=== PATIENT | female | born 1975 | race Caucasian/White ===

== ENCOUNTER → 2017-07-28 11:17 | Outpatient (CLI) | payer OTHER, SELFPAY ==
[2017-07-28 11:44] LABS: Hematocrit 42.5 % (37-47); Hemoglobin 14.1 g/dl (12.0-15.0); Mean Corp Hgb Conc 33.2 g/gl (32-36); Mean Corpuscular Hgb 29.6 pg (27.0-32.0); Mean Corpuscular Volume 89.3 fL (81-99); Mean Platelet Vol. 9.8 fl (6.2-12.0); Platelet Count 207 K/mm3 (150-450); RBC Distribution Width CV 12.8 % (11.6-14.6); RBC Distribution Width SD 41.9 fl (35.1-43.9); Red Blood Count 4.76 M/mm3 (4.2-5.4); White Blood Count 5.5 K/mm3 (4.4-11.0)
[2017-07-28 11:46] LABS: Scan Indicated on CBC? Y/N NO
[2017-07-28 12:08] LABS: Albumin, Serum 3.8 g/dL (3.2-5.0); BUN 18 mg/dL (7-18); BUN/Creat Ratio 9.1 RATIO (10-20); Chloride 103 mmol/L (98-107); Creatinine, Serum 1.97 mg/dL (0.55-1.02); EST Glomerular Filtration Rate 30 mL/min (>60); Est Glom Filt Rate - Afr Amer 36 mL/min (>60); Ferritin 39 ng/mL (8-252); Glucose 112 mg/dL (74-106); Iron 117 ug/dL (50-170); Iron Binding Capacity,Total 338 ug/dL (250-450); Potassium 4.1 mmol/L (3.5-5.1); Sodium Level 139 mmol/L (136-145); Uric Acid 6.2 mg/dL (2.6-6.0)
[2017-07-28 12:12] LABS: PTHIN 76.4 pg/mL (18.4-80.1)
[2017-07-28 12:41] LABS: Protein:Creat Ratio 207 mg/g CRE (0-200)
== END ==
PROVIDERS: Family Provider Family Medicine; PCP Family Medicine; Visit Provider Internal Medicine Nephrology
DX: I12.9 Hypertensive chronic kidney disease with stage 1 through stage 4 chronic kidney disease, or unspecified chronic kidney disease (principal); N18.3 Chronic kidney disease, stage 3 (moderate)
CPT/HCPCS: 36415; 80069; 82570; 82728; 83540; 83550; 83970; 84156; 84550; 85027

== ENCOUNTER → 2017-09-18 15:49 | Outpatient (CLI) | payer OTHER, SELFPAY ==
[2017-09-18 17:35] LABS: Anion Gap 8 (5-15); BUN 36 mg/dL (7-18); BUN/Creat Ratio 16.4 RATIO (10-20); Calcium,Total 10.1 mg/dL (8.5-10.1); Chloride 108 mmol/L (98-107); EST Glomerular Filtration Rate 26 mL/min (>60); Est Glom Filt Rate - Afr Amer 31 mL/min (>60); Glucose 80 mg/dL (74-106); Potassium 4.5 mmol/L (3.5-5.1); Sodium Level 141 mmol/L (136-145)
== END ==
PROVIDERS: Family Provider Family Medicine; PCP Family Medicine; Visit Provider Internal Medicine Nephrology
DX: N18.4 Chronic kidney disease, stage 4 (severe) (principal)
CPT/HCPCS: 36415; 80048

== ENCOUNTER → 2018-02-02 16:06 | Outpatient (CLI) | payer OTHER, SELFPAY ==
[2018-02-02 17:10] LABS: Hematocrit 39.6 % (37-47); Hemoglobin 12.8 g/dl (12.0-15.0); Mean Corp Hgb Conc 32.3 g/gl (32-36); Mean Corpuscular Volume 89.8 fL (81-99); Mean Platelet Vol. 10.2 fl (6.2-12.0); Platelet Count 206 K/mm3 (150-450); RBC Distribution Width CV 12.9 % (11.6-14.6); RBC Distribution Width SD 42.3 fl (35.1-43.9); Red Blood Count 4.41 M/mm3 (4.2-5.4); White Blood Count 5.6 K/mm3 (4.4-11.0)
[2018-02-02 17:14] LABS: Scan Indicated on CBC? Y/N NO
[2018-02-02 17:21] LABS: Protein, Urine (Random) 16.3 mg/dL (<11.9); Protein:Creat Ratio 155 mg/g CRE (0-200)
[2018-02-02 17:54] LABS: Albumin, Serum 3.7 g/dL (3.2-5.0); BUN 26 mg/dL (7-18); Calcium,Total 9.4 mg/dL (8.5-10.1); Chloride 105 mmol/L (98-107); Creatinine, Serum 2.17 mg/dL (0.55-1.02); EST Glomerular Filtration Rate 26 mL/min (>60); Est Glom Filt Rate - Afr Amer 32 mL/min (>60); Ferritin 36 ng/mL (8-252); Glucose 78 mg/dL (74-106); Iron 75 ug/dL (50-170); Iron Binding Capacity,Total 315 ug/dL (250-450); PERCENT IRON SATURATION 23.8 % (15.0-55.0); Phosphorus 4.6 mg/dL (2.5-4.9); Sodium Level 138 mmol/L (136-145); Uric Acid 5.9 mg/dL (2.6-6.0)
[2018-02-02 18:05] LABS: PTHIN 43.3 pg/mL (18.4-80.1)
== END ==
PROVIDERS: Family Provider Family Medicine; PCP Family Medicine; Referring Provider Internal Medicine Nephrology; Visit Provider Internal Medicine Nephrology
DX: I12.9 Hypertensive chronic kidney disease with stage 1 through stage 4 chronic kidney disease, or unspecified chronic kidney disease (principal); N18.4 Chronic kidney disease, stage 4 (severe)
CPT/HCPCS: 36415; 80069; 82570; 82728; 83540; 83550; 83970; 84156; 84550; 85027

== ENCOUNTER → 2020-05-31 16:59 | Outpatient (CLI) | payer OTHER, SELFPAY ==
--- NOTE | 2020-05-31 17:19 | MRI_ITS ---
HISTORY: pre kidney transplant eval, hx polycystic kidney; prev mra 2014 TECHNIQUE: Routine [place]/brain 3D time of flight MR angiogram protocol was performed without gadolinium. 3D reconstructions were reviewed. COMPARISON: July 11, 2014 FINDINGS: # of images incl. paperwork: 197 Flow is present within bilateral intracranial ICA, DINORAH, MCA, vertebral, superior cerebellars, the basilar artery, and the chucker. The anterior communicating artery is patent. Bilateral posterior communicating arteries are present bilaterally. No aneurysms, stenoses, occlusions, nor dissections. MRI/MRA Head ONLY without Contrast IMPRESSION: Normal. at 0258 Reported and signed by: Andrew Eubanks MD Electronically Signed: Andrew Eubanks MD at 2:57 EST Tel , Service support ,
== END ==
PROVIDERS: PCP Family Medicine
DX: Z01.818 Encounter for other preprocedural examination (principal)
CPT/HCPCS: 70544

== ENCOUNTER → 2020-06-16 07:03 | Outpatient (CLI) | payer OTHER, SELFPAY ==
--- NOTE | 2020-06-16 07:07 | ECHOCS_ITS ---
Reason For Study: Pre Kidney Transplant Eval Procedure This was a 2D Doppler, Color Flow transthoracic echocardiogram. The study was technically difficult. Contrast injection was performed. Exam performed in department. Left Ventricle Normal LV size. The estimated ejection fraction is 55 %. No evidence for diastolic dysfunction. No regional wall motion abnormalities noted. Right Ventricle Normal RV size. Normal systolic function. Atria Normal left atrium. Normal right atrium. No doppler evidence for ASD. Mitral Valve There is no mitral valve stenosis. No mitral valve insufficiency. Tricuspid Valve There is no tricuspid stenosis. Unable to estimate RV systolic pressure due to inadequate jet, pulmonary artery pressure probably normal. Aortic Valve There is no aortic stenosis. No aortic valve insufficiency. Pulmonic Valve There is no pulmonic valvular stenosis. No pulmonic valve insufficiency. Great Vessels Normal aortic root. Pericardium/Pleural No pericardial effusion. Medication 22 gauge I.V. with prn adaptor inserted into right arm. Diluted definity 2ml given slow IV push to enhance endocardial definition. MMode/2D Measurements & Calculations LVIDd: 3.8 cm IVSd: 0.96 cm LA dimension: 3.0 cm LVIDs: 2.2 cm LVPWd: 1.1 cm RVDd: 3.5 cm FS: 40.7 % LAV(MOD-bp): 36.2 ml LA A4 area: 12.9 cm2 RA A4 area: 12.5 cm2 LAV(MOD-bp) Indexed: 27.1 ml/m2 LAV(MOD-sp2): 46.0 ml LAV(MOD-sp4): 28.5 ml Time Measurements MV dec time: 0.27 sec Doppler Measurements & Calculations MV E max mk: 56.3 cm/sec Lat Peak E' Mk: 11.4 cm/sec Med Peak E' Mk: 8.4 cm/sec MV A max mk: 65.6 cm/sec E/E' lat: 4.9 E/E' med: 6.7 MV E/A: 0.86 MV V2 max: 69.0 cm/sec MV P1/2t max mk: 56.5 cm/sec Ao V2 max: 92.9 cm/sec MV max P.9 mmHg MV P1/2t: 73.2 msec Ao max P.4 mmHg MV V2 mean: 38.0 cm/sec MV dec slope: 226.0 cm/sec2 MV mean P.68 mmHg MV V2 VTI: 15.3 cm MVA(P1/2t): 3.0 cm2 LV V1 max: 86.4 cm/sec PA V2 max: 64.5 cm/sec LV V1 max P.0 mmHg Interpretation Summary The estimated ejection fraction is 55 %. No evidence for diastolic dysfunction. Ordering Physician: SARAY EM Referring Physician: SARAY EM Performed By: Baljit Ribeiro RCS
--- NOTE | 2020-06-16 13:41 | STRESSREP ---
Stress Test Report Date: [06/16/2020] Procedure: Exercise tolerance test/imaging study Indications: [Preoperative evaluation] Consent: Per the patient Procedure: The patient exercised on a James protocol for [9 minutes] achieving a peak heart rate of [171] bpm ([97]% predicted maximal heart rate) with a peak blood pressure [160/82] mmHg and a peak MET capacity of [10.1] METs. The baseline ECG demonstrated [Normal sinus rhythm]. The peak exercise ECG demonstrated [About [address] depressions in the inferior and lateral leads]. EKG during recovery revealed [Return of ST segments to baseline] [There were no cardiac dysrhythmias pretest, during exercise, or recovery]. The functional capacity was considered [Excellent for age]. There was [no complaint of chest discomfort during exercise or recovery]. The examination was discontinued secondary to [Achieving target heart rate]. Impression: 1. Technically adequate (percent predicted maximal heart rate greater than 85%) exercise tolerance test 2. Stress test is[positive] for exercise-induced EKG changes of ischemia. This could be a false positive finding. 3. The test test is [negative] for exercise-induced chest pain 4. Functional capacity is[excellent for age] 5. Nuclear images pending Myocardial perfusion imaging study: Technique: The patient was injected with [11.3] mCi of technetium 99m Cardiolite and subsequently rest SPECT Cardiolite nuclear imaging was obtained in the horizontal long, vertical long, and short axis views. The patient exercised on a James protocol. Please see above for details. The patient was injected with [32.8] mCi of technetium 99m Cardiolite and subsequently stress SPECT Cardiolite nuclear imaging was obtained in the horizontal long, vertical long, and short axis views. A gated Cardiolite study at peak stress was obtained. Interpretation: Rest and stress SPECT Cardiolite nuclear imaging status post realignment, normalization, and attenuation correction, demonstrates [normal myocardial radioisotope uptake]. The gated Cardiolite study demonstrates [no significant regional wall motion abnormalities]. The reported LVEF is [74]%. Impression: 1. There is[no evidence of significant ischemia or infarction]. 2. The gated Cardiolite study reports an LVEF of [74]%. This note was generated with [employer] software. It may contain incorrect words, spelling, and punctuation that were not noted in checking the note before signing.
== END ==
PROVIDERS: PCP Family Medicine
DX: Z01.818 Encounter for other preprocedural examination (principal); Q61.3 Polycystic kidney, unspecified
CPT/HCPCS: 78452; 93017; 93306; A9500; Q9957; A4216; C8929; J2785

== ENCOUNTER 2022-12-04 02:29 | Emergency (ER) | payer OTHER, SELFPAY ==
[2022-12-04 02:33] VITALS: BP 129/79; PULSE 66; RESP 16; TEMP 36.7; O2SAT 99; BMI 25.4
[2022-12-04 02:37] VITALS: BP 129/79; PULSE 65; RESP 18; TEMP 36.7; O2SAT 100
--- NOTE | 2022-12-04 02:37 | EX.ED.GENINJ ---
HPI History of Present Illness Chief Complaint: Nausea/Vomiting [facility] Medical History (Updated 12/04/22 @ 04:[address] Manny Weber, DO) End-stage renal disease needing dialysis HTN (hypertension) Peritoneal dialysis catheter in place Home Medications amlodipine 5 mg-benazepril 20 mg capsule 1 cap PO DAILY 12/04/22 [History Last Taken Unknown] calcitriol 0.5 mcg capsule 0.5 mcg PO QHS 12/04/22 [History Last Taken Unknown] diphenhydramine HCl 25 mg capsule (Allergy (diphenhydramine)) 25 mg PO Q4H PRN allergic reaction 12/04/22 [History Last Taken Unknown] ergocalciferol (vitamin D2) 1,250 mcg (50,000 unit) capsule 50,000 unit PO QWEEK 12/04/22 [History Last Taken Unknown] ferrous sulfate 324 mg (65 mg iron) tablet,delayed release 324 mg PO DAILY 12/04/22 [History Last Taken Unknown] hydrocodone-acetaminophen 5-325mg 5mg-325mg 1 tab PO Q6H PRN pain 12/04/22 [History Last Taken Unknown] sodium bicarbonate 650 mg tablet 650 mg PO TID 12/04/22 [History Last Taken Unknown] Allergy/AdvReac Type Severity Reaction Status Date / Time allopurinol AdvReac Nausea Verified 12/04/22 02:33 Social History Smoking Status: Never smoker EXAM Physical Exam Const Vital Signs: 12/04/22 02:33 12/04/22 02:37 Temperature 98.1 F 98.1 F Temperature Source Temporal Oral Pulse Rate 66 65 Respiratory Rate 16 18 Blood Pressure 129/79 H 129/79 H Blood Pressure Mean 95 95 Pulse Ox 99 100 MDM MDM MDM Narrative Medical decision making narrative: HISTORY OF PRESENT ILLNESS: 47-year-old female here with nausea vomiting abdominal pain. She notes pain is located left flank. Pain radiates to the groin. She further states there is nausea and vomiting. No history of kidney stones. No falls or trauma. No urinary complaints. She notes she had peritoneal dialysis catheter placed yesterday at outside hospital. Denies any complaints at the catheter site. No fevers. No vaginal bleeding or discharge. No history of abdominal surgeries. Last bowel movement was yesterday. There is no melena hematochezia REVIEW OF SYSTEMS: Pertinent positives: Flank pain Pertinent negatives: Urinary complaint PHYSICAL EXAM: Nursing triage notes reviewed, Vital signs reviewed Constitutional: please see mdm HENT: MMM Eyes: Pupils equal round and reactive to light, Extraocular muscles intact Neck: No stridor, no JVD, full neck ROM Lungs: Clear to auscultation, No wheezing or rales. No increased work of breathing, no conversational dyspnea, no accessory muscle use, no nasal flaring. No respiratory distress noted Heart: Regular rate and rhythm, No murmurs, No rubs and No gallops, 2+ distal pulses (radial, femoral, posterior tibial) in all extremities Abdomen: Soft, surgical site clean dry intact, peritoneal dialysis catheter clean dry intact no obvious bleeding, no fluctuance or induration. There is no tenderness palpation over peritoneal dialysis site there is no tenderness, rigidity, rebound or guarding, no obvious peritoneal signs, no palpable pulsatile abdominal masses, no auscultated abdominal bruit : No CVAT Extremities: No edema Neuro: No focal neurological deficits, cranial nerves II through XII intact, 5/5 strength in all extremities. Intact sensation to light touch in all extremities, 2+ reflexes bilateral patella tendons. Normal gait. No ataxia. Skin: No rash or lesions noted MEDICAL DECISION MAKING: Chief Complaint: Flank pain External records reviewed: No recent advanced imaging the abdomen or pelvis Factors affecting care: ESRD, hypertension status post peritoneal dialysis ALL IMAGES (IF OBTAINED) HAVE BEEN PERSONALLY REVIEWED AND INTERPRETED BY MYSELF. [facility] Narrative: 47-year-old female here with left flank pain. Notes this occurred acutely tonight. She notes left flank pain rating to the groin. I considered the following differential diagnosis: Nephrolithiasis, pyelonephritis, peritoneal dialysis catheter placement complication I obtained a Noncon CT scan, gave a gentle fluid bolus and Zofran for symptomatic control. I offered narcotic pain medicine but patient stated she just took her home [place]. She then requested a dose of narcotic pain medicine. Obtain a Noncon CT scan rule nephrolithiasis. I will obtain a UA to rule out UTI or pyelonephritis. Low suspicion for AAA given lack of pulsatile abdominal masses, pulse deficits or significant history. CT scan revealed no evidence of nephrolithiasis. Urine without evidence of infection. No clear life-limiting etiology to be ascertained. Suspect the patient's pain is secondary to gas insufflation secondary to recent peritoneal dialysis catheter placement. Instructed follow-up with her front maker lockstitch for dialysis evaluation as well as the surgery placement catheter. She was further instructed to continue pain medicine as prescribed at home. The patient and/or family, caregivers express understanding. The patient and/or family, caregivers agrees with the plan. Shared decision making: I will have a discussion with the patient and or visitors regarding risk/benefits of further testing or admission. They will be made aware of of the risk/benefits inherent in this decision they will be given the opportunity to voice understanding. Total critical care time today provided was at least 0 minutes. This excludes separately billable procedures. Critical care time (if documented) is secondary to the patient having high probability of clinically significant/life threatening deterioration in the patient's condition which required my urgent intervention. Lab Data Attestation: I reviewed the patient's lab results. Lab results narrative: CBC without leukocytosis, severe anemia, no thrombocytopenia. BMP without evidence of significant electrolyte abnormalities, no anion gap, noted ESRD Urine test is negative Labs: Laboratory Results - last 24 hr 12/04/22 02:45 WBC 11.0 RBC 4.09 L Hgb 12.0 Hct 37.9 MCV 92.7 MCH 29.3 MCHC 31.7 L RDW Std Deviation 42.8 RDW Coeff of Larisa 12.7 Plt Count 230 MPV 10.2 Immature Gran % (Auto) 0.400 Neut % (Auto) 93.0 H Lymph % (Auto) 3.2 L [place] % (Auto) 3.3 Eos % (Auto) 0.0 Baso % (Auto) 0.1 Absolute Neuts (auto) 10.3 H Absolute Lymphs (auto) 0.35 L Nucleated RBC % 0 Differential Comment SCANNED Sodium 138 Potassium 4.5 Chloride 109 H Carbon Dioxide 21.0 Anion Gap 8 BUN 55 H Creatinine 4.56 H Estim Creat Clear Calc 16.49 Est GFR (MDRD) Af Amer 13 L Est GFR (MDRD) Non-Af 11 L BUN/Creatinine Ratio 12.1 Glucose 198 H Calcium 9.1 Serum , Qual NEGATIVE Discharge Plan Triage Chief Complaint: Nausea/Vomiting ED Provider: Manny Weber Dx/Rx/DC Orders Clinical Impression: Postoperative pain Instructions: ED Post Op Wound Check, General Prescriptions: No Action hydrocodone-acetaminophen 5-325 mg tablet 1 tab PO Q6H PRN (Reason: pain) amlodipine-benazepril 5-20 mg capsule 1 cap PO DAILY Patient Comments: TAKE 1 CAPSULE BY MOUTH EVERY DAY calcitriol 0.5 mcg capsule 0.5 mcg PO QHS Patient Comments: TAKE 1 CAPSULE BY MOUTH EVERY DAY diphenhydramine HCl [Allergy (diphenhydramine)] 25 mg capsule 25 mg PO Q4H PRN (Reason: allergic reaction) ergocalciferol (vitamin D2) 1,250 mcg (50,000 unit) capsule 50,000 unit PO QWEEK Patient Comments: TAKE ONE CAPSULE BY MOUTH ONCE A WEEK ferrous sulfate 324 mg (65 mg iron) tablet,delayed release (DR/EC) 324 mg PO DAILY Patient Comments: TAKE 1 TABLET BY MOUTH EVERY DAY sodium bicarbonate 650 mg tablet 650 mg PO TID Patient Comments: TAKE 1 TABLET BY MOUTH THREE TIMES A DAY Primary Care Provider: Brenna Aceves Referrals: Brenna Aceves MD [Primary Care Provider] - Activity Restrictions/Additional Instructions: Thank you for trusting us with your care today! Please take Tylenol (2 pills, 650 mg) every 6 hours as needed for pain and fever control. If this does not control your pain please take [place] that has been provided. Please return to the emergency department if your symptoms change or worsen. Please follow with your primary care physician for further outpatient evaluation and management. Disposition Disposition: Home, Self Care
--- NOTE | 2022-12-04 02:48 | CT_ITS ---
EXAM: CT ABDOMEN AND PELVIS WITHOUT INTRAVENOUS CONTRAST CLINICAL INDICATION: Kidney Stone TECHNIQUE: Helically acquired images were obtained of the abdomen and pelvis without intravenous contrast. This CT exam was performed using one or more of the following dose reduction techniques: automated exposure control, adjustment of the mA and/or kV according to patient size, and/or use of iterative reconstruction technique. RADIATION DOSE: CTDIvol = 7.35 mGy, DLP = 422.15 mGy-cm COMPARISON: No relevant prior studies available. FINDINGS: LOWER THORAX: Unremarkable. Lung bases are clear. No cardiomegaly. No significant pericardial effusion. ABDOMEN: LIVER: Innumerable cysts throughout the liver. GALLBLADDER AND BILE DUCTS: Unremarkable. No calcified gallstones. No gallbladder distention or wall edema. No intra- or extrahepatic biliary ductal dilation. PANCREAS: Unremarkable. No focal cystic mass. SPLEEN: Unremarkable. Normal size without focal cystic or solid mass. ADRENALS: Unremarkable. No nodules. KIDNEYS AND URETERS: Innumerable renal cysts bilaterally. Normal renal size and position. No hydronephrosis. STOMACH AND BOWEL: Numerous diverticula without diverticulitis. No stomach or bowel distention. PELVIS: APPENDIX: No evidence of acute appendicitis. BLADDER: Unremarkable. REPRODUCTIVE: Complex cyst measuring 5.5 x 8.8 x 5.2 cm with a peripheral solid nodule that measures 3.2 cm in the left adnexa. Cyst measuring 2.4 cm right ovary. ABDOMEN and PELVIS: INTRAPERITONEAL SPACE: Mild pneumoperitoneum with peritoneal dialysis catheter in place. No ascites or other fluid collection. BONES/JOINTS: Unremarkable. No suspicious lytic or blastic abnormality. SOFT TISSUES: Unremarkable. No discrete abdominal or pelvic wall hernia. VASCULATURE: Unremarkable. Abdominal aorta is non-dilated. LYMPH NODES: Unremarkable. No enlarged lymph nodes. CT/Abdomen/Pelvis without Cont IMPRESSION: 1. Mild pneumoperitoneum with peritoneal dialysis catheter in place. 2. Complex cyst measuring 5.5 x 8.8 x 5.2 cm with a peripheral solid nodule that measures 3.2 cm in the left adnexa. Consider pelvic ultrasound for further evaluation. 3. Adult polycystic kidney and liver disease. 4. Innumerable cysts throughout the liver. 5. Numerous diverticula without diverticulitis. 6. Cyst measuring 2.4 cm right ovary. 7. Innumerable renal cysts bilaterally. Electronically Signed: Beto Doran MD at 4:00 EDT ,
[2022-12-04] MEDS: Ondansetron 4 MG/2 ML Vial IV (03:00)
[2022-12-04] MEDS: Morphine 4 MG/ML Syringe IV (03:07)
[2022-12-04 03:18] LABS: Absolute Lymphocyte Count 0.35 X10^3/uL (0.83-4.51); Absolute Neutrophil Count 10.3 X10^3/uL (2.0-7.7); Basophil# 0.01 X10^3/uL; Basophil% 0.1 % (0-1); Hematocrit 37.9 % (37-47); Lymphocyte # 0.35 X10^3/ul (0.83-4.51); Lymphocyte % 3.2 % (19-41); Mean Corp Hgb Conc 31.7 g/dL (32-36); Mean Corpuscular Hgb 29.3 pg (27.0-32.0); Mean Corpuscular Volume 92.7 fL (81-99); Mean Platelet Vol. 10.2 fl (6.2-12.0); Monocyte# 0.36 X10^3/uL; Monocyte% 3.3 % (0-10); NRBC Flagged by Analyzer 0 % (0-5); Neutrophil # 10.25 X10^3/uL (2.7-7.7); POSITIVE DIFFERENTIAL YES; Platelet Count 230 K/mm3 (150-450); RBC Distribution Width CV 12.7 % (11.6-14.6); RBC Distribution Width SD 42.8 fl (35.1-43.9); Red Blood Count 4.09 M/mm3 (4.2-5.4)
[2022-12-04 03:23] LABS: Differential Indicated SCAN CRITERIA MET
[2022-12-04 03:33] LABS: Internal QC Validated? YES +Cl - CLEAR BKGD; Pregnancy, Serum, hCG Quali. NEGATIVE Negative
[2022-12-04 03:38] LABS: Anion Gap 8 (5-15); BUN 55 mg/dL (7-18); BUN/Creat Ratio 12.1 RATIO (10-20); Calcium,Total 9.1 mg/dL (8.5-10.1); Chloride 109 mmol/L (98-107); Creatinine, Serum 4.56 mg/dL (0.55-1.02); EST Glomerular Filtration Rate 11 mL/min (>60); Est Glom Filt Rate - Afr Amer 13 mL/min (>60); Estimated Creatinine Clearance 16.49 ml/min; Glucose 198 mg/dL (74-106); Potassium 4.5 mmol/L (3.5-5.1); Sodium Level 138 mmol/L (136-145)
[2022-12-04 03:50] LABS: Differential Comment SCANNED
[2022-12-04 04:03] LABS: Mucous, Urine 0 SEEN /hpf (<or=2+); Red Blood Cells-Urine 0 SEEN /hpf (0-5)
[2022-12-04 04:06] LABS: Color, Urine Yellow (Yellow); Glucose, Dipstick 100 mg/dl (Normal); Ketone-Dipstick 5 mg/dl (Negative); Leukocyte Esterase-Dipstick 25 /ul (Negative); Nitrite-Dipstick Negative (Negative); Occult Blood-Urine 10 /ul (Negative); Protein-Dipstick 30 mg/dl (Negative); Urine Bilirubin Dipstick Negative (Negative); Urine Clarity Clear (Clear); Urine Urobilinogen Normal (Normal)
[2022-12-04 04:14] LABS: Bacteria RARE /hpf (None Seen); Renal Epithelial Cells 0-5 SEEN /hpf (0-5); Squamous Epithelial Cells - UA 0-5 SEEN /hpf (5-10); White Blood Cells 0-5 SEEN /hpf (0-5)
[2022-12-04] MEDS: Metoclopramide 10 MG/2 ML Vial 5 MG IV (04:44)
[2022-12-04 04:47] VITALS: BP 123/81; PULSE 64; RESP 18; TEMP 36.2; O2SAT 99
[2022-12-04 04:49] VITALS: BP 123/81; PULSE 64; RESP 16; O2SAT 99
[2022-12-04 06:06] VITALS: BP 113/74; PULSE 84; RESP 16; TEMP 36.2; O2SAT 99
== END 2022-12-04 06:08 | disposition home or self-care (01) ==
PROVIDERS: Emergency Provider Emergency Medicine; PCP Student in an Organized Health Care Education/Training Program; Visit Provider Emergency Medicine
DX: G89.18 Other acute postprocedural pain (principal); Z99.2 Dependence on renal dialysis; I12.0 Hypertensive chronic kidney disease with stage 5 chronic kidney disease or end stage renal disease; N18.6 End stage renal disease; R11.2 Nausea with vomiting, unspecified
CPT/HCPCS: 74176; 80048; 81001; 84703; 85025; 96361; 96374; 96375; 99284; J7040; A4216; J2405

== ENCOUNTER → 2023-04-02 | Outpatient (CLI) | payer OTHER, SELFPAY ==
--- NOTE | 2023-04-02 08:05 | ECHOD_ITS ---
Reason For Study: HYPERTENSION Procedure This was a 2D Doppler, Color Flow transthoracic echocardiogram. Exam performed in department. Left Ventricle Normal LV size. Left ventricular systolic function is normal. The estimated ejection fraction is 60 %. No regional wall motion abnormalities noted. Right Ventricle Normal RV size. Normal systolic function. Atria Normal left atrium. Normal right atrium. Mitral Valve Equivocal mitral valve prolapse. Tricuspid Valve Normal tricuspid valve. Aortic Valve Normal aortic valve. Trisinus/trileaflet aortic valve. Pulmonic Valve Normal pulmonic valve. Great Vessels Normal aortic root. The pulmonary artery is normal size. Normal inferior vena cava. Pericardium/Pleural No pericardial effusion. MMode/2D Measurements & Calculations LVIDd: 3.8 cm IVSd: 0.82 cm Ao root diam: 3.1 cm LVIDs: 2.5 cm LVPWd: 0.84 cm RVDd: 3.9 cm FS: 33.0 % LAV(MOD-bp): 30.2 ml LVAd ap4: 30.9 cm2 SV(MOD-sp4): 47.7 ml LAV(MOD-bp) Indexed: 15.4 ml/m2 LVLd ap4: 9.0 cm LAV(MOD-sp2): 32.8 ml EDV(MOD-sp4): 85.8 ml LAV(MOD-sp4): 26.4 ml EDV(sp4-el): 89.6 ml LVAs ap4: 18.0 cm2 LVLs ap4: 7.8 cm ESV(MOD-sp4): 38.2 ml ESV(sp4-el): 35.5 ml EF(MOD-sp4): 55.5 % EF(sp4-el): 60.4 % SV(sp4-el): 54.1 ml LA A4 area: 12.9 cm2 LA dimension(2D): 2.9 cm RA A4 area: 11.4 cm2 Time Measurements MV dec time: 0.17 sec Doppler Measurements & Calculations MV E max mk: 49.6 cm/sec Lat Peak E' Mk: 11.9 cm/sec Med Peak E' Mk: 10.3 cm/sec MV A max mk: 58.4 cm/sec E/E' lat: 4.2 E/E' med: 4.8 MV E/A: 0.85 Ao V2 max: 103.9 cm/sec LV V1 max: 85.8 cm/sec PA V2 max: 98.4 cm/sec Ao max P.3 mmHg LV V1 max P.9 mmHg ECHO/Echo Complete Interpretation Summary Normal LV size. Left ventricular systolic function is normal. The estimated ejection fraction is 60 %. Equivocal mitral valve prolapse. Multiple liver cysts noted. Ordering Physician: Randall Payne Referring Physician: NASRIN ABERNATHY Performed By: Eliana Bess RDCS
== END | disposition home or self-care (01) ==
LOC: CVS 08:04
PROVIDERS: PCP Student in an Organized Health Care Education/Training Program; Referring Provider Internal Medicine Cardiovascular Disease; Visit Provider Internal Medicine Cardiovascular Disease
DX: I10 Essential (primary) hypertension (principal); I34.1 Nonrheumatic mitral (valve) prolapse; K76.89 Other specified diseases of liver
CPT/HCPCS: 93306

== ENCOUNTER → 2023-05-29 | Outpatient (CLI) | payer OTHER, SELFPAY ==
--- OUTSIDE RECORDS SUMMARY | 2023-05-29 14:56 | XMS RPT_ITS | CCD ---
Author Name Unknown Address [address] [place] [address] Organization [facility] Care Team Providers Care Security Systems Integrator Name Role Phone Freda Vallecillo DO Primary Care Provider FREDA VALLECILLO DO Primary Care Physician [phone] JOSEMANUEL ALEXANDRA MD Primary Care Physician NASRIN ARMSTRONG, JOSEMANUEL Primary Care Unavailable NATASHA FLORES MD Consulting Unavailable CHASITY ARMSTRONG, DR DANIELLE MALDONADO Attending Unav ailleyla LOPEZ DO, NICHELLE Consulting Maite GASPAR MD, DR DANIELLE MALDONADO Attending Unav JOSEMANUEL Kelly MD Primary Care Unavailable CHASITY ARMSTRONG, DR DANIELLE MALDONADO Attending Unav kareem ALEXANDRA MD JOSEMANUEL [facility] Care Unavailable CHASITY ARMSTRONG, DR DANIELLE MALDONADO Attending Unav ailable FREDA VALLECILLO DO Primary Care Unavailmaddy GASPAR MD, DR DANIELLE MALDONADO Attending Unav kareem ALEXANDRA MD JOSEMANUEL Primary Care Unavailable DALOUL, REEM Referring Unavailable DALOUL, REEM Attending Unavailable FREDA VALLECILLO Primary Care Unavailable DALOUL, REEM Referring Unavailable DALOUL, REEM Attending Unavailable FREDA VALLECILLO Primary Care Unavailable DALOUL, REEM Referring Unavailable SARAHKOFREDA GRIMM Primary Care Unavailable FREDA VALLECILLO Primary Care Unavailable DALOUL, REEM Referring Unavailable DALOUL, REEM Referring Unavailable SARAHKOFREDA GRIMM Primary Care Unavailable DALOUL, REEM Referring Unavailable FREDA VALLECILLO Primary Care Unavailable DALOUL, REEM Referring Unavailable FREDA VALLECILLO Primary Care Unavailable DEVON FREDA Primary Care Unavailable DALOUL, REEM Referring Unavailable DALOUL, REEM Referring Unavailable DEVON, FREDA Primary Care Unavailable FRAKOWSKI, FREDA Primary Care Unavailable DALOUL, REEM Referring Unavailable DALOUL, REEM Attending Unavailable FREDA VALLECILLO Primary Care Unavailable DALOUL, REEM Referring Unavailable DALOUL, REEM Attending Unavailable PAO BREWSTER Referring Unavailable MAGDA MCDANIEL Attending Unavailable FREDA VALLECILLO Primary Care Unavailable SAUL, JOE ANIMAL SHELTER WORKER Admitting Unavailable SAUL, JOE ANIMAL SHELTER WORKER Primary Care Unavailable SAUL, JOE ANIMAL SHELTER WORKER Attending Unavailable FREDA VALLECILLO DO Consulting Unavailable PROVIDER, UNKNOWN Consulting Unavailable PROVIDER, UNKNOWN Consulting Unavailable SAUL, JOE ANIMAL SHELTER WORKER Admitting Unavailable SAUL, JOE ANIMAL SHELTER WORKER Primary Care Unavailable SAUL, JOE ANIMAL SHELTER WORKER Attending Unavailable LILLIAN PEREZ MD Referring Unava ilable FREDA VALLECILLO DO Consulting Unavailable PROVIDER, UNKNOWN Consulting Unavailable PROVIDER, UNKNOWN Consulting Unavailable SAUL, JOE ANIMAL SHELTER WORKER Primary Care Unavailable SAUL, JOE ANIMAL SHELTER WORKER Attending Unavailable SAUL, JOE ANIMAL SHELTER WORKER Admitting Unavailable FREDA VALLECILLO DO Consulting Unavailable PROVIDER, UNKNOWN Consulting Unavailable PROVIDER, UNKNOWN Consulting Unavailable LILLIAN PEREZ MD Primary Care Unava ilable LILLIAN PEREZ MD Attending Unava ilable LILLIAN PEREZ MD Admitting Unava ilable FREDA VALLECILLO DO Consulting Unavailable PROVIDER, UNKNOWN Consulting Unavailable PROVIDER, UNKNOWN Consulting Unavailable JOSEMANUEL ALEXANDRA MD Primary Care Unavailable JOSEMANUEL ALEXANDRA MD Attending Unavailable FREDA VALLECILLO DO Consulting Unavailable JOSEMANUEL ALEXANDRA MD Admitting Unavailable PROVIDER, UNKNOWN Consulting Unavailable PROVIDER, UNKNOWN Consulting Unavailable ANA BHFANNIENISH Primary Care Unavaila ble BUCKTOWARSINLILLIAN Devine Attending Unavaila ble LILLIAN PEREZ Admitting Unavaila ble FREDA VALLECILLO DO Consulting Unavailable PROVIDER, UNKNOWN Consulting Unavailable PROVIDER, UNKNOWN Consulting Unavailable SAUL, JOE ANIMAL SHELTER WORKER Admitting Unavailable SAUL, JOE ANIMAL SHELTER WORKER Primary Care Unavailable SAUL, JOE ANIMAL SHELTER WORKER Attending Unavailable FREDA VALLECILLO DO Consulting Unavailable PROVIDER, UNKNOWN Consulting Unavailable PROVIDER, UNKNOWN Consulting Unavailable Allergies Allergy Classification Reported Allergen(s) Allergy Type Date of Onset Reaction(s) Facility (7 sources) Allopurinol; Translations: [allopurinol] Drug Allergy 08-22-2021 Abdominal Discomfort, Cramping sensation quality (qualifier value) [facility] Work Phone: (2 sources) Lisinopril Drug Allergy 05-16-2020 [facility] (2 sources) Losartan Drug Allergy 05-16-2020 [facility] Medications Current Medications Medication Drug Class(es) Dates Sig (Normalized) Sig (Original) acetaminophen 325 mg / HYDROcodone bitartrate 5 mg oral tablet (1 source) Opioid Agonist Start: 12-03-2022 End: 12-08-2022 take 1 tablet by mouth every six hours as needed for pain Douglas 325- 5 mg oral tablet Dose = 1 tab(s), Oral, q6h, PRN for pain, X 5 day(s), # 20 tab(s), 0 Refill(s), Pharmacy: [facility], Acute post-operative pain, 177.8, cm, 12/03/22 9:02:00 EDT, Height, 76.9, kg, 12/03/22 9:02:00 EDT, Dosing Weight Start Date: 12/03/22 Stop Date: 12/08/22 Status: Ordered amLODIPine 5 mg oral tablet (1 source) Dihydropyridine Calcium Channel Dylan Start: 02-24-2023 amLODIPine 5 mg oral tablet Dose : 5 mg = 1 tab(s), Oral, qDay, # 30 tab(s), 0 Refill(s) Start Date: 02/24/23 Status: Ordered amLODIPine 5 mg / benazepril hydrochloride 20 mg oral capsule (5 sources) Dihydropyridine Calcium Channel Dylan, Angiotensin Converting Enzyme Inhibitor Start: 11-07-2022 take 1 capsule by mouth once daily in the morning amlodipine-benaz epril 5 mg-20 mg oral capsule Dose = 1 cap(s), Oral, qAM, # 90 cap(s), 0 Refill(s) Start Date: 11/07/22 Status: Ordered Completed/Discontinued Medications Medication Drug Class(es) Dates Sig (Normalized) Sig (Original) allopurinol 100 mg oral tablet (2 sources) Xanthine Oxidase Inhibitor Start: 09-25-2022 End: 10-24-2022 take 1 tablet by mouth once daily Allopurinol 100 MG tablet Take 1 tablet by mouth daily. 0 09/25/2022 10/24/2022 Discontinued Problems Problem Classification Problem Date Documented Date Episodic/Chronic Chronic kidney disease (2 sources) End stage renal disease; Translations: [End stage renal disease] Onset: 05-05-2022 Chronic Essential hypertension (7 sources) Hypertensive disorder; Translations: [Essential (primary) hypertension] Onset: 05-16-2020 05-16-2020 Chronic Genitourinary congenital anomalies (2 sources) Multiple renal cysts; Translations: [Polycystic kidney, unspecified] Onset: 05-16-2020 05-16-2020 Chronic Other diseases of kidney and ureters (5 sources) Kidney disease 11-07-2022 Episodic Other lower respiratory disease (5 sources) Dyspnea 11-07-2022 Episodic Other nervous system disorders (1 source) Postoperative pain ; Translations: [Other acute postprocedural pain] Onset: 12-03-2022 Episodic Other skin disorders (1 source) Nonscarring hair loss, unspecified; Translations: [Nonscarring hair loss, unspecified] Onset: 05-20-2023 Episodic Residual codes; unclassified (1 source) On waiting list for organ transplant; Translations: [Awaiting organ transplant status] Chronic Residual codes; unclassified (3 sources) Awaiting organ transplant status; Translations: [Other specified conditions influencing health status] Onset: 10-24-2022 10-24-2022 Chronic Results Test Name Value Interpretation Reference Range Facil ity Vital Signs Date Time Vital Sign Value Performing Clinician Mariel salinas 12-03-2022 12:55-0400 Body temperature 96.8 [degF] DR DANIELLE GASPAR MD [facility] 12-03-2022 12:55-0400 Diastolic Blood Pressure Non-Invasive [address] DANIELLE GASPAR MD [facility] 12-03-2022 12:55-0400 Heart rate 71 /min DR DANIELLE GASPAR MD [facility] 12-03-2022 12:55-0400 Reason For Taking VItal Signs DR DANIELLE GASPAR MD [facility] 12-03-2022 12:55-0400 Respiratory rate 16 /min DR DANIELLE GASPAR MD [facility] 12-03-2022 12:55-0400 Systolic Blood Pressure Non-Invasive [address] DANIELLE GASPAR MD [facility] 12-03-2022 12:44-0400 Body temperature 96.8 [degF] DR DANIELLE GASPAR MD [facility] 12-03-2022 12:44-0400 Diastolic Blood Pressure Non-Invasive [address] DANIELLE GASPAR MD [address] [place] [address] 12-03-2022 12:44-0400 Heart rate 63 /min DR DANIELLE GASPAR MD [address] [place] [place] [address] 12-03-2022 12:44-0400 Mean blood pressure 89 mm[Hg] DR DANIELLE GASPAR MD [facility] 12-03-2022 12:44-0400 Respiratory rate 16 /min DR DANIELLE GASPAR MD [facility] 12-03-2022 12:44-0400 Systolic Blood Pressure Non-Invasive [address] DANIELLE GASPAR MD [facility] 12-03-2022 12:38-0400 Diastolic Blood Pressure Non-Invasive [address] DANIELLE GASPAR MD [facility] 12-03-2022 12:38-0400 Heart rate 67 /min DR DANIELLE GASPAR MD [facility] 12-03-2022 12:38-0400 Mean blood pressure 87 mm[Hg] DR DANIELLE GASPAR MD [facility] 12-03-2022 12:38-0400 Respiratory rate 16 /min DR DANIELLE GASPAR MD [address] [place] [address] 12-03-2022 12:38-0400 Systolic Blood Pressure Non-Invasive [address] DANIELLE GASPAR MD [address] 12-03-2022 12:23-0400 Mean blood pressure 88 mm[Hg] DR DANIELLE GASPAR MD [address] [place] [address] 12-03-2022 11:53-0400 Body temperature 96.8 [degF] DR DANIELLE GASPAR MD [address] [place] [address] 12-03-2022 11:50-0400 Respiratory Rate - Anes 0 br/min DR DANIELLE GASPAR MD [address] [place] [address] 12-03-2022 11:45-0400 Respiratory Rate - Anes 11 br/min DR DANIELLE GASPAR MD [address] [place] [address] 12-03-2022 11:40-0400 Respiratory Rate - Anes 14 br/min DR DANIELLE GASPAR MD [address] [place] [address] 12-03-2022 11:20-0400 Body temperature 96.94 [degF] DR DANIELLE GASPAR MD [address] [place] [address] 12-03-2022 11:15-0400 Body temperature 96.84 [degF] DR DANIELLE GASPAR MD [address] [place] [address] 12-03-2022 11:10-0400 Body temperature 96.75 [degF] DR DANIELLE GASPAR MD [address] [place] [address] 12-03-2022 09:01-0400 Body height 177.[address] DANIELLE GASPAR MD [address] [place] [address] 12-03-2022 09:01-0400 Body weight 76.[address] DANIELLE GASPAR MD [address] 12-03-2022 09:01-0400 Heart rate 91 /min DR DANIELLE GASPAR MD [facility] 11-18-2022 08:09-[address] DANIELLE GASPAR MD [facility] 11-18-2022 08:09-[address] DANIELLE JIANG MD [facility] 11-18-2022 08:09-0400 Body height [address] DANIELLE GASPAR MD [facility] 11-18-2022 08:09-0400 Body temperature 98.06 [degF] DR DANIELLE GASPAR MD [facility] 11-18-2022 08:09-0400 Body weight 79.[address] DANIELLE GASPAR MD [facility] 11-18-2022 08:09-0400 Diastolic Blood Pressure Non-Invasive [address] DANIELLE GASPAR MD [facility] 11-18-2022 08:09-0400 Heart rate 83 /min DR DANIELLE GASPAR MD [facility] 11-18-2022 08:09-0400 Systolic Blood Pressure Non-Invasive [address] DANIELLE GASPAR MD [facility] 10-24-2022 08:46-0400 Body height 177.8 cm Magda Mcdaniel GLASS FORMING ENGINEER-ANIMAL SHELTER WORKER Work Phone: [facility] 10-24-2022 08:46-0400 Body mass index (BMI) [Ratio] 24.91 kg/m2 Magda Mcdaniel GLASS FORMING ENGINEER-ANIMAL SHELTER WORKER Work Phone: [facility] 10-24-2022 08:46-0400 Body temperature 97.2 [degF] Magda Mcdaniel GLASS FORMING ENGINEER-ANIMAL SHELTER WORKER Work Phone: [facility] 10-24-2022 08:46-0400 Body weight 78.74 kg Magda Mcdaniel GLASS FORMING ENGINEER-ANIMAL SHELTER WORKER Work Phone: [facility] 10-24-2022 08:46-0400 Diastolic blood pressure 77 mm[Hg] Magda Mcdaniel GLASS FORMING ENGINEER-ANIMAL SHELTER WORKER Work Phone: [facility] 10-24-2022 08:46-0400 Heart rate 80 /min Magda Mcdaniel GLASS FORMING ENGINEER-ANIMAL SHELTER WORKER Work Phone: [facility] 10-24-2022 08:46-0400 Systolic blood pressure 113 mm[Hg] Magda Mcdaniel GLASS FORMING ENGINEER-ANIMAL SHELTER WORKER Work Phone: [facility] 08-22-2021 08:42-0400 Body height 177.8 cm Pao Brewster GLASS FORMING ENGINEER-ANIMAL SHELTER WORKER Work Phone: [facility] 08-22-2021 08:42-0400 Body mass index (BMI) [Ratio] 25.47 kg/m2 Pao Brewster GLASS FORMING ENGINEER-ANIMAL SHELTER WORKER Work Phone: [facility] 08-22-2021 08:42-0400 Body temperature 99.1 [degF] Pao Brewster GLASS FORMING ENGINEER-ANIMAL SHELTER WORKER Work Phone: [facility] 08-22-2021 08:42-0400 Body weight 80.51 kg Pao Brewster APRN-ANIMAL SHELTER WORKER Work Phone: [facility] 08-22-2021 08:42-0400 Diastolic blood pressure 73 mm[Hg] Pao Brewster APRN-ANIMAL SHELTER WORKER Work Phone: [facility] 08-22-2021 08:42-0400 Heart rate 95 /min Pao Brewster APRN-ANIMAL SHELTER WORKER Work Phone: [facility] 08-22-2021 08:42-0400 Systolic blood pressure 118 mm[Hg] Pao Brewster GLASS FORMING ENGINEER-ANIMAL SHELTER WORKER Work Phone: [facility] Encounters Encounter Date Encounter Type Care Provider Facility Start: 05-20-2023 Encounter for genera l adult medical examination without abnormal findings JOSEMANUEL DAVALOSI [facility] Start: 05-20-2023 ambulatory JOSEMANUEL ARMSTRONG [facility] Start: 04-04-2023 ambulatory FREDA DEVON Facilit y:[facility] Start: 03-05-2023 ambulatory FREDA DEVON Facilit y:[facility] Start: 02-24-2023 End: 02-25-[address] DANIELLE GASPAR MD Facility:A Start: 02-24-2023 End: 02-24-[address] DANIELLE GASPAR MD [facility] Start: 02-02-2023 ambulatory FREDA VALLECILLO Facilit y:[facility] Start: 01-03-2023 ambulatory SARAY EM Facility:[facility] Start: 12-16-2022 End: 12-17-[address] DANIELLE GASPAR MD Facility:A Start: 12-16-2022 End: 12-16-[address] [facility] Start: 12-03-2022 End: 12-03-2022 ambulatory JOSEMANUEL ALEXANDRA MD Facility:A Start: 12-03-2022 End: 12-03-[address] DANIELLE GASPAR MD [facility] Start: 11-27-2022 End: 11-27-2022 ambulatory JOE HUGHES [facility] Start: 11-18-2022 End: 11-19-[address] DANIELLE GASPAR MD Facility:A Start: 11-18-2022 End: 11-18-[address] [facility] Start: 11-11-2022 End: 11-12-[address] DANIELLE GASPAR MD Facility:A Start: 11-11-2022 End: 11-11-[address] DANIELLE GASPAR MD [facility] Start: 11-02-2022 ambulatory FREDA SMITHNIRAJASHLYN Enrrique y:[facility] Start: 10-31-2022 End: 10-31-2022 ambulatory LILLIAN ARMSTRONG [facility] Start: 10-24-2022 ambulatory PAO Souza ity:[facility] Start: 10-24-2022 End: 10-24-2022 Office outpatient visit 25 minutes Magda Mcdaniel APRN-ANIMAL SHELTER WORKER Work Phone: [facility] Transplant [facility] Procedures Date Procedure Procedure Detail Performing Clinician Start: 12-03-2022 Peritoneal dialysis catheter (physical object) DR DANIELLE GASPAR MD Start: 09-19-2022 Urinalysis JOE BID WELL Plan of Treatment Date Care Activity Detail Author Start: 2025 Zoster vaccine hzv l justa for subcutaneous use ZOSTER (SHINGLES) VACCINE (1 of 2) [facility] Start: 04-04-2023 Screening for malign ant neoplasm of breast MAMMOGRAM SCREENING DISCUSSION [facility] Start: 01-03-2023 Influenza vaccination INFLUENZ A VACCINE (Season Ended) [facility] Start: 01-03-2022 Influenza vaccination INFLUENZ A VACCINE (Season Ended) [facility] Start: 08-18-2020 COVID-19 VACCINE (3 - Pfizer risk series) COVID-19 VACCINE (3 - Pfizer risk series) [facility] Start: 01-03-2020 Colonoscopy COLORECTAL CAN CER SCREENING DISCUSSION [facility] Start: 01-03-2020 Screening for malign ant neoplasm of colon COLORECTAL CANCER SCREENING DISCUSSION [facility] Start: 2015 Fasting lipid profile LIPID SCREENIN G [facility] Start: 2015 Lipid panel LIPID SCREENING [facility] Start: 2015 Screening mammography MAMMOGRA M SCREENING DISCUSSION [facility] Start: 01-03-1996 Screening for malign ant neoplasm of cervix CERVICAL CANCER SCREENING DISCUSSION [facility] Start: 1994 Third diphtheria, te tanus and acellular pertussis (DTaP) vaccination TDAP (ADULT) [facility] Start: 1993 Tetanus vaccination TETANUS [facility] Start: 1987 COVID-19 VACCINE (1) COVID-19 VACCIN E (1) [facility] Start: 1981 PNEUMOCOCCAL VACCINE SERIES (1 - PCV) PNEUMOCOCCAL VACCINE SERIES (1 - PCV) [facility] Start: 1975 Tetanus vaccination TETANUS [facility] Immunizations Immunization Date Immunization Notes Care Provider Fa cili 11-13-2022 hepatitis B vaccine, adult dosage DR DANIELLE GASPAR MD [facility] [place] 05-15-2022 hepatitis B vaccine, adult dosage DR DANIELLE GASPAR MD [facility] [place] 04-12-2022 hepatitis B vaccine, adult dosage DR DANIELLE GASPAR MD [facility] [place] 07-21-2020 SARS-CoV-2 mRNA (tozinameran) vaccine DR DANIELLE GASPAR MD [facility] [place] 06-30-2020 SARS-CoV-2 mRNA (tozinameran) vaccine DR DANIELLE GASPAR MD [facility] [place] Payers Date Payer Category Payer Private Health Insurance [employer] T RANS[employer]ANT GLOBAL [employer] [id number] 2020-Present [address] [place] [id number] 2020 Private Health Insurance [id number] 2019 Unknown [id number]. [id number] 2019 Unknown [id number] 1975 Unknown [id number] 2.16.840.1.029827.3.579. 2.627 1975 Unknown [id number] 2.16.840.1.474075.3.579. 2.627 1975 Unknown [id number] 2.16.840.1.518236.3.579. 2.627 1975 Unknown [id number] 2.16.840.1.686144.3.579. 2.627 1975 Unknown [id number] 2.16840.1.916790.3.579. 2.627 1975 Unknown [id number] 2.840.1.377763.3.579. 2.594 1975 Unknown [id number] 2.840.1.418392.3.579. 2.594 1975 Unknown [id number] 2.840.1.169524.3.579. 2.594 1975 Unknown [id number] 2.840.1.639710.3.579. 2.594 1975 Unknown [id number] 2.16840.1.238961.3.579. 2.594 1975 Unknown [id number] 2.16840.1.338142.3.579. 2.594 1975 Unknown [id number] 2.16840.1.741430.3.579. 2.594 1975 Unknown [id number] 2.16840.1.489473.3.579. 2.594 1975 Unknown [id number] 2.16.840.1.083068.3.579. 2.594 1975 Unknown [id number] 2.16840.1.765540.3.579. 2.594 1975 Unknown [id number] 2.16840.1.896813.3.579. 2.594 1975 Unknown [id number] 2.16.840.1.738520.3.579. 2.594 1975 Unknown [id number] 2.16.840.1.806594.3.579. 2.651 1975 Unknown [id number] 2.16.840.1.897458.3.579. 2.651 1975 Unknown [id number] 2.16.840.1.394444.3.579. 2.651 1975 Unknown [id number] 2.16.840.1.220140.3.579. 2.651 1975 Unknown [id number] 2.16.840.1.349678.3.579. 2.651 1975 Unknown [id number] 2.16.840.1.466464.3.579. 2.651 1975 Unknown [id number] 2.16.840.1.254137.3.579. 2.651 Social History Date Type Detail Facility Start: 05-16-2020 End: 11-07-2022 Tobacco smoking status NHIS Never smoked tobacco [facility] Start: 05-16-2020 Tobacco use and exposure Smoke less tobacco non-user [facility] Start: 05-16-2020 Alcohol intake Lifetime non-d nahun (finding) [facility] Start: 05-16-2020 History SDOH Alcohol Frequency 1 [facility] Start: 1975 Sex Assigned At Not on file O MACHADO [facility] Start: 05-16-2020 History of Social function [facility] Work Phone: Start: 05-16-2020 Alcohol Use Disorder Identification Test - Consumption [AUDIT-C] [facility] Work Phone: How often to you hav e a drink containing alcohol? Never [facility] Work Phone: Average Number of Drinks Not on file [facility] Sex Assigned At Female [facility] Functional Status Date Assessment Result Facility 12-03-2022 [facility]-03-2022 [facility] Status [facility] 12-03-2022 Functional Status NPO Status Maintained A [facility] Mental Status Date Assessment Result Facility 12-03-2022 Mental Status Oriented x 4 [facility] Clinical Notes 08-22-2021 to 12-03-2022 OYN Santos - 10/24/2022 9:00 AM EDTSusaSTEVE Padilla - 10/24/2022 9:00 AM EDTPatient InstructionsPatient InstructionsYON Jarrell - 08/22/2021 9:00 AM EDT Note Date & Type Note Facility 12-03-2022 Hospital Discharg e instructions Patient Education 12/03/2022 13:20:32 [facility] Discharge Instructions Template (02/2018) (CUSTOM) [facility] SAME DAY SURGERY DISCHARGE INSTRUCTIONS PLEASE FOLLOW THE INSTRUCTIONS BELOW MARKED WITH AN X: _x__ Regular Diet: Start with clear liquids, then soup and crackers and gradually add other foods. _x__ Drink extra fluids. ___ Special Diet Instructions: ___ ACTIVITY: _x__ Avoid stress to suture line. Since you have had an anesthetic, it would be advisable not to drive, drink alcohol, or make major decisions over the next 24 hours. You may require more rest tonight and tomorrow. ___ May resume regular activity as tolerated. _x__ _Do not lift more than 25 pounds.__ ___ Walk Only ___ ___ Do not go up and down stairs. ___ Do not ride in car until ___ _x__ Do not drive car for 3 days. ___ Do not have sexual intercourse. __x_ No heavy lifting, pushing or straining. _x_ Other: _Follow Dr. Gaspar's verbal and printed instructions. __ BATHING/SHOWERING: __x_ Sponge bathe until office visit. ___ Sitting in tub of warm water may relieve discomfort. ___ May tub bathe ___ May shower ___ On day after surgery sit in tub of warm water to soak off dressing. DRESSING: _x__ __Sponge bathe only._ ___ Check the operative area for signs of bleeding. Apply pressure to the bleeding site if necessary and call your physician. ___ Change dressing as necessary using sterile dressing material or bandaid. ___ Reinforce dressing as necessary. ___ Change and care for wound as follows: ___ ___ Wear bra for ___ days following breast surgery for comfort. ___ Change drip pad as needed. ___ Wear scrotal support for comfort. WATCH FOR SIGNS OF INFECTION: (Usually appears 36-48 hours after surgery) Increased temperature (101 degrees Fahrenheit or higher) Redness or swelling Increased pain Foul odor or drainage. If you have any questions, please call your doctor at the number listed on your follow up instructions. Follow all instructions given to you by your physician. Please complete and return the survey you will be receiving in the mail to help us better serve our patients. Form: [id number]) R: 08/1112/03/2022 13:18:14 Peritoneal Dialysis Catheter Placement, Care After Peritoneal Dialysis Catheter Placement, Care After This sheet gives you information about how to care for yourself after your procedure. Your health care provider may also give you more specific instructions. If you have problems or questions, contact your health care provider. What can I expect after the procedure? After the procedure, it is common to have some pain or discomfort in your abdomen, your incision area, or both. You may need to wait 2 weeks after your procedure before you can start peritoneal dialysis treatment. If you need dialysis before that time, your health care provider may begin peritoneal dialysis treatment early or offer kidney dialysis treatments (hemodialysis) until you heal. Follow these instructions at home: Incision care Follow instructions from your health care provider about how to take care of your incision(s). Make sure you: ?Change your dressing only as told by your health care provider. Your health care provider may tell you to not touch or change your dressing. ?Wash your hands with soap and water before you change your bandage (dressing). If soap and water are not available, use hand archery equipment repairer. ?Leave stitches (sutures), skin glue, or adhesive strips in place. These skin closures may need to stay in place for two weeks or longer. If adhesive strip edges start to loosen and curl up, you may trim the loose edges. Do not remove adhesive strips completely unless your health care provider tells you to do that. Check your incision area(s) every day for signs of infection. (If you were instructed to not touch or change your dressing, look at your dressing for signs of infection.) Check for: ?Redness, swelling, or more pain. ?Fluid or blood. ?Warmth. ?Pus or a bad smell. Medicines Take rhoq-ibc-eqnpoqk and prescription medicines only as told by your health care provider. If you were prescribed an antibiotic medicine, take it as told by your health care provider. Do not stop using the antibiotic even if your condition improves. Driving Do not drive or ride in a car until your health care provider approves. Your seat belt could move the catheter out of position or cause irritation by rubbing on your incision. Do not drive or use heavy machinery while taking prescription pain medicine. Activity Rest and limit your activity. Return to your normal activities as told by your health care provider. Ask your health care provider what activities are safe for you. Do not lift anything that is heavier than 10 lb (4.5 kg), or the limit that you are told, until your health care provider says that it is safe. Preventing constipation To prevent or treat constipation, your health care provider may recommend that you: ?Take iecq-nxb-jhwitvn or prescription medicines. ?Eat foods that are high in fiber, such as fresh fruits and vegetables, whole grains, and beans. ?Limit foods that are high in fat and processed sugars, such as fried and sweet foods. General instructions Do not use any products that contain nicotine or tobacco, such as cigarettes and e-cigarettes. If you need help quitting, ask your health care provider. Follow instructions from your health care provider about eating or drinking restrictions. Do not take baths, swim, or use a hot tub until your health care provider approves. Ask your health care provider if you may take showers. You may only be allowed to take sponge baths. Wear loose-fitting clothing that keeps the catheter covered so that it cannot get caught on something. Keep your catheter clean and dry. Keep all follow-up visits as told by your health care provider. This is important. Contact a health care provider if: You have a fever. You have redness, swelling, or more pain around an incision. You have fluid or blood coming from an incision. An incision feels warm to the touch. You have pus or a bad smell coming from an incision. You cannot eat or drink without vomiting. Get help right away if: You have problems breathing. You are confused. You have trouble speaking. You have severe pain in your abdomen that does not get better with treatment. You have bright red blood in your stool (feces), or your stool is dark black and looks like tar. These symptoms may represent a serious problem that is an emergency. Do not wait to see if the symptoms will go away. Get medical help right away. Call your local emergency services (911 in the [place] Do not drive yourself to the hospital. Summary After the procedure, it is common to have some pain or discomfort in your abdomen, your incision, or both. You may have to wait 2 weeks after your procedure before you can start peritoneal dialysis treatment. Check your incision area(s) every day for signs of infection. Get medical help right away if you have severe pain in your abdomen that does not get better with treatment. This information is not intended to replace advice given to you by your health care provider. Make sure you discuss any questions you have with your health care provider. Document Released: 10/24/2017 Document Revised: 08/12/2019 Document Reviewed: 10/24/2017 [employer] Patient Education 2020 [employer] Follow Up Care 11/11/2022 09:48:10 With:DANIELLE GASPAR JR, MD, Surgery Address: [address] [place] [address] [address] [place] [address] [phone] When: Unknown Comments:Call Dr. Gaspar's office to schedule a follow-up appointment. With:DANIELLE GASPAR JR, MD, Surgery Address: [facility] [address] [place] [address] [address] [place] [address]- When: Unknown Comments:Call office, , to make appointment. See Dr. Gaspar in 2 weeks.. [facility] 12-03-2022 Summary of episod e note Discharge Instructions Thank you for allowing [facility] to assist you with your healthcare needs. The following is important discharge information regarding your hospital visit. Your Care Team JOSEMANUEL ALEXANDRA MD Your Diagnosis Acute post-operative pain What to do next Instructions From Your Doctor Make arrangements to be seen in dialysis center as soon as possible to begin training for peritoneal dialysis. Do not remove dressing until seen in the dialysis center. Follow Up Appointments Follow Up with DANIELLE GASPAR JR, MD, Surgery When Why: Call Dr. Gaspar's office to schedule a follow-up appointment. Where: [address] [place] [address]- [phone] Follow Up with DANIELLE GASPAR JR, MD, Surgery When Why: Call office, , to make appointment. See Dr. Gaspar in 2 weeks.. Where: [facility] [address] [place] [address]- The Following Activity and Diet Have Been Ordered for You Discharge Activity - Ordered -- Lifting Restricted less than 25 pounds, Do not drive if taking narcotics, 12/03/22 13:05:00 EDT Discharge Driving Restrictions - Ordered -- * Other, specify in special instructions, no driving for three days, 12/03/22 13:05:00 EDT Discharge Diet - Ordered -- Type of Diet: Regular Diet, No changes were made to your diet during your hospital stay. Please resume your pre hospitalization diet on discharge., 12/03/22 13:05:00 EDT The Following Equipment Has Been Ordered for You Discharge Home Equipment Discharge Wound Care - Ordered -- Dressing Type: Dry sterile drsg, Remove steri strips in one week. Sponge bathe only., 12/03/22 13:05:00 EDT Allergies allopurinol (Cramping, leg cramping, Abdominal pain) Medications Please ask your primary doctor or pharmacist before taking any other medication not listed, including over the counter drugs, herbal medications, vitamins and or supplements as they may interact with your home medications. What How Much When Why Instructions Last Dose New acetaminophen-hydrocodone (Douglas 325- 5 mg oral tablet) 1 tab(s) by mouth Every 6 hours as needed for for pain Acute post-operative pain Duration: 5 Days Pickup at [facility] Unchanged amlodipine-benazepril (amlodipine-benazepril 5 mg-20 mg oral capsule) 1 cap by mouth Once a day (in the morning) Unchanged calcitriol (calcitriol 0.5 mcg oral capsule) 1 cap by mouth Daily at bedtime TAKE 1 CAPSULE BY MOUTH EVERY DAY Unchanged diphenhydrAMINE (Benadryl 25 mg oral capsule) 1 cap by mouth Every 4 hours as needed for as needed for allergy symptoms Unchanged ergocalciferol (Vitamin D2 1.25 mg (50,000 intl units) oral capsule) 1 cap by mouth Every week Unchanged ferrous sulfate (ferrous sulfate 325 mg (65 mg elemental iron) oral tablet) 1 tab(s) by mouth Once a day (in the morning) Unchanged sodium bicarbonate (sodium bicarbonate 650 mg oral tablet) 1 tab(s) by mouth Three (3) times a day Pharmacy Information [facility]: [address] [place] [address] [phone] What How Much When Comments Stop Taking mupirocin topical (mupirocin 2% topical ointment) 1 application Topical Two (2) times a day Bilateral intranasal application twice daily x 5 days pre-surgery &/ or as many days pre-surgery as possible. Please take this list to your next doctor s visit. Bring all medications you take, including over the counter medications, herbals and other supplements with you to your doctor s visit. Patients and families are reminded to discard old lists and to update any records with all medication providers or retail pharmacies. Education Materials [employer] SAME DAY SURGERY DISCHARGE INSTRUCTIONS PLEASE FOLLOW THE INSTRUCTIONS BELOW MARKED WITH AN X: _x__ Regular Diet: Start with clear liquids, then soup and crackers and gradually add other foods. _x__ Drink extra fluids. ___ Special Diet Instructions: ___ ACTIVITY: _x__ Avoid stress to suture line. Since you have had an anesthetic, it would be advisable not to drive, drink alcohol, or make major decisions over the next 24 hours. You may require more rest tonight and tomorrow. ___ May resume regular activity as tolerated. _x__ _Do not lift more than 25 pounds.__ ___ Walk Only ___ ___ Do not go up and down stairs. ___ Do not ride in car until ___ _x__ Do not drive car for 3 days. ___ Do not have sexual intercourse. __x_ No heavy lifting, pushing or straining. _x_ Other: _Follow Dr. Gaspar's verbal and printed instructions. __ BATHING/SHOWERING: __x_ Sponge bathe until office visit. ___ Sitting in tub of warm water may relieve discomfort. ___ May tub bathe ___ May shower ___ On day after surgery sit in tub of warm water to soak off dressing. DRESSING: _x__ __Sponge bathe only._ ___ Check the operative area for signs of bleeding. Apply pressure to the bleeding site if necessary and call your physician. ___ Change dressing as necessary using sterile dressing material or bandaid. ___ Reinforce dressing as necessary. ___ Change and care for wound as follows: ___ ___ Wear bra for ___ days following breast surgery for comfort. ___ Change drip pad as needed. ___ Wear scrotal support for comfort. WATCH FOR SIGNS OF INFECTION: (Usually appears 36-48 hours after surgery) Increased temperature (101 degrees Fahrenheit or higher) Redness or swelling Increased pain Foul odor or drainage. If you have any questions, please call your doctor at the number listed on your follow up instructions. Follow all instructions given to you by your physician. Please complete and return the survey you will be receiving in the mail to help us better serve our patients. Form: [id number] ([id number]) R: 08/11 Peritoneal Dialysis Catheter Placement, Care After This sheet gives you information about how to care for yourself after your procedure. Your health care provider may also give you more specific instructions. If you have problems or questions, contact your health care provider. What can I expect after the procedure? After the procedure, it is common to have some pain or discomfort in your abdomen, your incision area, or both. You may need to wait 2 weeks after your procedure before you can start peritoneal dialysis treatment. If you need dialysis before that time, your health care provider may begin peritoneal dialysis treatment early or offer kidney dialysis treatments (hemodialysis) until you heal. Follow these instructions at home: Incision care Follow instructions from your health care provider about how to take care of your incision(s). Make sure you: ? Change your dressing only as told by your health care provider. Your health care provider may tell you to not touch or change your dressing. ? Wash your hands with soap and water before you change your bandage (dressing). If soap and water are not available, use hand archery equipment repairer. ? Leave stitches (sutures), skin glue, or adhesive strips in place. These skin closures may need to stay in place for two weeks or longer. If adhesive strip edges start to loosen and curl up, you may trim the loose edges. Do not remove adhesive strips completely unless your health care provider tells you to do that. Check your incision area(s) every day for signs of infection. (If you were instructed to not touch or change your dressing, look at your dressing for signs of infection.) Check for: ? Redness, swelling, or more pain. ? Fluid or blood. ? Warmth. ? Pus or a bad smell. Medicines Take gjkd-eua-wkhxueb and prescription medicines only as told by your health care provider. If you were prescribed an antibiotic medicine, take it as told by your health care provider. Do not stop using the antibiotic even if your condition improves. Driving Do not drive or ride in a car until your health care provider approves. Your seat belt could move the catheter out of position or cause irritation by rubbing on your incision. Do not drive or use heavy machinery while taking prescription pain medicine. Activity Rest and limit your activity. Return to your normal activities as told by your health care provider. Ask your health care provider what activities are safe for you. Do not lift anything that is heavier than 10 lb (4.5 kg), or the limit that you are told, until your health care provider says that it is safe. Preventing constipation To prevent or treat constipation, your health care provider may recommend that you: ? Take rfey-frt-tinfgqw or prescription medicines. ? Eat foods that are high in fiber, such as fresh fruits and vegetables, whole grains, and beans. ? Limit foods that are high in fat and processed sugars, such as fried and sweet foods. General instructions Do not use any products that contain nicotine or tobacco, such as cigarettes and e-cigarettes. If you need help quitting, ask your health care provider. Follow instructions from your health care provider about eating or drinking restrictions. Do not take baths, swim, or use a hot tub until your health care provider approves. Ask your health care provider if you may take showers. You may only be allowed to take sponge baths. Wear loose-fitting clothing that keeps the catheter covered so that it cannot get caught on something. Keep your catheter clean and dry. Keep all follow-up visits as told by your health care provider. This is important. Contact a health care provider if: You have a fever. You have redness, swelling, or more pain around an incision. You have fluid or blood coming from an incision. An incision feels warm to the touch. You have pus or a bad smell coming from an incision. You cannot eat or drink without vomiting. Get help right away if: You have problems breathing. You are confused. You have trouble speaking. You have severe pain in your abdomen that does not get better with treatment. You have bright red blood in your stool (feces), or your stool is dark black and looks like tar. These symptoms may represent a serious problem that is an emergency. Do not wait to see if the symptoms will go away. Get medical help right away. Call your local emergency services (911 in the [place] Do not drive yourself to the hospital. Summary After the procedure, it is common to have some pain or discomfort in your abdomen, your incision, or both. You may have to wait 2 weeks after your procedure before you can start peritoneal dialysis treatment. Check your incision area(s) every day for signs of infection. Get medical help right away if you have severe pain in your abdomen that does not get better with treatment. This information is not intended to replace advice given to you by your health care provider. Make sure you discuss any questions you have with your health care provider. Document Released: 10/24/2017 Document Revised: 08/12/2019 Document Reviewed: 10/24/2017 [employer] Patient Education 2020 [employer] Additional Information VACCINATE! IT SAVES LIVES! Members of the community who have not yet received the COVID-19 vaccine and would like to receive it can visit one of [facility] vaccine clinics. There are many vaccine clinic locations within the [facility]. For locations and available times, please visit https://gettheshot.coronavirus.o hio.gov/. It is important to note that some COVID mobile vaccine clinics are held outdoors and may be canceled in rainy or stormy conditions. To learn more about pediatric vaccinations (ages 5-11), we invite you to visit the [facility] webpage. https://www.[facility].org/p ages/1495-Krqka-Tgtkqoxrfdz-Freq ndbnzi-Ncmxs-Pehzalirv.html To learn more about the COVID-19 vaccine, we invite you to visit the CDC website for a list of frequently asked questions.https://www.cdc.gov/co ronavirus/2019-ncov/vaccines/faq .html [facility] Patient Portal Access Instructions: Stay connected with your healthcare team and access your personal medical information anytime with the [facility] Patient Portal. Please follow the directions below to create your [facility] account: 1.Access the email account you provided upon registration to the hospital/physician office.2.Look for an invitation email from [facility].3.Open the email and access the invitation link: Accept Invitation to [facility].4.Fill in the required khanna to create your account. To access your account, visit [employer]. Click the blue button labeled Access Patient Portal and then log in with the username and password that you created in the steps above. You will be able to view your test results, lab results, a summary of your visits, upcoming appointments and more. There is also a convenient messaging option where you can send secure messages to your provider. In addition, you will have the ability to download any documents or summaries to your computer and/or send the information securely to a physician. Remember that your healthcare information is confidential, so carefully consider who you will allow to register on the [facility] Patient Portal for access to your information. You can also access the [facility] Patient Portal on the [facility] tung. Simply click on Patient Portal and then log into your account. If you would like to receive a full copy of your medical records, please contact the [facility] Medical Records Department by calling [phone], Friday through Friday between 8 a.m. and 4:30 p.m. HOW TO SAFELY DISPOSE OF PRESCRIPTION MEDICATIONS Please use one of the following methods to safely dispose of your unused medications. 1.Use a drug disposal kit: the drug disposal pouch allows you to safely discard your old and unused drugs. Ask your nurse to give you one when you are discharged.2.Visit a local take-back location: Many local pharmacies and police departments have programs that collect old and unwanted prescription drugs. Call your local pharmacy or go to http://Crowdtap.PeoplePerHour.com/7R0Zt5f to find one close to you.3.Make use of household items: Use cat litter or old coffee grounds to dispose medications if other options are not available. Mix your drugs with these household products, seal them in an airtight container and throw it into the garbage. Call [facility]: [phone] to be sure your drugs can be disposed of in this way. Some medicines may require a different approach.4.Never flush your medications down the toilet. IF YOU HAVE BEEN PRESCRIBED AN OPIOID FOR PAIN If you have been prescribed an opioid (such as hydrocodone, oxycodone or morphine), it is critical to understand the possible side effects and risks of opioid pain medications. Even when taken as directed, opioids can have several side effects including: Tolerance, meaning you might need to take more of a medication for the same pain relief. Nausea, vomiting and/or constipation. Sleepiness, dizziness, dry mouth, confusion, depression or itching. Physical dependence, meaning you have withdrawal symptoms when a medication is stopped, can develop within a few days. KNOW YOUR RESPONSIBILITIES It is important to know exactly how much and how often to take the opioid pain medications you are prescribed. Never take opioids in higher amounts or more often than prescribed. Do not combine opioids with alcohol or other drugs that cause drowsiness, such as benzodiazepines, also known as benzos, including diazepam and alprazolam, muscle relaxants or sleep aids. Never sell or share prescription opioids. This is illegal. Store opioids in a secure place and out of reach of others (including children, family, friends and visitors). The last page of this document has been signed and retained as a CHART COPY. Signatures Patient Education Materials 1-SDS Discharge Instructions Template (02/2018) (CUSTOM) Peritoneal Dialysis Catheter Placement, Care After Medication Leaflets My discharge plan and instructions have been reviewed and explained to me and I,JAMIL MORALES understand my current condition and have read and understand these discharge instructions. I have received a written copy of the plan/instructions. If I have questions, I am aware that I should contact my doctor. 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 Mental status: at preoperative baseline. Respiratory function: respirations are non-labored, stable. Respiratory support: none. CV function: stable. Cardiovascular support: none. Pain: Post op control satisfactory. Nausea status: satisfactory. Postoperative hydration status: within normal limits. Notes: pt sufficentyl recovered from anesthesia to participate in the evaluation. No follow up care needed. No complications post-anesthesia. Digitally Signed by NICHELLE LOPEZ DO on 12/03/2022 12:49 PM [facility] 12-03-2022 Anesthesiology Consult note Patient: JAMIL MORALES Age: 47 years Sex: Female : 1975 Associated Diagnoses: None Author: NATASHA FLORES MD Preoperative Information Time of last food or liquid consumption: 12/03/2022 00:00:00 Anesthesia history Patient's history: Patient states she has not had previous anesthetic exposure, no family history of anesthesia difficulties. Family's history: negative. History of Present Illness The patient presents for preanesthesia evaluation with Patient is a 47-year-old female who presents for semielective peritoneal dialysis catheter insertion to deal with chronic renal failure. She states she is active without cardiopulmonary limitations, symptoms of ischemia, prior history of CAD or cardiac interventions. Her EKG is normal sinus rhythm without changes just for ischemia. She does have a history of hypertension along with her end-stage renal disease, however, denies any other chronic medical conditions. Her only allergy is to allopurinol. She has no symptoms suggestive for reflux disease. I reviewed her chart, studies, labs, consultations. Spoke with her at length about the anesthetic plan and risks, she verbalized understanding and signed consent to proceed with general anesthesia for planned procedure.. Health Status Allergies: Allergic Reactions (Selected) Severity Not Documented Allopurinol- Abdominal pain, cramping and leg cramping., Allergies (1) ActiveReaction allopurinolAbdominal pain Current medications: (Selected) Inpatient Medications Ordered Kefzol: 2 gram(s), 20 mL, 240 mL/hr, IV Push (INT), PREOP pharm NS 1,000 mL: 20 mL/hr, Intravenous lidocaine 1% preservative-free injectable solution: 2.5 mg, 0.25 mL, Intradermal, prep pharm Prescriptions Prescribed mupirocin 2% topical ointment: 1 tung, Topical, BID, Bilateral intranasal application twice daily x 5 days pre-surgery &/or as many days pre-surgery as possible., 22 gram(s), 0 Refill(s) Documented Medications Documented Benadryl 25 mg oral capsule: 25 mg, 1 cap(s), Oral, q4h, PRN: as needed for allergy symptoms, 24 cap(s), 0 Refill(s) Vitamin D2 1.25 mg (50,000 intl units) oral capsule: 50,000 International_Unit, 1 cap(s), Oral, qWeek, 4 cap(s), 0 Refill(s) amlodipine-benazepril 5 mg-20 mg oral capsule: 1 cap(s), Oral, qAM, 90 cap(s), 0 Refill(s) calcitriol 0.5 mcg oral capsule: 0.5 mcg, 1 cap(s), Oral, qHS, TAKE 1 CAPSULE BY MOUTH EVERY DAY ferrous sulfate 325 mg (65 mg elemental iron) oral tablet: 325 mg, 1 tab(s), Oral, qAM, 270 tab(s), 0 Refill(s) sodium bicarbonate 650 mg oral tablet: 650 mg, 1 tab(s), Oral, TID, 60 tab(s), 0 Refill(s), Medications (3) Active Scheduled: (2) ceFAZolin syringe 2 gram(s) 20 mL, IV Push (INT), PREOP pharm lidocaine 1% (MPF) 2 mL vial pf 2.5 mg 0.25 mL, Intradermal, prep pharm Continuous: (1) NS (0.9% nacl) 1,000 mL 1,000 mL, Intravenous, 20 mL/hr PRN: (0) Problem list: Medical Hypertension / SNOMED CT 13924063 / Confirmed Kidney disease / SNOMED CT 475419452 / Confirmed Shortness of breath / SNOMED CT 957089662 / Confirmed, Active Problems (6) Anemia Glasses Hypertension Kidney disease Shortness of breath Vitamin D deficiency Histories Past Medical History: No active or resolved past medical history items have been selected or recorded. Family History: Atrial fibrillation Father Kidney disease Mother Skin cancer Father Procedure history: Extraction of wisdom tooth ([id number]). Social History Social & Psychosocial Habits Alcohol 11/07/2022 Use: Never Substance Abuse 11/07/2022 Use: Never Tobacco 11/07/2022 Tobacco Use: Never (less than 100 in l Home/Environment 11/18/2022 Domestic Concerns None Living situation: Home/Independent Current Home Treatments None Special Services and Community Resources None Marital Status of Patient if Patient Independent Adult: Unmarried . Physical Examination Vital Signs 12/03/2022 9:01 EDT Temperature Temporal Artery 36.1 DegC Apical Heart Rate 91 bpm Respiratory Rate 18 br/min Systolic Blood Pressure Non-Invasive 132 mmHg Diastolic Blood Pressure Non-Invasive 81 mmHg Vital Signs(last 24 hrs) Last Charted Resp Rate 18 br/min (DEC 03 09:01) AQE559 mmHg (DEC 03 09:01) DBP81 mmHg (DEC 03 09:) Measurements from flowsheet : Measurements 12/03/2022 9:01 EDT Height 177.8 cm Height in inches 70 inch(es) Admission Weight 76.9 kg Weight Lbs 169.2 lb Weight Method Actual Sutter Body Weight 68.50 kg Type of Scale Used Weigh bed Admission Body Mass Index 24.33 m2 Pain assessment: Pain Assessment 12/03/2022 9:01 EDT Primary Pain Intensity 0 Primary Pain Nonverbal Response Nods No Pain Scale Type 0-10 Pain scale . General: Alert and oriented, No acute distress. Airway: Normal mouth. Mallampati classification: I (soft palate, fauces, uvula, pillars visible). Head: Normocephalic, Atraumatic. Dentition Evaluation: Intact, Own teeth. Neck: Supple, Non-tender. Respiratory: Lungs are clear to auscultation, Respirations are non-labored. Cardiovascular: Normal rate, Regular rhythm. Heart Sounds: Normal. Neurologic: Alert, Oriented. Review / Management Results review: Labs (Last four charted values) Na 142(DEC 03) K 4.5(DEC 03) CO2 L 21(DEC 03) Cl 109(DEC 03) Cr H 4.52(DEC 03) BUN H 58.0(DEC 03) Glucose 91(DEC 03) Ca 9.3(DEC 03) , Lab results 12/03/2022 9:09 EDT Urine POC Negative 12/03/2022 9:08 EDT SN - Preop - CTm Pt Ready for OR/Proced 12/03/2022 9:08 12/03/2022 9:08 EDT Glucose Level 91 mg/dL Sodium Level 142 mEq/L Potassium Level 4.5 mEq/L Chloride 109 mEq/L CO2 21 mEq/L LOW Electrolyte Balance 12.0 mEq/L BUN 58.0 mg/dL HI Creatinine Lvl (s) 4.52 mg/dL HI BUN/Creatinine Ratio 12.8 ratio Calcium Lvl 9.3 mg/dL GFR Non- 10 ml/min/1.73sqm NA GFR 13 ml/min/1.73sqm NA Creatinine Clearance Calc 16.64 mL/min Sodium Chloride 0.9% Begin Bag 1,000 mL mL 12/03/2022 9:07 EDT Antecubital Left 12/03/2022 20 gauge Peripheral IV Activity: Insert new site Peripheral IV Dressing Condition: Clean, Dry, Intact Peripheral IV Dressing Activity: Applied Peripheral IV Line Status/Patency: Flushes easily Peripheral IV Site Condition: No complications Peripheral IV Number of Attempts: 1 12/03/2022 9:01 EDT Height 177.8 cm Height in inches 70 inch(es) Admission Weight 76.9 kg Weight Lbs 169.2 lb Weight Method Actual Sutter Body Weight 68.50 kg Type of Scale Used Weigh bed Admission Body Mass Index 24.33 m2 Temperature Temporal Artery 36.1 DegC Apical Heart Rate 91 bpm Respiratory Rate 18 br/min Systolic Blood Pressure Non-Invasive 132 mmHg Diastolic Blood Pressure Non-Invasive 81 mmHg Primary Pain Intensity 0 Primary Pain Nonverbal Response Nods No Pain Scale Type 0-10 Pain scale Heart Rhythm Regular Respirations Unlabored Respiratory Pattern Regular All Lobes Breath Sounds Clear Oxygen Therapy Room air Oxygen Saturation 98 % Abdomen Description Non-distended, Soft Bowel Sounds All Quadrants Present Urinary Elimination Voiding, no difficulties Skin Temperature Warm Skin Description [place], Dry Skin Integrity Intact Characteristics of Speech Clear Level of Consciousness Alert Strength All Extremities Strong Tone All Extremities Normal Sensation All Extremities Intact Affect/Behavior Appropriate, Calm, Cooperative Orientation Oriented x 4 Standard Safety ID band on, Allergy Band on, Call device within reach, Bed in low position, Wheels locked, Upper/Half-Length side-rails up, Phone within reach, personal items within reach, Toileting device within reach, Visitor at bedside, Safety level maintained, Non-Slip footwear 12/03/2022 8:59 EDT IV Present Present Violence Risk Confused No Violence Risk Irritable No Violence Risk Boisterous No Violence Risk Verbal Threats No Violence Risk Physical Threats No Violence Risk Attacking Objects No Violence Risk Predictor Score 0 Allergies Yes Patient Dressed In Hospital gown CHG Preoperative Wash/Wipe Site specific wipe, Daily CHG bath Preop Nasal Swab Povidone-Iodine CHG Skin Prep Completed for Eligible Surgery History & Physical Update On Chart Yes History & Physical On Chart Yes MRSA/MSSA Protocol Yes Belongings At Bedside Cell phone, Pants, Shirt, Shoes, Undergarments, Wallet Personal Home Medications Received Received from patient NPO Status Maintained Allergy Band on and Verified Yes Patient ID Band on and Verified Yes Last Fluid Intake 12/02/2022 22:00 Last Food Intake 12/02/2022 21:00 12/03/2022 8:55 EDT Sensory Deficits None Barriers to Learning None evident Teaching Method Explanation, Printed materials Teaching Evaluation Verbalizes/Nonverbally indicates understanding Safety Brochure Information Reviewed Yes Shaquille Blakely Video Viewed No Discharge To, Anticipated Home independently Personal Devices, Patient Valuables None Admission Note-Nursing Same Day Patient History (Modified) 12/03/2022 8:54 EDT SN - Preop - CTm Pt in SDS Room 12/03/2022 8:54 12/02/2022 12:52 EDT Surgery Scheduled On Date/Time 12/03/2022 10:25 Patient Aware Date/Time Of Surgery Yes Arrival Time the Day of Surgery 12/03/2022 8:25 Patient Aware of Arrival Time Yes Pre-Op Patient Education NPO after midnight, No smoking after midnight, No makeup, No jewelry, Responsible Democrat, Aware of surgery location, Pre-op education done, 2 bottles CHG wash with instructions given, No ordered medications, Instructed to bring home medications (Modified) SN - Preprocedure Comments Spoke with patient, Verbalizes/Nonverbally indicates understanding Admission Note-Nursing Date\Time Correction . Assessment and Plan [place] Society of Anesthesiologists (ASA) physical status classification: Class IV. Anesthetic Preoperative Plan Premedication: intravenous. Anesthetic technique: General. Induction: intravenously. Maintenance airway: Oral endotracheal tube. Postoperative pain management: Per surgeon. Risks discussed: nausea, vomiting, headache, sore throat, dental injury, hypotension, allergic reaction, serious complications. Informed consent: signed by patient. Notes: Patient identified, medical record reviewed, medical history reviewed with patient. Assessment performed. Plan prescribed discussed with patient including risks. Inquiries invited and addressed. Consent signed by patient, pt agrees to proceed with GA for planned procedure . Digitally Signed by NATASHA FLORES MD on 12/03/2022 10:09 AM [facility] 10-24-2022 History of Presen t illness Narrative Images from the original note were not included. [facility] Wait list Evaluation Dialysis Center: (Not currently on dialysis) Chief Complaint: Scheduled Kidney Transplant wait list evaluation. History of Present Illness: Jamil Morales has chronic kidney disease due to Polycystic Kidneys and is not on dialysis with the most recent eGFR of 13 ml/min on 09/19/2022. Since Jamil was most recently evaluated in clinic on 08/22/2021, she has not had any hospitalizations, surgeries, or infections. [place] kidney biopsy: no List Date: 03/23/2021 Inactive Date(s): none Verified she is active in [facility]. 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 Estimated body mass index is 24.91 kg/m as calculated from the following: Height as of this encounter: 1.778 m (5' 10 ). Weight as of this encounter: 78.7 kg (173 lb 9.6 oz). General: well-appearing Cardio: S1S2 RRR Lungs: Clear to auscultation Femoral Pulse:right femoral present Skin: intact Liver Frailty Index 3-Component Liver Frailty Index: 3.52 Liver Frailty Score: Prefrail Allergies: Allergies Allergen Reactions Allopurinol Abdominal Discomfort cramps Lisinopril Related to decline in kidney function Losartan Medications: Current Outpatient Medications Medication Sig amlodipine-benazepril 5-20 MG capsule Take 1 capsule by mouth daily. calcitRIOL 0.25 MCG capsule Take 0.25 mcg by mouth every other day. ferrous sulfate 324 (65 Fe) MG Tab DR tablet Take 1 tablet by mouth daily. Ergocalciferol 1.25 MG (50982 UT) capsule Take 1 capsule by mouth once a week. Laboratory Data O POS cPRA (%) Date Value 08/27/2022 0 Health Maintenance: Mammogram: 04/04/2022 no mammographic evidence of malignancy Pap Smear: 06/14/2019 negative for intraepithelial lesion or malignancy Jamil reports that she has never smoked. She has never used smokeless tobacco. Cardiac Testin04/24/2022 RIGHT VENTRICLE: Normal right ventricular size and function. LEFT ATRIUM: Normal left atrial size, RIGHT ATRIUM: Normal right atrial size. ATRIAL SEPTUM: No significant color-flow noted across the atrial septum. MITRAL VALVE: Normal mitral valve thickness. No significant stenosis. Trivial mitral regurgitation. TRICUSPID VALVE: Normal tricuspid valve thickness. Mild tricuspid regurgitation. AORTIC VALVE: Normal trileaftet aortic valve. No significant stenosis or regurgitation. PULMONIC VALVE: Not well visualized. Trivial pulmonic insufficiency. AORTIC ROOT: Normal sized aortic root. AORTIC ARCH: Normal sized aortic arch. DESC THORACIC AORTA: Normal sized ascending aorta. IVCISVC: Normal-sized IVC. PERICARDIUM: No significant pericardial effusion is noted. PLEURA: No obvious pieural effusion is noted. Complex cystic structures noted in the perihepatic area consider dedicated imaging. Active living donors: 0 EPTS score: 13% Maximum KDPI acceptable: 85% Impression and Plan 1. Jamil Morales will remain active on the kidney transplant wait list with a qualifying date of 03/23/2021. 2. Polycystic kidney disease - 05/31/2020 No aneurysms, stenoses, ocolusions, nor dissections. 3. Hyperparathyroidism- PTH 171 pg/mL on 09/19/2022. 4. Functional status: Pre-frail - advise to increase physical and cognitive activity 5. Ms. Morales was highly encouraged to find a living donor. Consider a transplant champion. 6. She was educated on Hepatitis C Antibody positive/RADHA negative donors so if she received a kidney offer with this classification, she could make an informed decision. 7. She was educated on Hepatitis C Antibody positive/RADHA positive donors so if she received a kidney offer with this classification, she could make an informed decision. Consent previously signed. 8. Ms. Morales will be asked to return for a wait list appointment as well as repeat cardiac testing according to protocol. She was also asked to keep the transplant center updated with any change in condition or hospitalizations. Time Spent on Encounter: 30 minutes Magda Mcdaniel MSN, RN, GLASS FORMING ENGINEER-BC, CCTN Certified Nurse Practitioner [facility] [address] [facility] [id number] Transplant Psychosocial Social History: This SW met with patient and patient's sister Christine during clinic visit to complete patient's social history. Pt reports access to support through her sister Christine, her father De, and multiple extended family members. Pt lives with her father De who also travels to [place] in the winter time. 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 Pt denies financial concerns at this time. Pt reports access to [employer] insurance. Pt does not want follow [facility] financial counselors. Pt denies current use of alcohol. Pt denies current use of tobacco. Pt denies current use of illicit substances. Pt denies experiencing physical and/or mental abuse and does not want follow up with regarding same. Pt reports current mental health symptoms of intermittent sadness and tearfulness as it relates to her health concerns. Pt shares that she has experienced a decline in her functional capacity, which has limited her ability to engage in some of the more active hobbies she previously enjoyed. Pt reports that she anticipates starting dialysis in the next two months and appears to be experiencing symptoms consistent with adjustment to the same. Pt denies current mental health treatment. Pt is aware of [facility] support group and was encouraged to reach out if she wishes to receive information regarding additional supportive services. Pt denies wanting additional follow-up by . Pt has not completed an Advance Directive or Living Will. Per review of pt's previous social histories and/or initial psychosocial evaluation, there does not appear to be a history of psychosocial concerns. Pt does not have current or past compliance concerns. Pt appears to be an adequate transplant candidate from a psychosocial standpoint at this time. DORY Sarmiento LISW Transplant Patch Press Operator Telephone: [phone] documented in this encounter [facility] 10-24-2022 Instructions Magda Mcdaniel APRN-ANIMAL SHELTER WORKER - 10/24/2022 9:00 AM EDT Living Donor [place] Ask one or two family members or close friends to be your living donor champion. The roles of the champion are to: Find a living donor for you in a timely fashion Take the responsibility of identifying a donor away from the you, allowing you to focus on your health Connect and talk with as many people as possible so that an appropriate match can be found Offer support and inspiration through your difficult journey The champion should be knowledgeable with the kidney transplant process. Please call us with your champion's name and contact information so we can provide the education Benefits to the champion Provides the opportunity to save a life. Gives the opportunity to contribute to the recipient s life -- and the lives of the recipient s loved ones -- in a very meaningful and lifelong way Benefits to you A live donor reduces your wait time from years to a few months. You can receive your transplant while you are still an acceptable candidate. Many people become too ill for transplant while waiting on the list for a donor kidney. Current Status on the Kidney Transplant List active Your Blood Type O POS Your To Do List Update our transplant center updated with any illnesses, open wounds or hospitalizations by calling your coordinator at [phone]. Continue your health maintenance while waiting for your transplant. You have the right to opt out of the transplant process at any time. If you would like to discuss alternative treatments or therapies to kidney transplantation, please discuss with your provider. May 2020-April 2021 [facility] 330 People Received Kidney Transplants 76 Living donor 254 donor donor [facility] Living [facility] Requires dialysis in the first week after transplant 28.3% 1.3% Estimated probability of surviving with a functioning graft at 1 year (1) 95.66% 96.922% Estimated probability of surviving with a functioning graft at 3 years (2) 86.98% 90.61% Data from: [place] Scientific Registry of Transplant Recipients http://www.srtr.org (1) Single organ transplants performed between 05/05/2018 and 07/15/2019 (unadjusted for patient and donor characteristics) (2) Single organ transplants performed between 11/03/2015 and 05/04/2018 (unadjusted for patient and donor characteristics) All recipients will be tested for HIV, HBV and HCV after transplant. The types of kidney offer you may receive: Risk criteria for infection In the past month the donor: Had sex with known or suspected infected person with HIV, Hepatitis B or Hepatitis C Is a man who had sex with another man Unknown medical or social history Had sex with a person in exchange for money or drugs Used non medical injection of drugs Has been in lockup, longterm, residential or juvenile correctional facility for > 72 hours Had sex with a person who injected drugs for a non medical reason Had sex with a person who had sex in exchange for money or drugs Child born to a mother with HIV, HBV or HCV infection Child breastfed by a mother with HIV infection Donor is Hepatitis C antibody (+)/RADHA (nucleic acid test) (-) You may receive an offer in which the inside sales coordinator asks you if you want to accept a kidney from a donor that is HCV +/RADHA -. This means that either the kidney donor: Had hepatitis C in the past and his/her body cleared the virus (can occur 20-45% of the time) -OR- The test was a false positive. In either case, the absence of detectable HCV RNA (RADHA) essentially confirms the absence of chronic HCV infection. Donor is Hepatitis C antibody (+)/RADHA (nucleic acid test) (+) You may receive an offer in which the inside sales coordinator asks you if you want to accept a kidney from a donor that is HCV +/RADHA + . This means that the kidney donor has active circulating hepatitis C and with the acceptance of this organ, you will get hepatitis C. Once it is confirmed, and the genotype is confirmed, we will prescribe an antiviral as defined below. What is Hepatitis C? Hepatitis C is an infection of the liver that results from the Hepatitis C virus (HCV). HCV causes inflammation of the liver. The inflammation progresses slowly over years. The disease usually has mild or no symptoms. How is Hepatitis C Spread? Hepatitis C is usually spread when blood from a person infected with HCV enters the body of someone who is not infected. Today, most people become infected with HCV by sharing needles, syringes, or any other equipment to inject drugs. Treatment Process According to the Center for Disease Control (CDC), over 90% of HCV infected persons can be cured of HCV infection regardless of HCV genotype, with 8-12 weeks of oral therapy.1 Mavyret: has an overall cure rate 98% most common side effects are headache and tiredness.2, 3 If you are not cured with the first 8 week treatment, you will then complete a second round of treatment. Protect Your Family Against Hepatitis C while you are in the Treatment Process Since HCV is not passed casually, HCV transmission between household members is rare. HCV is contagious, but only through [id number] contact. HCV is not transmitted by hugging, kissing, sneezing, coughing, sharing eating utensils or glasses, or by casual contact. Although the risk of acquiring HCV is low, we do recommend that you do not share razors, toothbrushes, glucose monitors and other tools that may be exposed to blood. Sexual Transmission While rare, sexual transmission of Hepatitis C is possible. It is recommended that you use a latex condom until you have been cleared of the hepatitis C infection. By consenting to receive a HCV positive kidney your wait time may be much shorter. 1 [place] Association for the Study of Liver Diseases (AASLD) and the Infectious Diseases Society of [place] (IDSA). Recommendations for testing, management, and treating hepatitis C. HCV testing and linkage to care. Available at: https://www.hcvguidelines.org 2 Epclusa full prescribing information [id number] revised 03/2019 3 Mavyret full prescribing information [id number]-[id number] revised May 2019 Living donor is expected to function over 12 years Did not receive dialysis before kidney transplant Was on dialysis for 4 years before kidney transplant 5 years after transplant 86% chance patient survival 75% chance patient survival 8 years after transplant 78% chance patient survival 65% chance patient survival documented in this encounter [facility] 08-22-2021 Instructions YON Jarrell - 08/22/2021 9:19 AM EDT Living Donor [place] Ask one or two family members or close friends to be your living donor champion. The roles of the champion are to: Find a living donor for you in a timely fashion Take the responsibility of identifying a donor away from the you, allowing you to focus on your health Connect and talk with as many people as possible so that an appropriate match can be found Offer support and inspiration through your difficult journey The champion should be knowledgeable with the kidney transplant process. Please call us with your champion's name and contact information so we can provide the education Benefits to the champion Provides the opportunity to save a life. Gives the opportunity to contribute to the recipient s life -- and the lives of the recipient s loved ones -- in a very meaningful and lifelong way Benefits to you A live donor reduces your wait time from years to a few months. You can receive your transplant while you are still an acceptable candidate. Many people become too ill for transplant while waiting on the list for a donor kidney. Current Status on the Kidney Transplant List active Your Blood Type O POS Your Hepatitis B sAB status at the time of your transplant evaluation. negative; vaccines have not been received; Please consider obtaining the Hepatitis B vaccine series. We offer the vaccine at the [facility] on the ground floor. Your To Do List Update our transplant center updated with any illnesses, open wounds or hospitalizations by calling your coordinator at [phone]. Continue your health maintenance while waiting for your transplant. You have the right to opt out of the transplant process at any time. If you would like to discuss alternative treatments or therapies to kidney transplantation, please discuss with your provider. November 2018- October 2019 [facility] 331 People Received Kidney Transplants 85 Living donor 246 donor donor [facility] Living donor [facility] Requires dialysis in the first week after transplant 19.1% 2.4% Estimated probability of surviving with a functioning graft at 1 month (1) 99.54% 99.51% Estimated probability of surviving with a functioning graft at 1 year (1) 96.74% 99.02% Estimated probability of surviving with a functioning graft at 3 years (2) 84.93% 93.31% Data from: [place] Scientific Registry of Transplant Recipients http://www.srtr.org (1) Single organ transplants performed between 11/02/2016 and 05/04/2019 (unadjusted for patient and donor characteristics) (2) Single organ transplants performed between 05/05/2014 and 11/01/2016 (unadjusted for patient and donor characteristics) All recipients will be tested for HIV, HBV and HCV after transplant. The types of kidney offer you may receive: Risk criteria for infection In the past month the donor: Had sex with known or suspected infected person with HIV, Hepatitis B or Hepatitis C Is a man who had sex with another man Unknown medical or social history Had sex with a person in exchange for money or drugs Used non medical injection of drugs Has been in lockup, longterm, residential or juvenile correctional facility for > 72 hours Had sex with a person who injected drugs for a non medical reason Had sex with a person who had sex in exchange for money or drugs Child born to a mother with HIV, HBV or HCV infection Child breastfed by a mother with HIV infection Donor is Hepatitis C antibody (+)/RADHA (nucleic acid test) (-) You may receive an offer in which the inside sales coordinator asks you if you want to accept a kidney from a donor that is HCV +/RADHA -. This means that either the kidney donor: Had hepatitis C in the past and his/her body cleared the virus (can occur 20-45% of the time) -OR- The test was a false positive. In either case, the absence of detectable HCV RNA (RADHA) essentially confirms the absence of chronic HCV infection. Donor is Hepatitis C antibody (+)/RADHA (nucleic acid test) (+) You may receive an offer in which the inside sales coordinator asks you if you want to accept a kidney from a donor that is HCV +/RADHA + . This means that the kidney donor has active circulating hepatitis C and with the acceptance of this organ, you will get hepatitis C. Once it is confirmed, and the genotype is confirmed, we will prescribe an antiviral as defined below. What is Hepatitis C? Hepatitis C is an infection of the liver that results from the Hepatitis C virus (HCV). HCV causes inflammation of the liver. The inflammation progresses slowly over years. The disease usually has mild or no symptoms. How is Hepatitis C Spread? Hepatitis C is usually spread when blood from a person infected with HCV enters the body of someone who is not infected. Today, most people become infected with HCV by sharing needles, syringes, or any other equipment to inject drugs. Treatment Process According to the Center for Disease Control (CDC), over 90% of HCV infected persons can be cured of HCV infection regardless of HCV genotype, with 8-12 weeks of oral therapy.1 Mavyret: has an overall cure rate 98% most common side effects are headache and tiredness.2, 3 If you are not cured with the first 8 week treatment, you will then complete a second round of treatment. Protect Your Family Against Hepatitis C while you are in the Treatment Process Since HCV is not passed casually, HCV transmission between household members is rare. HCV is contagious, but only through idxju-qa-ahery contact. HCV is not transmitted by hugging, kissing, sneezing, coughing, sharing eating utensils or glasses, or by casual contact. Although the risk of acquiring HCV is low, we do recommend that you do not share razors, toothbrushes, glucose monitors and other tools that may be exposed to blood. Sexual Transmission While rare, sexual transmission of Hepatitis C is possible. It is recommended that you use a latex condom until you have been cleared of the hepatitis C infection. By consenting to receive a HCV positive kidney your wait time may be much shorter. 1 [place] Association for the Study of Liver Diseases (AASLD) and the Infectious Diseases Society of [place] (IDSA). Recommendations for testing, management, and treating hepatitis C. HCV testing and linkage to care. Available at: https://www.hcvguidelines.org 2 Epclusa full prescribing information [id number] revised 03/2019 3 Mavyret full prescribing information 03-C386 revised May 2019 Living donor is expected to function over 12 years High Kidney Donor Profile Index KDPI 0-20% is expected to function, on average, nearly 11 and a half years after transplant KDPI between 21 and 85% and are expected to function for about 9 years (majority of offers) KDPI exceeding 85% are expected to function for more than five and a half years. Actual graft survival for any given patient depends on patient-specific factors such as age, diagnosis, HLA mismatching, compliance with treatment protocols, and other factors. https://optn.transplant.hrsa.gov /resources/guidance/kidney-donor -ahhtcep-qxcoh-djqq-ugukg-hwo-ba inicians/#:~:text=Figure%201%20s hows%20that%20a,function%20for%2 0about%209%20years. Did not receive dialysis before kidney transplant Was on dialysis for 4 years before kidney transplant 5 years after transplant 86% chance patient survival 75% chance patient survival 8 years after transplant 78% chance patient survival 65% chance patient survival documented in this encounter [facility] 08-22-2021 History of Presen t illness Narrative [facility] Wait list Evaluation Dialysis Center: (Not currently on dialysis). Follows with Dr. Perez Chief Complaint: Scheduled Kidney Transplant wait list evaluation. History of Present Illness: Jamil Morales has chronic kidney disease due to Polycystic Kidneys and is not on dialysis with the most recent eGFR of 19 ml/min on 03/04/21. 03/23/21 [facility]ed [facility] Verified she is active in [employer]. 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 Estimated body mass index is 25.47 kg/m as calculated from the following: Height as of this encounter: 1.778 m (5' 10 ). Weight as of this encounter: 80.5 kg (177 lb 8 oz). General: well-appearing Cardio: S1S2 RRR Lungs: Clear to auscultation Skin: intact Allergies: Allergies Allergen Reactions Allopurinol Abdominal Discomfort cramps Lisinopril Related to decline in kidney function Losartan Medications: Current Outpatient Medications Medication Sig amlodipine-benazepril 5-20 MG capsule Take 1 capsule by mouth daily. Ergocalciferol (VITAMIN D2 PO) Take 50,000 Units by mouth. ferrous sulfate 324 (65 Fe) MG Tab DR tablet Take 324 mg by mouth once. calcitRIOL 0.25 MCG capsule Take 0.25 mcg by mouth every other day. Laboratory Data O POS cPRA (%) Date Value 06/30/2021 25 (H) Screening: Hepatitis B sAB status negative; vaccines have not been received; Please consider obtaining the Hepatitis B vaccine series. We offer the vaccine at the [facility] on the ground floor. COVID-19 vaccine received first two doses Colonoscopy: n/a Mammogram: reports had in the last year Pap Smear: reports had in the last year MRI HEAD: 05/31/2020 [place] HISTORY: pre kidney transplant eval, hx polycystic kidney; prev mra 2014 FINDINGS # of images incl. paperwork: 197 Flow is present within bilateral intracranial ICA, DINORAH, MCA, vertebral, superior cerebellars, the basilar artery, and the media services specialist. The anterior communicating artery is patent. Bilateral posterior communicating arteries are present bilaterally. No aneurysm, stenoses, occlusions, nor dissections. IMPRESSION: Normal Cardiac Testing: STRESS TEST: 06/16/2020 [place] Interpretation: Rest and stress SPECT Cardioilte nuclear imaging status past realignment, normalization, andattenuation correction, demonstrates [normal myocardial radioIsotope uptake]. The gated Cardiolite study demonstrates [no significant regional wall motion abnormalities]. The reported LVEF is [74]%. Impression: 1. There Is[no evidence of significant Ischemia or Infarction]. 2. The gated Cardiolite study reports an LVEF of [74]%. ECHO: 06/16/2020 [place] Interpretation Summary The estimated ejection fraction is 55 %. No evidence for diastolic dysfunction. Unable to estimate RV systolic pressure due to inadequate Active living donors: 0 EPTS score: 12% Maximum KDPI acceptable: 85% Impression and Plan 1. Jamil Morales will remain active on the kidney transplant wait list with a qualifying date of 03/23/2021. Due for updated echo 06/2022 2. Hyperparathyroidism- PTH 150 pg/mL on 03/04/21. 3. Ms. Morales was highly encouraged to find a living donor. Consider a transplant champion. 4. She was educated on Hepatitis C Antibody positive/RADHA negative donors so if she received a kidney offer with this classification, she could make an informed decision. 5. She was educated on Hepatitis C Antibody positive/RADHA positive donors so if she received a kidney offer with this classification, she could make an informed decision. Consent previously signed. 6. If Ms. Morales has not been transplanted within the next year, she will be asked to return for a wait list appointment as well as repeat cardiac testing according to protocol. She was also asked to keep the transplant center updated with any change in condition or hospitalizations. Time Spent on Encounter: 25 minutes Pao Brewster MS (Link), RN, FRANCOIS-ANIMAL SHELTER WORKER Certified Nurse Practitioner [facility] [address] [facility] [id number] Transplant Psychosocial Social History: This SW met with patient during clinic visit to complete patient's social history. Pt reports access to support through her sister Christine, her father, and numerous extended family members. Pt lives with her father. 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 Pt denies generally financial concerns at this time, though she does note a high co-pay with PRA kits. Pt reports access to [employer] insurance. Pt does want follow [facility] financial counselors regarding her high co-pay. Pt denies current use of alcohol. Pt denies current use of tobacco. Pt denies current use of illicit substances. Pt denies experiencing physical and/or mental abuse and does not want follow up with SW regarding same. Pt reports recent mental health symptoms of intermittent anxiety and tearfulness related to work stress and her health concerns. Pt denies current mental health treatment and has followed up with her PCP regarding these issues. Patient feels that her mood has improved and denies wanting additional follow-up by SW. Pt has not completed an Advance Directive or Living Will. Per review of pt's previous social histories and/or initial psychosocial evaluation, there does not appear to be a history of psychosocial concerns. Pt does not have current or past compliance concerns. Pt appears to be an adequate transplant candidate from a psychosocial standpoint at this time. DORY Sarmiento, CLINICAL OUTCOMES MANAGER Transplant Patch Press Operator Telephone: [phone] documented in this encounter [facility] Evaluation + Plan note Future Appointments [facility] Patient on waiting list for kidney transplant- Primary [facility] N[facility] No data available for this section [facility] Hospital Discharge instructions No data available for this section [facility] Progress note No data available for this section [facility] Summary Purpose Family History No Family History Records Found No data available for this section No data available for this section No data available for this section No Family History Records FoundNo Family History Records FoundNo Family History Records Found Advance Directives No Advanced Directives Records FoundNo Advanced Directives Records FoundNo Advanced Directives Records FoundNo Advanced Directives Records Found Additional Source Comments INFORMATION SOURCE (unrecogn ized section and content) DATE CREATED AUTHOR AUTHOR'S ORGANIZ ATION 03/02/2023 [facility] ([place]) DATE CREATED AUTHOR AUTHOR'S ORGANIZ ATION 04/18/2023 [facility] DATE CREATED AUTHOR AUTHOR'S ORGANIZ ATION 05/21/2023 [facility] Reason for Visit (unrecogniz ed section and content) Specialty Diagnoses / Procedures Referred By Contac t Referred To Contact Certified Nurse Practitioner / Transplant Surgery Diagnoses in person Procedures PRE WAITLIST PATIENT Lillian Perez MBBS [address] [place] [address] Pao Brewster GLASS FORMING ENGINEER-ANIMAL SHELTER WORKER [address] [place] [address] Referral ID Status Reason Start Date Expiration Date V isits Requested Visits Authorized [id number] New Request 08/22/2021 09/16/2022 1 1 Specialty Diagnoses / Procedures Referred By Benjamin sarmiento Referred To Contact Certified Nurse Practitioner / Transplant Surgery Procedures PRE WAITLIST PATIENT Pao Brewster GLASS FORMING ENGINEER-ANIMAL SHELTER WORKER [address] [place] [address] Pao Brewster GLASS FORMING ENGINEER-ANIMAL SHELTER WORKER [address] [place] [address] Referral ID Status Reason Start Date Expiration Date V isits Requested Visits Authorized [id number] New Request 10/23/2022 11/17/2023 1 1 Care Teams (unrecognized sec tion and content) Security Systems Integrator Relationship Specialty Start Date End Date Freda Vallecillo DO [address] [place] [address] PCP - General Family Medicine 01/24/20 FOR RECORDS PERTAINING TO PATIENTS WHO ARE OR HAVE BEEN ENROLLED IN A CHEMICAL DEPENDENCY/SUBSTANCEABUSE PROGRAM, SOME INFORMATION MAY BE OMITTED. This clinical summary was aggregated from multiple sources. Caution should be exercised in using it in the provision of clinical care. This summary normalizes information from multiple sources, and as a consequence, information in this document may materially change the coding, format and clinical context of patient data. In addition, data may be omitted in some cases. CLINICAL DECISIONS SHOULD BE BASED ON THE PRIMARY CLINICAL RECORDS. [facility] [facility]. provides no warranty or guarantee of the accuracy or completeness of information in this document.
[2023-06-04 21:07] LABS: HPV APTIMA, High Risk Negative (Negative)
== END | disposition home or self-care (01) ==
LOC: LABSPEC 14:20
PROVIDERS: PCP Student in an Organized Health Care Education/Training Program; Referring Provider Registered Nurse; Visit Provider Registered Nurse
DX: Z12.4 Encounter for screening for malignant neoplasm of cervix (principal)
CPT/HCPCS: 87624; 88175; G0145

== ENCOUNTER → 2024-04-13 | Outpatient (CLI) | payer OTHER, SELFPAY ==
--- NOTE | 2024-04-13 10:08 | BI_ITS ---
MAMMOGRAPHY - BILATERAL SCREENING REASON FOR EXAM: Female, 49 years old. Routine annual screening examination. PERTINENT HISTORY: Non-contributory. TECHNIQUE: Digital bilateral breast joseph (3D mammographic acquisition) in the CC and MLO projections. 2-D mediolateral oblique (MLO) and craniocaudad (CC) views of both breasts were obtained. CAD: Full Field Digital Mammography with Computer Added Detection was performed. COMPARISON: Comparison is made with prior study done February 08, 2017 and outside examination dated April 04, 2022. FINDINGS: Breast Composition: The breasts are heterogeneously dense, which may obscure small masses. There are no dominant masses or suspicious calcifications. No other significant abnormalities are identified. There has been no significant change since the prior study. BI/SCRN MAMM (CAD)W/JOSEPH BILAT IMPRESSION: Stable bilateral screening mammogram. Yearly follow-up mammogram recommended. (A) ASSESSMENT CATEGORY: BIRADS Category 1: Negative. A letter regarding these results will be sent to the patient by the facility within 30 days. Approximately 10% of breast cancers are not detected by mammography. A normal mammogram should not delay biopsy of a clinically suspicious abnormality. [id number] Electronically Signed: Stefano Ramírez MD at 11:13 EST ,
== END | disposition home or self-care (01) ==
LOC: OPBI 10:08
PROVIDERS: PCP Student in an Organized Health Care Education/Training Program; Referring Provider Student in an Organized Health Care Education/Training Program; Visit Provider Student in an Organized Health Care Education/Training Program
DX: Z12.31 Encounter for screening mammogram for malignant neoplasm of breast (principal)
CPT/HCPCS: 77063; 77067

== ENCOUNTER 2024-05-11 09:18 | Day surgery (SDC) | payer OTHER, SELFPAY ==
--- NOTE | 2024-05-10 12:18 | PAT.ANESEVAL ---
Pre-Assessment Diagnosis/Proposed Procedure Planned Operative Procedure(s): COLONOSCOPY Anesthesia History Anesthesia History - clock and watch hands mounter: Anesthesia History - clock and watch hands mounter Hx Hospitalization No 05/10/24 09:09 Any Problems With Anesthesia Yes: PONV 05/10/24 09:09 Cholinesterase deficiency No 05/10/24 09:09 You/Your Family Experience No 05/10/24 09:09 fever (hyperthermia) with Relationship Recent Exposure to Contagious Disease Does patient have nerve No 05/10/24 09:09 stimulator Patient instructed to have device shut off --Does patient have Pacemaker or ICD? When Was Last Pacemaker Check QUESTION #4 FULL TEXT: You/Your Family Experience fever (hyperthermia) with Anesthesia Last Oral Intake Last Oral intake: Last Oral Intake NPO since Meds taken in AM with sips of water? Meds patient instructed to take am of surgery PONV PONV - clock and watch hands mounter: PONV - clock and watch hands mounter Female Yes 05/10/24 09:09 HX of Motion Sickness Yes 05/10/24 09:09 HX of N/V After Surgery Yes 05/10/24 09:09 Non-Smoker Yes 05/10/24 09:09 Duration of Surgery greater No 05/10/24 09:09 than 60 minutes Number of Risk Factors 4 05/10/24 09:09 PONV Score Severe Risk 05/10/24 09:09 Height & Weight Height & Weight: Anesthesia: Height & Weight Height 5 ft 10 in 03/29/24 14:42 Respiratory Assessment Respiratory Assessment - clock and watch hands mounter: Respiratory Tract Infection Hx - clock and watch hands mounter Hx Respiratory Tract Infection No 05/10/24 09:09 STOP Sleep Apnea STOP Sleep Apnea - clock and watch hands mounter: STOP Sleep Apnea - clock and watch hands mounter Hx Hypertension Yes: CONTROLLED WITH MEDS 05/10/24 09:09 Hx Sleep Apnea No 05/10/24 09:09 CPAP BIPAP Do you snore loudly (louder No 05/10/24 09:09 than talking or can be heard Do you often feel tired/ No 05/10/24 09:09 fatigued/ sleepy during daytime? Has anyone observed you stop No 05/10/24 09:09 breathing during sleep? STOP Results Negative 05/10/24 09:09 QUESTION #5 FULL TEXT : Do you snore loudly (louder than talking or can be heard through closed doors)? Tobacco Use History Tobacco Use History - clock and watch hands mounter: Tobacco Use History - clock and watch hands mounter Tobacco Use Smoking Status Never smoker 05/10/24 09:09 Hx Tobacco Use Yes 05/10/24 09:09 Years Smoking Packs Smoked per Day Smoking Cessation Date was within the last 15 years Hx Smoking Cessation Date Hx Smoking Cessation Counseling Hematologic Medial History Hematologic Hx - clock and watch hands mounter: Hematologic Medical Hx - turn out Hx of Blood Transfusion No 05/10/24 09:09 Hx of Transfusion in last 3 No 05/10/24 09:09 Months Date of Last Transfusion (if within last 3 months) Ever experience any problems No 05/10/24 09:09 with transfusion(s)? Specify any problems Hx of Preganancy in last 3 No 05/10/24 09:09 Months Nurse Filling Out Transfusion [id number] 05/10/24 09:09 & Questions: Date: 05/10/24 05/10/24 09:09 Time: 09:12 05/10/24 09:09 Patient unable to answer at this time (ie. confused, unrespo /Reproduction History /Reproductive History - clock and watch hands mounter: /Reproductive Hx- clock and watch hands mounter Hx Now Gestational Age (in weeks): EDC: Hx Hx Para Hx Section SAB No 05/29/23 08:31 PFSH Medical History (Updated 05/10/24 @ 09:18 by Jose Gaytan) Easy bruising Umbilical hernia Non-smoker History of edema History of echocardiogram History of stress test Cardiology follow-up encounter Chest pain Polycystic kidney disease Essential hypertension End-stage renal disease needing dialysis Home Medications ?Medication ?Instructions ?Recorded ?Last Taken ?Type ferrous sulfate 324 mg (65 mg 324 mg PO DAILY 12/04/22 Unknown History iron) tablet,delayed release metoprolol succinate 50 mg 50 mg PO DAILY 02/19/23 Unknown History tablet,extended release 24 hr amlodipine 10 mg tablet 10 mg PO QDAY 02/19/24 Unknown History calcitriol 0.25 mcg capsule 0.25 mcg PO BID 02/19/24 Unknown History furosemide 40 mg tablet (Lasix) 40 mg PO BID 02/19/24 Unknown History potassium chloride 20 mEq 20 meq PO BID 02/19/24 Unknown History tablet,extended release(part/cryst) (Klor-Con M) Allergy/AdvReac Type Severity Reaction Status Date / Time allopurinol AdvReac Nausea Verified 05/10/24 09:08 Family History Mother Diabetes Hypertension Kidney disease Father Hypertension Grandmother Kidney disease Surgical History Peritoneal dialysis catheter in place Social History adopted: No household members: other details: lives with father housing: house number of children: 0 current occupational status: employed current occupation: [employer] [place] history of recent travel: No sexually active: No Smoking Status: Never smoker alcohol intake: never substance use type: does not use well-balanced diet: daily or most days caffeine: Yes eating out: 1-3 times/week what type of physical activity do you participate in: walking seatbelt use: always do you feel safe at home: Yes additional social history: single Audit: Pertinent Findings Pertinent Findings EKG Perinent findings: 02/19/2023 sinus rhythm poor R wave progression nonspecific ST changes consider old and anterior infarct Consult pertinent findings: Cardiology 02/19/2024 1 hypertension echocardiogram 03/24/2023 EF 65% chronic to mitral valve prolapse chronic stable Recommendation Anesthesia Recommendation Anesthesia recommendation: OPTIMIZED for anesthesia
[2024-05-11] VITALS (7 sets, daily range): BP systolic 105–112; BP diastolic 76–89; PULSE 76–99; RESP 14–16; TEMP 36.1–36.4; O2SAT 96–98; BMI 28.4
--- NOTE | 2024-05-11 | COLBX_PTH ---
PATIENT: JAMIL BARGER LOC: EN U#:[id number] AGE/SX: 49/F ROOM: RE05/11/[address]: Dr. Job Basurto MD : 1975 BED: DIS: 05/11/2024 SPEC #: [id number] RECD: 05/11/24 12:43 STATUS: SON RETamika #: [id number] EMRE: 05/11/24 00:[address]: Job Basurto DEPT: SURGICAL PATHOLOGY RECD BY: Titus Thibodeaux ENTERED: 05/11/24 12:43 SP TYPE: COLON BX OTHR DR: Dr. Brenna Aceves MD Tissues: Ascending colon Procedures: Surgery Specimen Level IV HEADER OPERATION: Colonoscopy, biopsy PRE-OP DIAGNOSIS: Screening for malignant neoplasm of colon TISSUE SUBMITTED: Ascending colon biopsy MICROSCOPIC DIAGNOSIS Ascending colon, biopsy: Colonic mucosa without dysplasia, polyp or colitis. 05/12/2024 MICROSCOPIC DESCRIPTION Slides are reviewed. GROSS DESCRIPTION Received in fixative is one container labeled with the patient's name and designated Ascending colon biopsy. The specimen consists of multiple irregular fragments of light gutierrez soft tissue that in aggregate measure 0.75 x 0.5 x 0.1 cm. The specimen is totally submitted in one cassette. 05/11/2024 TC:4 CPT:21400
--- NOTE | 2024-05-11 10:22 | PCM.PRE.AN2 ---
ASA Classification* ASA Classification ASA Classification: 3 Assessment & Plan Anesthesia* Anesthesia Assessment Anesthesia Assessment: Discussed sedation and/or anesthesia options, risks, benefits, and alternatives with patient/parents/legal guardian/POA. Questions invited. The patient/parents/legal guardian/POA seems to understand and agrees to proceed with anesthesia plan. Reviewed the physical assessment, medical history, allergy history and patient home medications list prior to surgery/procedure/anesthetic and documented any changes. Performed airway and anesthesia risk assessments. Anesthesia Type Anesthesia Type: MAC History Source History Obtained from:: Patient and Chart Anesthesia Focused Assessment* Temperature: 97.6 F Pulse Rate: 99 Blood Pressure: 112/89 Respiratory Rate: 16 Pulse Ox: 98 Oxygen Delivery Method: Room Air Airway Assessment Mouth opens: >3 cm Mallampati Score: II Teeth Condition: Intact Neck Range of motion (ROM): Full ROM Focused Labs Anesthesia Preop lab: CBC WBC 11.0 K/mm3 (4.4-11.0) 12/04/22 02:45 RBC 4.09 M/mm3 (4.2-5.4) L 12/04/22 02:45 Hgb 12.0 g/dL (12.0-15.0) 12/04/22 02:45 Hct 37.9 % (37-47) 12/04/22 02:45 Plt Count 230 K/mm3 (150-450) 12/04/22 02:45 CHEMISTRY Potassium 4.5 mmol/L (3.5-5.1) 12/04/22 02:45 Sodium 138 mmol/L (136-145) 12/04/22 02:45 Phosphorus 4.6 mg/dL (2.5-4.9) 02/02/18 16:08 BUN 55 mg/dL (7-18) H 12/04/22 02:45 Creatinine 4.56 mg/dL (0.55-1.02) H 12/04/22 02:45 Glucose 198 mg/dL (74-106) H 12/04/22 02:45 TSH 3.00 uIU/mL (0.358-3.74) 05/04/13 11:03 COAG Pre-Assessment Diagnosis/Proposed Procedure Planned Operative Procedure(s): COLONOSCOPY Anesthesia History Anesthesia History - drop wire aligner: Anesthesia History - drop wire aligner Hx Hospitalization No 05/10/24 09:09 Any Problems With Anesthesia Yes: PONV 05/10/24 09:09 Cholinesterase deficiency No 05/10/24 09:09 You/Your Family Experience No 05/10/24 09:09 fever (hyperthermia) with Relationship Recent Exposure to Contagious No 05/11/24 09:43 Disease Does patient have nerve No 05/10/24 09:09 stimulator Patient instructed to have device shut off --Does patient have Pacemaker No 05/11/24 09:43 or ICD? When Was Last Pacemaker Check QUESTION #4 FULL TEXT: You/Your Family Experience fever (hyperthermia) with Anesthesia Last Oral Intake Last Oral intake: Last Oral Intake NPO since 08:00 05/11/24 09:43 Meds taken in AM with sips of Yes 05/11/24 09:43 water? Meds patient instructed to see mar 05/11/24 09:43 take am of surgery Any additional information?: Yes NPO since: 08:00 (Patient took her meds at 8 AM.) Meds taken in AM with sips of water?: Yes PONV PONV - drop wire aligner: PONV - drop wire aligner Female Yes 05/10/24 09:09 HX of Motion Sickness Yes 05/10/24 09:09 HX of N/V After Surgery Yes 05/10/24 09:09 Non-Smoker Yes 05/10/24 09:09 Duration of Surgery greater No 05/10/24 09:09 than 60 minutes Number of Risk Factors 4 05/10/24 09:09 PONV Score Severe Risk 05/10/24 09:09 Height & Weight Height & Weight: Anesthesia: Height & Weight Height 5 ft 10 in 05/11/24 09:43 Weight: 89.811 kg 05/11/24 09:43 Body Mass Index (BMI) 28.4 05/11/24 09:43 Respiratory Assessment Respiratory Assessment - drop wire aligner: Respiratory Tract Infection Hx - drop wire aligner Hx Respiratory Tract Infection No 05/10/24 09:09 STOP Sleep Apnea STOP Sleep Apnea - drop wire aligner: STOP Sleep Apnea - drop wire aligner Hx Hypertension Yes: CONTROLLED WITH MEDS 05/10/24 09:09 Hx Sleep Apnea No 05/10/24 09:09 CPAP BIPAP Do you snore loudly (louder No 05/10/24 09:09 than talking or can be heard Do you often feel tired/ No 05/10/24 09:09 fatigued/ sleepy during daytime? Has anyone observed you stop No 05/10/24 09:09 breathing during sleep? STOP Results Negative 05/10/24 09:09 QUESTION #5 FULL TEXT : Do you snore loudly (louder than talking or can be heard through closed doors)? 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 Specify any problems Hx of Preganancy in last 3 No 05/10/24 09:09 Months Nurse Filling Out Transfusion [email or web address] 05/10/24 09:09 & Questions: Date: 05/10/24 05/10/24 09:09 Time: 09:12 05/10/24 09:09 Patient unable to answer at this time (ie. confused, unrespo /Reproduction History /Reproductive History - drop wire aligner: /Reproductive Hx- drop wire aligner Hx Now Gestational Age (in weeks): EDC: Hx Hx Para Hx Section SAB No 05/29/23 08:31 PFSH Medical History Easy bruising Umbilical hernia Non-smoker History of edema History of echocardiogram History of stress test Cardiology follow-up encounter Chest pain Polycystic kidney disease Essential hypertension End-stage renal disease needing dialysis Home Medications ?Medication ?Instructions ?Recorded ?Last Taken ?Type ferrous sulfate 324 mg (65 mg 324 mg PO DAILY 12/04/22 Unknown History iron) tablet,delayed release metoprolol succinate 50 mg 50 mg PO DAILY 02/19/23 05/11/24 08:00 History tablet,extended release 24 hr amlodipine 10 mg tablet 10 mg PO QDAY 02/19/24 05/10/24 History calcitriol 0.25 mcg capsule 0.25 mcg PO BID 02/19/24 Unknown History furosemide 40 mg tablet (Lasix) 40 mg PO BID 02/19/24 05/10/24 History potassium chloride 20 mEq 20 meq PO BID 02/19/24 05/10/24 History tablet,extended release(part/cryst) (Klor-Con M) Allergy/AdvReac Type Severity Reaction Status Date / Time allopurinol AdvReac Nausea Verified 05/11/24 09:42 Family History Mother Diabetes Hypertension Kidney disease Father Hypertension Grandmother Kidney disease Surgical History (Updated 05/11/24 @ 10:[address] Munir Sprague MD) H/O umbilical hernia repair Peritoneal dialysis catheter in place Social History adopted: No household members: other details: lives with father housing: house number of children: 0 current occupational status: employed current occupation: [employer] history of recent travel: No sexually active: No Smoking Status: Never smoker alcohol intake: never substance use type: does not use well-balanced diet: daily or most days caffeine: Yes eating out: 1-3 times/week what type of physical activity do you participate in: walking seatbelt use: always do you feel safe at home: Yes additional social history: single Review of Systems (Anesthesia) ROS Narrative System reviewed and no additional complaints, except as documented.
[2024-05-11 10:25] LABS: Internal QC Validated? YES +Cl - CLEAR BKGD; Pregnancy, Serum, hCG Quali. NEGATIVE Negative
--- NOTE | 2024-05-11 10:52 | PCM.HP.STD ---
[facility] - General General Date of Admission: 05/11/24 Date of Service: 05/11/24 Chief Complaint: Screening colonoscopy HPI Narrative JAMIL BARGER, is a 49 F who presents today for screening colonoscopy. She has had no previous colonoscopy. She denies any GI issues or problems. [facility] Medical History Easy bruising Umbilical hernia Non-smoker History of edema History of echocardiogram History of stress test Cardiology follow-up encounter Chest pain Polycystic kidney disease Essential hypertension End-stage renal disease needing dialysis Home Medications ?Medication ?Instructions ?Recorded ?Last Taken ?Type ferrous sulfate 324 mg (65 mg 324 mg PO DAILY 12/04/22 Unknown History iron) tablet,delayed release metoprolol succinate 50 mg 50 mg PO DAILY 02/19/23 05/11/24 08:00 History tablet,extended release 24 hr amlodipine 10 mg tablet 10 mg PO QDAY 02/19/24 05/10/24 History calcitriol 0.25 mcg capsule 0.25 mcg PO BID 02/19/24 Unknown History furosemide 40 mg tablet (Lasix) 40 mg PO BID 02/19/24 05/10/24 History potassium chloride 20 mEq 20 meq PO BID 02/19/24 05/10/24 History tablet,extended release(part/cryst) (Klor-Con M) Allergy/AdvReac Type Severity Reaction Status Date / Time allopurinol AdvReac Nausea Verified 05/11/24 09:42 Family History Mother Diabetes Hypertension Kidney disease Father Hypertension Grandmother Kidney disease Surgical History H/O umbilical hernia repair Peritoneal dialysis catheter in place Social History adopted: No household members: other details: lives with father housing: house number of children: 0 current occupational status: employed current occupation: [employer] history of recent travel: No sexually active: No Smoking Status: Never smoker alcohol intake: never substance use type: does not use well-balanced diet: daily or most days caffeine: Yes eating out: 1-3 times/week what type of physical activity do you participate in: walking seatbelt use: always do you feel safe at home: Yes additional social history: single ROS Constitutional Constitutional: Reports systems reviewed and no addt'l complaints, except as documented Eyes Eyes: Reports systems reviewed and no addt'l complaints, except as documented ENT HEENT: Reports systems reviewed and no addt'l complaints, except as documented Cardiovascular Cardiovascular: Reports systems reviewed and no addt'l complaints, except as documented Respiratory/Chest Respiratory/Chest: Reports systems reviewed and no addt'l complaints, except as documented Gastrointestinal Gastrointestinal: Reports systems reviewed and no addt'l complaints, except as documented Genitourinary Genitourinary: Reports systems reviewed and no addt'l complaints, except as documented Musculoskeletal Musculoskeletal: Reports systems reviewed and no addt'l complaints, except as documented Vital Signs Vital Signs Vital Signs: 05/11/24 09:43 05/11/24 09:43 05/11/24 10:29 Temperature 97.6 F L 97.6 F L Temperature Source Temporal Pulse Rate 99 99 Respiratory Rate 16 16 Respiratory Pattern Normal Blood Pressure 112/89 H 112/89 H Blood Pressure Mean 96 Blood Pressure Source Monitor Blood Pressure Position Semi-Fowlers Blood Pressure Location Right Arm Pulse Ox 98 98 Oxygen Delivery Method Room Air Room Air Weight Weight: 198 lb Body Mass Index (BMI) 28.4 Physical Exam Const alert, oriented x3, no apparent distress and average body habitus Results Lab / Micro Data Labs: Laboratory Results - last 24 hr 05/11/24 09:31: Urine Test Cancelled 05/11/24 10:05: Serum , Qual NEGATIVE Assessment & Plan Assessment/Plan (1) Screening for malignant neoplasm of colon: PLAN: Plan 49-year-old female in need of a screening colonoscopy. We discussed the details of the planned procedure and she wishes to proceed. This will begin momentarily Charges/Coding Visit Charges Inpatient E&M: 31065 Init Hosp L1
--- NOTE | 2024-05-11 11:26 | PCM.POST.ANE ---
Anesthesia: Postop Eval I Current Vital Signs Temperature: 97 F Pulse Rate: 82 Blood Pressure: 105/76 Respiratory Rate: 16 Pulse Ox: 97 Oxygen Delivery Method: Room Air Assessment Airway patent: Yes Spontaneous unlabored respirations: Yes Mental status: Awake and Calm nausea: No Vomiting: No Anesthesia Complication: No Fluid Hydration Crystalloid volume administer (ml): 40 Total IV fluid infused: 40 Progress Note Anesthesia document: Postop Eval 1 completed: Yes
--- NOTE | 2024-05-11 11:31 | OP.CCLET_ITS ---
05/11/2024 Brenna Aceves Md Re : Colonoscopy procedure for Adriana Morales Dear Ketan This procedure was performed on Saturday, May 11, 2024. My impressions and recommendations are as follows: Impressions : - Diverticulosis in the sigmoid colon. - Altered vascular mucosa in the ascending colon. Biopsied. - The examination was otherwise normal on direct and retroflexion views. Recommendations : - Discharge patient to home (ambulatory). - High fiber diet indefinitely. - Await pathology results. - Repeat colonoscopy in 7-10 years for screening purposes. - Return to my office PRN. - Continue present medications. My findings are described in the full procedure note, which is enclosed. If I can be of further assistance, please feel free to contact me at . Sincerely, Job Basurto MD 05/11/2024 11:31:04 AM This report has been signed electronically.
--- NOTE | 2024-05-11 11:31 | OP.COLON_ITS ---
Patient Name: Adriana Morales Procedure Date: 05/11/2024 10:49 AM Date of : 1975 Age: 49 Procedure: Colonoscopy Indications: Screening for colorectal malignant neoplasm Providers: Job Basurto MD Referring MD: Job Basurto MD Medicines: Monitored Anesthesia Care Patient Profile: Refer to note in patient chart for documentation of history and physical. Last Colonoscopy: none. The patient's first colonoscopy is today. Complications: No immediate complications. Estimated blood loss: Minimal. Procedure: Pre-Anesthesia Assessment: - Prior to the procedure, a History and Physical was performed, and patient medications and allergies were reviewed. The patient's tolerance of previous anesthesia was also reviewed. The risks and benefits of the procedure and the sedation options and risks were discussed with the patient. All questions were answered, and informed consent was obtained. Prior Anticoagulants: The patient has taken no anticoagulant or antiplatelet agents. ASA Grade Assessment: III - A patient with severe systemic disease. After reviewing the risks and benefits, the patient was deemed in satisfactory condition to undergo the procedure. After I obtained informed consent, the scope was passed under direct vision. Throughout the procedure, the patient's blood pressure, pulse, and oxygen saturations were monitored continuously. The adult colonoscope was introduced through the anus and advanced to the cecum, identified by the appendiceal orifice, ileocecal valve and palpation. The ileocecal valve, appendiceal orifice, and rectum were photographed. The entire colon was well visualized. The colonoscopy was performed without difficulty. The patient tolerated the procedure well. The quality of the bowel preparation was adequate. Moderate Sedation: See the other procedure note for documentation of moderate sedation with intraservice time. Scope In: 11:02:18 AM Scope Withdrawal Time 0 hours 6 minutes 37 seconds Scope Out: 11:15:12 AM Total Procedure Duration Time 0 hours 12 minutes 54 seconds Findings: The perianal and digital rectal examinations were normal. Multiple small and large-mouthed diverticula were found in the sigmoid colon. A patchy area of mildly altered vascular mucosa was found in the ascending colon. Biopsies were taken with a cold forceps for histology. Verification of patient identification for the specimen was done by the nurse using the patient's name, date and medical record number. Estimated blood loss was minimal. The exam was otherwise without abnormality on direct and retroflexion views. Impression: - Diverticulosis in the sigmoid colon. - Altered vascular mucosa in the ascending colon. Biopsied. - The examination was otherwise normal on direct and retroflexion views. Recommendation: - Discharge patient to home (ambulatory). - High fiber diet indefinitely. - Await pathology results. - Repeat colonoscopy in 7-10 years for screening purposes. - Return to my office PRN. - Continue present medications. Procedure Code(s): --- Professional --- 60643, Colonoscopy, flexible; with biopsy, single or multiple Diagnosis Code(s): --- Professional --- Z12.11, Encounter for screening for malignant neoplasm of colon K57.30, Diverticulosis of large intestine without perforation or abscess without bleeding K63.89, Other specified diseases of intestine CPT copyright 2021 [employer]. All rights reserved. The codes documented in this report are preliminary and upon director manufacturing engineering review may be revised to meet current compliance requirements. Job Basurto MD 05/11/2024 11:31:04 AM This report has been signed electronically. Number of Addenda: 0 Note Initiated On: 05/11/2024 10:49 AM
--- NOTE | 2024-05-11 13:09 | PCM.POSTANE2 ---
Anesthesia Postop Eval I Sum Postop Eval Completion status Anesthesia document: Postop Eval 1 completed: Yes Anesthesia Postop Eval I Summary Anesthesia Postop Eval I Summary: Anesthesia Postop Eval I: Assessment Summary Airway patent Yes 05/11/24 11:28 [email or web address] Spontaneous unlabored Yes 05/11/24 11:28 [email or web address] respirations Mental status Awake,Calm 05/11/24 11:28 [email or web address] nausea No 05/11/24 11:28 [email or web address] Vomiting No 05/11/24 11:28 [email or web address] Anesthesia Postop Eval I: Fluid Summary Crystalloid volume administer 40 05/11/24 11:28 [email or web address] (ml) Colloids volume administered ( ml) Blood Product volume administered (ml) Total IV fluid infused 40 05/11/24 11:28 [email or web address] Anesthesia Postop Eval I: Summary Notes Anesthesia Complication No 05/11/24 11:28 [email or web address] Anesthesia Complication Comment: Post-operative progress note Anesthesia: Postop Eval II Evaluation Mental status: Awake and Calm Pain Level: 0 nausea: No Vomiting: No Complications Anesthesia Complication: No
== END 2024-05-11 12:01 | disposition home or self-care (01) ==
LOC: EN 09:20 → AC 09:20
PROVIDERS: Anesthesiology; PCP Student in an Organized Health Care Education/Training Program; Referring Provider Student in an Organized Health Care Education/Training Program; Visit Provider Surgery
PROC: 0DJD8ZZ Inspection of Lower Intestinal Tract, Via Natural or Artificial Opening Endoscopic (ICD-10-PCS; CPT 45378; principal; 2024-05-11 10:40)
DX: Z12.11 Encounter for screening for malignant neoplasm of colon (principal); N18.6 End stage renal disease; I12.0 Hypertensive chronic kidney disease with stage 5 chronic kidney disease or end stage renal disease; K57.30 Diverticulosis of large intestine without perforation or abscess without bleeding; Z99.2 Dependence on renal dialysis; Z79.899 Other long term (current) drug therapy; K55.8 Other vascular disorders of intestine
CPT/HCPCS: 45380; 84703; 88305; A4216; J2405

== ENCOUNTER 2024-10-15 18:53 | Emergency (ER) | payer OTHER, SELFPAY ==
[2024-10-15 18:55] VITALS: BP 114/91; PULSE 118; RESP 16; TEMP 37.4; O2SAT 95; BMI 28.2
[2024-10-15 19:21] VITALS: BP 113/73; PULSE 100; RESP 18; TEMP 37
--- NOTE | 2024-10-15 19:22 | CT_ITS ---
PROCEDURE: ABDOMEN/PELVIS WITHOUT CONT 10/15/2024 REASON FOR EXAM: PAIN, HX PERITONEAL DIALYSIS TECHNIQUE: ABDOMEN/PELVIS WITHOUT CONT Noncontrast technique limits evaluation of the abdominal and pelvic viscera. Coronal and Sagittal reconstruction series were provided. One or more dose reduction techniques were used (e.g., Automated exposure control, adjustment of the mA and/or kV according to patient size, use of iterative reconstruction technique). ORAL CONTRAST TYPE: None. COMPARISON: CT abdomen pelvis 12/04/2022. FINDINGS: Lung bases: Bibasilar atelectasis/scarring. The heart is normal in size. Liver: Stable hepatomegaly due to innumerable hepatic cysts. Gallbladder: No radiopaque stones within the gallbladder. Spleen: Normal in size. Pancreas: The unopacified pancreas is unremarkable. Adrenals: No adrenal mass. Kidneys: Innumerable bilateral renal cysts. No obvious hydronephrosis. Bladder: Decompressed. Reproductive Organs: Normal uterine size and contour. Ovaries are unremarkable. Bowel: Stable right lower quadrant peritoneal dialysis catheter. The bowel loops are nondilated. Moderate pancolonic diverticulosis. Trace mesenteric edema, likely secondary to dialysis catheter. No pneumoperitoneum. Normal appendix. Lymph nodes: Visualization is limited without the use of IV contrast. No enlarged lymphadenopathy. Vasculature: The abdominal aorta and IVC contours are normal. Noncontrast technique limits evaluation. Bones/soft tissues: Moderate sized fat containing umbilical hernia. Mild thoracolumbar spondylosis. CT/Abdomen/Pelvis without Cont IMPRESSION: No acute abdominopelvic finding. Reading Location: [id number]
--- NOTE | 2024-10-15 19:28 | PCA ---
NO OLD EKG
--- NOTE | 2024-10-15 19:35 | EX.ED.DYSGE1 ---
HPI <Dr. Samm Church DO - Last Filed: 10/21/24 14:03> History of Present Illness Chief Complaint: General Illness Informant: patient and parent Narrative Narrative: Patient here with father for evaluation. History of positive kidney disease current peritoneal dialysis for the past 2 years 6 days a week. She is followed by nephrology Dr. Hoffman. States past 2 weeks noted fever initially had vomiting diarrhea. Pain has been waxing and waning fevers waxing waning. She does make urine no dysuria. Started having mild cough. Yesterday. Seen her PCP had a lab work outpatient total of stable seeing dialysis nurse they evaluated her fluids visually states it was clear she is unclear of any was tested. Pain lower abdomen that went up to her upper abdomen. She been using Tylenol last dose around noon. Prior to arrival here oral temp was 100.4. No history of abdominal infections in the past. She states with her peritoneal dialysis she had a hernia repair by Dr. Vaz at [place]. Prior similar symptoms: No PFSH <Dr. Samm Church DO - Last Filed: 10/21/24 14:03> PFSH Medical History Easy bruising Umbilical hernia Non-smoker History of edema History of echocardiogram History of stress test Cardiology follow-up encounter Chest pain Polycystic kidney disease Essential hypertension End-stage renal disease needing dialysis Home Medications ?Medication ?Instructions ?Recorded ?Last Taken ?Type ferrous sulfate 324 mg (65 mg 324 mg PO DAILY 12/04/22 Unknown History iron) tablet,delayed release metoprolol succinate 50 mg 50 mg PO DAILY 02/19/23 05/11/24 08:00 History tablet,extended release 24 hr furosemide 40 mg tablet (Lasix) 40 mg PO BID 02/19/24 05/10/24 History potassium chloride 20 mEq 20 meq PO BID 02/19/24 05/10/24 History tablet,extended release(part/cryst) (Klor-Con M) sevelamer carbonate 800 mg tablet 800 mg PO TID 10/15/24 Unknown History Allergy/AdvReac Type Severity Reaction Status Date / Time allopurinol AdvReac Nausea Verified 10/15/24 18:58 Family History Mother Diabetes Hypertension Kidney disease Father Hypertension Grandmother Kidney disease Surgical History H/O umbilical hernia repair Peritoneal dialysis catheter in place Social History adopted: No household members: other details: lives with father housing: house number of children: 0 current occupational status: employed current occupation: [employer] history of recent travel: No sexually active: No Smoking Status: Never smoker alcohol intake: never substance use type: does not use well-balanced diet: daily or most days caffeine: Yes eating out: 1-3 times/week what type of physical activity do you participate in: walking seatbelt use: always do you feel safe at home: Yes additional social history: single ROS <Dr. Samm Church DO - Last Filed: 10/21/24 14:03> ROS ED Constitutional Constitutional ED: Reports fever(s); Denies chills or sweats ENT ENT ED: Denies sore throat Cardiovascular Cardiovascular: Denies chest pain, leg edema, palpitations or racing heartbeat Respiratory/Chest Respiratory/Chest: Reports cough; Denies dyspnea or dyspnea on exertion Gastrointestinal Gastrointestinal: Reports abdominal pain, diarrhea and vomiting Genitourinary Genitourinary ED: Denies dysuria, hematuria or urinary frequency Musculoskeletal Musculoskeletal: Denies back pain, extremity pain or neck pain Integumentary Denies rash or wounds Neurologic Neurologic: Denies headache(s), paresthesias or weakness EXAM <Dr. Samm Church DO - Last Filed: 10/21/24 14:03> Physical Exam Const Vital Signs: 10/15/24 18:55 10/15/24 19:21 10/15/24 19:25 Temperature 99.3 F H 98.6 F Temperature Source Oral Oral Pulse Rate 118 H 100 Respiratory Rate 16 18 Respiratory Pattern Normal Blood Pressure 114/91 H 113/73 Blood Pressure Mean 98 86 Pulse Ox 95 Oxygen Delivery Method Room Air Room Air 10/15/24 19:32 10/15/24 20:00 10/15/24 20:49 Temperature 99.4 F H 99.7 F H Temperature Source Oral Oral Pulse Rate 105 H 104 H Respiratory Rate 16 14 Respiratory Pattern Blood Pressure 105/73 101/76 Blood Pressure Mean 83 84 Pulse Ox 94 94 Oxygen Delivery Method Room Air Room Air Room Air 10/15/24 22:00 10/15/24 23:00 10/16/24 00:00 Temperature 98.7 F 98.6 F 98.8 F Temperature Source Oral Oral Oral Pulse Rate 101 H 106 H 99 Respiratory Rate 16 19 H 14 Respiratory Pattern Blood Pressure 119/87 H 113/64 109/93 H Blood Pressure Mean 97 80 98 Pulse Ox 96 98 93 Oxygen Delivery Method Room Air Room Air Room Air Positive well nourished and well developed General Appearance ED: well developed and NAD HEENT Reports moist mucous membranes normocephalic and atraumatic Eyes General Eye ED: Yes normal appearance of both eyes Neck full ROM Chest Wall Chest: Negative for tenderness Resp normal respiratory effort and normal air movement Effort and Inspection: symmetric chest movement; Negative for respiratory distress Cardio regular rhythm and no murmurs Rate: tachycardic Peripheral Pulses: pulses 2+ throughout GI normal to inspection, nondistended, normoactive bowel sounds GI Narrative: Left lower abdomen peritoneal dialysis clean, dry, intact. No erythema. Palpation: Negative for guarding or rebound tenderness present Extremity normal to inspection General Extremety ED: Negative for edema or tenderness General Extremity: Negative for edema Neuro oriented x3 and no sensory deficits noted Sensorium / Orientation: awake and alert Skin no rashes or lesions noted and no wounds <Dr. Vishal Sheldon MD - Last Filed: 10/16/24 00:44> Physical Exam Const Vital Signs: 10/15/24 18:55 10/15/24 19:21 10/15/24 19:25 Temperature 99.3 F H 98.6 F Temperature Source Oral Oral Pulse Rate 118 H 100 Respiratory Rate 16 18 Respiratory Pattern Normal Blood Pressure 114/91 H 113/73 Blood Pressure Mean 98 86 Pulse Ox 95 Oxygen Delivery Method Room Air Room Air 10/15/24 19:32 10/15/24 20:00 10/15/24 20:49 Temperature 99.4 F H 99.7 F H Temperature Source Oral Oral Pulse Rate 105 H 104 H Respiratory Rate 16 14 Respiratory Pattern Blood Pressure 105/73 101/76 Blood Pressure Mean 83 84 Pulse Ox 94 94 Oxygen Delivery Method Room Air Room Air Room Air 10/15/24 22:00 10/15/24 23:00 10/16/24 00:00 Temperature 98.7 F 98.6 F 98.8 F Temperature Source Oral Oral Oral Pulse Rate 101 H 106 H 99 Respiratory Rate 16 19 H 14 Respiratory Pattern Blood Pressure 119/87 H 113/64 109/93 H Blood Pressure Mean 97 80 98 Pulse Ox 96 98 93 Oxygen Delivery Method Room Air Room Air Room Air MDM <Dr. Samm Church, DO - Last Filed: 10/21/24 14:03> [facility] Narrative Medical decision making narrative: Interventions / MDM: Differential diagnosis: Peritoneal dialysis, abdominal pain, reported fevers, spontaneous bacterial peritonitis Diagnosis considered but do not suspect: N/A My EKG interpretation: Sinus rate of 110, no ST changes, isolated T wave version lead III. Nonspecific. QTc 427. Imaging independently reviewed and interpreted by myself: 1 view chest x-ray: No acute process. CT abdomen pelvis: No acute process. Peritoneal dialysis catheterization noted. Also read by radiology. External documents reviewed: N/A Test considered but not ordered:N/A ED course: Fever at home temp at 99.3 on arrival tachycardic. On fever for 2 weeks. Hemodialysis started having cough yesterday no urinary symptoms. Sepsis labs were ordered. CT abdomen pelvis. Chest x-ray ordered. I obtain peritoneal fluid for further testing also with her pain and fevers. Procedure note: Verbal consent. Normal sterile conditions. Sterile gloves were used. Dialysis port was uncapped, ChloraPrep swabs cleansed 3 different times. A 20 cc syringe was placed, total 3 cc of fluid was removed. No additional fluids would drain. This was recapped. Labs are stable white count 7.3. Elevated creatinine, she is peritoneal dialysis with no potassium 3.8. Lactic acid normal. Procalcitonin 0.79. Urine noted slight leukocytes white cells and bacteria also noted squamous cells. She denies any urinary symptoms. Will send for culture. Chest x-ray negative. 2325: Awaiting results of cell count from bodily fluid along with respiratory panel. 2330: Results of cell count WBC 691. Negative organisms. Turbid fluid. I discussed results with the patient. IV Rocephin will be started at this time. With patient on peritoneal dialysis, facility cannot manage patient here, therefore will need to transfer. 2345: Patient signed out to night physician. Respiratory panel returned negative. Re-evaluation: stable Disposition discussed with patient/family/significant other: Patient and father Case discussed with consulting clinician: N/A This note was generated with Dragon dictation software. It may contain incorrect words, spelling, and punctuation that were not noted in checking the note before signing. Lab Data Attestation: I reviewed the patient's lab results. Labs: Laboratory Results - last 24 hr 10/15/24 10/15/24 10/15/24 19:42 19:43 19:45 WBC 7.3 RBC 3.88 L Hgb 11.8 L Hct 36.1 L MCV 93.0 MCH 30.4 MCHC 32.7 RDW Std Deviation 47.5 H RDW Coeff of Larisa 14.1 Plt Count 273 MPV 9.0 Immature Gran % (Auto) 0.500 Neut % (Auto) 89.1 H Lymph % (Auto) 4.1 L [place] % (Auto) 5.6 Eos % (Auto) 0.4 Baso % (Auto) 0.3 Absolute Neuts (auto) 6.5 Absolute Lymphs (auto) 0.30 L Nucleated RBC % 0 PT 15.8 H INR 1.2 APTT 27.1 Sodium 135 Potassium 3.8 Chloride 95 L Carbon Dioxide 25.6 Anion Gap 14 BUN 36 H Creatinine 7.24 H Estim Creat Clear Calc 11.39 L Est GFR (MDRD) Non-Af 6 L BUN/Creatinine Ratio 5.0 L Glucose 88 Lactic Acid < 1.0 Calcium 8.9 Total Bilirubin 0.32 AST 19 ALT 7 Alkaline Phosphatase 79 Total Protein 6.3 Albumin 2.6 L Globulin 3.8 Albumin/Globulin Ratio 0.7 L Procalcitonin 0.79 H Urine Color Urine Clarity Urine pH Ur Specific Carney Urine Protein Urine Glucose (UA) Urine Ketones Urine Occult Blood Urine Nitrite Urine Bilirubin Urine Urobilinogen Ur Leukocyte Esterase Urine RBC Urine WBC Ur Squamous Epith Cells Ur Transition Epith Cell Urine Bacteria Urine Mucus Fluid Source PERITONEAL FLUID Fluid Color COLORLESS Fluid Appearance TURBID Fluid WBC 0.676 Fluid RBC 0.003 Fluid Tot Cell Count 0.691 H Fld Polynuclear WBCs # 0.214 Fld Polynuclear WBCs % 31.7 Fluid Mononuclear WBCs 0.462 Fld Mononuclear WBCs % 68.3 Fluid Neutrophils 64 Fluid Lymphocytes 36 Fl Pathologist Comment May follow Fluid Comment 2 SEE COMMENT 10/15/24 20:25 WBC RBC Hgb Hct MCV MCH MCHC RDW Std Deviation RDW Coeff of Larisa Plt Count MPV Immature Gran % (Auto) Neut % (Auto) Lymph % (Auto) [place] % (Auto) Eos % (Auto) Baso % (Auto) Absolute Neuts (auto) Absolute Lymphs (auto) Nucleated RBC % PT INR APTT Sodium Potassium Chloride Carbon Dioxide Anion Gap BUN Creatinine Estim Creat Clear Calc Est GFR (MDRD) Non-Af BUN/Creatinine Ratio Glucose Lactic Acid Calcium Total Bilirubin AST ALT Alkaline Phosphatase Total Protein Albumin Globulin Albumin/Globulin Ratio Procalcitonin Urine Color Yellow Urine Clarity Sl. Cloudy Urine pH 8.0 Ur Specific Carney 1.010 Urine Protein 100 H Urine Glucose (UA) Normal Urine Ketones Negative Urine Occult Blood 250 H Urine Nitrite Negative Urine Bilirubin Negative Urine Urobilinogen Normal Ur Leukocyte Esterase 100 H Urine RBC 10-25 SEEN Urine WBC 10-25 SEEN Ur Squamous Epith Cells 25-50 SEEN Ur Transition Epith Cell 5-10 SEEN Urine Bacteria 3+ Urine Mucus 0 SEEN Fluid Source Fluid Color Fluid Appearance Fluid WBC Fluid RBC Fluid Tot Cell Count Fld Polynuclear WBCs # Fld Polynuclear WBCs % Fluid Mononuclear WBCs Fld Mononuclear WBCs % Fluid Neutrophils Fluid Lymphocytes Fl Pathologist Comment Fluid Comment 2 Radiography Diagnostic Testing: Clinical Impression(s) from Imaging Studies Abdomen/Pelvis CT 10/15/24 19:22 IMPRESSION: No acute abdominopelvic finding. Reading Location: [facility] Chest X-Ray 10/15/24 20:03 IMPRESSION: Negative Chest. Reading Location: [facility] <Dr. Vishal Sheldon MD - Last Filed: 10/16/24 00:44> [facility] Lab Data Labs: Laboratory Results - last 24 hr 10/15/24 10/15/24 10/15/24 19:42 19:43 19:45 WBC 7.3 RBC 3.88 L Hgb 11.8 L Hct 36.1 L MCV 93.0 MCH 30.4 MCHC 32.7 RDW Std Deviation 47.5 H RDW Coeff of Larias 14.1 Plt Count 273 MPV 9.0 Immature Gran % (Auto) 0.500 Neut % (Auto) 89.1 H Lymph % (Auto) 4.1 L [place] % (Auto) 5.6 Eos % (Auto) 0.4 Baso % (Auto) 0.3 Absolute Neuts (auto) 6.5 Absolute Lymphs (auto) 0.30 L Nucleated RBC % 0 PT 15.8 H INR 1.2 APTT 27.1 Sodium 135 Potassium 3.8 Chloride 95 L Carbon Dioxide 25.6 Anion Gap 14 BUN 36 H Creatinine 7.24 H Estim Creat Clear Calc 11.39 L Est GFR (MDRD) Non-Af 6 L BUN/Creatinine Ratio 5.0 L Glucose 88 Lactic Acid < 1.0 Calcium 8.9 Total Bilirubin 0.32 AST 19 ALT 7 Alkaline Phosphatase 79 Total Protein 6.3 Albumin 2.6 L Globulin 3.8 Albumin/Globulin Ratio 0.7 L Procalcitonin 0.79 H Urine Color Urine Clarity Urine pH Ur Specific Carney Urine Protein Urine Glucose (UA) Urine Ketones Urine Occult Blood Urine Nitrite Urine Bilirubin Urine Urobilinogen Ur Leukocyte Esterase Urine RBC Urine WBC Ur Squamous Epith Cells Ur Transition Epith Cell Urine Bacteria Urine Mucus Fluid Source PERITONEAL FLUID Fluid Color COLORLESS Fluid Appearance TURBID Fluid WBC 0.676 Fluid RBC 0.003 Fluid Tot Cell Count 0.691 H Fld Polynuclear WBCs # 0.214 Fld Polynuclear WBCs % 31.7 Fluid Mononuclear WBCs 0.462 Fld Mononuclear WBCs % 68.3 Fluid Neutrophils 64 Fluid Lymphocytes 36 Fl Pathologist Comment May follow Fluid Comment 2 SEE COMMENT 10/15/24 20:25 WBC RBC Hgb Hct MCV MCH MCHC RDW Std Deviation RDW Coeff of Larisa Plt Count MPV Immature Gran % (Auto) Neut % (Auto) Lymph % (Auto) [place] % (Auto) Eos % (Auto) Baso % (Auto) Absolute Neuts (auto) Absolute Lymphs (auto) Nucleated RBC % PT INR APTT Sodium Potassium Chloride Carbon Dioxide Anion Gap BUN Creatinine Estim Creat Clear Calc Est GFR (MDRD) Non-Af BUN/Creatinine Ratio Glucose Lactic Acid Calcium Total Bilirubin AST ALT Alkaline Phosphatase Total Protein Albumin Globulin Albumin/Globulin Ratio Procalcitonin Urine Color Yellow Urine Clarity Sl. Cloudy Urine pH 8.0 Ur Specific Carney 1.010 Urine Protein 100 H Urine Glucose (UA) Normal Urine Ketones Negative Urine Occult Blood 250 H Urine Nitrite Negative Urine Bilirubin Negative Urine Urobilinogen Normal Ur Leukocyte Esterase 100 H Urine RBC 10-25 SEEN Urine WBC 10-25 SEEN Ur Squamous Epith Cells 25-50 SEEN Ur Transition Epith Cell 5-10 SEEN Urine Bacteria 3+ Urine Mucus 0 SEEN Fluid Source Fluid Color Fluid Appearance Fluid WBC Fluid RBC Fluid Tot Cell Count Fld Polynuclear WBCs # Fld Polynuclear WBCs % Fluid Mononuclear WBCs Fld Mononuclear WBCs % Fluid Neutrophils Fluid Lymphocytes Fl Pathologist Comment Fluid Comment 2 Radiography Diagnostic Testing: Clinical Impression(s) from Imaging Studies Abdomen/Pelvis CT 10/15/24 19:22 IMPRESSION: No acute abdominopelvic finding. Reading Location: [facility] Chest X-Ray 10/15/24 20:03 IMPRESSION: Negative Chest. Reading Location: [facility] Management Discussion w/another healthcare provider: [facility] (Dr. Malave [facility]) Treatment and Re-Evaluation Comments:: I took over care of this patient. Discussed with Dr. Malave at [place], who agrees to accept the patient. However at [facility] they do not have a medical bed for the particular floor she needs to go to at this time, but they expect to have a bed hopefully within either the next 2 hours or possibly if not then, the next 6-7 hours. Therefore at 12:40 AM on 10/16/2024, the patient was admitted to ED observation and continued care while awaiting a bed at receiving facility. Discharge Plan Triage Chief Complaint: General Illness ED Provider: Samm Church Dx/Rx/DC Orders Clinical Impression: SBP (spontaneous bacterial peritonitis), Polycystic kidney disease, Peritoneal dialysis catheter in place, Fever Prescriptions: No Action metoprolol succinate 50 mg tablet extended release 24 hr 50 mg PO DAILY furosemide [Lasix] 40 mg tablet 40 mg PO BID potassium chloride [Klor-Con M20] 20 mEq tablet,ER particles/crystals 20 meq PO BID ferrous sulfate 324 mg (65 mg iron) tablet,delayed release (DR/EC) 324 mg PO DAILY Patient Comments: TAKE 1 TABLET BY MOUTH EVERY DAY sevelamer carbonate 800 mg tablet 800 mg PO TID Primary Care Provider: Brenna Aceves Referrals: Brenna Aceves MD [Primary Care Provider] - Print Language: Indonesian Disposition Disposition: DC/Tx to Another Type of HCF Discharge Location: [facility] Discharge Date/Time: 10/16/24 11:06
--- OUTSIDE RECORDS SUMMARY | 2024-10-15 19:48 | XMS RPT_ITS | CCD ---
Author Organization [facility] Care Team Providers Care Shop Assistant Name Role Phone Freda Osorio DO Primary Care Provider FREDA OSORIO DO Primary Care Physician BRENNA ALEXANDRA MD Primary Care Physician Dr. Brenna Alexandra Primary Care Provider Dr. Brenna Alexandra Referring Provider [phone] Dr. Randall Payne Attending Provider [phone] Roof AIR CHIEF MARSHAL, AIR CHIEF MARSHAL-Ernestina De La Cruz Attending Provider DEEPA Marinelli Attending Provider CHASITY ARMSTRONG, DR DANIELLE MALDONADO Attending Unav kareem ALEXANDRA MD, BRENNA Primary Care Mary MENESES MD, DARLIN Consulting MALAI Murray MD Consulting Unavailable CHASITY ARMSTRONG, DR DANIELLE MALDONADO Attending Unav BRENNA Kelly MD Primary Care Unavailable CHASITY ARMSTRONG, DR DANIELLE MALDONADO Attending Unav BRENNA Kelly MD Primary Care Unavailable NATASHA FLORES MD Consulting Unavailable JOHN NORTH, NICHELLE Consulting Maite GASPAR MD, DR DANIELLE MALDONADO Attending Unav BRENNA Kelly MD Primary Care Unavailable CHASITY ARMSTRONG, DR DANIELLE MALDONADO Attending Unav BRENNA Kelly MD Primary Care Unavailable CHASITY ARMSTRONG, DR DANIELLE MALDONADO Attending Unav FREDA Simon DO Primary Care Unavailmaddy GASPAR MD, DR DANIELLE MALDONADO Attending Unav BRENNA Kelly MD Primary Care Unavailable CHASITY ARMSTRONG, DR DANIELLE MALDONADO Attending Unav kareem ALEXANDRA MD, [facility] Primary Care Unavailable CHASITY ARMSTRONG, DR DANIELLE MALDONADO Attending Unav kareem ALEXANDRA MD, [facility] Primary Care Unavailable Ketan ARMSTRONG, [facility] Primary Care Provider Unavailable Primary Care Provider Unavailabl e Kalmirelatti, Brenna Primary Care Unavailable Job Basurto Attending Unavailable Kalmirelatti, Brenna Referring Unavailable Kalisetti, Brenna Referring Unavailable Kalisetti, Brenna Primary Care Unavailable KalizzyiJhonBrenna Attending Unavailable Kalisetti, Brenna Primary Care Unavailable Job Basurto Attending Unavailable Kalizzyi, Brenna Referring Unavailable Job Basurto Consulting Unavailable Kalmirelatti, Brenna Primary Care Unavailable Job Basurto Attending Unavailable Kalisetti, Brenna Referring Unavailable Kalisetti, Brenna Primary Care Unavailable Job Basurto Referring Unavailable Erick Stevenson Attending Unavailable Kalmirelatti, Brenna Referring Unavailable Nicole Read NP Attending Unavailable Kalisetti, Brenna Primary Care Unavailable NURKO, REN Referring Unavailable NURKO, REN Referring Unavailable NURKO, REN Referring Unavailable NURKO, REN Referring Unavailable RAIMUNDO CURTIS Referring Unavailable HUML, DANIA Referring Unavailable HUML, DANIA Referring Unavailable HUML, DANIA Referring Unavailable BUCKTOWARSING, BHAVNISH Referring Unavaila ble BUCKTOWARSING, BHAVNISH Referring Unavaila ble HUML, DANIA Referring Unavailable HUML, DANIA Referring Unavailable LISA LÓPEZ Attending Unavailable NURKO, REN Referring Unavailable NURKO, REN Referring Unavailable HUML, DANIA Referring Unavailable KALISETTI, BRENNA Primary Care Unavailable DALOUL, REEM Referring Unavailable DALOUL, REEM Attending Unavailable KALISETTI, BRENNA Primary Care Unavailable DALOUL, REEM Referring Unavailable DALOUL, REEM Attending Unavailable DALOUL, REEM Attending Unavailable KALISETTI, BRENNA Primary Care Unavailable DALOUL, REEM Referring Unavailable KALISETTI, BRENNA Primary Care Unavailable DALOUL, REEM Referring Unavailable DALOUL, REEM Attending Unavailable KALMIRELATTI, [facility] Primary Care Unavailable DALOUL, REEM Referring Unavailable DALOUL, REEM Attending Unavailable KALISETTI, [facility] Primary Care Unavailable DALOUL, REEM Referring Unavailable KALISETTI, BRENNA Primary Care Unavailable DALOUL, REEM Referring Unavailable DALOUL, REEM Attending Unavailable DALOUL, REEM Referring Unavailable KALISETTI, BRENNA Primary Care Unavailable DALOUL, REEM Attending Unavailable DALOUL, REEM Referring Unavailable KALISETTI, BRENNA Primary Care Unavailable DALOUL, REEM Attending Unavailable KALISETTI, BRENNA Primary Care Unavailable DALOUL, REEM Referring Unavailable DALOUL, REEM Attending Unavailable KALISETTI, BRENNA Primary Care Unavailable DALOUL, REEM Referring Unavailable DALOUL, REEM Attending Unavailable SELF, SELF Referring Unavailable KALISETTI, BRENNA Primary Care Unavailable MAGDA MCDANIEL Attending Unavailable KALISETTI, BRENNA Primary Care Unavailable DALOUL, REEM Referring Unavailable DALOUL, REEM Attending Unavailable FREDA OSORIO DO Consulting Unavailable BRENNA ALEXANDRA MD Attending Unavailable BRENNA ALEXANDRA MD Admitting Unavailable BRENNA ALEXANDRA MD Primary Care Unavailable PROVIDER, UNKNOWN Consulting Unavailable PROVIDER, UNKNOWN Consulting Unavailable BRENNA ALEXANDRA MD Primary Care Unavailable FREDA OSORIO DO Consulting Unavailable BRENNA ALEXANDRA MD Attending Unavailable BRENNA ALEXANDRA MD Admitting Unavailable PROVIDER, UNKNOWN Consulting Unavailable PROVIDER, UNKNOWN Consulting Unavailable BRENNA ALEXANDRA MD Primary Care Unavailable FREDA OSORIO DO Consulting Unavailable BRENNA ALEXANDRA MD Attending Unavailable BRENNA ALEXANDRA MD Admitting Unavailable PROVIDER, UNKNOWN Consulting Unavailable PROVIDER, UNKNOWN Consulting Unavailable FREDA OSORIO DO Consulting Unavailable BUCKTOWARSING, BHAVNISH Admitting Unavaila ble BUCKTOWARSING, BHAVNISH Primary Care Unavaila ble BUCKTOWARSING, BHAVNISH Attending Unavaila ble PROVIDER, UNKNOWN Consulting Unavailable PROVIDER, UNKNOWN Consulting Unavailable BRENNA ALEXANDRA MD Primary Care Unavailable FREDA OSORIO DO Consulting Unavailable BRENNA ALEXANDRA MD Attending Unavailable BRENNA ALEXANDRA MD Admitting Unavailable PROVIDER, UNKNOWN Consulting Unavailable PROVIDER, UNKNOWN Consulting Unavailable Allergies Allergy Classification Reported Allergen(s) Allergy Type Date of Onset Reaction(s) Facility (15 sources) Allopurinol; Translations: [allopurinol] Drug Allergy 2 Abdominal Discomfort, Cramping sensation quality (qualifier value) [facility] Work Phone: (2 sources) Lisinopril Drug Allergy 1 [facility] (3 sources) Losartan Drug Allergy 1 [facility] (1 source) Lisinopril Propensity to adverse reactions to drug 1 [facility] (1 source) Allopurinol Drug Allergy 5 [facility] Repository Medications Current Medications Medication Drug Class(es) Dates Sig (Normalized) Sig (Original) acetaminophen 325 mg / HYDROcodone bitartrate 5 mg oral tablet (5 sources) Opioid Agonist Start: 07-29-2023 End: 08-01-2023 take 1 tablet by mouth every four hours as needed for pain Sophia 325- 5 mg oral tablet Dose = 1 tab(s), Oral, q4h, PRN for pain, X 3 day(s), # 18 tab(s), 0 Refill(s), Pharmacy: [facility], Acute post-operative pain, 179.1, cm, 07/29/23 10:35:00 EDT, Height, 79.7, kg, 07/29/23 10:35:00 EDT, Dosing Weight Start Date: 07/29/23 Stop Date: 08/01/23 Status: Ordered Start: 12-04-2022 take 1 tablet by jonny th every six hours Hydrocodone-Acetaminophen Active 1 TABLE T PO EVERY 6 HOURS December 03, 2022 11:00pm Start: 12-03-2022 End: 12-08-2022 take 1 tablet by mouth every six hours as needed for pain Sophia 325- 5 mg oral tablet Dose = 1 tab(s), Oral, q6h, PRN for pain, X 5 day(s), # 20 tab(s), 0 Refill(s), Pharmacy: [facility], Acute post-operative pain, 177.8, cm, 12/03/22 9:02:00 EDT, Height, 76.9, kg, 12/03/22 9:02:00 EDT, Dosing Weight Start Date: 12/03/22 Stop Date: 12/08/22 Status: Ordered amLODIPine 10 mg oral tablet (20 sources) Dihydropyridine Calcium Channel Dylan Start: 07-22-2023 amLODIPine 10 mg oral tablet Dose : 10 mg = 1 tab(s), Oral, qHS, # 30 tab(s), 0 Refill(s) Start Date: 07/22/23 Status: Ordered Start: 02-19-2023 End: 05-29-2023 amLODIPine 5 mg oral tablet Dose : 5 mg = 1 tab(s), Oral, qDay, # 30 tab(s), 0 Refill(s) Start Date: 02/24/23 Status: Ordered benazepril hydrochloride 10 mg oral tablet (1 source) Angiotensin Converting Enzyme Inhibitor Start: 05-29-2023 take 10 mg by mouth once daily Benazepril Active 10 MG PO DAILY May 29, 2023 12:00am cholecalciferol 0.01 mg/ml / sodium fluoride 0.55 mg/ml oral solution (19 sources) Vitamin D Start: 11-07-2022 sodium fluoride-vitamin D3 0.25 mg (0.55 mg)-400 unit/mL drop Take by mouth. 11/07/2022 Active Start: 11-07-2022 take 0.25 mg by mouth once jim ly Vitamin D with Fluoride 0.25 mg/mL oral liquid mL, Oral, qDay, 0 Refill(s) Start Date: 11/07/22 Status: Ordered diphenhydrAMINE hydrochloride 25 mg oral capsule (8 sources) Histamine-1 Receptor Antagonist Start: 12-03-2022 End: 05-29-2023 Benadryl 25 mg oral capsule Dose : 25 mg = 1 cap(s), Oral, q4h, PRN as needed for allergy symptoms, # 24 cap(s), 0 Refill(s) Start Date: 12/03/22 Status: Ordered ergocalciferol 1.25 mg oral capsule (20 sources) Provitamin D2 Compound Start: 10-06-2022 End: 02-19-2023 take 1 capsule by mouth every week ergocalciferol 50,000 unit capsule (VITAMIN D2, DRISDOL) Take 50,000 Units by mouth one time a week. 10/06/2022 Active End: 10-23-2022 Ergocalciferol (VITAMIN D2 P O) Take 50,000 Units by mouth. 0 10/23/2022 Discontinued Ergocalciferol ( VITAMIN D2 PO) Take 50,000 Units by mouth. 0 Active ferrous sulfate 325 mg oral tablet (20 sources) Start: 02-29-2024 take 1 tablet by mouth once ferrous sulfate 325 mg (65 mg iron) tablet Take 1 tablet by mouth every afternoon. 02/29/2024 Active Start: 12-04-2022 End: 10-16-2023 take 324 mg by mouth once daily ferrous sulfate EC 324 mg (65 mg iron) TbEC Take 324 mg by mouth once daily. 07/22/2023 Active Start: 11-07-2022 ferrous sulfat e 325 mg (65 mg elemental iron) oral tablet Dose : 325 mg = 1 tab(s), Oral, qAM, # 270 tab(s), 0 Refill(s) Start Date: 11/07/22 Status: Ordered furosemide 40 mg oral tablet (19 sources) Loop Diuretic Start: 09-10-2023 take 1 tablet by mouth twice daily LASIX 40 mg tablet Take 1 tablet by mouth two times a day. 09/10/2023 Active metoclopramide 5 mg oral tablet (3 sources) Dopamine-2 Receptor Antagonist Start: 12-04-2022 take 1 tablet by mouth every eight hours as needed Metoclopramide Hcl (Reglan) 5 mg tablet Active 5 MG PO EVERY 8 HOURS NEEDED 21 11December 03, 2022 11:00pm metoprolol tartrate 50 mg oral tablet (20 sources) beta-Adrenergic Dylan Start: 02-24-2023 Metoprolol Succinate ER 50 mg oral TABLET extended release Dose : 50 mg = 1 tab(s), Oral, qAM, # 30 tab(s), 0 Refill(s) Start Date: 02/24/23 Status: Ordered Start: 02-19-2023 take 50 mg by mouth once daily Metoprolol Succinate Active 50 MG PO DAILY February 18, 2023 11:00pm mupirocin 0.02 mg/mg topical ointment (2 sources) RNA Synthetase Inhibitor Antibacterial Start: 07-22-2023 mupirocin 2% topical ointment Apply 1 tung, Topical, BID, Bilateral intranasal application twice daily for 5 days prior to surgery &/or as many days leading up to surgery as possible due to surgical urgency/scheduling. Send to patient's preferred pharmacy., Apply to: nostril, each, # 22 gram(s), 0 Refill(s), Pharmacy: [facility]/pharmacy #[id number], Ointment, 177.8, cm, 07/21/23 10:54:00 EDT, Height, 81.8, kg, 07/21/23 10:54:00 EDT, Dosing Weight Start Date: 07/22/23 Status: Ordered Start: 11-18-2022 mupirocin 2% t opical ointment Apply 1 tung, Topical, BID, Bilateral intranasal application twice daily x 5 days pre-surgery &/or as many days pre-surgery as possible., Apply to: nostril, each, # 22 gram(s), 0 Refill(s), Pharmacy: [facility]/pharmacy #[id number], Ointment, 178, cm, 11/18/22 8:0... Start Date: 11/18/22 Status: Ordered microencapsulated potassium chloride 20 meq extended release oral tablet (16 sources) Start: 10-10-2023 take 1 tablet by mouth twice daily at mealtime Klor-Con M20 20 MEQ Tab CR tablet Take 1 tablet by mouth 2 times daily with meals. 10/10/2023 Active KLOR-CON M20 20 mEq tablet Take 40 mEq by mouth once daily. Active sodium bicarbonate 650 mg or al tablet (9 sources) Start: 11-07-2022 End: 02-19-2023 sodium bicarbonate 650 mg or al tablet Dose : 650 mg = 1 tab(s), Oral, TID, # 60 tab(s), 0 Refill(s) Start Date: 11/07/22 Status: Ordered Vitamin D2 1.25 mg (50,000 i ntl units) oral capsule (5 sources) Start: 11-18-2022 Vitamin D2 1.2 5 mg (50,000 intl units) oral capsule Dose : 50,000 International_Unit = 1 cap(s), Oral, qWeek, # 4 cap(s), 0 Refill(s) Start Date: 11/18/22 Status: Ordered Completed/Discontinued Medications Medication Drug Class(es) Dates Sig (Normalized) Sig (Original) allopurinol 100 mg oral tablet (2 sources) Xanthine Oxidase Inhibitor Start: 09-25-2022 End: 10-24-2022 take 1 tablet by mouth once daily Allopurinol 100 MG tablet Take 1 tablet by mouth daily. 0 09/25/2022 10/24/2022 Discontinued End: 08-22-2021 take 1 tablet by mouth once daily allopurinol 100 MG tablet Take 100 mg by mouth daily. 0 08/22/2021 Discontinued (Therapy completed) amLODIPine 5 mg / benazepril hydrochloride 20 mg oral capsule (9 sources) Dihydropyridine Calcium Channel Dylan, Angiotensin Converting Enzyme Inhibitor Start: 12-04-2022 End: 02-19-2023 take 1 capsule by mouth once daily Amlodipine-Benazepril Discontinued 1 CAP PO DAILY December 03, 2022 11:00pm February 19, 2023 8:00am Start: 11-07-2022 End: 10-16-2023 take 1 capsule by mouth once daily in the morning amlodipine-benazepril 5 mg-20 mg oral capsule Dose = 1 cap(s), Oral, qAM, # 90 cap(s), 0 Refill(s) Start Date: 11/07/22 Status: Ordered calcitriol 0.0005 mg oral capsule (20 sources) Vitamin D3 Analog Start: 12-04-2022 End: 02-19-2023 take 0.5 ug by mouth every other day Calcitriol Discontinued 0.5 MCG PO every other day January 30, 2023 12:30pm February 19, 2023 8:00am Start: 11-11-2022 calcitriol 0.5 mcg oral capsule Dose : 0.5 mcg = 1 cap(s), Oral, qHS, TAKE 1 CAPSULE BY MOUTH EVERY DAY Start Date: 11/11/22 Status: Ordered Start: 08-09-2021 End: 10-16-2023 take 1 capsule by mouth every other day calcitRIOL 0.25 MCG capsule Take 0.25 mcg by mouth every other day. 08/09/2021 10/16/2023 Discontinued take 1 capsule by mo [facility] once daily calcitriol (ROCALTROL) 0.5 mcg capsule Take 1 capsule by mouth once daily. Active gentamicin 1 mg/ml topical cream (2 sources) Start: 07-22-2023 gentamicin 0.1 % topical cream Apply 1 tung, Topical, qAM, Apply to: PERITONEAL CATH SITE, 0 Refill(s), 81.8 Start Date: 07/22/23 Status: Ordered losartan potassium 25 mg oral tablet (2 sources) Angiotensin 2 Receptor Dylan Start: 02-19-2023 End: 02-19-2023 take 25 mg by mouth once daily Losartan Discontinued 25 MG PO DAILY February 18, 2023 11:00pm February 19, 2023 8:27am predniSONE 10 mg oral tablet (3 sources) Start: 10-09-2014 End: 12-04-2022 Prednisone Discontinued 10 MG PO DAILY 48 October 08, 2014 11:00pm December 04, 2022 1:41am 6 po qd x 3 days, 4 po qd x 3 days, 2 po qd x 3 days, 1 po qd x 3 days Problems Active Problems Problem Classification Problem Date Documented Date Episodic/Chronic Administrative/social admission (1 source) Patient encounter status; Translations: [Dietary counseling and surveillance] 03-10-2024 Episodic Cardiac dysrhythmias (2 sources) Tachycardia; Translations: [Tachycardia, unspecified] 01-30-2023 Episodic Chronic kidney disease (14 sources) End stage renal failure on dialysis; Translations: [End stage renal disease] Onset: 10-16-2023 10-16-2023 Chronic Disorders of lipid metabolism (1 source) Pure hypercholesterolemia, unspecified; Translations: [Pure hypercholesterolemia, unspecified] Onset: 06-09-2024 Chronic Essential hypertension (19 sources) Hypertensive disorder; Translations: [Essential (primary) hypertension] Onset: 05-16-2020 05-16-2020 Chronic Fever of unknown origin (1 source) Fever, unspecified; Translations: [Fever, unspecified] Onset: 10-08-2024 Episodic Genitourinary congenital anomalies (7 sources) Multiple renal cysts; Translations: [Polycystic kidney, unspecified] Onset: 05-16-2020 05-16-2020 Chronic Other diseases of kidney and ureters (6 sources) Kidney disease 11-07-2022 Episodic Other lower respiratory disease (9 sources) Dyspnea 11-07-2022 Episodic Other nervous system disorders (5 sources) Postoperative pain ; Translations: [Other acute postprocedural pain] Onset: 12-03-2022 Episodic Other nervous system disorders (1 source) Absence of sensation 07-21-2023 Episodic Comment on above: Side effect: Severe nausea and vomiting. Other screening for suspected conditions (not mental disorders or infectious disease) (5 sources) Encounter for screening for malignant neoplasm of colon; Translations: [Encounter for screening mammogram for malignant neoplasm of breast] Onset: 12-03-2023 Episodic Residual codes; unclassified (1 source) On waiting list for organ transplant; Translations: [Awaiting organ transplant status] Chronic Residual codes; unclassified (4 sources) Awaiting organ transplant status; Translations: [Other specified conditions influencing health status] Onset: 10-16-2023 10-24-2022 Chronic Residual codes; unclassified (1 source) Awaiting transplantation; Translations: [Awaiting organ transplant status] 03-10-2024 Chronic Thyroid disorders (1 source) Other specified hypothyroidism; Translations: [Other specified hypothyroidism] Onset: 06-09-2024 Chronic Unclassified (4 sources) Patient encounter status 07-30-2024 Past or Other Problems Problem Classification Problem Date Documented Date Episodic/Chronic Acute and unspecified renal failure (2 sources) Qtuzu-in-myldikd renal failure; Translations: [Acute kidney failure with tubular necrosis] Onset: 03-10-2024 03-10-2024 Episodic Immunizations and screening for infectious disease (1 source) Encounter for screening for infections with a predominantly sexual mode of transmission; Translations: [Screening for venereal disease] Onset: 03-10-2024 Episodic Other aftercare (1 source) Other watermaster (current) drug therapy; Translations: [Other watermaster (current) drug therapy] Onset: 12-03-2023 Episodic Other skin disorders (2 sources) Nonscarring hair loss, unspecified; Translations: [Nonscarring hair loss, unspecified] Onset: 12-03-2023 Episodic Results Test Name Value Interpretation Reference Range Facility CBC + DIFFon 10-08-2024 Baso # 0.02 x10EE3/UL Normal 0.00 - 0.10 [facility] Comment on above: Performed By: #### 2 [id number] #### [facility],[address] [place], [place] [id number] Basophils/100 WBC (Bld) 0.2 % Normal 0.0 - 2.0 [facility] Comment on above: Performed By: #### 2 [id number] #### [facility],[address] [place] [address] CBC + DIFF Normal [facility] Comment on above: Result Comment: CBC- COMPLETE BLOOD COUNT Performed By: #### 2 [id number] #### [place] [address] EO # 0.05 x10EE3/UL Normal 0.00 - 0.50 [facility] Comment on above: Performed By: #### 2 [id number] #### [place] [address] Eosinophils/100 WBC (Bld) 0.7 % Normal 0.0 - 7.0 [facility] Comment on above: Performed By: #### 2 [id number] #### [place] [address] Erythrocyte distribution width (RBC) [Ratio] 13.9 % Normal 12.0 - 15.6 [facility] Comment on above: Performed By: #### 2 05950 #### [place] [address] Hematocrit (Bld) [Volume fraction] 39.6 % Normal 34.0 - 46.0 [facility] Comment on above: Performed By: #### 2 75566 #### [place] [address] Hemoglobin (Bld) [Mass/Vol] 13.6 g/dL Normal 12.0 - 16.0 [facility] Comment on above: Performed By: #### 2 [id number] #### [place] [address] Lymph # 0.36 x10EE3/UL Low 0.80 - 2.80 [facility] Comment on above: Performed By: #### 2 [id number] #### [place] [address] Lymphocytes/100 WBC (Bld) 4.7 % Low 20.0 - 45.0 [facility] Comment on above: Performed By: #### 2 [id number] #### [address] [address] MANUAL DIFF N/A Normal [facility] Comment on above: Performed By: #### 2 [id number] #### [facility],[address] [place] [address] MCH (RBC) [Entitic mass] 32 pg Normal 27 - 33 [facility] Comment on above: Performed By: #### 2 08012 #### [facility],[address] [place] [address] MCHC 34 X10 3 Normal 32 - 36 [facility] Comment on above: Performed By: #### 2 [id number] #### [facility],[address] [place] [address] MCV (RBC) [Entitic vol] 93 fL Normal 80 - 99 [facility] Comment on above: Performed By: #### 2 85499 #### [facility],[address] [place] [address] [place] # 0.28 x10EE3/UL Normal 0.20 - 1.00 [facility] Comment on above: Performed By: #### 2 64610 #### [facility],[address] [place] [address] MONOS % 3.7 % Normal 0.0 - 10.0 [facility] Comment on above: Performed By: #### 2 30636 #### [facility],[address] [place] [address] Morphology Cezar (Bld) [Interp] N/A Normal [facility] Comment on above: Performed By: #### 2 60041 #### [facility],[address] [place] [address] Neut # 6.92 x10EE3/UL Normal 1.50 - 7.10 [facility] Comment on above: Performed By: #### 2 55916 #### [place] [address] Neutrophils/100 WBC (Bld) 90.7 % High 46.0 - 76.0 [facility] Comment on above: Performed By: #### 2 92849 #### [facility],[address] [place] [address] PLATELET 318 x10EE3/UL Normal 150 - 450 [facility] Comment on above: Performed By: #### 2 98857 #### [facility],[address] [place] [id number] Platelet mean volume (Bld) [Entitic vol] 7.1 fL Normal 6.6 - 10.5 [facility] Comment on above: Result Comment: AUTO MATED DIFFERENTIAL Performed By: #### 2 [id number] #### [place] [id number] RBC 4.27 x 10EE6/UL Normal 4.10 - 5.30 [facility] Comment on above: Performed By: #### 2 [id number] #### [facility],[address] [place], [place] [id number] WBC 7.6 x 10EE3/UL Normal 4.5 - 10.8 [facility] Comment on above: Performed By: #### 2 03788 #### [facility],[address] [place] [address] CMP with eGFRon 10-08-2024 AGE 49 years Normal [facility] Comment on above: Performed By: #### 2 [id number] #### [facility],[address] [place] [address] Albumin [Mass/Vol] 1.9 g/dL Low 3.4 - 5.0 [facility] Comment on above: Performed By: #### 2 05211 #### [facility],[address] [place] [address] Albumin/Globulin [Mass ratio] 0.4 {ratio} Low 0.9 - 1.6 [facility] Comment on above: Performed By: #### 2 [id number] #### [facility],[address] [place] [address] ALK PHOS 68 U/L Normal 46 - 116 [facility] Comment on above: Performed By: #### 2 [id number] #### [facility],[address] [place] [address]17 ALT [Catalytic activity/Vol] 12 U/L Low 16 - 63 [facility] Comment on above: Performed By: #### 2 05570 #### [facility],[address] [place] [address] Anion gap [Moles/Vol] 7 mmol/L Low 10 - 20 [facility] Comment on above: Performed By: #### 2 [id number] #### [facility],[address] [place], [place] [id number] AST [Catalytic activity/Vol] 19 U/L Normal 13 - 39 [facility] Comment on above: Performed By: #### 2 [id number] #### [facility],[address] [place] [address]30 B/C RATIO 4 ratio Normal 0 - 30 [facility] Comment on above: Performed By: #### 2 [id number] #### [facility],[address] [place] [address] 25919 Bilirubin [Mass/Vol] 0.3 mg/dL Normal 0.2 - 1.0 [facility] Comment on above: Performed By: #### 2 66395 #### [facility],[address] [place] [address] 28457 Calcium [Mass/Vol] 9.0 mg/dL Normal 8.5 - 10.1 [facility] Comment on above: Performed By: #### 2 [id number] #### [facility],[address] [place] [address] 89556 Chloride [Moles/Vol] 99 mmol/L Normal 98 - 107 [facility] Comment on above: Performed By: #### 2 59286 #### [facility],[address] [place] [address] 14319 CMP with eGFR Normal [facility] Comment on above: Result Comment: COMP REHENSIVE METABOLIC PANEL Performed By: #### 2 44555 #### [facility],[address] [place], [place] [id number] CO2 [Moles/Vol] 34.0 mmol/L High 21.0 - 32.0 [facility] Comment on above: Performed By: #### 2 96987 #### [facility],[address] [place] [address] Creatinine [Mass/Vol] 6.80 mg/dL High 0.55 - 1.02 [facility] Comment on above: Performed By: #### 2 37131 #### [facility],[address] [place] [address] eGFR 6 ML/MINUTE Low 60 - 999 [facility] Comment on above: Performed By: #### 2 47213 #### [facility],[address] [place], [place] [id number] eGFR(AA) 8 ML/MINUTE Low 60 - 999 [facility] Comment on above: Result Comment: ACCO RDING TO THE NATIONAL KIDNEY DISEASE EDUCATION PROGRAM(NKDE), A NORMAL eGFR IS A VALUE GREATER THAN OR EQUAL TO 60 ML/MIN/1.73 SQ METERS. CHRONIC KIDNEY DISEASE: <60mL/MIN/1.73 SQ METERS KIDNEY FAILURE: <15mL/MIN/1.73 SQ METERS THIS TEST SHOULD ONLY BE USED FOR PATIENTS 18 YEARS OF AGE AND OLDER. Performed By: #### 2 20326 #### [facility],[address] [place] [address] 73155 Globulin (S) [Mass/Vol] 4.9 g/dL High 1.5 - 3.8 [facility] Comment on above: Performed By: #### 2 88263 #### [facility],[address] [place] [address] 32584 Glucose [Mass/Vol] 101 mg/dL Normal 74 - 106 [facility] Comment on above: Performed By: #### 2 35026 #### [facility],[address] [place] [address] 10263 Potassium [Moles/Vol] 4.1 mmol/L Normal 3.5 - 5.1 [facility] Comment on above: Performed By: #### 2 44532 #### [facility],[address] [place] [address]43 Protein [Mass/Vol] 6.8 g/dL Normal 6.4 - 8.2 [facility] Comment on above: Performed By: #### 2 05936 #### [facility],[address] [place] [address] 87036 Sodium [Moles/Vol] 136 mmol/L Normal 136 - 145 [facility] Comment on above: Performed By: #### 2 44563 #### [facility],[address] [place] [address] 54384 Urea nitrogen [Mass/Vol] 28 mg/dL High 7 - 18 [facility] Comment on above: Performed By: #### 2 12927 #### [facility],[address] [place] [address] 14788 T4-FREE (FREE THYROXINE)on 0 10-08-2024 Free T4 [Mass/Vol] 1.43 ng/dL Normal 0.76 - 1.46 [facility] Comment on above: Result Comment: P otential of falsely elevated results when biotin concentrations are > 10 ng/mL. Performed By: #### 2 20592 #### [facility],[address] [place] [address] 66280 TSHon 10-08-2024 TSH Qn 6.01 m[IU]/L High 0.35 - 3.74 [facility] Comment on above: Performed By: #### 2 58707 #### [facility],[address] [place] [address] [facility] Text Normal [facility] HLA ANTIBODY SCREENon 2024 HLA CLASS I ANTIBODY Negative Normal [facility] Comment on above: Performed By: #### H LSCRN #### [facility] (DEFAULT) [address] [address] HLA CLASS II ANTIBODY Negative Normal [facility] Comment on above: Performed By: #### H LSCRN #### U [facility] (DEFAULT) [address] [address] HLSCRN COMMENT HLA Antibody Screen testing performed by [employer] Method[employer] Normal [facility] Comment on above: Result Comment: Some of the reagents used for testing in the Clinical Histocompatibility Laboratory have yet to be approved by the FDA. Our certification by CLIA to perform high complexity tests allows us to use these reagents in the context of a stringent QC program, and obviates the need for FDA approval.Testing performed by the [facility] Clinical Histocompatibility Laboratory. [facility] number: [id number]. CLIA number: [id number], Director: Juice Acosta, PhD, F([facility]). Performed By: #### H LSCRN #### [facility] (DEFAULT) [address] [address] ROMANA Negative Normal [facility] Comment on above: Performed By: #### H LSCRN #### U [facility] (DEFAULT) [address] [address] CNCOon 09-10-2024 CNCO Letter Text Normal [facility] KID K/P PANC REC HLA AB SCRN on 09-02-2024 ALLOGEN RESULTS TO FOLLOW See Allogen report to follow Normal [facility] Comment on above: Order Comment: Speci men Type: BLOOD SPECIMEN Ordering Facility: [facility] Address: [address] [place] [address] Performed By: #### A TIMOTHYG, 14645-3 #### [facility] CLIA [id number] [address] [place], [place] [address] [address] [place] No Panel Informationon 08-17 IMPRESSION: 3.6 cm unilocular cyst within the right ovary, likely hemorrhagic cyst considered ORADS score 2, almost certainly benign. Small echogenic lesion within the left ovary, possible area of scarring, sequela of a ruptured follicle, or small dermoid cyst, considered ORADS score 2, almost certainly benign Ultrasound O-RADS Follow-Up Recommendations: - Imaging: Follow up transvaginal ultrasound in 12 months is advised. [place] follow-up can be considered at clinical discretion. - Clinical: Advise Unit Manager follow-up if needed for management of clinical issues. Exophytic left-sided uterine fibroid [facility]ather [facility] Transcribe Date/Time: Aug 17 2024 11:13A Dictated by : ANAMIKA MCGRAW MD This examination was interpreted and the report reviewed and electronically signed by: ANAMIKA MCGRAW MD on Aug 17 2024 11:42AM [facility] No Panel InformationOrdered By: [facility] Provider on 08-17-2024 [facility] US FEMALE PELVIS TRANSABD LT Don 08-17-2024 US FEMALE PELVIS TRANSABD LTD * * *Final Report* * * DATE OF EXAM: Aug 17 2024 11:05AM RHU 1059 - US FEMALE PELVIS TRANSABD LTD / PROCEDURE REASON: Pre-transplant evaluation for kidney transplant * * * * Physician Interpretation * * * * EXAMINATION: TRANSVAGINAL AND TRANSABDOMINAL FEMALE PELVIC ULTRASOUND CLINICAL HISTORY: Pretransplant evaluation. Adnexal mass. TECHNIQUE: Sonography of the pelvis was performed by transvaginal and transabdominal techniques. Images were obtained and stored in a permanent archive. MQ: [id number] COMPARISON: CT scan 12/04/2022 RESULT: Uterus: -Size: 9.4 x 4.8 x 6.3 cm -Orientation: Anteverted -Endometrial echo complex: Evaluation of the endometrium was adequate. No endometrial abnormality. The endometrial echo complex measured 0.5 cm. -Cervix: Unremarkable. -Adenomyosis assessment: There are no sonographic findings of adenomyosis. -Fibroids: A few (less than 5) fibroids are present. Index fibroids are detailed below: Fibroid # 1 -Size: 4.7 x 4.2 x 4.2 cm -Location: Left -Type: Subserosal and less than 50% intramural (FIGO 6) -Imaging features: Typical imaging features -Differential: None Right Ovary: 4.7 x 3 x 4.1 cm - Lesion(s) present, as detailed below. Doppler imaging showed normal arterial and venous flow throughout the ovary. - US O-RADS Descriptor: Findings suggest a Classic Benign Lesion - Dimensions: 3.6 x 2.8 x 3.4 cm - Findings: Cystic lesion with reticular pattern and/or retractile clot. No internal vascularity. - Suggested Diagnosis: Hemorrhagic Cyst - Ultrasound O-RADS Score: 2 (almost certainly benign) - Ultrasound O-RADS Management: See impression Left Ovary: 1.7 x 1.2 x 2.2 cm - Lesion(s) present, as detailed below. Doppler imaging showed normal arterial and venous flow throughout the ovary. - US O-RADS Descriptor: Findings suggest a Classic Benign Lesion - Dimensions: 1.0 cm - Findings: Heterogeneous predominantly hyperechoic lesion within the left ovary - Suggested Diagnosis: Dermoid Cyst - Ultrasound O-RADS Score: 2 (almost certainly benign) - Ultrasound O-RADS Management: See impression Free Fluid: No abnormal free fluid is present. IMPRESSION: 3.6 cm unilocular cyst within the right ovary, likely hemorrhagic cyst considered ORADS score 2, almost certainly benign. Small echogenic lesion within the left ovary, possible area of scarring, sequela of a ruptured follicle, or small dermoid cyst, considered ORADS score 2, almost certainly benign Ultrasound O-RADS Follow-Up Recommendations: - Imaging: Follow up transvaginal ultrasound in 12 months is advised. [place] follow-up can be considered at clinical discretion. - Clinical: Advise Unit Manager follow-up if needed for management of clinical issues. Exophytic left-sided uterine fibroid Leather Finisher: APRYL Transcribe Date/Time: Aug 17 2024 11:13A Dictated by : ANAMIKA MCGRAW MD This examination was interpreted and the report reviewed and electronically signed by: ANAMIKA MCGRAW MD on Aug 17 2024 11:42AM EST [id number] N [facility] US FEMALE PELVIS TRANSVAGon 08-17-2024 US FEMALE PELVIS TRANSVAG * * *Final Report* * * DATE OF EXAM: Aug 17 2024 11:05AM RHU 1060 - US FEMALE PELVIS TRANSVAG / PROCEDURE REASON: Pre-transplant evaluation for kidney transplant * * * * Physician Interpretation * * * * EXAMINATION: TRANSVAGINAL AND TRANSABDOMINAL FEMALE PELVIC ULTRASOUND CLINICAL HISTORY: Pretransplant evaluation. Adnexal mass. TECHNIQUE: Sonography of the pelvis was performed by transvaginal and transabdominal techniques. Images were obtained and stored in a permanent archive. MQ: [facility]_2021 COMPARISON: CT scan 12/04/2022 RESULT: Uterus: -Size: 9.4 x 4.8 x 6.3 cm -Orientation: Anteverted -Endometrial echo complex: Evaluation of the endometrium was adequate. No endometrial abnormality. The endometrial echo complex measured 0.5 cm. -Cervix: Unremarkable. -Adenomyosis assessment: There are no sonographic findings of adenomyosis. -Fibroids: A few (less than 5) fibroids are present. Index fibroids are detailed below: Fibroid # 1 -Size: 4.7 x 4.2 x 4.2 cm -Location: Left -Type: Subserosal and less than 50% intramural (FIGO 6) -Imaging features: Typical imaging features -Differential: None Right Ovary: 4.7 x 3 x 4.1 cm - Lesion(s) present, as detailed below. Doppler imaging showed normal arterial and venous flow throughout the ovary. - US O-RADS Descriptor: Findings suggest a Classic Benign Lesion - Dimensions: 3.6 x 2.8 x 3.4 cm - Findings: Cystic lesion with reticular pattern and/or retractile clot. No internal vascularity. - Suggested Diagnosis: Hemorrhagic Cyst - Ultrasound O-RADS Score: 2 (almost certainly benign) - Ultrasound O-RADS Management: See impression Left Ovary: 1.7 x 1.2 x 2.2 cm - Lesion(s) present, as detailed below. Doppler imaging showed normal arterial and venous flow throughout the ovary. - US O-RADS Descriptor: Findings suggest a Classic Benign Lesion - Dimensions: 1.0 cm - Findings: Heterogeneous predominantly hyperechoic lesion within the left ovary - Suggested Diagnosis: Dermoid Cyst - Ultrasound O-RADS Score: 2 (almost certainly benign) - Ultrasound O-RADS Management: See impression Free Fluid: No abnormal free fluid is present. IMPRESSION: 3.6 cm unilocular cyst within the right ovary, likely hemorrhagic cyst considered ORADS score 2, almost certainly benign. Small echogenic lesion within the left ovary, possible area of scarring, sequela of a ruptured follicle, or small dermoid cyst, considered ORADS score 2, almost certainly benign Ultrasound O-RADS Follow-Up Recommendations: - Imaging: Follow up transvaginal ultrasound in 12 months is advised. [place] follow-up can be considered at clinical discretion. - Clinical: Advise Unit Manager follow-up if needed for management of clinical issues. Exophytic left-sided uterine fibroid Leather Finisher: PSCSergio Transcribe Date/Time: Aug 17 2024 11:13A Dictated by : ANAMIKA MCGRAW MD This examination was interpreted and the report reviewed and electronically signed by: ANAMIKA MCGRAW MD on Aug 17 2024 11:42AM EST [id number] N [facility] US Pelvis limitedon 08-18-19 * * *Final Report* * * DATE OF EXAM: Aug 17 2024 11:05AM RHU 1059 - US FEMALE PELVIS TRANSABD LTD / PROCEDURE REASON: Pre-transplant evaluation for kidney transplant * * * * Physician Interpretation * * * * EXAMINATION: TRANSVAGINAL AND TRANSABDOMINAL FEMALE PELVIC ULTRASOUND CLINICAL HISTORY: Pretransplant evaluation. Adnexal mass. TECHNIQUE: Sonography of the pelvis was performed by transvaginal and transabdominal techniques. Images were obtained and stored in a permanent archive. MQ: [facility]_2021 COMPARISON: CT scan 12/04/2022 RESULT: Uterus: -Size: 9.4 x 4.8 x 6.3 cm -Orientation: Anteverted -Endometrial echo complex: Evaluation of the endometrium was adequate. No endometrial abnormality. The endometrial echo complex measured 0.5 cm. -Cervix: Unremarkable. -Adenomyosis assessment: There are no sonographic findings of adenomyosis. -Fibroids: A few (less than 5) fibroids are present. Index fibroids are detailed below: Fibroid # 1 -Size: 4.7 x 4.2 x 4.2 cm -Location: Left -Type: Subserosal and less than 50% intramural (FIGO 6) -Imaging features: Typical imaging features -Differential: None Right Ovary: 4.7 x 3 x 4.1 cm - Lesion(s) present, as detailed below. Doppler imaging showed normal arterial and venous flow throughout the ovary. - US O-RADS Descriptor: Findings suggest a Classic Benign Lesion - Dimensions: 3.6 x 2.8 x 3.4 cm - Findings: Cystic lesion with reticular pattern and/or retractile clot. No internal vascularity. - Suggested Diagnosis: Hemorrhagic Cyst - Ultrasound O-RADS Score: 2 (almost certainly benign) - Ultrasound O-RADS Management: See impression Left Ovary: 1.7 x 1.2 x 2.2 cm - Lesion(s) present, as detailed below. Doppler imaging showed normal arterial and venous flow throughout the ovary. - US O-RADS Descriptor: Findings suggest a Classic Benign Lesion - Dimensions: 1.0 cm - Findings: Heterogeneous predominantly hyperechoic lesion within the left ovary - Suggested Diagnosis: Dermoid Cyst - Ultrasound O-RADS Score: 2 (almost certainly benign) - Ultrasound O-RADS Management: See impression Free Fluid: No abnormal free fluid is present. [facility] Provider, Kerri Godoy [facility] - 08/17/2024 * * *Final Report* * * DATE OF EXAM: Aug 17 2024 11:05AM RHU 1059 - [facility] / PROCEDURE REASON: Pre-transplant evaluation for kidney transplant * * * * Physician Interpretation * * * * EXAMINATION: TRANSVAGINAL AND TRANSABDOMINAL FEMALE PELVIC ULTRASOUND CLINICAL HISTORY: Pretransplant evaluation. Adnexal mass. TECHNIQUE: Sonography of the pelvis was performed by transvaginal and transabdominal techniques. Images were obtained and stored in a permanent archive. MQ: UF_2021 COMPARISON: CT scan 12/04/2022 RESULT: Uterus: -Size: 9.4 x 4.8 x 6.3 cm -Orientation: Anteverted -Endometrial echo complex: Evaluation of the endometrium was adequate. No endometrial abnormality. The endometrial echo complex measured 0.5 cm. -Cervix: Unremarkable. -Adenomyosis assessment: There are no sonographic findings of adenomyosis. -Fibroids: A few (less than 5) fibroids are present. Index fibroids are detailed below: Fibroid # 1 -Size: 4.7 x 4.2 x 4.2 cm -Location: Left -Type: Subserosal and less than 50% intramural (FIGO 6) -Imaging features: Typical imaging features -Differential: None Right Ovary: 4.7 x 3 x 4.1 cm - Lesion(s) present, as detailed below. Doppler imaging showed normal arterial and venous flow throughout the ovary. - US O-RADS Descriptor: Findings suggest a Classic Benign Lesion - Dimensions: 3.6 x 2.8 x 3.4 cm - Findings: Cystic lesion with reticular pattern and/or retractile clot. No internal vascularity. - Suggested Diagnosis: Hemorrhagic Cyst - Ultrasound O-RADS Score: 2 (almost certainly benign) - Ultrasound O-RADS Management: See impression Left Ovary: 1.7 x 1.2 x 2.2 cm - Lesion(s) present, as detailed below. Doppler imaging showed normal arterial and venous flow throughout the ovary. - US O-RADS Descriptor: Findings suggest a Classic Benign Lesion - Dimensions: 1.0 cm - Findings: Heterogeneous predominantly hyperechoic lesion within the left ovary - Suggested Diagnosis: Dermoid Cyst - Ultrasound O-RADS Score: 2 (almost certainly benign) - Ultrasound O-RADS Management: See impression Free Fluid: No abnormal free fluid is present. IMPRESSION IMPRESSION: 3.6 cm unilocular cyst within the right ovary, likely hemorrhagic cyst considered ORADS score 2, almost certainly benign. Small echogenic lesion within the left ovary, possible area of scarring, sequela of a ruptured follicle, or small dermoid cyst, considered ORADS score 2, almost certainly benign Ultrasound O-RADS Follow-Up Recommendations: - Imaging: Follow up transvaginal ultrasound in 12 months is advised. [place] follow-up can be considered at clinical discretion. - Clinical: Advise Unit Manager follow-up if needed for management of clinical issues. Exophytic left-sided uterine fibroid Leather Finisher: [employer]SC[facility] Transcribe Date/Time: Aug 17 2024 11:13A Dictated by : ANAMIKA MCGRAW MD This examination was interpreted and the report reviewed and electronically signed by: ANAMIKA MCGRAW MD on Aug 17 2024 11:42AM EST [facility] Radiology Study observation (narrative) Blake santillan [facility] US Pelvis transvaginalon * * *Final Report* * * DATE OF EXAM: Aug 17 2024 11:05AM U 1060 - US FEMALE PELVIS TRANSVAG / PROCEDURE REASON: Pre-transplant evaluation for kidney transplant * * * * Physician Interpretation * * * * EXAMINATION: TRANSVAGINAL AND TRANSABDOMINAL FEMALE PELVIC ULTRASOUND CLINICAL HISTORY: Pretransplant evaluation. Adnexal mass. TECHNIQUE: Sonography of the pelvis was performed by transvaginal and transabdominal techniques. Images were obtained and stored in a permanent archive. MQ: UF_2021 COMPARISON: CT scan 12/04/2022 RESULT: Uterus: -Size: 9.4 x 4.8 x 6.3 cm -Orientation: Anteverted -Endometrial echo complex: Evaluation of the endometrium was adequate. No endometrial abnormality. The endometrial echo complex measured 0.5 cm. -Cervix: Unremarkable. -Adenomyosis assessment: There are no sonographic findings of adenomyosis. -Fibroids: A few (less than 5) fibroids are present. Index fibroids are detailed below: Fibroid # 1 -Size: 4.7 x 4.2 x 4.2 cm -Location: Left -Type: Subserosal and less than 50% intramural (FIGO 6) -Imaging features: Typical imaging features -Differential: None Right Ovary: 4.7 x 3 x 4.1 cm - Lesion(s) present, as detailed below. Doppler imaging showed normal arterial and venous flow throughout the ovary. - US O-RADS Descriptor: Findings suggest a Classic Benign Lesion - Dimensions: 3.6 x 2.8 x 3.4 cm - Findings: Cystic lesion with reticular pattern and/or retractile clot. No internal vascularity. - Suggested Diagnosis: Hemorrhagic Cyst - Ultrasound O-RADS Score: 2 (almost certainly benign) - Ultrasound O-RADS Management: See impression Left Ovary: 1.7 x 1.2 x 2.2 cm - Lesion(s) present, as detailed below. Doppler imaging showed normal arterial and venous flow throughout the ovary. - US O-RADS Descriptor: Findings suggest a Classic Benign Lesion - Dimensions: 1.0 cm - Findings: Heterogeneous predominantly hyperechoic lesion within the left ovary - Suggested Diagnosis: Dermoid Cyst - Ultrasound O-RADS Score: 2 (almost certainly benign) - Ultrasound O-RADS Management: See impression Free Fluid: No abnormal free fluid is present. [facility] Provider, Kerri Godoy [employer] - 08/17/2024 * * *Final Report* * * DATE OF EXAM: Aug 17 2024 11:05AM RHU 1060 - US FEMALE PELVIS TRANSVAG / PROCEDURE REASON: Pre-transplant evaluation for kidney transplant * * * * Physician Interpretation * * * * EXAMINATION: TRANSVAGINAL AND TRANSABDOMINAL FEMALE PELVIC ULTRASOUND CLINICAL HISTORY: Pretransplant evaluation. Adnexal mass. TECHNIQUE: Sonography of the pelvis was performed by transvaginal and transabdominal techniques. Images were obtained and stored in a permanent archive. MQ: UFP_2021 COMPARISON: CT scan 12/04/2022 RESULT: Uterus: -Size: 9.4 x 4.8 x 6.3 cm -Orientation: Anteverted -Endometrial echo complex: Evaluation of the endometrium was adequate. No endometrial abnormality. The endometrial echo complex measured 0.5 cm. -Cervix: Unremarkable. -Adenomyosis assessment: There are no sonographic findings of adenomyosis. -Fibroids: A few (less than 5) fibroids are present. Index fibroids are detailed below: Fibroid # 1 -Size: 4.7 x 4.2 x 4.2 cm -Location: Left -Type: Subserosal and less than 50% intramural (FIGO 6) -Imaging features: Typical imaging features -Differential: None Right Ovary: 4.7 x 3 x 4.1 cm - Lesion(s) present, as detailed below. Doppler imaging showed normal arterial and venous flow throughout the ovary. - US O-RADS Descriptor: Findings suggest a Classic Benign Lesion - Dimensions: 3.6 x 2.8 x 3.4 cm - Findings: Cystic lesion with reticular pattern and/or retractile clot. No internal vascularity. - Suggested Diagnosis: Hemorrhagic Cyst - Ultrasound O-RADS Score: 2 (almost certainly benign) - Ultrasound O-RADS Management: See impression Left Ovary: 1.7 x 1.2 x 2.2 cm - Lesion(s) present, as detailed below. Doppler imaging showed normal arterial and venous flow throughout the ovary. - US O-RADS Descriptor: Findings suggest a Classic Benign Lesion - Dimensions: 1.0 cm - Findings: Heterogeneous predominantly hyperechoic lesion within the left ovary - Suggested Diagnosis: Dermoid Cyst - Ultrasound O-RADS Score: 2 (almost certainly benign) - Ultrasound O-RADS Management: See impression Free Fluid: No abnormal free fluid is present. IMPRESSION IMPRESSION: 3.6 cm unilocular cyst within the right ovary, likely hemorrhagic cyst considered ORADS score 2, almost certainly benign. Small echogenic lesion within the left ovary, possible area of scarring, sequela of a ruptured follicle, or small dermoid cyst, considered ORADS score 2, almost certainly benign Ultrasound O-RADS Follow-Up Recommendations: - Imaging: Follow up transvaginal ultrasound in 12 months is advised. [place] follow-up can be considered at clinical discretion. - Clinical: Advise Unit Manager follow-up if needed for management of clinical issues. Exophytic left-sided uterine fibroid Leather Finisher: APRYL Transcribe Date/Time: Aug 17 2024 11:13A Dictated by : ANAMIKA MCGRAW MD This examination was interpreted and the report reviewed and electronically signed by: ANAMIKA MCGRAW MD on Aug 17 2024 11:42AM EST [facility] Radiology Study observation (narrative) [facility] HLA ANTIBODY SCREENon 2024 HLA CLASS I ANTIBODY Negative Normal [facility] Comment on above: Performed By: #### H LSCRN #### [facility] (DEFAULT) [address] [address] HLA CLASS II ANTIBODY Negative Normal [facility] Comment on above: Performed By: #### H LSCRN #### [facility] (DEFAULT) [address] [address] HLSCRN COMMENT HLA Antibody Screen testing performed by [employer] Methodology Normal [facility] Comment on above: Result Comment: Some of the reagents used for testing in the Clinical Histocompatibility Laboratory have yet to be approved by the FDA. Our certification by CLIA to perform high complexity tests allows us to use these reagents in the context of a stringent QC program, and obviates the need for FDA approval.Testing performed by the [facility] Clinical Histocompatibility Laboratory. [facility] number: [id number]. CLIA number: [id number], Director: Juice Acosta, PhD, F([facility]). Performed By: #### H LSCRN #### [facility] (DEFAULT) [address] [place] [address] ROMANA Negative Normal [facility] Comment on above: Performed By: #### H LSCRN #### [facility] (DEFAULT) [address] [place] [address] HEPATIC FUNCTION PANELon Albumin [Mass/Vol] 3.2 g/dL Low 3.4 - 5.0 [facility] Comment on above: Performed By: #### 2 41342 #### [facility],[address] [place] [address] ALK PHOS 57 U/L Normal 46 - 116 [facility] Comment on above: Performed By: #### 2 84231 #### [facility],[address] [place] [address] ALT [Catalytic activity/Vol] 13 U/L Low 16 - 63 [facility] Comment on above: Performed By: #### 2 53623 #### [facility],[address] [place] [address] AST [Catalytic activity/Vol] 15 U/L Normal 13 - 39 [facility] Comment on above: Performed By: #### 2 86907 #### [facility],[address] [place] [address] Bilirubin [Mass/Vol] 0.5 mg/dL Normal 0.2 - 1.0 [facility] Comment on above: Performed By: #### 2 11171 #### [facility],[address] [place] [address] Bilirubin.direct [Mass/Vol] 0.1 mg/dL Normal 0.0 - 0.2 [facility] Comment on above: Performed By: #### 2 38939 #### [facility],[address] [place] [address] Hepatic function 2000 panel Normal [facility] Comment on above: Result Comment: HEPA TIC FUNCTION PROFILE Performed By: #### 2 59104 #### [facility],[address] [place] [address] Protein [Mass/Vol] 6.9 g/dL Normal 6.4 - 8.2 [facility] Comment on above: Performed By: #### 2 27867 #### [facility],[address] [place] [address] LIPID PROFILEon 06-09-2024 Cholesterol [Mass/Vol] 189 mg/dL Normal 0 - 240 [facility] Comment on above: Performed By: #### 2 55137 #### [facility],[address] [place] [address] Cholesterol in HDL [Mass/Vol] 57 mg/dL Normal 40 - 60 [facility] Comment on above: Performed By: #### 2 65040 #### [facility],[address] [place] [address] Cholesterol in LDL [Mass/Vol] 121 mg/dL Normal 0 - 129 [facility] Comment on above: Performed By: #### 2 23916 #### [facility],[address] [place] [address] Cholesterol.total/Marifer sterol in HDL [Mass ratio] 3.3 {ratio} Normal 0.0 - 5.0 [facility] Comment on above: Performed By: #### 2 45574 #### [facility],[address] [place] [address] Lipid 1996 panel Normal [facility] Comment on above: Result Comment: LIPI D PROFILE Performed By: #### 2 72699 #### [facility],[address] [place] [address] Triglyceride [Mass/Vol] 57 mg/dL Normal 0 - 150 [facility] Comment on above: Performed By: #### 2 36217 #### [facility],[address] [place] [address] TSHon 06-09-2024 TSH Qn 4.12 m[IU]/L High 0.35 - 3.74 [facility] Comment on above: Performed By: #### 2 91139 #### [facility],[address] [place] [address] Colonoscopy Reporton 025 Colonoscopy Report [facility] Medical Records Department [address] [place] [address] Colonoscopy Report MR#: [id number] Acct: [id number] Name: ADRIANA MORALES Rep #: [id number] : 1975 49 From: Job Basurto MD PCP: Dr. Brenna Alexandra MD Status:REG [facility] Patient Name: Adriana Morales Procedure Date: 05/11/2024 10:49 AM Date of : 1975 Age: 49 Procedure: Colonoscopy Indications: Screening for colorectal malignant neoplasm Providers: Job Basurto MD Referring MD: Job Basurto MD Medicines: Monitored Anesthesia Care Patient Profile: Refer to note in patient chart for documentation of history and physical. Last Colonoscopy: none. The patient's first colonoscopy is today. Complications: No immediate complications. Estimated blood loss: Minimal. Procedure: Pre-Anesthesia Assessment: - Prior to the procedure, a History and Physical was performed, and patient medications and allergies were reviewed. The patient's tolerance of previous anesthesia was also reviewed. The risks and benefits of the procedure and the sedation options and risks were discussed with the patient. All questions were answered, and informed consent was obtained. Prior Anticoagulants: The patient has taken no anticoagulant or antiplatelet agents. ASA Grade Assessment: III - A patient with severe systemic disease. After reviewing the risks and benefits, the patient was deemed in satisfactory condition to undergo the procedure. After I obtained informed consent, the scope was passed under direct vision. Throughout the procedure, the patient's blood pressure, pulse, and oxygen saturations were monitored continuously. The adult colonoscope was introduced through the anus and advanced to the cecum, identified by the appendiceal orifice, ileocecal valve and palpation. The ileocecal valve, appendiceal orifice, and rectum were photographed. The entire colon was well visualized. The colonoscopy was performed without difficulty. The patient tolerated the procedure well. The quality of the bowel preparation was adequate. Moderate Sedation: See the other procedure note for documentation of moderate sedation with intraservice time. Scope In: 11:02:18 AM Scope Withdrawal Time 0 hours 6 minutes 37 seconds Scope Out: 11:15:12 AM Total Procedure Duration Time 0 hours 12 minutes 54 seconds Findings: The perianal and digital rectal examinations were normal. Multiple small and large-mouthed diverticula were found in the sigmoid colon. A patchy area of mildly altered vascular mucosa was found in the ascending colon. Biopsies were taken with a cold forceps for histology. Verification of patient identification for the specimen was done by the nurse using the patient's name, date and medical record number. Estimated blood loss was minimal. The exam was otherwise without abnormality on direct and retroflexion views. Impression: - Diverticulosis in the sigmoid colon. - Altered vascular mucosa in the ascending colon. Biopsied. - The examination was otherwise normal on direct and retroflexion views. Recommendation: - Discharge patient to home (ambulatory). - High fiber diet indefinitely. - Await pathology results. - Repeat colonoscopy in 7-10 years for screening purposes. - Return to my office PRN. - Continue present medications. Procedure Code(s): --- Professional --- 72429, Colonoscopy, flexible; with biopsy, single or multiple Diagnosis Code(s): --- Professional --- Z12.11, Encounter for screening for malignant neoplasm of colon K57.30, Diverticulosis of large intestine without perforation or abscess without bleeding K63.89, Other specified diseases of intestine CPT copyright 2021 [employer]. All rights reserved. The codes documented in this report are preliminary and upon rehabilitation manager review may be revised to meet current compliance requirements. Job Basurto MD 05/11/2024 11:31:04 AM This report has been signed electronically. Number of Addenda: 0 Note Initiated On: 05/11/2024 10:49 AM 05/11/24 1131 Date Job Basurto MD Cosigner Signature: Date (if indicated) CC: Dr. Brenna Alexandra MD; Dr. Job Basurto MD Date Dictated: 05/11/24 1049 Date Transcribed: Leather Finisher: HILARIO Signed [facility] MR/POSTOP.ANEon 05-11-2024 MR/POSTOP.[facility] Medical Records Department [address] [place] [address] Anesthesia Postop Eval I 05/11/24 1126 MR#: [id number] Acct: [id number] Name: ADRIANA MORALES Rep #: [id number] : 1975 49 From: Kristofer Montes PCP: Dr. Brenna Alexandra MD Status:REG [facility] Y Race: C Location: [place] [address] Anesthesia: Postop Eval I Current Vital Signs Temperature: 97 F Pulse Rate: 82 Blood Pressure: 105/76 Respiratory Rate: 16 Pulse Ox: 97 Oxygen Delivery Method: Room Air Assessment Airway patent: Yes Spontaneous unlabored respirations: Yes Mental status: Awake and Calm nausea: No Vomiting: No Anesthesia Complication: No Fluid Hydration Crystalloid volume administer (ml): 40 Total IV fluid infused: 40 Progress Note Anesthesia document: Postop Eval 1 completed: Yes 05/11/24 1128 Date Kristofer Alexander Signature: Date CC: Signed [facility] MR/STYTEBIA6ha 05-11-2024 MR/POSTOPAN2 [facility] Medical Records Department [address] [place] [address] Anesthesia Postop Eval II 05/11/24 1309 MR#: [id number] Acct: [id number] Name: ADRIANA MORALES Rep #: [id number] : 1975 49 From: Munir Sprague MD PCP: Dr. Brenna Alexandra MD Status:DEP [facility] Y Race: C Location: EN Anesthesia Postop Eval I Sum Postop Eval Completion status Anesthesia document: Postop Eval 1 completed: Yes Anesthesia Postop Eval I Summary Anesthesia Postop Eval I Summary: Anesthesia Postop Eval I: Assessment Summary Airway patent Yes 05/11/24 11:28 [email or web address] Spontaneous unlabored Yes 05/11/24 11:28 [email or web address] respirations Mental status Awake,Calm 05/11/24 11:28 [email or web address] nausea No 05/11/24 11:28 [email or web address] Vomiting No 05/11/24 11:28 [email or web address] Anesthesia Postop Eval I: Fluid Summary Crystalloid volume administer 40 05/11/24 11:28 [email or web address] (ml) Colloids volume administered ( ml) Blood Product volume administered (ml) Total IV fluid infused 40 05/11/24 11:28 [email or web address] Anesthesia Postop Eval I: Summary Notes Anesthesia Complication No 05/11/24 11:28 [email or web address] Anesthesia Complication Comment: Post-operative progress note Anesthesia: Postop Eval II Evaluation Mental status: Awake and Calm Pain Level: 0 nausea: No Vomiting: No Complications Anesthesia Complication: No 05/11/24 1309 Date Munir Sprague MD Cosigner Signature: Date CC: Signed Normal [facility] ,Serum,hCG Quali.on 05-11-2024 HCG, SERUM QUAL Negative Normal [facility] Comment on above: Performed By: #### L 700.6800 #### [facility] Laboratory [facility] [address], [address] ,Urineon 05-11-2024 Beta HCG ( test) Ql (U) Normal [facility] Comment on above: Result Comment: SPEC IMEN QNS DUE TO TECH ERROR, JOHN [place] TO ORDER SERUM PREG TEST. Performed By: #### L 400.7600 #### [facility] Laboratory [address] [place], [place], [address] INTERNAL QC OK? Normal [facility] Comment on above: Result Comment: SPEC IMEN QNS DUE TO TECH ERROR, JOHN [place] TO ORDER SERUM PREG TEST. Performed By: #### L 400.7600 #### [facility] [address] [place], [place], [address] RECORD KIT LOT# [facility] Comment on above: Result Comment: SPEC IMEN QNS DUE TO TECH ERROR, JOHN [place] TO ORDER SERUM PREG TEST. Performed By: #### L 400.7600 #### [facility] [address] [place], [place], [address] Surgery Specimen Level Johnny 05-11-2024 Surgery Specimen Level IV -------- Patient Age/Sex Location Account Attending Physician -------- ADRIANA MORALES 49/F EN [id number] Dr. Job Basurto MD -------- Specimen: [id number] Received: 05/11/24-1242 Status: SON Sauced[place] Num: [id number] Spec Type: COLON BX Subm Dr: Dr. Job Basurto MD HEADER OPERATION: Colonoscopy, biopsy PRE-OP DIAGNOSIS: Screening for malignant neoplasm of colon TISSUE SUBMITTED: Ascending colon biopsy -------- MICROSCOPIC DIAGNOSIS Ascending colon, biopsy: Colonic mucosa without dysplasia, polyp or colitis. TREVOR.mr 05/12/2024 MICROSCOPIC DESCRIPTION Slides are reviewed. GROSS DESCRIPTION Received in fixative is one container labeled with the patient's name and designated Ascending colon biopsy. The specimen consists of multiple irregular fragments of light gutierrez soft tissue that in aggregate measure 0.75 x 0.5 x 0.1 cm. The specimen is totally submitted in one cassette. NIKKI.mr 05/11/2024 TC:4 CPT:85357 -------- Patient Age/Sex Location Account Attending Physician -------- ADRIANA MORALES 49/F EN [id number] Dr. Job Basurto MD -------- Signed (signature on file) Dr. Erick Stevenson MD 05/12/24 1153 -------- Normal [facility] Comment on above: Performed By: #### P SUIV #### [facility] [address] [place] [address], [address] MR/PATWILDERon 05-10-2024 MR/PAT.VERON[facility] Medical Records Department [address] [place] [address] PAT - Anesthesia 05/10/24 1218 MR#: [id number] Acct: [id number] Name: ADRIANA MORALES Rep #: [id number] : 1975 49 From: Tigre Colvin MD PCP: Dr. 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 When Was Last Pacemaker Check QUESTION #4 FULL TEXT: You/Your Family Experience fever (hyperthermia) with Anesthesia Last Oral Intake Last Oral intake: Last Oral Intake NPO since Meds taken in AM with sips of water? Meds patient instructed to take am of surgery PONV PONV - production planning manager: PONV - production planning manager Female Yes 05/10/24 09:09 HX of Motion Sickness Yes 05/10/24 09:09 HX of N/V After Surgery Yes 05/10/24 09:09 Non-Smoker Yes 05/10/24 09:09 Duration of Surgery greater No 05/10/24 09:09 than 60 minutes Number of Risk Factors 4 05/10/24 09:09 PONV Score Severe Risk 05/10/24 09:09 Height Weight Height Weight: Anesthesia: Height Weight Height 5 ft 10 in 03/29/24 14:42 Respiratory Assessment Respiratory Assessment - production planning manager: Respiratory Tract Infection Hx - production planning manager Hx Respiratory Tract Infection No 05/10/24 09:09 STOP Sleep Apnea STOP Sleep Apnea - production planning manager: STOP Sleep Apnea - production planning manager Hx Hypertension Yes: CONTROLLED WITH MEDS 05/10/24 09:09 Hx Sleep Apnea No 05/10/24 09:09 CPAP BIPAP Do you snore loudly (louder No 05/10/24 09:09 than talking or can be heard Do you often feel tired/ No 05/10/24 09:09 fatigued/ sleepy during daytime? Has anyone observed you stop No 05/10/24 09:09 breathing during sleep? STOP Results Negative 05/10/24 09:09 QUESTION #5 FULL TEXT : Do you snore loudly (louder than talking or can be heard through closed doors)? Tobacco Use History Tobacco Use History - production planning manager: Tobacco Use History - production planning manager Tobacco Use Smoking Status Never smoker 05/10/24 09:09 Hx Tobacco Use Yes 05/10/24 09:09 Years Smoking Packs Smoked per Day Smoking Cessation Date was within the last 15 years Hx Smoking Cessation Date Hx Smoking Cessation Counseling Hematologic Medial History Hematologic Hx - production planning manager: Hematologic Medical Hx - consultant internship Hx of Blood Transfusion No 05/10/24 09:09 Hx of Transfusion in last 3 No 05/10/24 09:09 Months Date of Last Transfusion (if within last 3 months) Ever experience any problems No 05/10/24 09:09 with transfusion(s)? Specify any problems Hx of Preganancy in last 3 No 05/10/24 09:09 Months Nurse Filling Out Transfusion [email or web address] 05/10/24 09:09 Questions: Date: 05/10/24 05/10/24 09:09 Time: 09:12 05/10/24 09:09 Patient unable to answer at this time (ie. confused, unrespo /Reproductio n History /Reproductiv e History - production planning manager: /Reproductiv e Hx- production planning manager Hx Now Gestational Age (in weeks): EDC: Hx Hx Para Hx Section SAB No 05/29/23 08:31 PFS Medical History (Updated 05/10/24 @ 09:18 by Jose Gaytan) Easy bruising Umbilical hernia Non-smoker History of edema History of echocardiogram History of stress test Cardiology follow-up encounter Chest pain Polycystic kidney disease Essential hypertension End-stage renal disease needing dialysis Home Medications ???Medication ???Instructions ???Recorded ???Last Taken ???Type ferrous sulfate 324 mg (65 mg 324 mg PO DAILY 12/04/22 Unknown History iron) tablet,delayed release metoprolol succinate 50 mg 50 mg PO DAILY 02/19/23 Unknown History tablet,extended release 24 hr amlodipine 10 mg tablet 10 mg PO QDAY 02/19/24 Unknown History calcitriol 0.25 mcg capsule 0.25 mcg PO BID 02/19/24 Unknown History furosemide 40 mg tablet (Lasix) 40 mg PO BID 02/19/24 Unknown History potassium chloride 20 mEq 20 meq PO BID 02/19/24 Unknown History tablet,extended release(part/cryst) (Klor-Con M) Allergy/AdvReac Type Severi (more content not included)... Normal [facility] PRA CLASS (PRE-TRANSPLANT)on 05-10-2024 AB SPECIFICITY CLASS COMMENT Antibody Specificity testing performed by [email or web address] Methodology. cPRA calculation based on identification of HLA antibody specificities at MFI >2000 and/or presence of CREG antibodies. Normal [facility] Comment on above: Order Comment: RELEA SED BY TT LAB ONLY Result Comment: Some of the reagents used for testing in the Clinical Histocompatibility Laboratory have yet to be approved by the FDA. Our certification by CLIA to perform high complexity tests allows us to use these reagents in the context of a stringent QC program, and obviates the need for FDA approval.Testing performed by the [facility] Clinical Histocompatibility Laboratory. [facility] number: [id number]. CLIA number: [id number], Director: Juice Acosta, PhD, F([facility]). Performed By: #### P RAPRE #### [facility] (DEFAULT) [address] [address] CLASS I SPECIFICITIES Not detected Normal [facility] Comment on above: Order Comment: RELEA SED BY TT LAB ONLY Performed By: #### P RAPRE #### [facility] (DEFAULT) [address] [address] CLASS II SPECIFICITIES Not detected Normal [facility] Comment on above: Order Comment: RELEA SED BY TT LAB ONLY Performed By: #### P RAPRE #### [facility] (DEFAULT) [address] [address] cPRA 0 % Normal 0 [facility] Comment on above: Order Comment: RELEA SED BY TT LAB ONLY Performed By: #### P RAPRE #### [facility] (DEFAULT) [address] [address] MRA BRAIN WO IVCONon 025 MRA BRAIN WO IVCON * * *Final Report* * * DATE OF EXAM: May 07 2024 8:02AM M 0272 - MRA BRAIN WO IVCON / PROCEDURE REASON: Pre-transplant evaluation for ESRD (end stage renal disease) * * * * Physician Interpretation * * * * EXAMINATION: MRA BRAIN WO IVCON CLINICAL HISTORY: End-stage renal disease. Evaluation for renal transplant. TECHNIQUE: Intracranial 3D [id number]-hg-yahpgl MRA with post-processing performed at the modality and 2D multiplanar and 3D maximum intensity projections were created, reviewed and archived. MQ: MRAB_4 COMPARISON: None. RESULT: BRAIN: Limited images the brain are normal. There is no volume loss, hydrocephalus, midline shift or evidence of cortical encephalomalacia. INTRACRANIAL MRA: Intracranial vertebral arteries are codominant. The visualized distal vertebral and basilar arteries are widely patent. The distal ICAs are patent and within normal limits of caliber. The proximal ACAs, MCAs and handicraft or hobby shop manager are patent and within normal limits of caliber and configuration. There is no evidence of focal, significant stenosis or aneurysm in the visualized vessels. IMPRESSION: Normal intracranial MRA. Leather Finisher: [facility] Transcribe Date/Time: May 07 2024 8:14A Dictated by : IVAN LOWE MD This examination was interpreted and the report reviewed and electronically signed by: IVAN LOWE MD on May 07 2024 8:15AM [facility] [id number] Normal [facility] MRA Head vessels WO contrast on 05-07-2024 IMPRESSION: Normal intracranial MRA. Leather Finisher: [facility] Transcribe Date/Time: May 07 2024 8:14A Dictated by : IVAN LOWE MD This examination was interpreted and the report reviewed and electronically signed by: IVAN LOWE MD on May 07 2024 8:15AM [facility] * * *Final Report* * * DATE OF EXAM: May 07 2024 8:02AM [facility] 0272 - MRA BRAIN WO IVCON / PROCEDURE REASON: Pre-transplant evaluation for ESRD (end stage renal disease) * * * * Physician Interpretation * * * * EXAMINATION: MRA BRAIN WO IVCON CLINICAL HISTORY: End-stage renal disease. Evaluation for renal transplant. TECHNIQUE: Intracranial 3D xgkq-zp-giimfa MRA with post-processing performed at the modality and 2D multiplanar and 3D maximum intensity projections were created, reviewed and archived. MQ: MRAB_4 COMPARISON: None. RESULT: BRAIN: Limited images the brain are normal. There is no volume loss, hydrocephalus, midline shift or evidence of cortical encephalomalacia. INTRACRANIAL MRA: Intracranial vertebral arteries are codominant. The visualized distal vertebral and basilar arteries are widely patent. The distal ICAs are patent and within normal limits of caliber. The proximal ACAs, MCAs and handicraft or hobby shop manager are patent and within normal limits of caliber and configuration. There is no evidence of focal, significant stenosis or aneurysm in the visualized vessels. [facility] Provider, Kerri Tello - 05/07/2024 * * *Final Report* * * DATE OF EXAM: May 07 2024 8:02AM [facility] 0272 - MRA BRAIN WO IVCON / PROCEDURE REASON: Pre-transplant evaluation for ESRD (end stage renal disease) * * * * Physician Interpretation * * * * EXAMINATION: MRA BRAIN WO IVCON CLINICAL HISTORY: End-stage renal disease. Evaluation for renal transplant. TECHNIQUE: Intracranial 3D bmzo-if-tmovcn MRA with post-processing performed at the modality and 2D multiplanar and 3D maximum intensity projections were created, reviewed and archived. MQ: MRAB_4 COMPARISON: None. RESULT: BRAIN: Limited images the brain are normal. There is no volume loss, hydrocephalus, midline shift or evidence of cortical encephalomalacia. INTRACRANIAL MRA: Intracranial vertebral arteries are codominant. The visualized distal vertebral and basilar arteries are widely patent. The distal ICAs are patent and within normal limits of caliber. The proximal ACAs, MCAs and handicraft or hobby shop manager are patent and within normal limits of caliber and configuration. There is no evidence of focal, significant stenosis or aneurysm in the visualized vessels. IMPRESSION IMPRESSION: Normal intracranial MRA. Leather Finisher: [facility] Transcribe Date/Time: May 07 2024 8:14A Dictated by : IVAN LOWE MD This examination was interpreted and the report reviewed and electronically signed by: IVAN LOWE MD on May 07 2024 8:15AM [facility] Rad[facility]ative[facility] MRA Head vessels WO contrast Ordered By: Ccf Provider on 05-07-2024 [facility] NM CARDIAC PERF STRESS/PHARM on 05-07-2024 NM CARDIAC PERF STRESS/PHARM * * *Final Report* * * DATE OF EXAM: May 07 2024 11:16AM [facility] 0006 - NM CARDIAC PERF STRESS/PHARM / PROCEDURE REASON: multiple diagnoses * * * * Physician Interpretation * * * * Stress Rackman Report: [facility] Date of service: 05/07/2024 8:46:26 AM Supervising physician: Iraida Rowland MD PATIENT: Name: ADRIANA MORALES Age: 49 years Gender: F The supervising physician was in the department and immediately available. * * * Final * * * -------- PATIENT: Name: ADRIANA MORALES Age: 49 years Gender: F CONCLUSIONS: 1. SPECT Perfusion Study: Normal. 2. There is no scintigraphic evidence for inducible ischemia. 3. No evidence of scarred myocardium. 4. Left ventricle is normal in size. The left ventricle systolic function is normal. 5. This is a low risk scan. Gated Stress FBP Gated Rest FBP LVEF % 79 71 Prior Study Comparison No prior nuclear cardiology exam available for comparison. Nuclear Med Report:1-Day Gated SPECT Myocardial Perfusion with Regadenoson Stress: Myocardial perfusion imaging was performed at rest 30 minutes following the IV injection of the radiotracer. The patient received 0.4 mg of regadenoson, via rapid IV push, immediately followed by radiotracer IV. Gated post stress tomographic imaging was performed 30 to 60 minutes later. See administered radiotracer and doses below. [facility] Date of service: 05/07/2024 8:46:26 AM Ordering Physician: REN RAO. Requesting Physician: Indication: Preop eval for noncard surg with intermediate risk and poor exercise tolerance Interpreting physician: Iraida Rowland MD Height: 177.80 cm BSA: 2.09 m? Weight: 88.45 kg BMI: 28.0 kg/m? Exam Type: Rest Stress Radiopharm: Tc-99m Tetrofosmin Tc-99m Tetrofosmin Dosage(mCi): 13.1 33.4 Atten Correction: not performed not performed Stress Agent: Regadenoson 0.4mg Supply provided from [facility] Resting Blood Press: 123/86 mmHg Image Quality The overall study imaging quality was deemed to be good. FINDINGS: Left Ventricle Wall Motion: Stress FBP - All segments are normal. Rest FBP - Gated Stress FBP - Gated Rest FBP - Reversibility - Stress FBP Stress FBP Gated Stress FBP Gated Rest FBP LVEF: 79 % 71 % ED Volume: 68 ml 55 ml ES Volume: 14 ml 16 ml TID: 1.03 Perfusion Findings Stress FBP - Summed Score=0 All segments demonstrate normal perfusion. Rest FBP - Summed Score=0 All segments demonstrate normal perfusion. Stress FBP Rest FBP Summed Score=0 Summed Score=0 LEFT VENTRICLE The left ventricle is normal in size. Left ventricular systolic function is normal. Right Ventricle The right ventricle is unseen or not interrogated. Stress Test Findings: There is no scintigraphic evidence for inducible ischemia. There is no evidence of scarring. The left ventricular cavity size is unchanged with stress. * * * Final * * * -------- Stress ECG Report: [facility] Date of service: 05/07/2024 8:46:26 AM Ordering physician: REN RAO customer training specialist: Tiff Peres Interpreting physician: Iraida Rowland MD Patient name: ADRIANA MORALES Age: 49 years Gender: F Height: 177.80 cm BSA: 2.09 m? Weight: 88.45 kg BMI: 28.0 kg/m? Indication: Encounter for pre-procedural cardiovascular examination for non-cardiac surgery Stress ECG Conclusion: Conclusion: Normal with exception Comments: This is a EKG portion of Lexiscan induced myocardial perfusion imaging stress test for the evaluation of preoperative cardiovascular risk stratification before noncardiac surgery. Baseline EKG sinus rhythm, nonspecific Q waves in the inferior leads. During the Lexiscan fusion patient did not have any acute ST changes that suggestive of myocardial ischemia. No arrhythmias noted. Heart rate and blood pressure relatively stable. No symptoms noted. Please correlate with the nuclear images. Stress ECG Summary: The patient's resting heart rate was 76 bpm and blood pressure was 123/86 mmHg. The patient received regadenoson 0.4 mg IVP over approximately 15 seconds followed immediately by injection of nuclear isotope. The test was terminated due to end of protocol. Other symptoms during the test included leg cramping. The maximum heart rate was 110 bpm, which is 64% of the predicted heart rate for age. Peak blood pressure was 137/81 mmHg. The double product achieved [place] [address]. Medications: Last Used AMLODIPINE calcitrol vitamin d2 ferrous sulfate KLOR-CON LASIX METOPROLOL Resting ECG: Normal Sinus Rhythm and (more content not included)... Normal [facility] NM Heart Perfusion W stress and W radionuclide Johnny 05-07-2024 * * *Final Report* * * DATE OF EXAM: May 07 2024 11:16AM [facility] 0006 - NM CARDIAC PERF STRESS/PHARM / PROCEDURE REASON: multiple diagnoses * * * * Physician Interpretation * * * * Stress Rackman Report: [facility] Date of service: 05/07/2024 8:46:26 AM Supervising physician: Iraida Rowland MD PATIENT: Name: ADRIANA OMRALES Age: 49 years Gender: F The supervising physician was in the department and immediately available. * * * Final * * * -------- PATIENT: Name: ADRIANA MORALES Age: 49 years Gender: F CONCLUSIONS: 1. SPECT Perfusion Study: Normal. 2. There is no scintigraphic evidence for inducible ischemia. 3. No evidence of scarred myocardium. 4. Left ventricle is normal in size. The left ventricle systolic function is normal. 5. This is a low risk scan. Gated Stress FBP Gated Rest FBP LVEF % 79 71 Prior Study Comparison No prior nuclear cardiology exam available for comparison. Nuclear Med Report:1-Day Gated SPECT Myocardial Perfusion with Regadenoson Stress: Myocardial perfusion imaging was performed at rest 30 minutes following the IV injection of the radiotracer. The patient received 0.4 mg of regadenoson, via rapid IV push, immediately followed by radiotracer IV. Gated post stress tomographic imaging was performed 30 to 60 minutes later. See administered radiotracer and doses below. [facility] Date of service: 05/07/2024 8:46:26 AM Ordering Physician: REN RAO. Requesting Physician: Indication: Preop eval for noncard surg with intermediate risk and poor exercise tolerance Interpreting physician: Iraida Rowland MD Height: 177.80 cm BSA: 2.09 m Weight: 88.45 kg BMI: 28.0 kg/m Exam Type: Rest Stress Radiopharm: Tc-99m Tetrofosmin Tc-99m Tetrofosmin Dosage(mCi): 13.1 33.4 Atten Correction: not performed not performed Stress Agent: Regadenoson 0.4mg Supply provided from [facility] Resting Blood Press: 123/86 mmHg Image Quality The overall study imaging quality was deemed to be good. FINDINGS: Left Ventricle Wall Motion: Stress FBP - All segments are normal. Rest FBP - Gated Stress FBP - Gated Rest FBP - Reversibility - Stress FBP Stress FBP Gated Stress FBP Gated Rest FBP LVEF: 79 % 71 % ED Volume: 68 ml 55 ml ES Volume: 14 ml 16 ml TID: 1.03 Perfusion Findings Stress FBP - Summed Score=0 All segments demonstrate normal perfusion. Rest FBP - Summed Score=0 All segments demonstrate normal perfusion. Stress FBP Rest FBP Summed Score=0 Summed Score=0 LEFT VENTRICLE The left ventricle is normal in size. Left ventricular systolic function is normal. Right Ventricle The right ventricle is unseen or not interrogated. Stress Test Findings: There is no scintigraphic evidence for inducible ischemia. There is no evidence of scarring. The left ventricular cavity size is unchanged with stress. * * * Final * * * -------- Stress ECG Report: [facility] Date of service: 05/07/2024 8:46:26 AM Ordering physician: REN RAO customer training specialist: Tiff Peres Interpreting physician: Iraida Rowland MD Patient name: ADRIANA MORALES Age: 49 years Gender: F Height: 177.80 cm BSA: 2.09 m Weight: 88.45 kg BMI: 28.0 kg/m Indication: Encounter for pre-procedural cardiovascular examination for non-cardiac surgery Stress ECG Conclusion: Conclusion: Normal with exception Comments: This is a EKG portion of Lexiscan induced myocardial perfusion imaging stress test for the evaluation of preoperative cardiovascular risk stratification before noncardiac surgery. Baseline EKG sinus rhythm, nonspecific Q waves in the inferior leads. During the Lexiscan fusion patient did not have any acute ST changes that suggestive of myocardial ischemia. No arrhythmias noted. Heart rate and blood pressure relatively stable. No symptoms noted. Please correlate with the nuclear images. Stress ECG Summary: The patient's resting heart rate was 76 bpm and blood pressure was 123/86 mmHg. The patient received regadenoson 0.4 mg IVP over approximately 15 seconds followed immediately by injection of n (more content not included)... [facility] RADIOLOGY Provider, [facility] - 05/07/2024 * * *Final Report* * * DATE OF EXAM: May 07 2024 11:16AM N 0006 - NM CARDIAC PERF STRESS/PHARM / PROCEDURE REASON: multiple diagnoses * * * * Physician Interpretation * * * * Stress Rackman Report: [facility] Date of service: 05/07/2024 8:46:26 AM Supervising physician: Iraida Rowland MD PATIENT: Name: ADRIANA MORALES Age: 49 years Gender: F The supervising physician was in the department and immediately available. * * * Final * * * -------- PATIENT: Name: ADRIANA MORALES Age: 49 years Gender: F CONCLUSIONS: 1. SPECT Perfusion Study: Normal. 2. There is no scintigraphic evidence for inducible ischemia. 3. No evidence of scarred myocardium. 4. Left ventricle is normal in size. The left ventricle systolic function is normal. 5. This is a low risk scan. Gated Stress FBP Gated Rest FBP LVEF % 79 71 Prior Study Comparison No prior nuclear cardiology exam available for comparison. Nuclear Med Report:1-Day Gated SPECT Myocardial Perfusion with Regadenoson Stress: Myocardial perfusion imaging was performed at rest 30 minutes following the IV injection of the radiotracer. The patient received 0.4 mg of regadenoson, via rapid IV push, immediately followed by radiotracer IV. Gated post stress tomographic imaging was performed 30 to 60 minutes later. See administered radiotracer and doses below. [facility] Date of service: 05/07/2024 8:46:26 AM Ordering Physician: REN RAO. Requesting Physician: Indication: Preop eval for noncard surg with intermediate risk and poor exercise tolerance Interpreting physician: Iraida Rowland MD Height: 177.80 cm BSA: 2.09 m Weight: 88.45 kg BMI: 28.0 kg/m Exam Type: Rest Stress Radiopharm: Tc-99m Tetrofosmin Tc-99m Tetrofosmin Dosage(mCi): 13.1 33.4 Atten Correction: not performed not performed Stress Agent: Regadenoson 0.4mg Supply provided from [facility] Resting Blood Press: 123/86 mmHg Image Quality The overall study imaging quality was deemed to be good. FINDINGS: Left Ventricle Wall Motion: Stress FBP - All segments are normal. Rest FBP - Gated Stress FBP - Gated Rest FBP - Reversibility - Stress FBP Stress FBP Gated Stress FBP Gated Rest FBP LVEF: 79 % 71 % ED Volume: 68 ml 55 ml ES Volume: 14 ml 16 ml TID: 1.03 Perfusion Findings Stress FBP - Summed Score=0 All segments demonstrate normal perfusion. Rest FBP - Summed Score=0 All segments demonstrate normal perfusion. Stress FBP Rest FBP Summed Score=0 Summed Score=0 LEFT VENTRICLE The left ventricle is normal in size. Left ventricular systolic function is normal. Right Ventricle The right ventricle is unseen or not interrogated. Stress Test Findings: There is no scintigraphic evidence for inducible ischemia. There is no evidence of scarring. The left ventricular cavity size is unchanged with stress. * * * Final * * * -------- Stress ECG Report: [facility] Date of service: 05/07/2024 8:46:26 AM Ordering physician: REN RAO customer training specialist: Tiff Peres Interpreting physician: Iraida Rowland MD Patient name: ADRIANA MORALES Age: 49 years Gender: F Height: 177.80 cm BSA: 2.09 m Weight: 88.45 kg BMI: 28.0 kg/m Indication: Encounter for pre-procedural cardiovascular examination for non-cardiac surgery Stress ECG Conclusion: Conclusion: Normal with exception Comments: This is a EKG portion of Lexiscan induced myocardial perfusion imaging stress test for the evaluation of preoperative cardiovascular risk stratification before noncardiac surgery. Baseline EKG sinus rhythm, nonspecific Q waves in the inferior leads. During the Lexiscan fusion patient did not have any acute ST changes that suggestive of myocardial ischemia. No arrhythmias noted. Heart rate and blood pressure relatively stable. No symptoms noted. Please correlate with the nuclear images. Stress ECG Summary: The patient's resting heart rate was 76 bpm and blood pressure was 123/86 mmHg. The patient received regadenoson 0.4 mg IVP over approximately 15 seconds followed immediately by injection of nuclear isotope. The test was terminated due to end of protocol. Other symptoms during the test included leg cramping. The maximum heart rate was 110 bpm, which is 64% of the predicted heart rate for age. Peak blood pressure was 137/81 mmHg. The double product achieved was (more content not included)... [facility] Radiology Study observation (narrative) Blake santillan [facility] NM Heart Perfusion W stress and W radionuclide IVOrdered By: Ccf Provider on 05-07-2024 [facility] PROSPERN MAMM (CAD)W/JOSEPH BILATo gary 04-13-2024 SCRN MAMM (CAD)W/JOSEPH BILAT [facility] Imaging Services [address] [place] [address] [id number] SCRN MAMM (CAD)W/JOSEPH BILAT MR#: [id number] Acct: [id number] Name: ADRIANA MORALES Rep #: [id number] : 1975 F 49 From: Stefano wylie MD PCP: Dr. Brenna Alexandra MD Status: REG CL Study: SCRN MAMM (CAD)W/JOSEPH BILAT Date of Exam: 04/04 Exam# [id number] Ordering Dr: Belinda Marinelli [facility] [id number] MAMMOGRAPHY - BILATERAL SCREENING REASON FOR EXAM: Female, 49 years old. Routine annual screening examination. PERTINENT HISTORY: Non-contributory. TECHNIQUE: Digital bilateral breast joseph (3D mammographic acquisition) in the CC and MLO projections. 2-D mediolateral oblique (MLO) and craniocaudad (CC) views of both breasts were obtained. CAD: Full Field Digital Mammography with Computer Added Detection was performed. COMPARISON: Comparison is made with prior study done February 08, 2017 and outside examination dated April 04, 2022. FINDINGS: Breast Composition: The breasts are heterogeneously dense, which may obscure small masses. There are no dominant masses or suspicious calcifications. No other significant abnormalities are identified. There has been no significant change since the prior study. BI/SCRN MAMM (CAD)W/JOSEPH BILAT IMPRESSION: Stable bilateral screening mammogram. Yearly follow-up mammogram recommended. (A) ASSESSMENT CATEGORY: BIRADS Category 1: Negative. A letter regarding these results will be sent to the patient by the facility within 30 days. Approximately 10% of breast cancers are not detected by mammography. A normal mammogram should not delay biopsy of a clinically suspicious abnormality. [id number] Electronically Signed: Stefano Ramírez MD at 11:13 EST Reading Location ID and State: [facility] / ID , Service support , CC: DEEPA Marinelli; Dr. Brenna Alexandra MD Leather Finisher: Signed Normal [facility] Surgery Visit Reporton 03-29 Surgery Visit Report [facility] [address] [place] [address] OFFICE VISIT Date of Service: 03/29/24 MR#: [id number] Acct: [id number] Name: ADRIANA MORALES Rep #: [id number] : 1975 Provider: Dr. Job harrington MD Age/Sex: 49/F Location: [facility] Status: Signed Intake Vital Signs 02/19/24 08:27 03/29/24 14:42 Height 5 ft 10 in 5 ft 10 in Weight: 199 lb BMI 28.5 BP 137/85 H Blood Pressure Location Rt brachial Position Sitting Respiration 17 Pulse 78 Pulse Source Monitor Temp 97.1 F L Temp Source Temporal Pulse Oximetry (%) 97 Oxygen Delivery Method room air Intake Visit Reasons: COLONOSCOPY Chief Complaint: colonoscopy Is patient in pain?: No Allergies allopurinol Adverse Reaction (Verified 03/29/24 14:43) Nausea Medications ???Medication ???Instructions ???Recorded ???Confirmed ???Type ferrous sulfate 324 mg (65 mg 324 mg PO DAILY 12/04/22 03/29/24 History iron) tablet,delayed release metoprolol succinate 50 mg 50 mg PO DAILY 02/19/23 03/29/24 History tablet,extended release 24 hr amlodipine 10 mg tablet 10 mg PO QDAY 02/19/24 03/29/24 History calcitriol 0.25 mcg capsule 0.25 mcg PO BID 02/19/24 03/29/24 History furosemide 40 mg tablet (Lasix) 40 mg PO BID 02/19/24 03/29/24 History potassium chloride 20 mEq 20 meq PO BID 02/19/24 03/29/24 History tablet,extended release(part/cryst) (Klor-Con M) [facility] Medical History Polycystic kidney disease Essential hypertension End-stage renal disease needing dialysis Surgical History Peritoneal dialysis catheter in place Family History Mother Diabetes Hypertension Kidney disease Father Hypertension Grandmother Kidney disease Social History adopted: No household members: other details: lives with father housing: house number of children: 0 current occupational status: employed current occupation: [employer] history of recent travel: No sexually active: No Smoking Status: Never smoker alcohol intake: never substance use type: does not use well-balanced diet: daily or most days caffeine: Yes eating out: 1-3 times/week what type of physical activity do you participate in: walking seatbelt use: always do you feel safe at home: Yes additional social history: single HPI HPI HPI: The patient is a 49-year-old female who is being seen today to set up a screening colonoscopy. She has never had a previous colonoscopy. She denies any GI issues or complaints such as black or tarry stools. No constipation or diarrhea. No family history of colon polyps or colon cancers to her knowledge. She currently is undergoing peritoneal dialysis and is in the process of getting onto the kidney transplant list. Colonoscopy was one of the requirements. Hence she is here today to get a colonoscopy scheduled ROS General General: Yes fatigue; No weight change, appetite, colon cancer, breast cancer or weakness HEENT HEENT: No difficulty swallowing, eye injury, eye surgery, swollen glands or hoarseness Endo Endocrine: No thyroid disease, diabetes mellitus, thyroid cancer, Hair loss, heat intolerance or cold intolerance Skin Skin: No rash or changing moles Musc Musculoskeletal: No back problems, arthritis, rheumatoid arthritis, gout or joint pain Cardio Cardiovascular: Yes high blood pressure; No murmur, pacemaker, heart disease, atrial fibrillation, heart attack, heart stent, palpitations, shortness of breat with exertion or chest pain Psych Psychiatric: No depression, anxiety or hearing voices Resp Respiratory: No shortness of breath, No sleep apnea, No cough, No COPD, No asthma, No emphysema and No wheezing Gastro Gastrointestinal: No abdominal pain, Yes nausea or vomiting, No diarrhea, No constipation, No blood in stool, No acid reflux, No hemorrhoids, No ulcers, No gallbladder problem and No black,tarry stools Chau Hematologic: No blood thinners, No blood disorders, No bleeding, No anemia and No blood clots Neuro Neurologic: No system reviewed and no additional complaints, except as documented, No as per HPI, No abnormal gait, No abnormal hearing, No abnormal movements, No abnormal speech, No behavioral changes, No burning sensations, No confusion, No convulsions, No disequilibrium, No dizziness, No localized weakness, No frequent falls, No headache(s), No lack of coordination, No loss of vision, No memory loss, No numbness, No other visual disturbances, No radicular pain, No restless legs, No sensory deficit, No syncope, No tingling, No trem (more content not included)... Normal [facility] BLOOD TB SCREENon 03-10-2024 M. tuberculosis tuberculin stim IFN-g Ql (Bld) Negative Normal [facility] Comment on above: Order Comment: Antionette murillo Type: BLOOD SPECIMEN Ordering Facility: [facility] Address: [address] [place] [address] Performed By: #### Lisa YBARRA, [id number] #### [facility] CLIA [id number] [address] [place] [address] [place] MITOGEN MINUS NIL 3.11 IU/mL Normal >=0.50 [facility] Comment on above: Order Comment: Antionette murillo Type: BLOOD SPECIMEN Ordering Facility: [facility] Address: [address] [place] [address] Performed By: #### Lisa YBARRA, [id number] #### [facility] CLIA [id number] [address] [place] [address] [place] TB GAMMA INTERPRETATION Infection with M . tuberculosis complex is unlikely. If latent tuberculosis infection is highly suspected, a negative result does not rule out the infection. Specimens from immunocompromised patients and those <5 years of age may show false negative results. In case of a contact investigation, please repeat 8-12 weeks after a known exposure. Normal [facility] Comment on above: Order Comment: Speci men Type: BLOOD SPECIMEN Ordering Facility: [facility] Address: [address] [place] [address] Performed By: #### Lisa YBARRA, [id number] #### [facility] CLIA [id number] [address] [place] [address] [place] TB NIL 0.00 IU/mL Normal <=8.00 [facility] Comment on above: Order Comment: Speci men Type: BLOOD SPECIMEN Ordering Facility: [facility] Address: [address] [place] [address] Performed By: #### Lisa YBARRA, [id number] #### [facility] CLIA [id number] [address] [place] [address] [place] TB1 AG MINUS NIL 0.00 IU/mL Normal <0.35 [facility] Comment on above: Order Comment: Speci men Type: BLOOD SPECIMEN Ordering Facility: [facility] Address: [address] [place] [address] Performed By: #### Lisa YBARRA, [id number] #### [facility] CLIA [id number] [address] [place] [address] [place] TB2 AG MINUS NIL 0.01 IU/mL Normal <0.35 [facility] Comment on above: Order Comment: Speci men Type: BLOOD SPECIMEN Ordering Facility: [facility] Address: [address] [place] [address] Performed By: #### Lisa YBARRA, [id number] #### [facility] CLIA [id number] [address] [place] [address] [place] CBC panel Auto (Bld)on 03-10 Erythrocyte distribution width (RBC) [Ratio] 13.7 % Normal 11.5-15.0 [facility] Comment on above: Order Comment: Speci men Type: BLOOD SPECIMENOrdering Facility: [facility] Address: [address] [place] [address] Performed By: #### 5 [id number] ####[facility] [id number] [place] [address] [place] Hematocrit (Bld) [Volume fraction] 43.8 % Normal 36.0-46.0 [facility] Comment on above: Order Comment: Speci men Type: BLOOD SPECIMENOrdering Facility: [facility] Address: [address] [place] [address] Performed By: #### 5 8410-2 ####[facility]IA [id number] [place] [address] [place] Hemoglobin (Bld) [Mass/Vol] 14.1 g/dL Normal 11.5-15.5 [facility] Comment on above: Order Comment: Speci men Type: BLOOD SPECIMENOrdering Facility: [facility] Address: [address] [place] [address] Performed By: #### 5 8410-2 ####[facility] [id number] [place] [address] [place] MCH (RBC) [Entitic mass] 30.1 pg Normal 26.0-34.0 [facility] Comment on above: Order Comment: Speci men Type: BLOOD SPECIMENOrdering Facility: [facility] Address: [address] [place] [address] Performed By: #### 5 8410-2 ####[facility] [id number] [place] [address] [place] MCHC (RBC) [Mass/Vol] 32.2 g/dL Normal 30.5-36.0 [facility] Comment on above: Order Comment: Speci men Type: BLOOD SPECIMENOrdering Facility: [facility] Address: [address] [place] [address] Performed By: #### 5 8410-2 ####[facility] LABCLIA [id number] [place] [address] [place] MCV (RBC) [Entitic vol] 93.4 fL Normal 80.0-100.0 [facility] Comment on above: Order Comment: Speci men Type: BLOOD SPECIMENOrdering Facility: [facility] Address: [address] [place] [address] Performed By: #### 5 8410-2 ####[facility] [id number] [place] [address] [place] Nucleated RBC (Bld) [#/Vol] 10*3/uL Normal <0.01 [facility] Comment on above: Order Comment: Speci men Type: BLOOD SPECIMENOrdering Facility: [facility] Address: [address] [place] [address] Performed By: #### 5 8410-2 ####[facility] LABIA [id number] [place] [address] [place] Platelet mean volume (Bld) [Entitic vol] 9.8 fL Normal 9.0-12.7 [facility] Comment on above: Order Comment: Speci men Type: BLOOD SPECIMENOrdering Facility: [facility] Address: [address] [place] [address] Performed By: #### 5 8410-2 ####[facility]IA [id number] [place] [address] [place] Platelets (Bld) [#/Vol] 258 10*3/uL Normal 150-400 [facility] Comment on above: Order Comment: Speci men Type: BLOOD SPECIMENOrdering Facility: [facility] Address: [address] [place] [address] Performed By: #### 5 8410-2 ####[facility] LABCLIA [id number] [place] [address] [place] RBC (Bld) [#/Vol] 4.69 10*6/uL Normal 3.90-5.20 [facility] Comment on above: Order Comment: Speci men Type: BLOOD SPECIMENOrdering Facility: [facility] Address: [address] [place] [address] Performed By: #### 5 8410-2 ####[facility] LABCLIA [id number] [place] [address] [place] WBC (Bld) [#/Vol] 6.16 10*3/uL Normal 3.70-11.00 [facility] Comment on above: Order Comment: Speci men Type: BLOOD SPECIMENOrdering Facility: [facility] Address: [address] [place] [address] Performed By: #### 5 8410-2 ####[facility] LABCLIA [id number] [place] [address] [place] CMV IgG Qnon 03-10-2024 CMV IGG QUAL Negative Normal Negative [facility] Comment on above: Order Comment: Speci men Type: BLOOD SPECIMEN [facility] Address: [address] [place] [address] Result Comment: No s erological evidence of past exposure to Cytomegalovirus. Cannot exclude recent infection if the specimen collected within 4-6 weeks after infection. Performed By: #### K PRIPW #### [facility] CLIA [id number] [place] [address] [place] CMV IgG SerPl-aCncon 024 CMV IgG Qn <0.20 Normal [facility] Comment on above: Order Comment: Speci men Type: BLOOD SPECIMEN [facility] Address: [address] [place] [address] Result Comment: The magnitude of the measured result is not indicative of the amount of antibody present. U/mL values are interpreted as follows: Negative <0.6 Equivocal 0.6 to <0.70 Positive >=0.70 Performed By: #### K PRIPW #### [facility] CLIA [id number] [place] [address] [place] CNOVon 03-10-2024 CNOV Office Visit (TXCTGL ) CHARBELADRIANA ([id number]) 1975 F Date Time Provider Department 03/10/24 2:00 PM KIDNEY TXP COORDINATORS TXCTGL During your visit today, we recorded the following information about you: Jenny Hill RN 03/10/2024 1:43 PM Signed As part of your transplant evaluation you are required to complete the following additional items. Please be aware that your evaluation will not be considered complete until all testing has been submitted. YOU WILL NOT BE LISTED ON THE TRANSPLANT LIST until these results have been received by our office, reviewed by the transplant committee and approved for transplant. You will be contacted with the decision of the transplant committee at a future date. The following will be scheduled for you at a [facility] facility: CARDIAC: Nuclear stress test ECG (today) CANCER SCREENING: Mammogram Colonoscopy ADDITIONAL CONSULTS Imaging Studies: MRA Brain W/O Ivcon XR Chest (today Miscellaneous Items: Labs(today) Outside test results should be faxed to [phone]. Please review the kidney transplant educational materials on line at [email or web address] Sign-in: Kidney To check on your status of your evaluation, please contact your coordinator, Jenny Hill RN [phone]. Jenny Hill RN Kidney/Pancreas Pre-Newsroom Intern [facility] Referring Provider: DANIA MARC [[id number]] Allergies As of Date: 03/10/2024 (Not on File) Date Reviewed: 03/10/2024 Reviewed by: Lisa López RD - Fully Assessed Primary Visit Diagnosis:Pre-transpl ant evaluation for ESRD (end stage renal disease) [Z01.818] Prescriptions as of 03/10/2024 - amLODIPine (NORVASC) 10 mg tablet Take 10 mg by mouth once daily. - calcitriol (ROCALTROL) 0.5 mcg capsule Take 1 capsule by mouth once daily. - ergocalciferol 50,000 unit capsule (VITAMIN D2, DRISDOL) Take 50,000 Units by mouth one time a week. - ferrous sulfate EC 324 mg (65 mg iron) TbEC Take 324 mg by mouth once daily. - metoprolol succinate ER (TOPROL XL) 50 mg 24 hr tablet Take 50 mg by mouth once daily. - KLOR-CON M20 20 mEq tablet Take 40 mEq by mouth once daily. - sodium fluoride-vitamin D3 0.25 mg (0.55 mg)-400 unit/mL drop Take by mouth. - LASIX 40 mg tablet Take 1 tablet by mouth two times a day. - ferrous sulfate 325 mg (65 mg iron) tablet Take 1 tablet by mouth every afternoon. Problem List As Of Date: 03/10/2024 (None) Other instructions from your clinician: As part of your transplant evaluation you are required to complete the following additional items. Please be aware that your evaluation will not be considered complete until all testing has been submitted. YOU WILL NOT BE LISTED ON THE TRANSPLANT LIST until these results have been received by our office, reviewed by the transplant committee and approved for transplant. You will be contacted with the decision of the transplant committee at a future date. The following will be scheduled for you at a [facility] facility: CARDIAC: Nuclear stress test ECG (today) CANCER SCREENING: Mammogram Colonoscopy ADDITIONAL CONSULTS Imaging Studies: MRA Brain W/O Ivcon XR Chest (today Miscellaneous Items: Labs(today) Outside test results should be faxed to [phone]. Please review the kidney transplant educational materials on line at [email or web address] Sign-in: Kidney To check on your status of your evaluation, please contact your coordinator, Jenny Hill RN [phone]. Jenny Hill RN Kidney/Pancreas Pre-Newsroom Intern [facility] Encounter Status:Closed by JENNY HILL on 03/10/24 Normal [facility] CNOV Office Visit (TXCTGL ) ADRIANA MORALES ([id number]) 1975 F Date Time Provider Department 03/10/24 1:30 PM [facility] During your visit today, we recorded the following information about you: Temperature Pulse Blood pressure Weight 98.4 degrees 84/minute 119/88 88.7 kg Height 1.778 m Pineda Aranda MD 03/10/2024 2:03 PM Addendum [facility] [employer] [facility] Transplant Evaluation CC: Consultation for Kidney transplant evaluation. Referred by: Maximus Machado MD [facility] [address] [place] [address] [place] [address] Fx# [phone] I will communicate with the referring provider by letter and/or shared electronic medical record. HPI: Ms Adriana Morales is a 49 y/o female with Polycystic kidney disease and history of hypertension, end-stage renal disease on peritoneal dialysis since 12/16/2022. Currently listed at [facility], active status since 03/23/2021. No Renal Biopsy available No MRA of Brain available Patient presents ambulatory without assistive devices. 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 Smoking Status: Never UTI: No Kidney stones: No Pregnancies: No If yes, how many?: Miscarriages: No If yes, at what week(s)?: Chronic anti-coagulation: No Midodrine: No If yes, frequency: What is your blood pressure in between dialysis sessions?: Abdominal surgeries: Yes PD catheter and umbilical surgery no mesh Cardiovascular Disease?: No Peripheral Arterial Disease (TIA non-embolic, CVA non-embolic, amputation, abnormal PVRs, decreased pulses, etc): No Stroke: No Claudication: No Carotid Artery Stenosis: No DM: No Diabetic ulcers or chronic wounds: Prior transplant: No CKD: Yes: Cause of CKD: ADPKD Peritoneal dialysis, start date: 12/16/2022 Living Donors: No Residual UO: yes Hypercoagulable (hx of DVT/PE, miscarriages, prior use of anticoagulation, etc): No Malignancy (including skin cancer): No Last hospitalization: BP 119/88 (BP Site: Right Arm, BP Position: Sitting, BP Cuff Size: Regular Adult) Pulse 84 Temp 36.9 ?C (98.4 ?F) (Oral) Ht 177.8 cm (5' 10) Wt 88.7 kg (195 lb 8.8 oz) BMI 28.06 kg/m? PAST MEDICAL HISTORY Diagnosis Date ESRD (end stage renal disease) (HCC) Essential hypertension Polycystic kidney disease PAST SURGICAL HISTORY Procedure Laterality Date PERITONEAL CATHETER INSERTION HX Current Outpatient Medications Medication Sig ergocalciferol 50,000 unit capsule (VITAMIN D2, DRISDOL) Take 50,000 Units by mouth one time a week. ferrous sulfate EC 324 mg (65 mg iron) TbEC Take 324 mg by mouth once daily. sodium fluoride-vitamin D3 0.25 mg (0.55 mg)-400 unit/mL drop Take by mouth. LASIX 40 mg tablet Take 1 tablet by mouth two times a day. ferrous sulfate 325 mg (65 mg iron) tablet Take 1 tablet by mouth every afternoon. amLODIPine (NORVASC) 10 mg tablet Take 10 mg by mouth once daily. calcitriol (ROCALTROL) 0.5 mcg capsule Take 1 capsule by mouth once daily. metoprolol succinate ER (TOPROL XL) 50 mg 24 hr tablet Take 50 mg by mouth once daily. KLOR-CON M20 20 mEq tablet Take 40 mEq by mouth once daily. No current facility-administered medications for this visit. Family History Problem Relation Age of Onset Diabetes Mother Hypertension Mother Kidney Disease Mother Hypertension Father Kidney Disease Maternal Grandmother Pre-transplant testing: Cardiac Testing: EC03/10/2024 US - ECHO 04/02/2023 Impression: Normal LV size Left ventricular systolic function is normal The estimated ejection fraction is 60% Equivocal mitral valve prolapse Multiply liver cysts rated. MRA BRAIN: (r/o aneurysm) To schedule CT ABD/PEL WO IVCON 03/04/2023 Impression 1, Mild pneumoperitoneum with peritoneal dialysis catheter in place. 2. Complex cyst measuring 5.5 x 8.8 x 5.2 cm with a peripheral solid nodule that measures 3.2 cm in the left adnexa. Consider pelvic ultrasound for further evaluation. 3. Adult polycystic kidney and liver disease. 4. Innumerable cysts throughout the liver. 5. Numerous diverticula without diverticulitis, 6. Cyst measuring 2.4 cm right ovary. 7. Innumerable renal cysts bilaterally. CXR: 03/10/2024 Impression PAP Test: 05/29/2023 Interpretation Negative for intraepithelial lesion or malignancy Mammogram: 2022 (updating this month) [address] [address] Colonoscopy: Never done Patient calling pcp to order Sensitizations: Prior transplant: No Blood transfusions: No : No Rabbit: No Immunizations: HBV series: Received, date 11/13/2022, 05/15/2022, 04/12/2022 Pneumovax: Receive (more content not included)... Normal [facility] CNOV Office Visit (TXCTGL ) ADRIANA MORALES ([id number]) 1975 F Date Time Provider Department 03/10/24 1:00 PM UROLOGY TXP CLINIC TXCTGL During your visit today, we recorded the following information about you: Temperature Pulse Blood pressure Weight 98.4 degrees 84/minute 119/88 88.7 kg Height 1.778 m Raimundo Curtis MD 03/10/2024 3:35 PM Signed [facility] [employer] [facility] Transplant Evaluation CC: Consultation for Kidney transplant evaluation. Referred by: Maximus Machado MD [facility] [address] [place] [address] [place] [address] Fx# [phone] I will communicate with the referring provider by letter and/or shared electronic medical record. HPI: Ms Adriana Morales is a 49 y/o female with Polycystic kidney disease and history of hypertension, end-stage renal disease on peritoneal dialysis since 12/16/2022. Currently listed at [facility], active status since 03/23/2021. No [place] No Stroke No Cancers No Blood thinners No DVT/PE Listed at [facility] may transfer time to [facility] Was listed in 2020 Started HD in Dec 2022 No Renal Biopsy available No MRA of Brain available Except for occl back pain, denies cyst popping or etc BP 119/88 (BP Site: Right Arm, BP Position: Sitting, BP Cuff Size: Regular Adult) Pulse 84 Temp 36.9 ?C (98.4 ?F) (Oral) Ht 177.8 cm (5' 10) Wt 88.7 kg (195 lb 8.8 oz) BMI 28.06 kg/m? Patient presents ambulatory without assistive devices. 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 Smoking Status: Never UTI: No Kidney stones: No Pregnancies: No If yes, how many?: Miscarriages: No If yes, at what week(s)?: Chronic anti-coagulation: No Midodrine: No If yes, frequency: What is your blood pressure in between dialysis sessions?: Abdominal surgeries: Yes PD catheter and umbilical surgery no mesh Cardiovascular Disease?: No Peripheral Arterial Disease (TIA non-embolic, CVA non-embolic, amputation, abnormal PVRs, decreased pulses, etc): No Stroke: No Claudication: No Carotid Artery Stenosis: No DM: No Diabetic ulcers or chronic wounds: Prior transplant: No CKD: Yes: Cause of CKD: ADPKD Peritoneal dialysis, start date: 12/16/2022 Living Donors: No Residual UO: yes Hypercoagulable (hx of DVT/PE, miscarriages, prior use of anticoagulation, etc): No Malignancy (including skin cancer): No Last hospitalization: BP 119/88 (BP Site: Right Arm, BP Position: Sitting, BP Cuff Size: Regular Adult) Pulse 84 Temp 36.9 ?C (98.4 ?F) (Oral) Ht 177.8 cm (5' 10) Wt 88.7 kg (195 lb 8.8 oz) BMI 28.06 kg/m? PAST MEDICAL HISTORY Diagnosis Date ESRD (end stage renal disease) (HCC) Essential hypertension Polycystic kidney disease PAST SURGICAL HISTORY Procedure Laterality Date PERITONEAL CATHETER INSERTION HX Current Outpatient Medications Medication Sig ergocalciferol 50,000 unit capsule (VITAMIN D2, DRISDOL) Take 50,000 Units by mouth one time a week. ferrous sulfate EC 324 mg (65 mg iron) TbEC Take 324 mg by mouth once daily. sodium fluoride-vitamin D3 0.25 mg (0.55 mg)-400 unit/mL drop Take by mouth. LASIX 40 mg tablet Take 1 tablet by mouth two times a day. ferrous sulfate 325 mg (65 mg iron) tablet Take 1 tablet by mouth every afternoon. amLODIPine (NORVASC) 10 mg tablet Take 10 mg by mouth once daily. calcitriol (ROCALTROL) 0.5 mcg capsule Take 1 capsule by mouth once daily. metoprolol succinate ER (TOPROL XL) 50 mg 24 hr tablet Take 50 mg by mouth once daily. KLOR-CON M20 20 mEq tablet Take 40 mEq by mouth once daily. No current facility-administered medications for this visit. Family History Problem Relation Age of Onset Diabetes Mother Hypertension Mother Kidney Disease Mother Hypertension Father Kidney Disease Maternal Grandmother Pre-transplant testing: Cardiac Testing: EC03/10/2024 US - ECHO 04/02/2023 Impression: Normal LV size Left ventricular systolic function is normal The estimated ejection fraction is 60% Equivocal mitral valve prolapse Multiply liver cysts rated. MRA BRAIN: (r/o aneurysm) To schedule CT ABD/PEL WO IVCON 03/04/2023 Impression 1, Mild pneumoperitoneum with peritoneal dialysis catheter in place. 2. Complex cyst measuring 5.5 x 8.8 x 5.2 cm with a peripheral solid nodule that measures 3.2 cm in the left adnexa. Consider pelvic ultrasound for further evaluation. 3. Adult polycystic kidney and liver disease. 4. Innumerable cysts throughout the liver. 5. Numerous diverticula without diverticulitis, 6. Cyst measuring 2.4 cm right ovary. 7. Innumerable renal cysts bilaterally. CXR: 03/10/2024 PAP Test: 05/29/2023 Interpretation Negative for intraepithelial lesion or (more content not included)... Normal [facility] CNOV Office Visit (TXCTGL ) ADRIANA MORALES ([id number]) 1975 F Date Time Provider Department 03/10/24 12:00 PM KIDNEY TXP COORDINATORS TXCTGL During your visit today, we recorded the following information about you: Referring Provider: DANIA MARC [[id number]] Allergies As of Date: 03/10/2024 (Not on File) Date Reviewed: Never Reviewed Primary Visit Diagnosis:Pre-transpl ant evaluation for ESRD (end stage renal disease) [Z01.818] Prescriptions as of 03/10/2024 - amLODIPine (NORVASC) 10 mg tablet Take 10 mg by mouth once daily. - calcitriol (ROCALTROL) 0.5 mcg capsule Take 1 capsule by mouth once daily. - ergocalciferol 50,000 unit capsule (VITAMIN D2, DRISDOL) Take 50,000 Units by mouth one time a week. - ferrous sulfate EC 324 mg (65 mg iron) TbEC Take 324 mg by mouth once daily. - metoprolol succinate ER (TOPROL XL) 50 mg 24 hr tablet Take 50 mg by mouth once daily. - KLOR-CON M20 20 mEq tablet Take 40 mEq by mouth once daily. - sodium fluoride-vitamin D3 0.25 mg (0.55 mg)-400 unit/mL drop Take by mouth. - LASIX 40 mg tablet Take 1 tablet by mouth two times a day. - ferrous sulfate 325 mg (65 mg iron) tablet Take 1 tablet by mouth every afternoon. Problem List As Of Date: 03/10/2024 (None) Encounter Status:Closed by JENNY HILL on 03/10/24 Normal [facility] CNOV Office Visit (TXCTGL ) ADRIANA MORALES ([id number]) 1975 F Date Time Provider Department 03/10/24 8:00 AM PRE TX GROUP EDUCATION TXCTGL During your visit today, we recorded the following information about you: Luz Matson RN 03/10/2024 10:00 AM Signed PRE-TRANSPLANT PATIENT EDUCATION NOTE Type of Transplant: Kidney Informed Consent for Evaluation signed: Yes Multiple Listing Form signed: Yes READINESS TO LEARN: Cognitive Ability: Alert and oriented Motivation to Learn: Interested Family Support: High - Very involved in pt care Instruction Provided to: Patient and family member Patient Learns Best by: Multiple Methods Factors Affecting Learning: None Physical Limitations Affecting Learning: None LEARNING RESPONSE: Diagnosis: ESRD Education Topics/Teaching Points: -Discussed living donor evaluation and approval process. -Discussed the evaluation and listing process. -Discussed the different types of donors (KDPI scoring, DCD, High Risk). -Explained EPTS scoring and how it is calculated. -Explained the surgical procedure and potential complications, surgeons, hospital stay at the time of transplant. -Explained lifetime immunosuppression therapy and frequency of blood draws/labs post-op and post-op course of treatment. -Reviewed National and [facility] outcomes from the most recent [facility] center-specific report; a copy of the program summary was given to the patient. -Explained that if the transplant is not performed at a Medicare-approved transplant center it could affect the ability to have immunosuppressive medications paid under Medicare Part B. Supplemental Material: -Pre-Transplant Patient Education Folder -UNOS: Questions AND Answers for Transplant Candidates about Multiple Listing and Waiting Time Transfer -UNOS: Questions AND Answers for Transplant Candidates about Kidney Allocation Policy -Directions to access [facility]'s data through the [facility] [[email or web address] website. -Informed Consent for Transplant Program Participation patient education packet -National Kidney Registry pamphlet -Covid-19 Vaccination for Transplant Candidates Method of Instruction: Individual instruction Group class instruction Written instruction/Handouts Verbal instruction Power Point Patient/Family Response: Patient and family member asked appropriate questions, which were answered satisfactorily. Follow-Up Plan: Complete - No need for follow-up Referral/Recommendati on: None Luz MITCHELL, RN Pre-Newsroom Intern Referring Provider: DANIA MARC [[id number]] Allergies As of Date: 03/10/2024 (Not on File) Date Reviewed: Never Reviewed Reason for Visit: Patient Education [91] Primary Visit Diagnosis:Pre-transpl ant evaluation for CKD (chronic kidney disease) [Z01.818] Prescriptions as of 03/10/2024 - amLODIPine (NORVASC) 10 mg tablet Take 10 mg by mouth once daily. - calcitriol (ROCALTROL) 0.5 mcg capsule Take 1 capsule by mouth once daily. - ergocalciferol 50,000 unit capsule (VITAMIN D2, DRISDOL) Take 50,000 Units by mouth one time a week. - ferrous sulfate EC 324 mg (65 mg iron) TbEC Take 324 mg by mouth once daily. - metoprolol succinate ER (TOPROL XL) 50 mg 24 hr tablet Take 50 mg by mouth once daily. - KLOR-CON M20 20 mEq tablet Take 40 mEq by mouth once daily. - sodium fluoride-vitamin D3 0.25 mg (0.55 mg)-400 unit/mL drop Take by mouth. - LASIX 40 mg tablet Take 1 tablet by mouth two times a day. - ferrous sulfate 325 mg (65 mg iron) tablet Take 1 tablet by mouth every afternoon. Problem List As Of Date: 03/10/2024 (None) Encounter Status:Closed by LUZ MATSON on 03/10/24 Normal [facility] Comprehensive metabolic 2000 panelon 03-10-2024 Albumin [Mass/Vol] 4.1 g/dL Normal 3.9-4.9 [facility] Comment on above: Order Comment: Speci men Type: BLOOD SPECIMEN [facility] Address: [address] [place] [address] Performed By: #### A AMADA, 78913-7 #### [facility] CLIA [id number] [address] [place] [address] [place] ALP [Catalytic activity/Vol] 67 U/L Normal 34-123 [facility] Comment on above: Order Comment: Speci men Type: BLOOD SPECIMEN [facility] Address: [address] [place] [address] Performed By: #### A AMADA, 52463-5 #### [facility] CLIA [id number] [address] [place] [address] [place] ALT [Catalytic activity/Vol] 13 U/L Normal 7-38 [facility] Comment on above: Order Comment: Speci men Type: BLOOD SPECIMEN [facility] Address: [address] [place] [address] Performed By: #### Lisa YBARRA, 96704-5 #### [facility] CLIA [id number] [address] [place] [address] [place] Anion gap [Moles/Vol] 16 mmol/L High 8-15 [facility] Comment on above: Order Comment: Speci men Type: BLOOD SPECIMEN [facility] Address: [address] [place] [address] Performed By: #### Lisa YBARRA, 84982-0 #### [facility] CLIA [id number] [address] [place] [address] [place] AST [Catalytic activity/Vol] 19 U/L Normal 13-35 [facility] Comment on above: Order Comment: Speci men Type: BLOOD SPECIMEN Ordering Facility: [facility] Address: [address] [place] [address] Performed By: #### Lisa YBARRA, 34852-0 #### [facility] CLIA [id number] [address] [place] [address] [place] Bilirubin [Mass/Vol] 0.3 mg/dL Normal 0.2-1.3 [facility] Comment on above: Order Comment: Speci men Type: BLOOD SPECIMEN Ordering Facility: [facility] Address: [address] [place] [address] Performed By: #### Lisa YBARRA, 99922-1 #### [facility] CLIA [id number] [address] [place] [address] [place] Calcium [Mass/Vol] 10.0 mg/dL Normal 8.5-10.2 [facility] Comment on above: Order Comment: Speci men Type: BLOOD SPECIMEN Ordering Facility: [facility] Address: [address] [place] [address] Performed By: #### Lisa YBARRA, 70837-3 #### [facility] CLIA [id number] [address] [place] [address] [place] Chloride [Moles/Vol] 105 mmol/L Normal 98-107 [facility] Comment on above: Order Comment: Antionette murillo Type: BLOOD SPECIMEN Ordering Facility: [facility] Address: [address] [place] [address] Performed By: #### A AMADA, 16681-6 #### [facility] CLIA [id number] [address] [place] [address] [place] CO2 [Moles/Vol] 20 mmol/L Low 22-30 [facility] Comment on above: Order Comment: Antionette murillo Type: BLOOD SPECIMEN Ordering Facility: [facility] Address: [address] [place] [address] Performed By: #### A AMADA, 21661-9 #### [facility] CLIA [id number] [address] [place] [address] [place] Creatinine [Mass/Vol] 6.52 mg/dL High 0.58-0.96 [facility] Comment on above: Order Comment: Antionette murillo Type: BLOOD SPECIMEN Ordering Facility: [facility] Address: [address] [place] [address] Performed By: #### A AMADA, 02492-9 #### [facility] CLIA [id number] [address] [place] [address] [place] Creatinine and Glomerular filtration rate.predicted panel (S/P/Bld) 7 mL/min/1.73m??? Low >=60 [facility] Comment on above: Order Comment: Antionette murillo Type: BLOOD SPECIMEN Ordering Facility: [facility] Address: [address] [place] [address] Result Comment: Yvette mated Glomerular Filtration Rate (eGFR) is calculated using the 2020 CKD-EPI creatinine equation. This equation utilizes serum creatinine, sex, and age as parameters. The creatinine assay has traceable calibration to isotope dilution-mass spectrometry. Refer to KDIGO guidelines for clinical interpretation. In patients with unstable renal function, e.g. those with acute kidney injury, the eGFR may not accurately reflect actual GFR. Performed By: #### Lisa YBARRA, 55293-3 #### [facility] CLIA [id number] [address] [place] [address] [place] Glucose [Mass/Vol] 85 mg/dL Normal 74-99 [facility] Comment on above: Order Comment: Antionette murillo Type: BLOOD SPECIMEN Ordering Facility: [facility] Address: [address] [place] [address] Result Comment: The [place] Diabetes Association (ADA) provides guidance for cutoff values for fasting glucose and random glucose. The ADA defines fasting as no caloric intake for at least 8 hours. Fasting plasma glucose results between 100 to 125 mg/dL indicate increased risk for diabetes (prediabetes). Fasting plasma glucose results greater than or equal to 126 mg/dL meet the criteria for diagnosis of diabetes. In the absence of unequivocal hyperglycemia, results should be confirmed by repeat testing. In a patient with classic symptoms of hyperglycemia or hyperglycemic crisis, random plasma glucose results greater than or equal to 200 mg/dL meet the criteria for diagnosis of diabetes. Reference: Standards of Medical Care in Diabetes 2016, [place] [employer]. Diabetes Care. 2016.39(Suppl 1). Performed By: #### A AMADA, 71042-2 #### [facility] CLIA [id number] [address] [place] [address] [place] Potassium [Moles/Vol] 4.2 mmol/L Normal 3.7-5.1 [facility] Comment on above: Order Comment: Antionette murillo Type: BLOOD SPECIMEN Ordering Facility: [facility] Address: [address] [place] [address] Performed By: #### Lisa YBARRA, 86813-2 #### [facility] CLIA [id number] [address] [place] [address] [place] Protein [Mass/Vol] 7.5 g/dL Normal 6.3-8.0 [facility] Comment on above: Order Comment: Antionette murillo Type: BLOOD SPECIMEN Ordering Facility: [facility] Address: [address] [place] [address] Performed By: #### Lisa YBARRA, 58659-1 #### [facility] CLIA [id number] [address] [place] [address] [place] Sodium [Moles/Vol] 141 mmol/L Normal 136-144 [facility] Comment on above: Order Comment: Speci men Type: BLOOD SPECIMEN Ordering Facility: [facility] Address: [address] [place] [address] Performed By: #### Lisa YBARRA, 07211-5 #### [facility] CLIA [id number] [address] [place] [address] [place] Urea nitrogen [Mass/Vol] 42 mg/dL High 7-21 [facility] Comment on above: Order Comment: Speci men Type: BLOOD SPECIMEN Ordering Facility: [facility] Address: [address] [place] [address] Performed By: #### Lisa YBARRA, 64366-6 #### [facility] CLIA [id number] [address] [place] [address] [place] EBV capsid IgG Qn (S)on EBV VCA IGG, QUAL Positive Abnormal Negative [facility] Comment on above: Order Comment: Speci men Type: BLOOD SPECIMEN Ordering Facility: [facility] Address: [address] [place] [address] Result Comment: The result suggests recent or past EBV infection. The final interpretation should be done in the context of other EBV serology panel results. Performed By: #### K [facility] #### [facility] CLIA [id number] [address] [place] [address] [place] ECG COMPLETEon 03-10-2024 ECG COMPLETE Ventricular Rate : 6 4 BPM Atrial Rate : 64 BPM P-R Interval : 144 ms QRS Duration : 92 ms Q-T Interval : 392 ms QTC Calculation(Bazett) : 404 ms Calculated P [place] : 50 degrees Calculated R [place] : 71 degrees Calculated T [place] : 59 degrees NORMAL SINUS RHYTHM NORMAL ECG Confirmed by KEYLA HALLMAN MD ([id number]) on 04/20/2024 10:17:34 PM NAME : ADRIANA MORALES PID : [id number] : 1975 Gender : Female Race : Unknown ORD : [id number] Procedure Date : Mar 10 2024 14:30:14 Edit Date : Apr 20 2024 22:17:39 Diagnosis: NORMAL SINUS RHYTHM NORMAL ECG Confirmed by KEYLA HALLMAN MD ([id number]) on 04/20/2024 10:17:34 PM Test Reason : Location : [facility] : [facility] Overread By : KEYLA HALLMAN MD Edited By : KEYLA HALLMAN MD Referred By : RNE RAO Acquired by : TALYA DOBBINS Normal [facility] HBV core Ab Ser Qlon 024 HBV core Ab Ql (S) Negative Normal Negative [facility] Comment on above: Order Comment: Speci men Type: BLOOD SPECIMENOrdering Facility: [facility] Address: [address] [place] [address] Result Comment: No e vidence of current or past infection with Hepatitis B virus. Should recent infection be suspected, repeat testing may be considered 3-4 weeks after this draw. Performed By: #### 5 195-3, 79665-9, 80805-7, 55190-3 ####[facility] [id number] [facility] [id number] [address] [place] HBV surface Ab Ql (S)on HBV surface Ab Qn (S) <8.00 Normal [facility] Comment on above: Order Comment: Speci men Type: BLOOD SPECIMENOrdering Facility: [facility] Address: [address] [place] [address] Result Comment: <8 m IU/mL: No serological evidence of immunity to Hepatitis B Virus. >/= 8 to <12 mIU/mL: No serological evidence of immunity to Hepatitis B Virus. >/= 12 mIU/mL: Consistent with serological evidence of immunity to Hepatitis B Virus. Performed By: #### 5 195-3, 96282-7, 02825-1, 45527-8 ####[facility] [id number] [place] [address] [place] HBV surface Ab Ser Qlon HBV surface Ab Ql (S) Negative Normal [facility] Comment on above: Order Comment: Speci men Type: BLOOD SPECIMENOrdering Facility: [facility] Address: [address] [place] [address] Result Comment: No s erological evidence of immunity to Hepatitis B Virus. Performed By: #### 5 195-3, 78348-2, 17149-6, 74472-3 ####[facility] [id number] [place] [address] [place] HBV surface Ag Ser Qlon HBV surface Ag Ql (S) Negative Normal Negative [facility] Comment on above: Order Comment: Speci men Type: BLOOD SPECIMENOrdering Facility: [facility] Address: [address] [place] [address] Performed By: #### 5 195-3, 04105-6, 45815-5, 09565-4 ####[facility] [id number] [place] [address] [place] HCV Ab Ser Qlon 03-10-2024 HCV Ab Ql (S) Negative Normal Negative [facility] Comment on above: Order Comment: Speci men Type: BLOOD SPECIMEN Ordering Facility: [facility] Address: [address] [place] [address] Result Comment: The result suggests no evidence of active infection with Hepatitis C virus. Should recent infection be suspected, repeat testing may be considered 4-6 weeks after this draw. Performed By: #### A HAVG, 49827-4 #### [facility] CLIA [id number] [address] [place] [address] [place] HCV RNA SAMEER+probe Qnon 03-10 HCV RNA SAMEER+probe Ql Not detected Normal Not detected [facility] Comment on above: Order Comment: Speci men Type: BLOOD SPECIMENOrdering Facility: [facility] Address: [address] [place] [address] Performed By: #### 1 1011-4 ####[facility] [id number] [place] [address] [place] HEPATITIS A ANTIBODY, IGGon 03-10-2024 HAV IgG Ql (S) Negative Normal [facility] Comment on above: Order Comment: Speci men Type: BLOOD SPECIMEN Ordering Facility: [facility] Address: [address] [place] [address] Result Comment: No s erological evidence of immunity to Hepatitis A Virus. Performed By: #### A HAVG, 90811-1 #### [facility] CLIA [id number] [address] [place] [address] [place] HIV 1+2 Ab IA Qlon 4 HIV 1 and 2 Ab IA.rapid Nom (S/P/Bld) Normal [facility] Comment on above: Order Comment: Speci men Type: BLOOD SPECIMENOrdering Facility: [facility] Address: [address] [place] [address] Result Comment: Test not indicated. Performed By: #### 5 195-3, 39589-5, 10022-1, 35172-6 ####[facility] [id number] [place] [address] [place] HIV 1+2 Ab+HIV1 p24 Ag IA Ql Non-Reactive Normal Nonreactive [facility] Comment on above: Order Comment: Speci men Type: BLOOD SPECIMENOrdering Facility: [facility] Address: [address] [place] [address] Performed By: #### 5 195-3, 23835-4, 40199-2, 01247-6 ####[facility] [id number] [place] [address] [place] HIV immunoassay testing algorithm interpretation (S/P/Bld) [Interp] Normal [facility] Comment on above: Order Comment: Speci men Type: BLOOD SPECIMENOrdering Facility: [facility] Address: [address] [place] [address] Result Comment: No e vidence of HIV-1 or HIV-2 infection. Should recent infection be suspected, repeat testing may be considered 2-3 weeks after this draw. [place] Rev. Code 3701.243(E): This information has been disclosed to you from confidential records protected from disclosure by state law. ???You shall make no further disclosure of this information without the specific, written, and informed release of the individual to whom it pertains or as otherwise permitted by state law. A general authorization for the release of medical or other information is not sufficient for the purpose of the release of HIV test results or diagnoses. Performed By: #### 5 195-3, 35329-8, 98244-0, 56755-6 ####[facility] [id number] [place] [address] [place] KID K/P PANC REC INIT W/Uon 03-10-2024 [facility] RESULTS TO FOLLOW See [facility] report to follow Normal [facility] Comment on above: Order Comment: Speci men Type: BLOOD SPECIMEN Ordering Facility: [facility] Address: [address] [place] [address] Performed By: #### K PRIPW #### [facility] CLIA [id number] [place] [address] [place] PT panel Coag (PPP)on 2023 INR Coag (PPP) [Relative time] 1.0 {INR} Normal 0.9-1.3 [facility] Comment on above: Order Comment: Speci men Type: BLOOD SPECIMENOrdering Facility: [facility] Address: [address] [place] [address] Result Comment: Rowan min K Antagonist (VKA) Therapeutic Range: INR 2 to 3 (Target INR of 2.5) Note: For patients treated with VKA drugs, such as warfarin, the [place] [employer] 2012 Guideline recommends a therapeutic INR range of 2 to 3 (target INR of 2.5). This recommendation includes high-risk patients with antiphospholipid syndrome with previous arterial or venous thromboembolism, current-generation mechanical or bioprosthetic aortic heart valve replacement. Note: Patients with mechanical aortic valve replacement and additional risk factors for thromboembolic events (atrial fibrillation, previous thromboembolism, LV dysfunction, hypercoagulable conditions) or an older generation mechanical AVR (i.e., ball in-Cage) or any mechanical MVR should have a INR therapeutic range of 2.5 to 3.5 (target INR of 3). Meredith ARCE, et al. Chest 2012, 141:7S-47S Sulma RA, et al. [facility] 2017, 70: 252-289 Performed By: #### 3 4528-0, 06964-6 ####[facility] [id number] [place] [address] [place] PT Coag (PPP) [Time] 10.3 s Normal 9.7-13.0 [facility] Comment on above: Order Comment: Speci men Type: BLOOD SPECIMENOrdering Facility: [facility] Address: [address] [place] [address] Performed By: #### 3 4528-0, 42714-7 ####[facility] [id number] [place] [address] [place] [facility]-0 Parathyrin.intact [Mass/Vol] 203 pg/mL High 15-65 [facility] Comment on above: Order Comment: Speci men Type: BLOOD SPECIMENOrdering Facility: [facility] Address: [address] [place] [address] Performed By: #### 2 731-8 ####[facility] [id number] [place] [address] [place] Phosphate SerPl-mCncon 03-10 Phosphate [Mass/Vol] 5.1 mg/dL High 2.7-4.8 [facility] Comment on above: Order Comment: Antionette murillo Type: BLOOD SPECIMEN Ordering Facility: [facility] Address: [address] [place] [address] Performed By: #### A AMADA, 55115-4 #### [facility] CLIA [id number] [address] [place] [address] [place] RUBEOLA (MEASLES)IGGon 03-10 MEASLES IGG AB, QUAL Positive Normal Positive [facility] Comment on above: Order Comment: Antionette murillo Type: BLOOD SPECIMEN Ordering Facility: [facility] Address: [address] [place] [address] Result Comment: The result suggests recent or past exposure to Measles virus or Measles vaccination. The current test does not detect neutralizing antibodies. Positive result may also be seen due to presence of passively-transferred antibodies. Please correlate with patient's history. Performed By: #### A AMADA, 86321-0 #### [facility] CLIA [id number] [address] [place] [address] [place] Reagin and Treponema pallidu m IgG and IgM [Interp]on 03-10-2024 T. pallidum IgG+IgM IA Ql (S) Non-Reactive Normal Nonreactive [facility] Comment on above: Order Comment: Antionette murillo Type: BLOOD SPECIMEN Ordering Facility: [facility] Address: [address] [place] [address] Performed By: #### A AMADA, 14705-0 #### [facility] CLIA [id number] [address] [place] [address] [place] Reagin+T pallidum IgG+IgM Se rPl-Impon 03-10-2024 Reagin and Treponema pallidum IgG and IgM [Interp] Cannot exclude recent Treponemal infection if specimen collected within 7-10 days after appearance of suspect lesions or 2-3 weeks after an exposure. Clinical correlation is required. Normal [facility] Comment on above: Order Comment: Antionette murlilo Type: BLOOD SPECIMEN Ordering Facility: [facility] Address: [address] [place] [address] Performed By: #### A AMADA, 33961-9 #### [facility] CLIA [id number] [address] [place] [address] [place] STRONGYLOIDES IGG BLon 03-10 STRONGYLOIDES IGG QUALITATIVE Negative Normal Negative [facility] Comment on above: Order Comment: Speci men Type: BLOOD SPECIMEN Ordering Facility: [facility] Address: [address] [place] [address] Performed By: #### A AMADA, 66739-3 #### [facility] CLIA [id number] [address] [place] [address] [place] TRANSPLANT CONFIRM ABO/RHon 03-10-2024 ABO O Normal [facility] Comment on above: Order Comment: Speci men Type: BLOOD SPECIMEN Ordering Facility: [facility] Address: [address] [place] [address] Performed By: #### K PRIPW #### [facility] CLIA [id number] [address] [place] [address] [place] Rh Nom (Bld) Positive Normal [facility] Comment on above: Order Comment: Speci men Type: BLOOD SPECIMEN Ordering Facility: [facility] Address: [address] [place] [address] Performed By: #### K PRIPW #### [facility] CLIA [id number] [address] [place] [address] [place] TYPE + SCREENon 03-10-2024 ABO O Normal [facility] Comment on above: Order Comment: Speci men Type: BLOOD SPECIMEN Ordering Facility: [facility] Address: [address] [place] [address] Performed By: #### K PRIPW #### [facility] CLIA [id number] [address] [place] [address] [place] Rh Nom (Bld) Positive Normal [facility] Comment on above: Order Comment: Speci men Type: BLOOD SPECIMEN Ordering Facility: [facility] Address: [address] [place] [address] Performed By: #### K PRIPW #### [employer] [id number] TYPE AND SCREEN EXPIRATION 03/13/2024 23:59 Normal [facility] Comment on above: Order Comment: Speci men Type: BLOOD SPECIMEN Ordering Facility: [facility] Address: [address] [place] [address] Performed By: #### K PRIPW #### [employer] [id number] [address] [place] [address] VARICELLA ZOSTER IGGon 03-10 VARICELLA ZOSTER IGG, QUAL Positive Normal Positive [facility] Comment on above: Order Comment: Speci men Type: BLOOD SPECIMEN Ordering Facility: [facility] Address: [address] [place] [address] Result Comment: The result suggests recent or past exposure to Varicella-Zoster virus or chickenpox vaccination or zoster vaccination. Positive result may also be seen due to presence of passively-transferred antibodies. Please correlate with patient's history. Performed By: #### K PRIPW #### [employer] [id number] [address] [place] [address] XR CHEST 2V FRONTAL/LATon XR CHEST 2V FRONTAL/LAT * * *Final Repor t* * * DATE OF EXAM: Mar 10 2024 2:34PM [id number] - XR CHEST 2V FRONTAL/LAT / PROCEDURE REASON: multiple diagnoses * * * * Physician Interpretation * * * * EXAMINATION: CHEST RADIOGRAPH (2 VIEW FRONTAL and LATERAL) CLINICAL HISTORY: Acute renal failure with acute tubular necrosis superimposed on chronic kidney disease, on chronic dialysis (HCC) Acute renal failure with acute tubular necrosis superimposed on chronic kidney disease, on chronic dialysis (HCC) Acute renal failure with acute tubular necrosis superimposed on chronic kidney disease, on chronic dialysis (HCC) MQ: XC2_6 EXAM DATE/TIME: 03/10/2024 2:34 PM COMPARISON: None available RESULT: Lines, tubes, and devices: None. Lungs and pleura: The lungs appear clear of consolidation or mass. No pleural effusion or pneumothorax is identified. Cardiomediastinal silhouette: Normal cardiomediastinal silhouette. The heart size and pulmonary vascular pattern are within normal limits. Bones and soft tissues: A presumed peritoneal dialysis catheter overlies the upper abdomen.. IMPRESSION: No acute disease identified in the lungs or mediastinum. Leather Finisher: [facility] Transcribe Date/Time: Mar 10 2024 5:09P Dictated by : PROSPER EARL MD This examination was interpreted and the report reviewed and electronically signed by: PROSPER EARL MD on Mar 10 2024 5:10PM EST [id number] Normal [facility] XR Chest PA and Lateralon IMPRESSION: No acute disease identified in the lungs or mediastinum. Leather Finisher: [facility] Transcribe Date/Time: Mar 10 2024 5:09P Dictated by : PROSPER EARL MD This examination was interpreted and the report reviewed and electronically signed by: PROSPER EARL MD on Mar 10 2024 5:10PM EST DIVISION OF RADIOLOGY * * *Final Report* * * DATE OF EXAM: Mar 10 2024 2:34PM [id number] [id number] - XR CHEST 2V FRONTAL/LAT / PROCEDURE REASON: multiple diagnoses * * * * Physician Interpretation * * * * EXAMINATION: CHEST RADIOGRAPH (2 VIEW FRONTAL & LATERAL) CLINICAL HISTORY: Acute renal failure with acute tubular necrosis superimposed on chronic kidney disease, on chronic dialysis (HCC) Acute renal failure with acute tubular necrosis superimposed on chronic kidney disease, on chronic dialysis (HCC) Acute renal failure with acute tubular necrosis superimposed on chronic kidney disease, on chronic dialysis (HCC) MQ: XC2_6 EXAM DATE/TIME: 03/10/2024 2:34 PM COMPARISON: None available RESULT: Lines, tubes, and devices: None. Lungs and pleura: The lungs appear clear of consolidation or mass. No pleural effusion or pneumothorax is identified. Cardiomediastinal silhouette: Normal cardiomediastinal silhouette. The heart size and pulmonary vascular pattern are within normal limits. Bones and soft tissues: A presumed peritoneal dialysis catheter overlies the upper abdomen.. DIVISION OF RADIOLOGY Provider, Kerri Tello - 03/10/2024 * * *Final Report* * * DATE OF EXAM: Mar 10 2024 2:34PM [id number] [id number] - XR CHEST 2V FRONTAL/LAT / PROCEDURE REASON: multiple diagnoses * * * * Physician Interpretation * * * * EXAMINATION: CHEST RADIOGRAPH (2 VIEW FRONTAL & LATERAL) CLINICAL HISTORY: Acute renal failure with acute tubular necrosis superimposed on chronic kidney disease, on chronic dialysis (HCC) Acute renal failure with acute tubular necrosis superimposed on chronic kidney disease, on chronic dialysis (HCC) Acute renal failure with acute tubular necrosis superimposed on chronic kidney disease, on chronic dialysis (HCC) MQ: XC2_6 EXAM DATE/TIME: 03/10/2024 2:34 PM COMPARISON: None available RESULT: Lines, tubes, and devices: None. Lungs and pleura: The lungs appear clear of consolidation or mass. No pleural effusion or pneumothorax is identified. Cardiomediastinal silhouette: Normal cardiomediastinal silhouette. The heart size and pulmonary vascular pattern are within normal limits. Bones and soft tissues: A presumed peritoneal dialysis catheter overlies the upper abdomen.. IMPRESSION IMPRESSION: No acute disease identified in the lungs or mediastinum. Leather Finisher: APRYL Transcribe Date/Time: Mar 10 2024 5:09P Dictated by : PROSPER EARL MD This examination was interpreted and the report reviewed and electronically signed by: PROSPER EARL MD on Mar 10 2024 5:10PM EST [facility] Radiology Study observation (narrative) [facility] XR Chest PA and LateralOrder ed By: [facility] Provider on 03-10-2024 [facility] aPTT PPPon 03-10-2024 aPTT Coag (PPP) [Time] 24.9 s Normal 23.0-32.4 [facility] Comment on above: Order Comment: Speci men Type: BLOOD SPECIMENOrdering Facility: [facility] Address: [address] [place] [address] Performed By: #### 3 4528-0, 77127-1 ####[facility] LABCLIA [id number] [place] [address] [place] HLA ANTIBODY SCREENon 2023 HLA CLASS I ANTIBODY Negative Normal [facility] Comment on above: Performed By: #### H LSCRN #### [facility] (DEFAULT) [address] [place] [address] HLA CLASS II ANTIBODY Negative Normal [facility] Comment on above: Performed By: #### H LSCRN #### [facility] (DEFAULT) [address] [address] HLSCRN COMMENT HLA Antibody Screen testing performed by [employer] Methodology Normal [facility] Comment on above: Result Comment: Some of the reagents used for testing in the Clinical Histocompatibility Laboratory have yet to be approved by the FDA. Our certification by CLIA to perform high complexity tests allows us to use these reagents in the context of a stringent QC program, and obviates the need for FDA approval.Testing performed by the [facility] Clinical Histocompatibility Laboratory. [facility] number: [id number]. CLIA number: [id number], Director: Juice Acosta, PhD, F([facility]). Performed By: #### H LSCRN #### [facility] (DEFAULT) [address] [address] ROMANA Negative Normal [facility] Comment on above: Performed By: #### H LSCRN #### [facility] (DEFAULT) [address] [address] CNCOon 03-04-2024 CNCO Letter Text Normal [facility] 02-25-2024 CNPN Telephone (TXCTGL) ADRIANA MORALES ([id number]) 1975 F Date Time Provider Department 02/25/24 KIDNEY TXP COORDINATORS TXCTGL During your visit today, we recorded the following information about you: Raul Solis 02/25/2024 2:27 PM Signed KIDNEY TRANSPLANT REFERRAL (enter above which organ the patient needs; Kidney, Pancreas or Kidney/Pancreas) Is this referral for a Safety Net or HIV Patient? No (Safety Net = Pt needing an additional transplant within 12 months for any organ) Adriana Morales [phone] Spoke with: Patient Best Contact FOR PANCREAS AND KIDNEY/PANCREAS TRANSPLANT AGE 55+ is a HARD STOP If patient is NOT on Dialysis AND has a GFR >21 is a HARD STOP REFERRING ASSOCIATE PROFESSOR OF [employer] / PHYSICIAN:Lillian Keenan Have you ever been evaluated for kidney/pancreas transplant? Yes If YES, where? [facility],[address], [place] [address] . In 2020 Status of listing/evaluation: Active Have you had a previous transplant? No Have you had one or both kidneys removed: No Reason: N/A OUT OF STATE MEDICAID PATIENTS: APC - run the Medicaid through [facility] to determine if the coverage is Out of Network (OON) with [facility]. If the Medicaid is OON, inform the patient that their PCP will need to send a referral to the Out of State Medicaid for a Transplant Evaluation. Have you been seen at another Transplant Center that was in-network with your Out of State (OOS) Medicaid and denied a Transplant Evaluation? No Has your PCP sent in a referral for transplant to your (OOS) Medicaid home health care case manager? No Height: 5.10 Weight: 194 BMI: 27.8 KIDNEY TRANSPLANT BMI>42 is a HARD STOP PANCREAS TRANSPLANT BMI>32 is a HARD STOP Have you had weight loss without trying within the last 30 days? No If YES, please complete the Malnutrition Screening Tool (MST). Malnutrition Screening Tool (MST) If YES, how much weight have you lost? Unsure- 2 Weight loss score: 0 Have you been eating poorly in the last week because of a decreased appetite? No- 0 Appetite score: 0 Total MST score (weight loss + appetite scores): 0 Score of 2 or more = referral to registered dietitian for an individual appointment - ____ Any history of Smoking/Vaping/Nicoti ne products: Non-smoker If a current smoker, this is a HARD STOP Packs/Day N/A X # of Yrs smoked N/A = Pack Yrs N/A Oxygen use: NO If on continuous oxygen this is a HARD STOP Blood Transfusion: Are you willing to accept a blood transfusion if needed? Yes If NO this is a HARD STOP Assistive devices: No assistive device Activity Level: Light activity COPD/Emphysema/Other pulmonary problem: No Dialysis: [facility] Days: Peritoneal Dialysis start date: 12/16/2022 If not on dialysis, what is your GFR? N/A Do you have Diabetes? No Age diagnosed: N/A Insulin dependent: No Hypoglycemic unawareness: No Have you had a Kidney Biopsy: No Have you had a Liver Biopsy: No Dx of Cirrhosis? No Dx of Hepatitis? No Hx of ETOH? No Hx of Drug use? No Hx of Psychiatric disorder? No Dx of HIV/AIDS? No if yes, Infectious Disease doctor name/where? Hx of Cancer? no Hx of Hypertension? Yes Hx of [place]/Heart Attack? No Hx of TIA/CVA or Stroke? No Are you on a blood thinner? No If YES which medication are you on? N/A Have you had a CABG or STENTS? No Have you ever had a Stress Test? Yes. If yes, date and location: [address] [address] Have you ever had an Echo? Yes. If yes, date and location: [address] [address] Have you ever had a Cardiac Cath? No CT Abdomen/Pelvis: Yes. If yes, date and location: [address] [address] Mammogram: Yes. If yes, date and location: [address] [address] Pap Test: Yes. If yes, date and location: [address] [address] Colonoscopy: No Hx of Lupus? No Sickle Cell Trait or Disease: No Have you had any prior surgeries? no Do you have a potential living donor? NO PrematicsHART Is the patient signed up for Sulfagenix? No If YES - send patient the Kidney/Pancreas New Referral Message. If NO - obtain their email address AND send Squarespace sign up information: email address: No e-mail address on record Is the patient okay with having (more content not included)... Normal [facility] AD[facility]AL[facility] ([id number]) 1975 F Date Time Provider Department 02/20/24 KIDNEY TXP COORDINATORS TXCTGL During your visit today, we recorded the following information about you: Raul Solis 02/20/2024 11:16 AM Signed Called patient regarding kidney transplant referral. Per patient call back next Friday. Raul Solis Allergies As of Date: 02/20/2024 (Not on File) Date Reviewed: Never Reviewed Reason for Visit: Referral - Kidney Txp [[id number]] Problem List As Of Date: 02/20/2024 (None) Encounter Status:Closed by RAUL SOLIS on 02/20/24 [facility] Cardiology Visit Reporton Cardiology Visit Report [facility] [address] [place], [place] [address] OFFICE VISIT Date of Service: 02/19/24 MR#: [id number] Acct: [id number] Name: ADRIANA MORALES Rep #: [id number] : 1975 Provider: DEBBIE lopez Age/Sex: 49/F Location: [facility] [place] Status: Signed [facility] HPI History of Present Illness Details: This is a pleasant 49-year-old lady who presents to the office today for a cardiovascular follow-up visit. She has a history of hypertension, end-stage renal disease on peritoneal dialysis and a family history of polycystic kidney disease as well as has self. She does have a history of hypertension and was asked to see us for optimal control of her blood pressures. She had previously been on amlodipine benazepril and her blood pressure was well controlled but after she went on dialysis she was taken off that. She is currently on metoprolol and losartan 25 mg a day. Her echocardiogram from 04/02/2023 demonstrated an ejection fraction of 65%, and mitral valve prolapse. From a cardiac standpoint, the patient is doing well. She denies any palpitations, chest pain, pressure or heaviness. She denies SOB, Orthopnea, and PND. She does not have bleeding issues; no blood in urine, stool or nosebleeds. She denies any decrease in energy level, myalgias, or claudication. She does not have edema, or sudden weight gain. She denies dizziness, lightheadedness, syncopal or near syncopal episodes, and headaches. Intake Vital Signs 02/19/23 08:54 05/29/23 08:31 02/19/24 08:27 Height 5 ft 10 in 5 ft 10 in 5 ft 10 in Weight: 195 lb BMI 27.9 BP 129/84 H Blood Pressure Location Lt brachial Position Sitting Respiration 18 Pulse 77 Pulse Source Monitor Pulse Oximetry (%) 97 Intake Visit Reasons: [address] Supervisor Required: No Is patient in pain?: No Allergies allopurinol Adverse Reaction (Verified 02/19/24 08:39) Nausea Medications ???Medication ???Instructions ???Recorded ???Confirmed ???Type ferrous sulfate 324 mg (65 mg 324 mg PO DAILY 12/04/22 02/19/24 History iron) tablet,delayed release metoprolol succinate 50 mg 50 mg PO DAILY 02/19/23 02/19/24 History tablet,extended release 24 hr amlodipine 10 mg tablet 10 mg PO QDAY 02/19/24 02/19/24 History calcitriol 0.25 mcg capsule 0.25 mcg PO BID 02/19/24 02/19/24 History furosemide 40 mg tablet (Lasix) 40 mg PO BID 02/19/24 02/19/24 History potassium chloride 20 mEq 20 meq PO BID 02/19/24 02/19/24 History tablet,extended release(part/cryst) (Klor-Con M) [facility] Medical History Polycystic kidney disease Essential hypertension End-stage renal disease needing dialysis Surgical History Peritoneal dialysis catheter in place Family History Mother Diabetes Hypertension Kidney disease Father Hypertension Grandmother Kidney disease Social History adopted: No household members: other details: lives with father housing: house number of children: 0 current occupational status: employed current occupation: [employer] history of recent travel: No sexually active: No Smoking Status: Never smoker alcohol intake: never substance use type: does not use well-balanced diet: daily or most days caffeine: Yes eating out: 1-3 times/week what type of physical activity do you participate in: walking seatbelt use: always do you feel safe at home: Yes additional social history: single ROS Const Const: Negative for fatigue, weakness, fever(s), headache(s), chills, frequent falls, weight gain or weight loss Eyes Eyes: Negative for blind spots, loss of peripheral vision, transient loss of vision, blurry vision, change in vision, double vision, floaters or tunnel vision ENT ENT: Negative for headache(s), dizziness, Nosebleed/epistaxis, balance problems or neck pain Cardio Chest Pain: No Palpitations: No Edema: None Muscle aches with walking: None Resp Respiratory: Negative for SOB with activity, SOB at rest or SOB orthopnea SOB lying down GI GI: Negative nausea, vomiting, heartburn, bloating, vomiting blood/hematemesis, bright, red blood in stools or black,tarry stools Musc Musc: Negative for muscle aches/ myalgia, muscle weakness, joint pain or balance problems Neuro Neuro: Negative for dizziness, lightheadedness, near syncope, syncope, orthostatic symptoms, frequent falls, headache(s), weakness, blurry vision or double vision Chau Hematologic/Lymphatic : Negative for easy bleeding or easy bruising Endo Endo: Negative for fatigue Cardiology Exam Const Appearance: cooperative (more content not included)... Normal [facility] HLA ANTIBODY SCREENon 2023 HLA CLASS I ANTIBODY Negative Normal [facility] Comment on above: Performed By: #### H LSCRN #### [facility] (DEFAULT) [address] [address] HLA CLASS II ANTIBODY Negative Normal [facility] Comment on above: Performed By: #### H LSCRN #### [facility] (DEFAULT) [address] [address] HLSCRN COMMENT HLA Antibody Screen testing performed by [employer] Methodology Normal [facility] Comment on above: Result Comment: Some of the reagents used for testing in the Clinical Histocompatibility Laboratory have yet to be approved by the FDA. Our certification by CLIA to perform high complexity tests allows us to use these reagents in the context of a stringent QC program, and obviates the need for FDA approval.Testing performed by the [facility] Clinical Histocompatibility Laboratory. [facility] number: [id number] CLIA number: [id number], Director: Juice Acosta, PhD, F([facility]). Performed By: #### H LSCRN #### [facility] (DEFAULT) [address] [address] ROMANA Negative Normal [facility] Comment on above: Performed By: #### H LSCRN #### [facility] (DEFAULT) [address] [address] T4-FREE (FREE THYROXINE)on 0 12-05-2023 Free T4 [Mass/Vol] 0.99 ng/dL Normal 0.76 - 1.46 [facility] Comment on above: Result Comment: P otential of falsely elevated results when biotin concentrations are > 10 ng/mL. Performed By: #### 2 [id number] #### [facility],[address] [place] [address] IRONon 12-03-2023 Iron [Mass/Vol] 55 ug/dL Normal 50 - 170 [facility] Comment on above: Performed By: #### 2 37212 #### [facility],[address] [place] [address] LIPID PROFILEon 12-03-2023 Cholesterol [Mass/Vol] 229 mg/dL Normal 0 - 240 [facility] Comment on above: Performed By: #### 2 18283 #### [facility],[address] [place] [address] Cholesterol in HDL [Mass/Vol] 74 mg/dL High 40 - 60 [facility] Comment on above: Performed By: #### 2 36105 #### [facility],[address] [place] [address] Cholesterol in LDL [Mass/Vol] 142 mg/dL High 0 - 129 [facility] Comment on above: Performed By: #### 2 18330 #### [facility],[address] [place] [address] Cholesterol.total/Marifer sterol in HDL [Mass ratio] 3.1 {ratio} Normal 0.0 - 5.0 [facility] Comment on above: Performed By: #### 2 [address] #### [place] [address] Lipid 1996 panel Normal [facility] Comment on above: Result Comment: LIPI D PROFILE Performed By: #### 2 [address]7467 #### [place] [address] Triglyceride [Mass/Vol] 65 mg/dL Normal 0 - 150 [facility] Comment on above: Performed By: #### 2 [address] #### [place] [address] TSHon 12-03-2023 TSH Qn 5.44 m[IU]/L High 0.35 - 3.74 [facility] Comment on above: Performed By: #### 2 [address] #### [place] [address] PRA CLASS (PRE-TRANSPLANT)on 11-03-2023 AB SPECIFICITY CLASS COMMENT Antibody Specificity testing performed by [employer] Methodology. cPRA calculation based on identification of HLA antibody specificities at MFI >2000 and/or presence of CREG antibodies. Normal [facility] Comment on above: Order Comment: RELEA SED BY TT LAB ONLY Result Comment: Some of the reagents used for testing in the Clinical Histocompatibility Laboratory have yet to be approved by the FDA. Our certification by CLIA to perform high complexity tests allows us to use these reagents in the context of a stringent QC program, and obviates the need for FDA approval.Testing performed by the [facility] Clinical Histocompatibility [facility]. [facility] number: [id number]. CLIA number: [id number], Director: Juice Acosta, PhD, F([facility]). Performed By: #### P RAPRE #### [facility] (DEFAULT) [address] [place] [address] CLASS I SPECIFICITIES Not detected Normal [facility] Comment on above: Order Comment: RELEA SED BY TT LAB ONLY Performed By: #### P RAPRE #### [facility] (DEFAULT) [address] [place] [address] CLASS II SPECIFICITIES Not detected Normal [facility] Comment on above: Order Comment: RELEA SED BY TT LAB ONLY Performed By: #### P RAPRE #### [facility] (DEFAULT) [address] [place] [address] cPRA 0 % Normal 0 [facility] Comment on above: Order Comment: RELEA SED BY TT LAB ONLY Performed By: #### P RAPRE #### [facility] (DEFAULT) [address] [place] [address] .GFRon 07-29-2023 GFR 14 ml/min/1.73sqm Normal [facility] ([place]) Comment on above: Result Comment: GFR Population mean for , Non- Americans Ages 20-29 = 116 mL/min/1.73 sq.m. Ages 30-39 = 107 mL/min/1.73 sq.m. Ages 40-49 = 99 mL/min/1.73 sq.m. Ages 50-59 = 93 mL/min/1.73 sq.m. Ages 60-69 = 85 mL/min/1.73 sq.m. Ages 70+ = 75 mL/min/1.73 sq.m. Chronic Kidney Disease: Less than 60 mL/min/1.73 square meters End Stage Renal Disease: Less than 15 mL/min/1.73 square meters Performed By: #### G FR, BMP #### [address] [address] GFR Non- 11 ml/min/1.73sqm Normal [facility] ([place]) Comment on above: Result Comment: GFR Population mean for , Non- Americans Ages 20-29 = 116 mL/min/1.73 sq.m. Ages 30-39 = 107 mL/min/1.73 sq.m. Ages 40-49 = 99 mL/min/1.73 sq.m. Ages 50-59 = 93 mL/min/1.73 sq.m. Ages 60-69 = 85 mL/min/1.73 sq.m. Ages 70+ = 75 mL/min/1.73 sq.m. Chronic Kidney Disease: Less than 60 mL/min/1.73 square meters End Stage Renal Disease: Less than 15 mL/min/1.73 square meters Performed By: #### Sybil FYA, BMP #### [address] [address] BMPon 07-29-2023 BUN/Creatinine Ratio 8.3 ratio Low 10.0-22.0 [facility] ([place]) Comment on above: Performed By: #### Sybil FAY, BMP #### [address] [address] Calcium [Mass/Vol] 9.4 mg/dL Normal 8.7-10.4 [facility] ([place]) Comment on above: Performed By: #### Sybil FAY, BMP #### [address] [address] Chloride [Moles/Vol] 109 mmol/L Normal 98-110 [facility] ([place]) Comment on above: Performed By: #### Sybil FAY, BMP #### [address] [address] CO2 [Moles/Vol] 24 mmol/L Normal 22-32 [facility] ([place]) Comment on above: Performed By: #### Sybil FAY, BMP #### [address] [address] Creatinine [Mass/Vol] 4.23 mg/dL High 0.50-1.20 [facility] ([place]) Comment on above: Performed By: #### Sybil FAY, BMP #### [address] [address] Electrolyte Balance 8.0 mEq/L Normal 4.0-15.0 [facility] ([place]) Comment on above: Performed By: #### Sybil FAY, BMP #### [address] [address] Glucose [Mass/Vol] 115 mg/dL High 70-110 [facility] ([place]) Comment on above: Performed By: #### Sybil FAY, BMP #### [facility] [address] [place] [address] Potassium [Moles/Vol] 3.5 mmol/L Normal 3.5-5.0 [facility] ([place]) Comment on above: Performed By: #### G , BMP #### [facility] [address] [place] [address] Sodium [Moles/Vol] 141 mmol/L Normal 136-145 [facility] ([place]) Comment on above: Performed By: #### G , BMP #### [facility] [address] [place] [address] Urea nitrogen [Mass/Vol] 35.0 mg/dL High 8.0-22.0 [facility] ([place]) Comment on above: Performed By: #### G , BMP #### [facility] [address] [place] [address] LABORATORYOrdered By: No Avalos on 07-29-2023 Beta HCG ( test) Ql (U) Negative (07/29/23 10:41 AM) [facility] Work Phone: LABORATORYOrdered By: SYSTEM SYSTEM on 07-29-2023 Calcium [Mass/Vol] 9.4 mg/dL Normal 8.7 - 10. 4 mg/dL ADM SS Chloride [Moles/Vol] 109 mmol/L Normal 98 - 11 0 mEq/L ADM SS CO2 [Moles/Vol] 24 mmol/L Normal 22 - 32 mEq/L ADM SS Creatinine [Mass/Vol] 4.23 mg/dL High 0.50 - 1.20 mg/dL ADM SS Electrolyte Balance 8.0 mEq/L Normal 4.0 - 15 .0 mEq/L ADM SS GFR/1.73 sq M.predicted among blacks MDRD (S/P/Bld) [Vol rate/Area] 14 ml/min/1.73sqm Invalid Interpretation Code Chemistry S Comment on above: Interpretive Data: GFR Population mean for , Non- Americans Ages 20-29 = 116 mL/min/1.73 sq.m. Ages 30-39 = 107 mL/min/1.73 sq.m. Ages 40-49 = 99 mL/min/1.73 sq.m. Ages 50-59 = 93 mL/min/1.73 sq.m. Ages 60-69 = 85 mL/min/1.73 sq.m. Ages 70+ = 75 mL/min/1.73 sq.m. Chronic Kidney Disease: Less than 60 mL/min/1.73 square meters End Stage Renal Disease: Less than 15 mL/min/1.73 square meters GFR/1.73 sq M.predicted among non-blacks MDRD (S/P/Bld) [Vol rate/Area] 11 ml/min/1.73sqm Invalid Interpretation Code Chemistry S Comment on above: Interpretive Data: GFR Population mean for , Non- Americans Ages 20-29 = 116 mL/min/1.73 sq.m. Ages 30-39 = 107 mL/min/1.73 sq.m. Ages 40-49 = 99 mL/min/1.73 sq.m. Ages 50-59 = 93 mL/min/1.73 sq.m. Ages 60-69 = 85 mL/min/1.73 sq.m. Ages 70+ = 75 mL/min/1.73 sq.m. Chronic Kidney Disease: Less than 60 mL/min/1.73 square meters End Stage Renal Disease: Less than 15 mL/min/1.73 square meters Glucose [Mass/Vol] 115 mg/dL High 70 - 110 mg/dL ADM SS Potassium [Moles/Vol] 3.5 mmol/L Normal 3.5 - 5.0 mEq/L ADM SS Sodium [Moles/Vol] 141 mmol/L Normal 136 - 145 mEq/L ADM SS Urea nitrogen [Mass/Vol] 35.0 mg/dL High 8.0 - 22.0 mg/dL ADM SS Urea nitrogen/Creatinine [Mass ratio] 8.3 ratio Low 10.0 - 22.0 ratio ADM SS .Auto Diffon 07-22-2023 Basophil, Absolute 0.0 10 3/mcL Normal 0.0-0.3 [facility] ([place]) Comment on above: Performed By: #### C BC, ANEU, ADIFF, BMP, GFR #### [facility] [address] [place] [address] Basophils/100 WBC (Bld) 0.6 % Normal 0.0-2.5 [facility] ([place]) Comment on above: Performed By: #### C BC, ANEU, ADIFF, BMP, GFR #### [address] [address] Eosinophil, Absolute 0.1 10 3/mcL Normal 0.0-0.7 [facility] ([place]) Comment on above: Performed By: #### C BC, ANEU, ADIFF, BMP, GFR #### [address] [address] Eosinophils/100 WBC (Bld) 1.3 % Normal 0.0-6.0 [facility] ([place]) Comment on above: Performed By: #### C BC, ANEU, ADIFF, BMP, GFR #### [address] [address] Lymphocyte, Absolute 0.5 10 3/mcL Low 0.9-4.3 [facility] ([place]) Comment on above: Performed By: #### C BC, ANEU, ADIFF, BMP, GFR #### [address] [address] Lymphocytes/100 WBC (Bld) 9.0 % Low 20.0-40.0 [facility] ([place]) Comment on above: Performed By: #### C BC, ANEU, ADIFF, BMP, GFR #### [address] [address] Monocyte, Absolute 0.3 10 3/mcL Normal 0.1-1.4 [facility] ([place]) Comment on above: Performed By: #### C BC, ANEU, ADIFF, BMP, GFR #### [address] [address] Monocytes/100 WBC (Bld) 5.1 % Normal 2.0-13.0 [facility] ([place]) Comment on above: Performed By: #### C BC, ANEU, ADIFF, BMP, GFR #### [address] [address] Neutrophils/100 WBC (Bld) 84.0 % High 50.0-75.0 [facility] ([place]) Comment on above: Performed By: #### C BC, ANEU, ADIFF, BMP, GFR #### [address] [address] .GFRon 07-22-2023 GFR Non- 11 ml/min/1.73sqm Normal [facility] ([place]) Comment on above: Result Comment: GFR Population mean for , Non- Americans Ages 20-29 = 116 mL/min/1.73 sq.m. Ages 30-39 = 107 mL/min/1.73 sq.m. Ages 40-49 = 99 mL/min/1.73 sq.m. Ages 50-59 = 93 mL/min/1.73 sq.m. Ages 60-69 = 85 mL/min/1.73 sq.m. Ages 70+ = 75 mL/min/1.73 sq.m. Chronic Kidney Disease: Less than 60 mL/min/1.73 square meters End Stage Renal Disease: Less than 15 mL/min/1.73 square meters Performed By: #### C BC, ANEU, ADIFF, BMP, GFR #### [place] [address] GFR 14 ml/min/1.73sqm Normal [facility] ([place]) Comment on above: Result Comment: GFR Population mean for , Non- Americans Ages 20-29 = 116 mL/min/1.73 sq.m. Ages 30-39 = 107 mL/min/1.73 sq.m. Ages 40-49 = 99 mL/min/1.73 sq.m. Ages 50-59 = 93 mL/min/1.73 sq.m. Ages 60-69 = 85 mL/min/1.73 sq.m. Ages 70+ = 75 mL/min/1.73 sq.m. Chronic Kidney Disease: Less than 60 mL/min/1.73 square meters End Stage Renal Disease: Less than 15 mL/min/1.73 square meters Performed By: #### C BC, ANEU, ADIFF, BMP, GFR #### [address] [address] .NEUABSon 07-22-2023 Neutrophil, Absolute 4.5 10 3/mcL Normal 2.3-8.1 [facility] ([place]) Comment on above: Performed By: #### C BC, ANEU, ADIFF, BMP, GFR #### [address] [address] BMPon 07-22-2023 BUN/Creatinine Ratio 8.3 ratio Low 10.0-22.0 [facility] ([place]) Comment on above: Performed By: #### C BC, ANEU, ADIFF, BMP, GFR #### [address] [address] Calcium [Mass/Vol] 8.8 mg/dL Normal 8.7-10.4 [facility] ([place]) Comment on above: Performed By: #### C BC, ANEU, ADIFF, BMP, GFR #### [place] [id number] Chloride [Moles/Vol] 109 mmol/L Normal 98-110 [facility] ([place]) Comment on above: Performed By: #### C BC, ANEU, ADIFF, BMP, GFR #### [address] [address] CO2 [Moles/Vol] 26 mmol/L Normal 22-32 [facility] ([place]) Comment on above: Performed By: #### C BC, ANEU, ADIFF, BMP, GFR #### [place] [address] Creatinine [Mass/Vol] 4.22 mg/dL High 0.50-1.20 [facility] ([place]) Comment on above: Performed By: #### C BC, ANEU, ADIFF, BMP, GFR #### [address] [address] Electrolyte Balance 8.0 mEq/L Normal 4.0-15.0 [facility] ([place]) Comment on above: Performed By: #### C BC, ANEU, ADIFF, BMP, GFR #### [place] [id number] Glucose [Mass/Vol] 99 mg/dL Normal 70-110 [facility] ([place]) Comment on above: Performed By: #### C BC, ANEU, ADIFF, BMP, GFR #### [place] [id number] Potassium [Moles/Vol] 3.8 mmol/L Normal 3.5-5.0 [facility] ([place]) Comment on above: Performed By: #### C BC, ANEU, ADIFF, BMP, GFR #### [address] [address] Sodium [Moles/Vol] 143 mmol/L Normal 136-145 [facility] ([place]) Comment on above: Performed By: #### C BC, ANEU, ADIFF, BMP, GFR #### [place] [address] Urea nitrogen [Mass/Vol] 35.0 mg/dL High 8.0-22.0 [facility] ([place]) Comment on above: Performed By: #### C BC, ANEU, ADIFF, BMP, GFR #### [place] [id number] CBCon 07-22-2023 Erythrocyte distribution width (RBC) [Ratio] 13.4 % Normal 11.5-15.5 [facility] ([place]) Comment on above: Performed By: #### C BC, ANEU, ADIFF, BMP, GFR #### [place] [address] Hematocrit (Bld) [Volume fraction] 39.3 % Normal 34.0-46.0 [facility] ([place]) Comment on above: Performed By: #### C BC, ANEU, ADIFF, BMP, GFR #### [place] [id number] Hgb 13.2 G/dL Normal 12.0-16.0 [facility] ([place]) Comment on above: Performed By: #### C BC, ANEU, ADIFF, BMP, GFR #### [place] [id number] MCH (RBC) [Entitic mass] 30.1 pg Normal 27.0-33.0 [facility] ([place]) Comment on above: Performed By: #### C BC, ANEU, ADIFF, BMP, GFR #### [place] [id number] MCHC 33.7 G/dL Normal 32.0-36.0 [facility] ([place]) Comment on above: Performed By: #### C BC, ANEU, ADIFF, BMP, GFR #### [place] [address] MCV (RBC) [Entitic vol] 89.4 fL Normal 80.0-99.0 [facility] ([place]) Comment on above: Performed By: #### C BC, ANEU, ADIFF, BMP, GFR #### [place] [address] Platelet 188 10 3/mcL Normal 150-450 [facility] ([place]) Comment on above: Performed By: #### C BC, ANEU, ADIFF, BMP, GFR #### [place] [address] Platelet mean volume (Bld) [Entitic vol] 7.5 fL Normal 6.6-10.5 [facility] ([place]) Comment on above: Performed By: #### C BC, ANEU, ADIFF, BMP, GFR #### [place] [address] RBC 4.39 10 6/mcL Normal 4.10-5.30 [facility] ([place]) Comment on above: Performed By: #### C BC, ANEU, ADIFF, BMP, GFR #### [place] [address] WBC 5.4 10 3/mcL Normal 4.5-10.8 [facility] ([place]) Comment on above: Performed By: #### C BC, ANEU, ADIFF, BMP, GFR #### [place] [address] LABORATORYOrdered By: SYSTEM SYSTEM on 07-22-2023 Basophils (Bld) [#/Vol] 0.0 103/mcL Normal 0.0 - 0.3 10^3/mcL AH Workflow SS Basophils/100 WBC (Bld) 0.6 % Normal 0.0 - 2.5 % AH Workflow SS Calcium [Mass/Vol] 8.8 mg/dL Normal 8.7 - 10. 4 mg/dL AH ADM SS Chloride [Moles/Vol] 109 mmol/L Normal 98 - 11 0 mEq/L ADM SS CO2 [Moles/Vol] 26 mmol/L Normal 22 - 32 mEq/L ADM SS Creatinine [Mass/Vol] 4.22 mg/dL High 0.50 - 1.20 mg/dL ADM SS Electrolyte Balance 8.0 mEq/L Normal 4.0 - 15 .0 mEq/L ADM SS Eosinophils (Bld) [#/Vol] 0.1 103/mcL Normal 0.0 - 0.7 10^3/mcL Workflow SS Eosinophils/100 WBC (Bld) 1.3 % Normal 0.0 - 6.0 % Workflow SS Erythrocyte distribution width (RBC) [Ratio] 13.4 % Normal 11.5 - 15.5 % Workflow SS GFR/1.73 sq M.predicted among blacks MDRD (S/P/Bld) [Vol rate/Area] 14 ml/min/1.73sqm Invalid Interpretation Code Shopparity Chemistry S Comment on above: Interpretive Data: GFR Population mean for , Non- Americans Ages 20-29 = 116 mL/min/1.73 sq.m. Ages 30-39 = 107 mL/min/1.73 sq.m. Ages 40-49 = 99 mL/min/1.73 sq.m. Ages 50-59 = 93 mL/min/1.73 sq.m. Ages 60-69 = 85 mL/min/1.73 sq.m. Ages 70+ = 75 mL/min/1.73 sq.m. Chronic Kidney Disease: Less than 60 mL/min/1.73 square meters End Stage Renal Disease: Less than 15 mL/min/1.73 square meters GFR/1.73 sq M.predicted among non-blacks MDRD (S/P/Bld) [Vol rate/Area] 11 ml/min/1.73sqm Invalid Interpretation Code Shopparity Chemistry S Comment on above: Interpretive Data: GFR Population mean for , Non- Americans Ages 20-29 = 116 mL/min/1.73 sq.m. Ages 30-39 = 107 mL/min/1.73 sq.m. Ages 40-49 = 99 mL/min/1.73 sq.m. Ages 50-59 = 93 mL/min/1.73 sq.m. Ages 60-69 = 85 mL/min/1.73 sq.m. Ages 70+ = 75 mL/min/1.73 sq.m. Chronic Kidney Disease: Less than 60 mL/min/1.73 square meters End Stage Renal Disease: Less than 15 mL/min/1.73 square meters Glucose [Mass/Vol] 99 mg/dL Normal 70 - 110 mg/dL ADM SS Hematocrit (Bld) [Volume fraction] 39.3 % Normal 34.0 - 46.0 % AH Workflow SS Hemoglobin (Bld) [Mass/Vol] 13.2 G/dL Normal 12.0 - 16.0 G/dL AH Workflow SS Lymphocytes (Bld) [#/Vol] 0.5 103/mcL Low 0.9 - 4.3 10^3/mcL AH Workflow SS Lymphocytes/100 WBC (Bld) 9.0 % Low 20.0 - 40.0 % AH Workflow SS MCH (RBC) [Entitic mass] 30.1 pg Normal 27.0 - 33.0 pg AH Workflow SS MCHC 33.7 G/dL Normal 32.0 - 36.0 G/dL AH Workflow SS MCV (RBC) [Entitic vol] 89.4 fL Normal 80.0 - 99.0 fL AH Workflow SS Monocytes (Bld) [#/Vol] 0.3 103/mcL Normal 0.1 - 1.4 10^3/mcL AH Workflow SS Monocytes/100 WBC (Bld) 5.1 % Normal 2.0 - 13.0 % AH Workflow SS Neutrophils (Bld) [#/Vol] 4.5 103/mcL Normal 2.3 - 8.1 10^3/mcL AH Workflow SS Neutrophils/100 WBC (Bld) 84.0 % High 50.0 - 75.0 % AH Workflow SS Platelet mean volume (Bld) [Entitic vol] 7.5 fL Normal 6.6 - 10.5 fL AH Workflow SS Platelets (Bld) [#/Vol] 188 103/mcL Normal 150 - 450 10^3/mcL AH Workflow SS Potassium [Moles/Vol] 3.8 mmol/L Normal 3.5 - 5.0 mEq/L ADM SS RBC (Bld) [#/Vol] 4.39 106/mcL Normal 4.10 - 5.3 0 10^6/mcL AH Workflow SS Sodium [Moles/Vol] 143 mmol/L Normal 136 - 145 mEq/L ADM SS Urea nitrogen [Mass/Vol] 35.0 mg/dL High 8.0 - 22.0 mg/dL AH ADM SS Urea nitrogen/Creatinine [Mass ratio] 8.3 ratio Low 10.0 - 22.0 ratio AH ADM SS WBC (Bld) [#/Vol] 5.4 103/mcL Normal 4.5 - 10.8 10^3/mcL AH Workflow SS Absolute lymphocyte countOrd ered By: Manny Weber on 12-04-2022 Lymphocytes Auto (Unsp spec) [#/Vol] 0.35 10*3/uL 0.83-4.51 [facility] Basophil percentageOrdered B y: Manny Weber on 12-04-2022 Basophil percentage 0-5 SEEN /hpf 0-5 [facility] Basophils/100 WBC (Bld) 0.1 % 0-1 [facility] Chloride [Moles/Vol] 109 mmol/L 98-[address] [facility] Eosinophils/100 WBC (Bld) 0.0 % 0-5 [facility] Glucose [Mass/Vol] 198 mg/dL 74-106 [facility] Comment on above: Fasting Glucose resu lt greater than or equal to 126 mg/dL suggests DIABETES MELLITUS per A.D.A. criteria. Neutrophils (Bld) [#/Vol] 10.3 10*3/uL 2.0-7.7 [facility] Neutrophils/100 WBC (Bld) 93.0 % 47-70 [facility] Potassium [Moles/Vol] 4.5 mmol/L 3.5-5.1 [facility] Sodium [Moles/Vol] 138 mmol/L 136-145 [facility] WBC (Bld) [#/Vol] 11.0 10*3/uL 4.4-11.0 [facility] Beta hCG serum qualOrdered B y: Manny Weber on 12-04-2022 Beta HCG ( test) Ql Negative [facility] Bilirubin Test strip Ql (U)O rdered By: Manny Weber on 12-04-2022 Bilirubin Ql (U) Negative Negative [facility] Blood erythrocytes count (nu mber/volume)Ordered By: Manny Weber on 12-04-2022 RBC (Bld) [#/Vol] 4.09 10*6/uL 4.2-5.4 [facility] Blood hemoglobin measurement (mass/volume)Ordered By: Manny Weber on 12-04-2022 Hemoglobin (Bld) [Mass/Vol] 12.0 g/dL 12.0-15.0 [facility] Blood lymphocytes/100 leukoc ytesOrdered By: Manny Weber on 12-04-2022 Lymphocytes/100 WBC (Bld) 3.2 % 19-41 [facility] Blood manual differential co mment interpretation (narrative result)Ordered By: Manny Weber on 12-04-2022 Manual differential comment Cezar (Bld) [Interp] SCANNED [facility] Comment on above: LYMPHOPENIA NOTED Blood monocytes/100 leukocyt esOrdered By: Manny Weber on 12-04-2022 Monocytes/100 WBC (Bld) 3.3 % 0-10 [facility] Blood platelet mean volumeOr dered By: Manny Weber on 12-04-2022 Platelet mean volume (Bld) [Entitic vol] 10.2 fL 6.2-12.0 [facility] Determination of erythrocyte mean corpuscular volume (MCV)Ordered By: Manny Weber on 12-04-2022 MCV (RBC) [Entitic vol] 92.7 fL 81-99 [facility] Hematocrit Auto (Bld) [Volum e fraction]Ordered By: Manny Weber on 12-04-2022 Hematocrit (Bld) [Volume fraction] 37.9 % 37-47 [facility] Ketones Test strip Ql (U)Ord ered By: Manny Weber on 12-04-2022 Ketones Ql (U) 5 mg/dl Negative [facility] Laboratory - Chemistry and C hemistry - challengeOrdered By: Manny Weber on 12-04-2022 CO2 [Moles/Vol] 21.0 mmol/L 21.0-32.0 [facility] Urea nitrogen/Creatinine [Mass ratio] 12.1 mg/mg 10-20 [facility] Laboratory - Hematology and Cell countsOrdered By: Manny Weber on 12-04-2022 Erythrocyte distribution width (RBC) [Entitic vol] 42.8 fL 35.1-43.9 [facility] Erythrocyte distribution width (RBC) [Ratio] 12.7 % 11.6-14.6 [facility] Immature granulocytes/100 WBC (Bld) 0.400 % 0.0-0.9 [facility] Comment on above: IG% - Immature Granu locytes (promyelocytes, myelocytes and metamyelocytes) > 1% indicates that a LEFT SHIFT is Present. MCH (RBC) [Entitic mass] 29.3 pg 27.0-32.0 [facility] Nucleated RBC/100 WBC (Bld) [Ratio] 0 % 0-5 [facility] MCHC Auto (RBC) [Mass/Vol]Or dered By: Manny Weber on 12-04-2022 MCHC (RBC) [Mass/Vol] 31.7 g/dL 32-36 [facility] Mucus LM Ql (Urine sed)Order ed By: Manny Weber on 12-04-2022 Mucus Ql (Urine sed) 0 SEEN /hpf [facility] Nitrite Test strip Ql (U)Ord ered By: Manny Weber on 12-04-2022 Nitrite Ql (U) Negative Negative [facility] No Panel InformationOrdered By: Manny Weber on 12-04-2022 Estimated Creatinine Clearance Calc 16.49 ml/min [facility] Estimated GFR (MDRD) Amer 13 mL/min >60 [facility] Comment on above: GFR Calc Estimated GFR (MDRD) Non-Af Amer 11 mL/min >60 [facility] Comment on above: Non- GFR Calc Platelets bldOrdered By: Burke Weber on 12-04-2022 Platelets (Bld) [#/Vol] 230 10*3/uL 150-450 [facility] Protein Test strip Ql (U)Ord ered By: Manny Weber on 12-04-2022 Protein Ql (U) 30 mg/dl Negative [facility] Serum or plasma calcium gladis urement (mass/volume)Ordered By: Manny Weber on 12-04-2022 Calcium [Mass/Vol] 9.1 mg/dL 8.5-10.1 [facility] Serum or plasma creatinine m easurement (mass/volume)Ordered By: Manny Weber on 12-04-2022 Creatinine [Mass/Vol] 4.56 mg/dL 0.55-1.02 [facility] Comment on above: The validity of the calculated GFR & GFRAA in patients over 70 years has not been determined. Clinical correlation is essential. Serum or plasma urea nitroge n measurement (mass/volume)Ordered By: Manny Weber on 12-04-2022 Urea nitrogen [Mass/Vol] 55 mg/dL 7-18 [facility] Squamous epithelial cells de tection in urine sediment by light microscopyOrdered By: Manny Weber on 12-04-2022 Epithelial cells.squamous LM Ql (Urine sed) 0-5 SEEN /hpf 5-10 [facility] Thin prep Papanicolaou smear with manual screeningOrdered By: Manny Weber on 12-04-2022 Thin prep Papanicolaou smear with manual screening 8 5-15 [facility] Urine blood detectionOrdered By: Manny Weber on 12-04-2022 RBC Ql (U) 10 /ul Negative [facility] RBC Ql (U) 0 SEEN /hpf 0-5 [facility] Urine clarityOrdered By: Burke Weber on 12-04-2022 Clarity (U) Clear Clear [facility] Urine color determinationOrd ered By: Manny Weber on 12-04-2022 Color (U) Yellow Yellow [facility] Urine glucose detectionOrder ed By: Manny Weber on 12-04-2022 Glucose Ql (U) 100 mg/dl Normal [facility] Urine leukocyte esterase det ection by dipstickOrdered By: Manny Weber on 12-04-2022 Leukocyte esterase Test strip Ql (U) 25 /ul Negative [facility] Urine pHOrdered By: Manny martinez on 12-04-2022 pH (U) 6.0 [pH] 5.0 - 8.0 [facility] Urine sediment bacteria coun t by microscopy (number/high power field)Ordered By: Manny Weber on 12-04-2022 Bacteria LM.HPF (Urine sed) [#/Area] RARE /hpf None Seen [facility] Urine sediment renal epithel ial cell count by microscopy (number/high power field)Ordered By: Manny Weber on 12-04-2022 Epithelial cells.renal LM.HPF (Urine sed) [#/Area] 0 /[HPF] 0-5 [facility] Urine specific gravity measu rementOrdered By: Manny Weber on 12-04-2022 Specific gravity (U) [Rel density] 1.010 1.002-1.030 [facility] Urobilinogen Auto test strip Ql (U)Ordered By: Manny Weber on 12-04-2022 Urobilinogen Ql (U) Normal mg/dl Normal [facility] .GFRon 12-03-2022 GFR 13 ml/min/1.73sqm Normal [facility] ([place]) Comment on above: Result Comment: GFR Population mean for , Non- Americans Ages 20-29 = 116 mL/min/1.73 sq.m. Ages 30-39 = 107 mL/min/1.73 sq.m. Ages 40-49 = 99 mL/min/1.73 sq.m. Ages 50-59 = 93 mL/min/1.73 sq.m. Ages 60-69 = 85 mL/min/1.73 sq.m. Ages 70+ = 75 mL/min/1.73 sq.m. Chronic Kidney Disease: Less than 60 mL/min/1.73 square meters End Stage Renal Disease: Less than 15 mL/min/1.73 square meters Performed By: #### B MP, GFR #### [place] [address] GFR Non- 10 ml/min/1.73sqm Normal [facility] ([place]) Comment on above: Result Comment: GFR Population mean for , Non- Americans Ages 20-29 = 116 mL/min/1.73 sq.m. Ages 30-39 = 107 mL/min/1.73 sq.m. Ages 40-49 = 99 mL/min/1.73 sq.m. Ages 50-59 = 93 mL/min/1.73 sq.m. Ages 60-69 = 85 mL/min/1.73 sq.m. Ages 70+ = 75 mL/min/1.73 sq.m. Chronic Kidney Disease: Less than 60 mL/min/1.73 square meters End Stage Renal Disease: Less than 15 mL/min/1.73 square meters Performed By: #### B MP, GFR #### [address] [address] BMPon 12-03-2022 BUN/Creatinine Ratio 12.8 ratio Normal 10.0-22.0 [facility] ([place]) Comment on above: Performed By: #### B MP, GFR #### [address] [address] Calcium [Mass/Vol] 9.3 mg/dL Normal 8.7-10.4 [facility] ([place]) Comment on above: Performed By: #### B MP, GFR #### [address] [address] Chloride [Moles/Vol] 109 mmol/L Normal 98-110 [facility] ([place]) Comment on above: Performed By: #### B MP, GFR #### [address] [address] CO2 [Moles/Vol] 21 mmol/L Low 22-32 [facility] ([place]) Comment on above: Performed By: #### B MP, GFR #### [address] [address] Creatinine [Mass/Vol] 4.52 mg/dL High 0.50-1.20 [facility] ([place]) Comment on above: Performed By: #### B MP, GFR #### [address] [address] Electrolyte Balance 12.0 mEq/L Normal 4.0-15.0 [facility] ([place]) Comment on above: Performed By: #### B MP, GFR #### [address] [address] Glucose [Mass/Vol] 91 mg/dL Normal 70-110 [facility] ([place]) Comment on above: Performed By: #### B MP, GFR #### [address] [address] Potassium [Moles/Vol] 4.5 mmol/L Normal 3.5-5.0 [facility] ([place]) Comment on above: Performed By: #### B MP, GFR #### [facility] [address] [place] [address] Sodium [Moles/Vol] 142 mmol/L Normal 136-145 [facility] ([place]) Comment on above: Performed By: #### B MP, GFR #### [facility] [address] [place] [address] Urea nitrogen [Mass/Vol] 58.0 mg/dL High 8.0-22.0 [facility] ([place]) Comment on above: Performed By: #### B MP, GFR #### [facility] [address] [place] [address] LABORATORYOrdered By: Tyra Lawrence on 12-03-2022 Beta HCG ( test) Ql (U) Negative (12/03/22 9:09 AM) [facility] Work Phone: LABORATORYOrdered By: SYSTEM SYSTEM on 12-03-2022 Calcium [Mass/Vol] 9.3 mg/dL Invalid Interpretation Code 8.7 - 10.4 mg/dL ADM SS Chloride [Moles/Vol] 109 mmol/L Invalid Interpretation Code 98 - 110 mEq/L AH ADM SS CO2 [Moles/Vol] 21 mmol/L Invalid Interpretation Code 22 - 32 mEq/L ADM SS Creatinine [Mass/Vol] 4.52 mg/dL Invalid Interpretation Code 0.50 - 1.20 mg/dL ADM SS Electrolyte Balance 12.0 mEq/L Invalid Interpretation Code 4.0 - 15.0 mEq/L AH ADM SS GFR/1.73 sq M.predicted among blacks MDRD (S/P/Bld) [Vol rate/Area] 13 ml/min/1.73sqm Invalid Interpretation Code Chemistry S Comment on above: Interpretive Data: GFR Population mean for , Non- Americans Ages 20-29 = 116 mL/min/1.73 sq.m. Ages 30-39 = 107 mL/min/1.73 sq.m. Ages 40-49 = 99 mL/min/1.73 sq.m. Ages 50-59 = 93 mL/min/1.73 sq.m. Ages 60-69 = 85 mL/min/1.73 sq.m. Ages 70+ = 75 mL/min/1.73 sq.m. Chronic Kidney Disease: Less than 60 mL/min/1.73 square meters End Stage Renal Disease: Less than 15 mL/min/1.73 square meters GFR/1.73 sq M.predicted among non-blacks MDRD (S/P/Bld) [Vol rate/Area] 10 ml/min/1.73sqm Invalid Interpretation Code Chemistry S Comment on above: Interpretive Data: GFR Population mean for , Non- Americans Ages 20-29 = 116 mL/min/1.73 sq.m. Ages 30-39 = 107 mL/min/1.73 sq.m. Ages 40-49 = 99 mL/min/1.73 sq.m. Ages 50-59 = 93 mL/min/1.73 sq.m. Ages 60-69 = 85 mL/min/1.73 sq.m. Ages 70+ = 75 mL/min/1.73 sq.m. Chronic Kidney Disease: Less than 60 mL/min/1.73 square meters End Stage Renal Disease: Less than 15 mL/min/1.73 square meters Glucose [Mass/Vol] 91 mg/dL Invalid Interpretation Code 70 - 110 mg/dL ADM SS Potassium [Moles/Vol] 4.5 mmol/L Invalid Interpretation Code 3.5 - 5.0 mEq/L ADM SS Sodium [Moles/Vol] 142 mmol/L Invalid Interpretation Code 136 - 145 mEq/L ADM SS Urea nitrogen [Mass/Vol] 58.0 mg/dL Invalid Interpretation Code 8.0 - 22.0 mg/dL ADM SS Urea nitrogen/Creatinine [Mass ratio] 12.8 ratio Invalid Interpretation Code 10.0 - 22.0 ratio ADM SS .Auto Diffon 11-18-2022 Basophil, Absolute 0.0 10 3/mcL Normal 0.0-0.3 [facility] ([place]) Comment on above: Performed By: #### B MP, GFR #### [facility] [address] [place] [address] Basophils/100 WBC (Bld) 0.7 % Normal 0.0-2.5 [facility] ([place]) Comment on above: Performed By: #### B MP, GFR #### [address] [address] Eosinophil, Absolute 0.1 10 3/mcL Normal 0.0-0.7 [facility] ([place]) Comment on above: Performed By: #### B MP, GFR #### [address] [address] Eosinophils/100 WBC (Bld) 1.1 % Normal 0.0-6.0 [facility] ([place]) Comment on above: Performed By: #### B MP, GFR #### [address] [address] Lymphocyte, Absolute 0.5 10 3/mcL Low 0.9-4.3 [facility] ([place]) Comment on above: Performed By: #### B MP, GFR #### [address] [address] Lymphocytes/100 WBC (Bld) 10.5 % Low 20.0-40.0 [facility] ([place]) Comment on above: Performed By: #### B MP, GFR #### [address] [address] Monocyte, Absolute 0.2 10 3/mcL Normal 0.1-1.4 [facility] ([place]) Comment on above: Performed By: #### B MP, GFR #### [address] [address] Monocytes/100 WBC (Bld) 4.2 % Normal 2.0-13.0 [facility] ([place]) Comment on above: Performed By: #### B MP, GFR #### [address] [address] Neutrophils/100 WBC (Bld) 83.5 % High 50.0-75.0 [facility] ([place]) Comment on above: Performed By: #### B MP, GFR #### [address] [address] .GFRon 11-18-2022 GFR 15 ml/min/1.73sqm Normal [facility] ([place]) Comment on above: Result Comment: GFR Population mean for , Non- Americans Ages 20-29 = 116 mL/min/1.73 sq.m. Ages 30-39 = 107 mL/min/1.73 sq.m. Ages 40-49 = 99 mL/min/1.73 sq.m. Ages 50-59 = 93 mL/min/1.73 sq.m. Ages 60-69 = 85 mL/min/1.73 sq.m. Ages 70+ = 75 mL/min/1.73 sq.m. Chronic Kidney Disease: Less than 60 mL/min/1.73 square meters End Stage Renal Disease: Less than 15 mL/min/1.73 square meters Performed By: #### B MP, GFR #### [address] [address] GFR Non- 13 ml/min/1.73sqm Normal [facility] ([place]) Comment on above: Result Comment: GFR Population mean for , Non- Americans Ages 20-29 = 116 mL/min/1.73 sq.m. Ages 30-39 = 107 mL/min/1.73 sq.m. Ages 40-49 = 99 mL/min/1.73 sq.m. Ages 50-59 = 93 mL/min/1.73 sq.m. Ages 60-69 = 85 mL/min/1.73 sq.m. Ages 70+ = 75 mL/min/1.73 sq.m. Chronic Kidney Disease: Less than 60 mL/min/1.73 square meters End Stage Renal Disease: Less than 15 mL/min/1.73 square meters Performed By: #### B MP, GFR #### [address] [address] .NEUABSon 11-18-2022 Neutrophil, Absolute 4.2 10 3/mcL Normal 2.3-8.1 [facility] ([place]) Comment on above: Performed By: #### B MP, GFR #### [address] [address] BMPon 11-18-2022 BUN/Creatinine Ratio 11.2 ratio Normal 10.0-22.0 [facility] ([place]) Comment on above: Performed By: #### B MP, GFR #### [address] [address] Creatinine [Mass/Vol] 3.83 mg/dL High 0.50-1.20 [facility] ([place]) Comment on above: Performed By: #### B MP, GFR #### [address] [address] Calcium [Mass/Vol] 9.4 mg/dL Normal 8.7-10.4 [facility] ([place]) Comment on above: Performed By: #### B MP, GFR #### [address] [address] Chloride [Moles/Vol] 112 mmol/L High 98-110 [facility] ([place]) Comment on above: Performed By: #### B MP, GFR #### [address] [address] CO2 [Moles/Vol] 21 mmol/L Low 22-32 [facility] ([place]) Comment on above: Performed By: #### B MP, GFR #### [address] [address] Electrolyte Balance 8.0 mEq/L Normal 4.0-15.0 [facility] ([place]) Comment on above: Performed By: #### B MP, GFR #### [address] [address] Glucose [Mass/Vol] 101 mg/dL Normal 70-110 [facility] ([place]) Comment on above: Performed By: #### B MP, GFR #### [address] [address] Potassium [Moles/Vol] 5.1 mmol/L High 3.5-5.0 [facility] ([place]) Comment on above: Performed By: #### B MP, GFR #### [address] [address] Sodium [Moles/Vol] 141 mmol/L Normal 136-145 [facility] ([place]) Comment on above: Performed By: #### B MP, GFR #### [address] [address] Urea nitrogen [Mass/Vol] 43.0 mg/dL High 8.0-22.0 [facility] ([place]) Comment on above: Performed By: #### B MP, GFR #### [place] [id number] CBCon 11-18-2022 Erythrocyte distribution width (RBC) [Ratio] 13.6 % Normal 11.5-15.5 [facility] ([place]) Comment on above: Performed By: #### C BC, GFR, ADIFF, BMP, ANEU #### [place] [address] Hematocrit (Bld) [Volume fraction] 38.0 % Normal 34.0-46.0 [facility] ([place]) Comment on above: Performed By: #### C BC, GFR, ADIFF, BMP, ANEU #### [place] [address] Hgb 12.6 G/dL Normal 12.0-16.0 [facility] ([place]) Comment on above: Performed By: #### C BC, GFR, ADIFF, BMP, ANEU #### [place] [address] MCH (RBC) [Entitic mass] 29.7 pg Normal 27.0-33.0 [facility] ([place]) Comment on above: Performed By: #### C BC, GFR, ADIFF, BMP, ANEU #### [place] [address] MCHC 33.1 G/dL Normal 32.0-36.0 [facility] ([place]) Comment on above: Performed By: #### C BC, GFR, ADIFF, BMP, ANEU #### [place] [address] MCV (RBC) [Entitic vol] 89.8 fL Normal 80.0-99.0 A [facility] ([place]) Comment on above: Performed By: #### C BC, GFR, ADIFF, BMP, ANEU #### [place] [id number] Platelet 185 10 3/mcL Normal 150-450 [facility] ([place]) Comment on above: Performed By: #### C BC, GFR, ADIFF, BMP, ANEU #### [facility] [address] [place] [id number] Platelet mean volume (Bld) [Entitic vol] 8.0 fL Normal 6.6-10.5 [facility] ([place]) Comment on above: Performed By: #### C BC, GFR, ADIFF, BMP, ANEU #### [place] [address] RBC 4.23 10 6/mcL Normal 4.10-5.30 [facility] ([place]) Comment on above: Performed By: #### C BC, GFR, ADIFF, BMP, ANEU #### [address] [address] WBC 5.0 10 3/mcL Normal 4.5-10.8 [facility] ([place]) Comment on above: Performed By: #### C BC, GFR, ADIFF, BMP, ANEU #### [place] [address] LABORATORYOrdered By: SYSTEM SYSTEM on 11-18-2022 Basophils (Bld) [#/Vol] 0.0 103/mcL Invalid Interpretation Code 0.0 - 0.3 10^3/mcL Workflow SS Basophils/100 WBC (Bld) 0.7 % Invalid Interpretation Code 0.0 - 2.5 % Workflow SS Calcium [Mass/Vol] 9.4 mg/dL Invalid Interpretation Code 8.7 - 10.4 mg/dL ADM SS Chloride [Moles/Vol] 112 mmol/L Invalid Interpretation Code 98 - 110 mEq/L ADM SS CO2 [Moles/Vol] 21 mmol/L Invalid Interpretation Code 22 - 32 mEq/L ADM SS Creatinine [Mass/Vol] 3.83 mg/dL Invalid Interpretation Code 0.50 - 1.20 mg/dL ADM SS Electrolyte Balance 8.0 mEq/L Invalid Interpretation Code 4.0 - 15.0 mEq/L AH ADM SS Eosinophils (Bld) [#/Vol] 0.1 103/mcL Invalid Interpretation Code 0.0 - 0.7 10^3/mcL AH Workflow SS Eosinophils/100 WBC (Bld) 1.1 % Invalid Interpretation Code 0.0 - 6.0 % AH Workflow SS Erythrocyte distribution width (RBC) [Ratio] 13.6 % Invalid Interpretation Code 11.5 - 15.5 % AH Workflow SS GFR/1.73 sq M.predicted among blacks MDRD (S/P/Bld) [Vol rate/Area] 15 ml/min/1.73sqm Invalid Interpretation Code Chemistry S GFR/1.73 sq M.predicted among non-blacks MDRD (S/P/Bld) [Vol rate/Area] 13 ml/min/1.73sqm Invalid Interpretation Code Chemistry S Glucose [Mass/Vol] 101 mg/dL Invalid Interpretation Code 70 - 110 mg/dL AH ADM SS Hematocrit (Bld) [Volume fraction] 38.0 % Invalid Interpretation Code 34.0 - 46.0 % AH Workflow SS Hemoglobin (Bld) [Mass/Vol] 12.6 G/dL Invalid Interpretation Code 12.0 - 16.0 G/dL AH Workflow SS Lymphocytes (Bld) [#/Vol] 0.5 103/mcL Invalid Interpretation Code 0.9 - 4.3 10^3/mcL AH Workflow SS Lymphocytes/100 WBC (Bld) 10.5 % Invalid Interpretation Code 20.0 - 40.0 % AH Workflow SS MCH (RBC) [Entitic mass] 29.7 pg Invalid Interpretation Code 27.0 - 33.0 pg AH Workflow SS MCHC 33.1 G/dL Invalid Interpretation Code 32.0 - 36.0 G/dL AH Workflow SS MCV (RBC) [Entitic vol] 89.8 fL Invalid Interpretation Code 80.0 - 99.0 fL AH Workflow SS Monocytes (Bld) [#/Vol] 0.2 103/mcL Invalid Interpretation Code 0.1 - 1.4 10^3/mcL AH Workflow SS Monocytes/100 WBC (Bld) 4.2 % Invalid Interpretation Code 2.0 - 13.0 % AH Workflow SS Neutrophils (Bld) [#/Vol] 4.2 103/mcL Invalid Interpretation Code 2.3 - 8.1 10^3/mcL AH Workflow SS Neutrophils/100 WBC (Bld) 83.5 % Invalid Interpretation Code 50.0 - 75.0 % AH Workflow SS Platelet mean volume (Bld) [Entitic vol] 8.0 fL Invalid Interpretation Code 6.6 - 10.5 fL AH Workflow SS Platelets (Bld) [#/Vol] 185 103/mcL Invalid Interpretation Code 150 - 450 10^3/mcL Workflow SS Potassium [Moles/Vol] 5.1 mmol/L Invalid Interpretation Code 3.5 - 5.0 mEq/L AH ADM SS RBC (Bld) [#/Vol] 4.23 106/mcL Invalid Interpretation Code 4.10 - 5.30 10^6/mcL AH Workflow SS Sodium [Moles/Vol] 141 mmol/L Invalid Interpretation Code 136 - 145 mEq/L AH ADM SS Urea nitrogen [Mass/Vol] 43.0 mg/dL Invalid Interpretation Code 8.0 - 22.0 mg/dL AH ADM SS Urea nitrogen/Creatinine [Mass ratio] 11.2 ratio Invalid Interpretation Code 10.0 - 22.0 ratio AH ADM SS WBC (Bld) [#/Vol] 5.0 103/mcL Invalid Interpretation Code 4.5 - 10.8 10^3/mcL Workflow SS PTH, [place] 03-04-2021 PTH, Intact 150 pg/mL High [facility] Comment on above: Performed By: #### P THI #### [facility] [address] [place] [address] FSHon 03-03-2021 FSH 4.7 mU/mL Normal [facility] Comment on above: Performed By: #### F SH #### [facility] [address] [place] [address] PTH, [place] 11-15-2020 PTH, Intact 129 pg/mL High [facility] Comment on above: Performed By: #### P THI #### [facility] [address] [place] [address] PTH, [place] 08-11-2020 PTH, Intact 159 pg/mL High [facility] Comment on above: Performed By: #### P THI #### [facility] [address] [place] [address] Coronavirus 2019on 0 SARS-CoV-2 (COVID-19) RNA SAMEER+probe Ql (Unsp spec) Normal Negative for COVID19 (SARS CoV2) by PCR. [facility] Comment on above: Result Comment: Nega tive for This test was developed and its performance characteristics determined by [facility] and Laboratory Medicine [employer]. This test has been authorized by FDA under an Emergency Use Authorization (EUA). This test has been validated in accordance with the FDA's Guidance Document Policy for Diagnostics Testing in Laboratories Certified to Perform High Complexity Testing under CLIA prior to Emergency use Authorization for Coronavirus Disease 2019 during the Public Health Emergency issued on July 03, 2019. COVID19 (SARS This test was developed and its performance characteristics determined by [facility] Laboratory [facility] [employer]. This test has been authorized by FDA under an Emergency Use Authorization (EUA). This test has been validated in accordance with the FDA's Guidance Document Policy for Diagnostics Testing in Laboratories Certified to Perform High Complexity Testing under CLIA prior to Emergency use Authorization for Coronavirus Disease 2019 during the Public Health Emergency issued on July 03, 2019. CoV2) by PCR. This test was developed and its performance characteristics determined by [facility] and Laboratory Medicine [employer]. This test has been authorized by FDA under an Emergency Use Authorization (EUA). This test has been validated in accordance with the FDA's Guidance Document Policy for Diagnostics Testing in Laboratories Certified to Perform High Complexity Testing under CLIA prior to Emergency use Authorization for Coronavirus Disease 2019 during the Public Health Emergency issued on July 03, 2019. Performed By: #### C OVID #### [facility] Reference [address] [place], [place] [address] SARS-CoV-2 (COVID-19) RNA SAMEER+probe Ql (Unsp spec) Normal [facility] Comment on above: Result Comment: Naso pharyngeal Corrected on 03/07 AT 0821: Previously reported as U Swab Corrected on 03/07 AT 0821: Previously reported as U Performed By: #### C OVID #### [facility] Reference [address] [place], [place] [address] Vital Signs Date Time Vital Sign Value Performing Clinician Facility 03-10-2024 08:14-0500 Body height 177.8 cm [facility] Work Phone: [facility] 03-10-2024 08:14-0500 Body mass index (BMI) [Ratio] 28.06 kg/m2 [facility] Work Phone: [facility] 03-10-2024 08:14-0500 Body temperature 98.4 [degF] [facility] Work Phone: [facility] 03-10-2024 08:14-0500 Body weight 88.7 kg [facility] Work Phone: [facility] 03-10-2024 08:14-0500 Diastolic blood pressure 88 mm[Hg] [facility] Work Phone: [facility] 03-10-2024 08:14-0500 Heart rate 84 /min [facility] Work Phone: [facility] 03-10-2024 08:14-0500 Systolic blood pressure 119 mm[Hg] [facility] Work Phone: [facility] 03-10-2024 08:13-0500 Body height 177.8 cm [facility] Work Phone: [facility] 03-10-2024 08:13-0500 Body mass index (BMI) [Ratio] 28.06 kg/m2 [facility] Work Phone: [facility] 03-10-2024 08:13-0500 Body temperature 98.4 [degF] [facility] Work Phone: [facility] 03-10-2024 08:13-0500 Body weight 88.7 kg [facility] Work Phone: [facility] 03-10-2024 08:13-0500 Diastolic blood pressure 88 mm[Hg] [facility] Work Phone: [facility] 03-10-2024 08:13-0500 Heart rate 84 /min [facility] Work Phone: [facility] 03-10-2024 08:13-0500 Systolic blood pressure 119 mm[Hg] [facility] Work Phone: [facility] 10-16-2023 09:02-0400 Body mass index (BMI) [Ratio] 26.39 kg/m2 Magda Mcdaniel 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 Work Phone: [facility] 10-16-2023 09:02-0400 Body temperature 97 [degF] Magda Mcdaniel 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 Work Phone: [facility] 10-16-2023 09:02-0400 Body weight 83.42 kg Magda Mcdaniel 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 Work Phone: [facility] 10-16-2023 09:02-0400 Diastolic blood pressure 78 mm[Hg] Magda Mcdaniel 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 Work Phone: [facility] 10-16-2023 09:02-0400 Heart rate 63 /min Magda Mcdaniel 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 Work Phone: [facility] 10-16-2023 09:02-0400 Systolic blood pressure 121 mm[Hg] Magda Mcdaniel 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 Work Phone: [facility] 07-29-2023 14:14-0400 Body temperature 97.52 [degF] DR DANIELLE GASPAR MD [facility] 07-29-2023 14:14-0400 Diastolic Blood Pressure Non-Invasive 82 mm[Hg] DR DANIELLE GASPAR MD [facility] 07-29-2023 14:14-0400 Heart rate 58 /min DR DANIELLE GASPAR MD [facility] 07-29-2023 14:14-0400 Respiratory rate 16 /min DR DANIELLE GASPAR MD [facility] 07-29-2023 14:14-0400 Systolic Blood Pressure Non-Invasive 139 mm[Hg] DR DANIELLE GASPAR MD [facility] 07-29-2023 13:55-0400 Body temperature 98.6 [degF] DR DANIELLE GASPAR MD [address] 07-29-2023 13:55-0400 Diastolic Blood Pressure Non-Invasive 77 mm[Hg] DR DANIELLE GASPAR MD [address] 07-29-2023 13:55-0400 Heart rate 63 /min DR DANIELLE GASPAR MD [address] 07-29-2023 13:55-0400 Mean blood pressure 93 mm[Hg] DR DANIELLE GASPAR MD [address] [place] [address] 07-29-2023 13:55-0400 Respiratory rate 16 /min DR DANIELLE GASPAR MD [address] [place] [address] 07-29-2023 13:55-0400 Systolic Blood Pressure Non-Invasive 126 mm[Hg] DR DANIELLE GASPAR MD [address] [place] [address] 07-29-2023 13:40-0400 Diastolic Blood Pressure Non-Invasive 78 mm[Hg] DR DANIELLE GASPAR MD [address] [place] [address] 07-29-2023 13:40-0400 Heart rate 67 /min DR DANIELLE GASPAR MD [address] 07-29-2023 13:40-0400 Mean blood pressure 95 mm[Hg] DR DANIELLE GSAPAR MD [address] 07-29-2023 13:40-0400 Respiratory rate 16 /min DR DANIELLE GASPAR MD [address] 07-29-2023 13:40-0400 Systolic Blood Pressure Non-Invasive 130 mm[Hg] DR DANIELLE GASPAR MD [address] 07-29-2023 13:25-0400 Body temperature 98.06 [degF] DR DANIELLE GASPAR MD [address] 07-29-2023 13:25-0400 Heart rate 65 /min DR DANIELLE GASPAR MD [address] 07-29-2023 13:25-0400 Mean blood pressure 98 mm[Hg] DR DANIELLE GASPAR MD [address] 07-29-2023 13:20-0400 Respiratory Rate - Anes 10 br/min DR DANIELLE GASPAR MD [address] 07-29-2023 13:15-0400 Respiratory Rate - Anes 10 br/min DR DANIELLE GASPAR MD [address] 07-29-2023 13:10-0400 Body temperature 97.97 [degF] DR DANIELLE GASPAR MD [address] [place] [address] 07-29-2023 13:10-0400 Respiratory Rate - Anes 10 br/min DR DANIELLE GASPAR MD [address] [place] [address] 07-29-2023 13:05-0400 Body temperature 97.88 [degF] DR DANIELLE GASPAR MD [address] 07-29-2023 13:00-0400 Body temperature 97.9 [degF] DR DANIELLE GASPAR MD [address] 07-29-2023 10:23-0400 Body height 179.[address] DANIELLE GASPAR MD [address] [place] [address] 07-29-2023 10:23-0400 Body weight 79.[address] DANIELLE GASPAR MD [address] [place] [address] 07-29-2023 10:07-0400 Heart rate 72 /min DR DANIELLE GASPAR MD [address] 07-22-2023 07:43-0400 Blood Pressure Cuff Size DR DANIELLE GASPAR MD [address] 07-22-2023 07:43-[address] DANIELLE GASPAR MD [facility] 07-22-2023 07:43-[address] DANIELLE GASPAR MD [facility] 07-22-2023 07:43-0400 Body height [address] DANIELLE GASPAR MD [facility] 07-22-2023 07:43-0400 Body temperature 98.06 [degF] DR DANIELLE GASPAR MD [address] [place] [address] 07-22-2023 07:43-0400 Body weight 83.[address] DANIELLE GASPAR MD [address] [place] [address] 07-22-2023 07:43-0400 Body weight 25.61 kg/m2 DR DANIELLE GASPAR MD [facility] 07-22-2023 07:43-0400 Diastolic Blood Pressure Non-Invasive 88 mm[Hg] DR DANIELLE GASPAR MD [facility] 07-22-2023 07:43-0400 Heart rate 84 /min DR DANIELLE GASPAR MD [facility] 07-22-2023 07:43-0400 Systolic Blood Pressure Non-Invasive 129 mm[Hg] DR DANIELLE GASPAR MD [facility] 05-29-2023 08:31-0500 Body height 177.[address] Brenna Alexandra Work Phone: [facility] 05-29-2023 08:24-0500 Body mass index (BMI) [Ratio] 26.1 kg/m2 Dr. Brenna Alexandra Work Phone: [facility] 05-29-2023 08:24-0500 Body weight 82.[address] Brenna Alexandra Work Phone: [facility] 05-29-2023 08:24-0500 Diastolic blood pressure 85 mm[Hg] Dr. Brenna Alexandra Work Phone: [facility] 05-29-2023 08:24-0500 Systolic blood pressure 129 mm[Hg] Dr. Brenna Alexandra Work Phone: [facility] 02-19-2023 08:54-0400 Body height 177.[address] Brenna Alexandra Work Phone: [facility] 02-19-2023 08:54-0400 Body mass index (BMI) [Ratio] 25 kg/m2 Dr. Brenna Alexandra Work Phone: [facility] 02-19-2023 08:54-0400 Body weight 78.[address] Brenna Alexandra Work Phone: [facility] 02-19-2023 08:54-0400 Diastolic blood pressure 94 mm[Hg] Dr. Brenna Alexandra Work Phone: [facility] 02-19-2023 08:54-0400 Heart rate 77 /min Dr. Brenna Alexandra Work Phone: [facility] 02-19-2023 08:54-0400 Respiratory rate 16 /min Dr. Brenna Alexandra Work Phone: [facility] 02-19-2023 08:54-0400 Systolic blood pressure 145 mm[Hg] Dr. Brenna Alexandra Work Phone: [facility] 12-04-2022 06:06-0400 Body temperature 97.1 [degF] [facility] 12-04-2022 06:06-0400 Diastolic blood pressure 74 mm[Hg] [facility] 12-04-2022 06:06-0400 Heart rate 84 /min [facility] 12-04-2022 06:06-0400 Respiratory rate 16 /min [facility] 12-04-2022 06:06-0400 SaO2% (BldA) [Mass fraction] 99 % [facility] 12-04-2022 06:06-0400 Systolic blood pressure 113 mm[Hg] [facility] 12-04-2022 02:33-0400 Body height 177.8 cm [facility] 12-04-2022 02:33-0400 Body mass index (BMI) [Ratio] 25.4 kg/m2 [facility] 12-04-2022 02:33-0400 Body weight 80.4 kg [facility] 12-03-2022 12:55-0400 Body temperature 96.8 [degF] DR DANIELLE GASPAR MD [address] 12-03-2022 12:55-0400 Diastolic Blood Pressure Non-Invasive [address] DANIELLE GASPAR MD [address] 12-03-2022 12:55-0400 Heart rate 71 /min DR DANIELLE GASPAR MD [address] 12-03-2022 12:55-0400 Reason For Taking VItal Signs DR DANIELLE GASPAR MD [address] 12-03-2022 12:55-0400 Respiratory rate 16 /min DR DANIELLE GASPAR MD [address] 12-03-2022 12:55-0400 Systolic Blood Pressure Non-Invasive [address] DANIELLE GASPAR MD [facility] 12-03-2022 12:44-0400 Body temperature 96.8 [degF] DR DANIELLE GASPAR MD [address] [place] [address] 12-03-2022 12:44-0400 Diastolic Blood Pressure Non-Invasive [address] DANIELLE GASPAR MD [address] [place] [address] 12-03-2022 12:44-0400 Heart rate 63 /min DR DANIELLE GASPAR MD [facility] 12-03-2022 12:44-0400 Mean blood pressure 89 mm[Hg] DR DANIELLE GASPAR MD [facility] 12-03-2022 12:44-0400 Respiratory rate 16 /min DR DANIELLE GASPAR MD [facility] 12-03-2022 12:44-0400 Systolic Blood Pressure Non-Invasive [address] DANIELLE GASPAR MD [facility] 12-03-2022 12:38-0400 Diastolic Blood Pressure Non-Invasive [address] DANIELLE GASPAR MD [facility] 12-03-2022 12:38-0400 Heart rate 67 /min DR DANIELLE GASPAR MD [facility] 12-03-2022 12:38-0400 Mean blood pressure 87 mm[Hg] DR DANIELLE GASPAR MD [address] [place] [address] 12-03-2022 12:38-0400 Respiratory rate 16 /min DR DANIELLE GASPAR MD [address] [place] [address] 12-03-2022 12:38-0400 Systolic Blood Pressure Non-Invasive [address] DANIELLE GASPAR MD [facility] 12-03-2022 12:23-0400 Mean blood pressure 88 mm[Hg] DR DANIELLE GASPAR MD [facility] 12-03-2022 11:53-0400 Body temperature 96.8 [degF] DR DANIELLE GASPAR MD [facility] 12-03-2022 11:50-0400 Respiratory Rate - Anes 0 br/min DR DANIELLE GASPAR MD [facility] 12-03-2022 11:45-0400 Respiratory Rate - Anes 11 br/min DR DANIELLE GASPAR MD [facility] 12-03-2022 11:40-0400 Respiratory Rate - Anes 14 br/min DR DANIELLE GASPAR MD [facility] 12-03-2022 11:20-0400 Body temperature 96.94 [degF] DR DANIELLE GASPAR MD [facility] 12-03-2022 11:15-0400 Body temperature 96.84 [degF] DR DANIELLE GASPAR MD [facility] 12-03-2022 11:10-0400 Body temperature 96.75 [degF] DR DANIELLE GASPAR MD [facility] 12-03-2022 09:01-0400 Body height 177.[address] DANIELLE GASPAR MD [facility] 12-03-2022 09:01-0400 Body weight 76.[address] DANIELLE GASPAR MD [facility] 12-03-2022 09:01-0400 Heart rate 91 /min DR DANIELLE GASPAR MD [facility] 11-18-2022 08:09-[address] DANIELLE GASPAR MD [facility] 11-18-2022 08:09-[address] DANIELLE GASPAR MD [facility] 11-18-2022 08:09-0400 Body height [address] DANIELLE GASPAR MD [facility] 11-18-2022 08:09-0400 Body temperature 98.06 [degF] DR DANIELLE GASPAR MD [facility] 11-18-2022 08:09-0400 Body weight 79.[address] DANIELLE GASPAR MD [facility] 11-18-2022 08:09-0400 Diastolic Blood Pressure Non-Invasive [address] DANIELLE GASPAR MD [facility] 11-18-2022 08:09-0400 Heart rate 83 /min DR DANIELLE GASPAR MD [facility] 11-18-2022 08:09-0400 Systolic Blood Pressure Non-Invasive [address] DANIELLE GASPAR MD [facility] 10-24-2022 08:46-0400 Body height 177.8 cm Magdasa Mcdaniel 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 Work Phone: [facility] 10-24-2022 08:46-0400 Body mass index (BMI) [Ratio] 24.91 kg/m2 Magda Mcdaniel 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 Work Phone: [facility] 10-24-2022 08:46-0400 Body temperature 97.2 [degF] Magda Mcdaniel 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 Work Phone: [facility] 10-24-2022 08:46-0400 Body weight 78.74 kg Magda Mcdaniel 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 Work Phone: [facility] 10-24-2022 08:46-0400 Diastolic blood pressure 77 mm[Hg] Magda Mcdaniel 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 Work Phone: [facility] 10-24-2022 08:46-0400 Heart rate 80 /min Magda Mcdaniel 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 Work Phone: [facility] 10-24-2022 08:46-0400 Systolic blood pressure 113 mm[Hg] Magda Mcdaniel 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 Work Phone: [facility] 08-22-2021 08:42-0400 Body height 177.8 cm No Brewster 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 Work Phone: [facility] 08-22-2021 08:42-0400 Body mass index (BMI) [Ratio] 25.47 kg/m2 No Brewster 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 Work Phone: [facility] 08-22-2021 08:42-0400 Body temperature 99.1 [degF] No Brewster 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 Work Phone: [facility] 08-22-2021 08:42-0400 Body weight 80.51 kg No Brewster 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 Work Phone: [facility] 08-22-2021 08:42-0400 Diastolic blood pressure 73 mm[Hg] No Brewster 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 Work Phone: [facility] 08-22-2021 08:42-0400 Heart rate 95 /min No Brewster APRN-STRATIGRAPHY TEACHER Work Phone: [facility] 08-22-2021 08:42-0400 Systolic blood pressure 118 mm[Hg] No Brewster 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 Work Phone: [facility] Encounters Encounter Date Encounter Type Care Provider Facility Start: 10-08-2024 End: 10-08-2024 ambulatory FREDA NAJERAASHLYN [facility] Start: 10-03-2024 ambulatory SARAY EM Facility:[facility] Start: 09-22-2024 End: 09-28-2024 Orders Only Ren Rao MD Work Phone: [facility] Comment on above: Pre-transplant evalu ation for kidney transplant (Primary Dx); Pre-transplant evaluation for ESRD (end stage renal disease); ESRD on dialysis (HCC) Start: 09-22-2024 End: 09-28-2024 Patient encounter status Ren Rao MD Work Phone: [facility] Start: 09-13-2024 End: 09-13-2024 Chart abstracting Jenny Hill RN [facility] Comment on above: listed phone call Start: 09-02-2024 End: 09-02-2024 ambulatory RAIMUNDO CURTIS Facility:[facility] Start: 09-02-2024 Encounter for other preprocedural examination RAIMUNDO CURTIS [facility] Start: 09-02-2024 End: 09-02-2024 Chart abstracting Jenny Hill [facility] Comment on above: approval note Start: 09-02-2024 ambulatory HALINAFarida MANAV Facility:[facility] Start: 08-17-2024 ambulatory REN KLINEMISA Facility:1 [id number] Start: 08-17-2024 Encounter for other preprocedural examination [facility] Start: 08-17-2024 End: 08-17-2024 [facility] Start: 08-17-2024 End: 08-17-2024 Subsequent hospital visit by physician [facility] 1 RADIO ULTRA [facility] Comment on above: Pre-transplant evalu ation for kidney transplant [Z01.818] Start: 08-03-2024 ambulatory BRENNA Hernandez ty:[facility] Start: 07-30-2024 End: 07-30-2024 Chart abstracting Jenny Hill RN Transplant Center Comment on above: Clinical Update Pre-transplant evalu ation for kidney transplant (Primary Dx) Start: 07-30-2024 End: 07-30-2024 Patient encounter status Ren Rao MD Work Phone: [facility] Start: 07-14-2024 End: 07-14-2024 Chart abstracting Elida Garcias [facility] Work Phone: [facility] HB-3 Start: 07-03-2024 ambulatory BRENNA Souzai ty:[facility] Start: 06-09-2024 End: 06-09-2024 ambulatory BRENNA ALEXANDRA [facility] Start: 06-05-2024 ambulatory BRENNA Souzai ty:[facility] Start: 05-12-2024 ambulatory Brenna Souzai ty:[facility] Start: 05-11-2024 ambulatory Job Basurto Facility :[facility] Start: 05-11-2024 End: 05-11-2024 ambulatory Brenna Alexandra Facility:[facility] Start: 05-07-2024 Encounter for preprocedural cardiovascular examination [facility] Start: 05-07-2024 ambulatory REN RAO Facility:1 [id number] Start: 01-03-2025 Encounter for other preprocedural examination REN RAO [facility] Start: 05-07-2024 End: 05-07-2024 Patient encounter status Prep [facility] Start: 05-07-2024 End: 05-07-2024 Subsequent hospital visit by physician [facility] Card[facility] Comment on above: Arrived Encounter for other preprocedural examination [Z01.818] Pre-transplant evalu ation for ESRD (end stage renal disease) [Z01.818] Start: 05-05-2024 ambulatory BRENNA KALISETTI Facili ty:[facility] Start: 04-13-2024 End: 04-13-2024 ambulatory Brenna Kalisetti Facility:[facility] Start: 04-04-2024 ambulatory BRENNA KALISETTI Facili ty:[facility] Start: 03-29-2024 End: 03-29-2024 ambulatory Brenna Kalisetti Facility:[facility] Start: 03-10-2024 Encounter for other preprocedural examination RAIMUNDO CURTIS [facility] Start: 03-10-2024 End: 03-10-2024 ambulatory DANIA MARC Facility:[facility] Start: 03-10-2024 End: 03-10-2024 Subsequent hospital visit by physician Xr Chest Main J1 Work Phone: Radiology Comment on above: Acute renal failure with acute tubular necrosis superimposed on chronic kidney disease, on chronic dialysis (HCC) [N17.0, N18.6, Z99.2] Start: 03-10-2024 End: 03-10-[address] amb[address] Lisa López RD Work Phone: Nutrition Therapy Start: 03-10-2024 End: 03-10-2024 Nutrition therapy Lisa López RD Work Phone: Nutrition Therapy Comment on above: Patient Education Start: 03-10-2024 End: 03-10-2024 Patient encounter procedure Pre Tx Group Education Work Phone: Transplant Center Comment on above: Pre-transplant evalu ation for CKD (chronic kidney disease) (Primary Dx) Pre-transplant evalu ation for ESRD (end stage renal disease) (Primary Dx) ESRD on dialysis (HC C) (Primary Dx); Hypertension, unspecified type; PKD (polycystic kidney disease) Encounter for other preprocedural examination (Primary Dx); Pre-operative cardiovascular examination Start: 03-10-2024 End: 03-10-2024 Patient encounter status Kidney Txp Coordinators Work Phone: [facility] Start: 03-10-2024 End: 03-10-2024 ambulatory DANIA MARC Facility:[facility] Start: 03-10-2024 Encounter for other preprocedural examination RAIMUNDO CURTIS [facility] Start: 03-05-2024 ambulatory BRENNA Hernandez ty:[facility] Start: 03-05-2024 End: 03-05-2024 Chart abstracting Aashish Simons RN Transplant Center Comment on above: Pre-transplant evalu ation for kidney transplant (Primary Dx) Start: 03-05-2024 End: 03-05-2024 Patient encounter status Dania Marc MD Work Phone: [facility] Start: 02-25-2024 End: 02-25-2024 Patient encounter status Kidney Txp Coordinators Work Phone: [facility] Start: 02-25-2024 End: 02-25-2024 Telephone encounter Kidney Txp Coordinators Work Phone: Transplant Center Comment on above: Referral - Kidney Tx p Start: 02-20-2024 End: 02-20-2024 Telephone encounter Kidney Txp Coordinators Work Phone: Transplant Center Comment on above: Referral - Kidney Tx p Start: 02-19-2024 End: 02-19-2024 ambulatory Brenna Alexandra Facility:[facility] Start: 02-03-2024 ambulatory BRENNA Hernandez ty:[facility] Start: 01-04-2024 ambulatory BRENNA Hernandez ty:[facility] Start: 12-05-2023 End: 12-05-2023 ambulatory BRENNA ALEXANDRA [facility] Start: 12-04-2023 ambulatory BRENNA Hernandez ty:[facility] Start: 12-03-2023 End: 12-03-2023 ambulatory FREDA GOODE [facility] Start: 12-03-2023 End: 12-03-2023 Encounter for general adult medical examination without abnormal findings BRENNA ALEXANDRA [facility] Start: 11-03-2023 ambulatory SARAY EM Facility:[facility] Start: 10-16-2023 End: 10-16-2023 Office outpatient visit 25 minutes Magda Mcdaneil APRN-STRATIGRAPHY TEACHER Work Phone: [facility] Comment on above: Patient on waiting l ist for kidney transplant (Primary Dx); ESRD (end stage renal disease) on dialysis Start: 10-16-2023 ambulatory SELF SELF Facility:[facility] Start: 08-21-2023 End: 08-22-[address] DANIELLE GASPAR MD Facility:A Start: 08-21-2023 End: 08-21-[address] DANIELLE GASPAR MD [facility] Start: 07-29-2023 End: 07-29-[address] DANIELLE GASPAR MD Facility:A Start: 07-29-2023 End: 07-29-[address] DANIELLE GASPAR MD [facility] Start: 07-22-2023 End: 07-23-[address] DANIELLE GASPAR MD Facility:A Start: 07-22-2023 End: 07-22-[address] [facility] Start: 07-21-2023 End: 07-22-[address] DANIELLE GASPAR MD Facility:A Start: 07-21-2023 End: 07-21-[address] DANIELLE GASPAR MD [facility] Start: 05-29-2023 End: 05-29-[address] Brenna Alexandra Work Phone: [facility] Work Phone: Start: 05-29-2023 End: 05-29-[address] Brenna Alexandra Work Phone: [facility]-Laboratory, Specimen Work Phone: Start: 05-29-2023 End: 05-29-[address] Brenna Alexandra Work Phone: [facility] Start: 04-03-2023 Non-patient / Non-visit Dr. Jazmin Alexandra Work Phone: [facility] Work Phone: Start: 04-02-2023 Non-patient / Non-visit Dr. Jazmin Alexandra Work Phone: [facility] Start: 04-02-2023 End: 04-02-[address] Brenna Alexandra Work Phone: [facility] Work Phone: Start: 04-02-2023 End: 04-02-[address] Brenna Alexandra Work Phone: [facility]Cardiovascul[facility] Services Work Phone: Start: 02-24-2023 End: 02-25-[address] DANIELLE GASPAR MD Facility:A Start: 02-24-2023 End: 02-24-[address] DANIELLE GASPAR MD [facility] Start: 02-19-2023 End: 02-19-[address] Brenna Alexandra Work Phone: [facility] Work Phone: Start: 12-16-2022 End: 12-17-[address] DANIELLE GASPAR MD Facility:A Start: 12-16-2022 End: 12-16-[address] DANIELLE GASPAR MD [facility] Start: 12-04-2022 End: 12-04-2022 Emergency department patient visit [facility] Work Phone: Start: 12-03-2022 End: 12-03-[address] DANIELLE GASPAR MD Facility:A Start: 12-03-2022 End: 12-03-[address] DANIELLE GASPAR MD [facility] Start: 11-18-2022 End: 11-19-[address] DANIELLE GASPAR MD Facility:A Start: 11-18-2022 End: 11-18-[address] DANIELLE GASPAR MD [facility] Start: 11-11-2022 End: 11-12-[address] DANIELLE GASPAR MD Facility:A Start: 11-11-2022 End: 11-11-[address] DANIELLE GASPAR MD [facility] Start: 10-24-2022 End: 10-24-2022 Office outpatient visit 25 minutes Magda Mcdaniel 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 Work Phone: [facility] Comment on above: Patient on waiting l ist for kidney transplant (Primary Dx) Start: 08-22-2021 End: 08-22-2021 Office outpatient visit 25 minutes No Brewster 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 Work Phone: [facility] Comment on above: Patient on waiting l ist for kidney transplant (Primary Dx) Procedures Date Procedure Procedure Detail Performing Clinician Start: 08-17-2024 Us pelvic nonobstetr ic image dcmtn limited/f/u Ren Rao MD Work Phone: Start: 05-07-2024 Myocardial spect mul tiple studies Ren Rao MD Work Phone: Start: 05-07-2024 Mra head w/o contrst material Ren Rao MD Work Phone: Start: 03-10-2024 Antibody screen RAIMUNDO W EE Comment on above: Order Comment: Speci men Type: BLOOD SPECIMEN Ordering Facility: [facility] Address: [address] [place] [address] Performed By: #### K PRIW #### ALLOWeeleo [facility] [id number] [address] [place] [address] Start: 03-10-2024 Radiologic exam ches t 2 views Ren Rao MD Work Phone: Start: 07-29-2023 Umbilical hernia (disorder) DR DANIELLE GASPAR MD Comment on above: Umbilical herniorrha phy, less than 3 cm with primary closure Start: 12-04-2022 CT of abdomen and pe lvis without contrast Start: 12-03-2022 Peritoneal dialysis catheter (physical object) DR DANIELLE GASPAR MD Extraction of wisdom tooth D R DANIELLE GASPAR MD None (qualifier value) DR ESTRELLA GASPAR MD Plan of Treatment Date Care Activity Detail Author Start: 03-10-2027 Diabetes Screening Diabetes Screenin g [facility] Start: 10-22-2025 Diabetes Screening Diabetes Screenin g [facility] Start: 03-11-2025 End: 03-11-2025 ambulatory 03/11/2025 3:45 PM EST Results Only Main [facility] [address] [place] [address] lab Main [facility] Comment on above: lab Start: 03-11-2025 End: 03-11-2025 Patient encounter procedure 03/11/2025 2:30 PM EST Office Visit Cardiology [address] [place] [address] ECHO Cardiology Comment on above: ECHO Start: 03-11-2025 End: 09-22-2025 Echocardiography ECHO Cardiology Routine Pre-transplant evaluation for kidney transplant Pre-transplant evaluation for ESRD (end stage renal disease) ESRD on dialysis (HCC) Expected: 03/11/2025 (Approximate), Expires: 09/22/2025 [facility] Work Phone: Comment on above: Expected: 03/11/2025 (Approximate), Expires: 09/22/2025 Start: 03-11-2025 End: 03-11-2025 Patient encounter procedure 03/11/2025 1:15 PM EST Appointment Radiology [address] [place] [address] CXR Radiology Comment on above: CXR Start: 03-11-2025 End: 03-11-2025 ambulatory 03/11/2025 12:45 PM EST Procedure Cardiology [address] [place], [place] [id number] EKG Cardiology Comment on above: EKG Start: 03-11-2025 End: 03-11-2025 Patient encounter procedure 03/11/2025 10:30 AM EST Office Visit Transplant Center [address] [id number] [facility] Transplant Center Comment on above: KWL Start: 03-11-2025 End: 03-11-2025 Patient encounter procedure Transplant Center Comment on above: KWL CT ABD/PEL Start: 02-28-2025 End: 02-28-2025 ambulatory 02/28/2025 9:30 AM EDT [facility] [address] [address] [facility] Transplant Center Comment on above: KWL Start: 01-03-2025 Influenza vaccination Influenz a Vaccine (Season Ended) [facility] Start: 2025 Zoster vaccine hzv l justa for subcutaneous use ZOSTER (SHINGLES) VACCINE (1 of 2) [facility] Start: 08-17-2024 End: 08-17-2024 Patient encounter procedure 08/17/2024 9:00 AM EDT Appointment [facility] [address] [place] [address] Pre-transplant evaluation for kidney transplant [Z01.818] [facility] Comment on above: Pre-transplant evalu ation for kidney transplant [Z01.818] Start: 05-07-2024 End: 05-07-2024 Patient encounter procedure RADIO [facility] Comment on above: NM CARDIAC PERF STRE SS/PHARM Start: 03-10-2024 End: 03-10-2024 ambulatory 03/10/2024 2:45 PM EST Results Only [place] [address] [address] [place] [address] Pre-transplant evaluation for kidney transplant [Z01.818] [place] [address] [address] Comment on above: Pre-transplant evalu ation for kidney transplant [Z01.818] Start: 03-10-2024 End: 03-10-2024 Nutrition therapy Nutrition Therapy Comment on above: Pre-transplant evalu ation for kidney transplant [Z01.818] Start: 03-10-2024 End: 03-10-2024 Patient encounter procedure Transplant Center Comment on above: Pre-transplant evalu ation for kidney transplant [Z01.818] Start: 01-04-2024 Covid-19 Vaccine ( season) Covid-19 Vaccine ( season) [facility] Start: 01-04-2024 Influenza vaccination Influenza Vacc ine (#1) [facility] Start: 10-23-2023 Potassium [Moles/vol ume] in Serum or Plasma POTASSIUM [facility] Start: 05-29-2023 Liquid based cervica l cytology screening [facility] Start: 04-04-2023 Screening for malign ant neoplasm of breast MAMMOGRAM SCREENING DISCUSSION [facility] Start: 01-03-2023 Influenza vaccination INFLUENZ A VACCINE (Season Ended) [facility] Start: 01-03-2022 Influenza vaccination INFLUENZ A VACCINE (Season Ended) [facility] Start: 08-18-2020 COVID-19 VACCINE (3 - Pfizer risk series) COVID-19 VACCINE (3 - Pfizer risk series) [facility] Start: 01-03-2020 Colonoscopy COLORECTAL CAN CER SCREENING DISCUSSION [facility] Start: 01-03-2020 Lipid panel Lipid Screening [facility] Start: 01-03-2020 Screening for malign ant neoplasm of colon [facility] Start: 2015 Fasting lipid profile LIPID SCREENIN G [facility] Start: 2015 Lipid panel LIPID SCREENING [facility] Start: 2015 Screening for malign ant neoplasm of breast Mammogram Screening [facility] Start: 2015 Screening mammography MAMMOGRA M SCREENING DISCUSSION [facility] Start: 01-03-1996 Screening for malign ant neoplasm of cervix [facility] Start: 1994 Third diphtheria, te tanus and acellular pertussis (DTaP) vaccination TDAP (ADULT) [facility] Start: 1994 Urine microalbumin profile DTa P,Tdap,Td Vaccine (1 - Tdap) [facility] Start: 1993 Anxiety Screening Anxiety Screening [facility] Start: 1993 Depression Screening Depression Scre [facility] Start: 1993 HIV screening HIV Screening [facility] Start: 1993 Tetanus vaccination TETANUS [facility] Start: 1987 COVID-19 VACCINE (1) COVID-19 VACCIN E (1) [facility] Start: 1981 PNEUMOCOCCAL VACCINE SERIES (1 - PCV) PNEUMOCOCCAL VACCINE SERIES (1 - PCV) [facility] Start: 1975 Tetanus vaccination TETANUS [facility] MG Breast - bilatera l Screening [facility] End: 04-09-2025 MRA Head vessels WO contrast MRA BRAIN WO IVCON Radiology Routine Pre-transplant evaluation for ESRD (end stage renal disease) 1 Occurrences starting 03/10/2024 until 04/09/2025 [facility] Work Phone: Comment on above: 1 Occurrences starti ng 03/10/2024 until 04/09/2025 End: 04-09-2025 NM Heart Perfusion W stress and W radionuclide IV NM CARDIAC PERF STRESS/PHARM Radiology Routine Encounter for other preprocedural examination Pre-operative cardiovascular examination 1 Occurrences starting 03/10/2024 until 04/09/2025 [facility] Work Phone: Comment on above: 1 Occurrences starti ng 03/10/2024 until 04/09/2025 Path report.final Dx Spec [facility] Patient Education ED Post Op Wou nd Check, General [facility] Work Phone: Patient referral [facility] Work Phone: End: 08-29-2025 US Pelvis transvaginal US FEMALE PELVIS TRANSVAG Radiology Routine Pre-transplant evaluation for kidney transplant 1 Occurrences starting 07/30/2024 until 08/29/2025 [facility] Work Phone: Comment on above: 1 Occurrences starti ng 07/30/2024 until 08/29/2025 [facility] Immunizations Immunization Date Immunization Notes Care Provider Fa [facility] 11-13-2022 hepatitis B vaccine, adult dosage DR DANIELLE GASPAR MD [facility] 05-15-2022 hepatitis B vaccine, adult dosage DR DANIELLE GASPAR MD [facility] 04-12-2022 hepatitis B vaccine, adult dosage DR DANIELLE GASPAR MD [facility] 07-21-2020 SARS-CoV-2 mRNA (tozinameran) vaccine DR DANIELLE GASPAR MD [facility] 06-30-2020 SARS-CoV-2 mRNA (tozinameran) vaccine DR DANIELLE GASPAR MD [facility] Comment on above: Result Comment: 2022: [id number] Payers Date Payer Category Payer Self-pay [id number] 2020 Private Health Insurance [id number] 2019 Unknown [id number]. [id number] 2014 Unknown [id number] 1975 Unknown [id number] 2.16.840.1.358963.3.579.2. 627 1975 Unknown [id number] 2.16.840.1.078049.3.579.2. 627 1975 Unknown [id number] 2.16.840.1.648153.3.579.2. 627 1975 Unknown [id number] 2.16.840.1.718600.3.579.2. 627 1975 Unknown [id number] 2.16.840.1.950800.3.579.2. 627 1975 Unknown [id number] 2.16.840.1.612273.3.579.2. 627 1975 Unknown [id number] 2.16.840.1.961084.3.579.2. 627 1975 Unknown [id number] 2.16.840.1.604116.3.579.2. 627 1975 Unknown [id number] 2.16.840.1.296434.3.579.2. 627 1975 Unknown [id number] 2.16.840.1.242023.3.579.2. 594 1975 Unknown [id number] 2.16.840.1.918856.3.579.2. 594 1975 Unknown [id number] 2.16.840.1.043718.3.579.2. 594 1975 Unknown [id number] 2.16.840.1.875950.3.579.2. 594 1975 Unknown [id number] 2.16.840.1.826594.3.579.2. 594 1975 Unknown [id number] 2.16840.1.684226.3.579.2. 594 1975 Unknown [id number] 2.16840.1.665973.3.579.2. 651 1975 Unknown [id number] 2.840.1.439729.3.579.2. 651 1975 Unknown [id number] 2.840.1.158721.3.579.2. 651 1975 Unknown [id number] 2.840.1.032939.3.579.2. 651 1975 Unknown [id number] 2.840.1.000145.3.579.2. 651 [place] [id number] Unknown [id number] 2.840.1.579574.3.579.2. 462 Unknown [id number] 840.1.813473.3.579.2. 462 Unknown [id number] 840.1.691135.3.579.2. 462 Unknown [id number] .840.1.276825.3.579.2. 462 Unknown [id number] .840.1.785531.3.579.2. 462 Unknown [id number] 2840.1.086553.3.579.2. 462 Social History Date Type Detail Facility Start: 05-16-2020 End: 11-07-2022 Tobacco smoking status RIIS Never smoked tobacco [facility] Start: 05-16-2020 Tobacco use and exposure Smoke less tobacco non-user [facility] Start: 05-16-2020 Alcohol intake Lifetime non-drinker (finding) [facility] Start: 05-16-2020 History SDOH Alcohol Frequency 1 [facility] Start: 1975 Sex Assigned At Not on file O MACHADO [facility] Start: 05-16-2020 End: 03-10-2024 History of Social function [facility] Work Phone: Start: 05-16-2020 End: 03-10-2024 Alcohol Use Disorder Identification Test - Consumption [AUDIT-C] [facility] Work Phone: How often to you hav e a drink containing alcohol? Never [facility] Work Phone: Average Number of Drinks Not on file [facility] Start: 1975 Sex Assigned At Female A [facility] Start: 12-04-2022 End: 05-29-2023 Tobacco smoking status NHIS Unknown if ever smoked [facility] NEGATED: Highlighted row [facility] Functional Status Date Assessment Result Facility 07-29-2023 Functional Status Awake [facility] 07-29-2023 Functional Status ice on [facility] 07-29-2023 Functional Status Maintained [facility] 07-22-2023 Functional Status Sensory Deficits None [facility] 12-03-2022 Functional Status ice on [facility] 12-03-2022 Functional Status [facility] 12-03-2022 Functional Status NPO Status Maintained [facility] Mental Status Date Assessment Result Facility 07-29-2023 Mental Status Orientation Oriented x 4 [facility] 07-29-2023 Mental Status [facility] 12-03-2022 Mental Status Oriented x 4 [facility] Clinical Notes 08-22-2021 to 09-13-2024 Jenny Hill RN - 09/13/2024 10:37 AM Jenny Mackenzie RN - 09/02/2024 12:02 PM Boubacar Meraz RDMS - 08/17/2024 9:00 AM EDTBJenny turner RN - 07/30/2024 10:06 AM EDTPatient Instructions Note Date & Type Note Facility 09-13-2024 Note HNO ID: [id number] Author: JENNY HILL RN Service: ? Author Type: Registered Nurse Type: Progress Notes Filed: 09/13/2024 10:55 Note Text: I spoke with Ms. Adriana Morales and informed her she is officially listed. I let her know per her request I faxed her [facility] wait time transfer form after I listed her. I encouraged he to have a bag packed, support person aware she is active and phone numbers are current. Ms. Morales acknowledged understanding. Jenny Hill RN [facility] 09-13-2024 History of Presen t illness Narrative I spoke with Ms. Adriana Morales and informed her she is officially listed. I let her know per her request I faxed her [facility] wait time transfer form after I listed her. I encouraged he to have a bag packed, support person aware she is active and phone numbers are current. Ms. Morales acknowledged understanding. Jenny Hill RN documented in this encounter [facility] 09-13-2024 Note HNO ID: [id number] Author: JENNY HILL RN Service: ? Author Type: Registered Nurse Type: Progress Notes Filed: 09/13/2024 10:18 Note Text: ABO Verification prior to Listing: Adriana Morales's ABO blood type has been verified using source documentation from samples: drawn on two separate occasions with different collection times submitted as separate samples The results of these samples are the same and indicate that the patient's ABO blood type is: O. Transplant Coordinators performing verification: FRANNY Rice RN, BSN Patient has been added to the [facility] waiting list. Jenny Hill RN Pre-Newsroom Intern [facility] 09-02-2024 Note HNO ID: [id number] Author: JENNY HILL RN Service: ? Author Type: Registered Nurse Type: Progress Notes Filed: 09/02/2024 12:23 Note Text: Informed Adriana Morales that the Kidney/Pancreas Selection Committee approved them to be listed for a kidney transplant. Informed patient that potential donors can begin work-up once they have submitted a fresh serum sample AND they are placed on the list. Gave them the Living Donor Office online web address and office phone number. [email or web address] Office Reminded Adriana Morales that if uncomfortable with donor's history, etc, they may say No without penalty. Reviewed choices that were chosen on the KDPI form with patient and updated below as needed. Types of donors patient is willing to consider: Donors that from Cardiac (DCD) Yes Hepatitis C Donors Yes Hepatitis B Core Antibody Donors No KDPI score > 85% No Discussed monthly serum samples, why they are needed and how to get them drawn. Informed patient that delays in providing serum can result in delays to living donor crossmatching or possibly being skipped for a donor transplant. All phone numbers confirmed with the patient Additional Information Additional testing needed: Additional consults needed: Special instructions for listing: Labs will be drawn at : Is the patient vaccinated against HEP B: (If vaccinated ensure documentation in Epic) Hep B Surface Ab Quant mIU/mL <8.00 Per [facility] documentation Received vaccines: 11/13/2022, 05/15/2022, 04/12/2022 If patient is not vaccinated against HEP B do they plan on getting the vaccination: Per dialysis center pt to receive Hep B vaccine booster If not why: Has not completed the Hepatitis B vaccination series due to: [] Timing related to transplant/time constraints [] Medical contraindication/precaution [] Medical judgement/prior immunity [] Patient choice/objection [] Product out of stock [] Confirm if patient is on dialysis Yes Discussed with the patient that staying up to date on ALL vaccines including the COVID-19 vaccine and Hepatitis B vaccine is strongly recommended. Kidney/Pancreas and Pancreas Alone Candidates ONLY KP or [place] Additional Information Insulin Start Date: Amount of Insulin C Peptide level Hgb A1C level: Discussed with the patient who will be the primary coordinator for their case once they are listed: Gage Grider RN [phone]. Patient verbalized understanding of all the information that was discussed. Will move forward with the listing process for kidney transplant. Jenny Hill RN Pre-Kidney AND Pancreas Newsroom Intern [facility] 09-02-2024 History of Presen t illness Narrative Informed Adriana Morales that the Kidney/Pancreas Selection Committee approved them to be listed for a kidney transplant. Informed patient that potential donors can begin work-up once they have submitted a fresh serum sample AND they are placed on the list. Gave them the Living Donor Office online web address and office phone number. [email or web address] Office Reminded Adriana Morales that if uncomfortable with donor's history, etc, they may say No without penalty. Reviewed choices that were chosen on the KDPI form with patient and updated below as needed. Types of donors patient is willing to consider: Donors that from Cardiac (DCD) Yes Hepatitis C Donors Yes Hepatitis B Core Antibody Donors No KDPI score > 85% No Discussed monthly serum samples, why they are needed and how to get them drawn. Informed patient that delays in providing serum can result in delays to living donor crossmatching or possibly being skipped for a donor transplant. All phone numbers confirmed with the patient Additional Information Additional testing needed: Additional consults needed: Special instructions for listing: Labs will be drawn at : Is the patient vaccinated against HEP B: (If vaccinated ensure documentation in Epic) Hep B Surface Ab Quant mIU/mL <8.00 Per [facility] documentation Received vaccines: 11/13/2022, 05/15/2022, 04/12/2022 If patient is not vaccinated against HEP B do they plan on getting the vaccination: Per dialysis center pt to receive Hep B vaccine booster If not why: Has not completed the Hepatitis B vaccination series due to: [] Timing related to transplant/time constraints [] Medical contraindication/precaution [] Medical judgement/prior immunity [] Patient choice/objection [] Product out of stock [] Confirm if patient is on dialysis Yes Discussed with the patient that staying up to date on ALL vaccines including the COVID-19 vaccine and Hepatitis B vaccine is strongly recommended. Kidney/Pancreas and Pancreas Alone Candidates ONLY KP or [place] Additional Information Insulin Start Date: Amount of Insulin C Peptide level Hgb A1C level: Discussed with the patient who will be the primary coordinator for their case once they are listed: Gage Grider RN [phone]. Patient verbalized understanding of all the information that was discussed. Will move forward with the listing process for kidney transplant. Jenny Hill RN Pre-Kidney & Pancreas Newsroom Intern [facility] documented in this encounter [facility] 08-17-2024 History of Presen t illness Narrative Radiology Service Progress Note PATIENT NAME: Adriana Morales DATE OF SERVICE: August 17, 2024 TIME: 11:08 AM PATIENT IDENTITY VERIFICATION COMPLETED USING TWO (2) IDENTIFIERS: Name and Date of confirmed by patient verbally. FALL SCREENING: Has the patient had 2 falls in the last year or 1 fall with injury or currently using an Ambulatory Assistive Device (Walker, Cane, Wheelchair, Crutches, etc.)? No PATIENT GENDER DATA: Assigned female at . status: : No status: NO. PATIENT RELEVANT IMPLANT DATA REVIEWED: Not Applicable PATIENT PRESENTS WITH AN IMPLANTABLE OR ATTACHED RACE BOARD ATTENDANT: No RADIOLOGY DEPARTMENT: Ultrasound PERIPHERAL IV DATA: Not applicable SIGNED BY: Boubacar Burgess RDMS August 17, 2024 11:08 AM documented in this encounter [facility] 08-17-2024 Note HNO ID: [id number] Author: BOUBACAR BURGESS RDMS Service: Radiology Author Type: Technologist Type: Progress Notes Filed: 08/17/2024 11:09 Note Text: Radiology Service Progress Note PATIENT NAME: Adriana Morales DATE OF SERVICE: August 17, 2024 TIME: 11:08 AM PATIENT IDENTITY VERIFICATION COMPLETED USING TWO (2) IDENTIFIERS: Name and Date of confirmed by patient verbally. FALL SCREENING: Has the patient had 2 falls in the last year or 1 fall with injury or currently using an Ambulatory Assistive Device (Walker, Cane, Wheelchair, Crutches, etc.)? No PATIENT GENDER DATA: Assigned female at . status: : No status: NO. PATIENT RELEVANT IMPLANT DATA REVIEWED: Not Applicable PATIENT PRESENTS WITH AN IMPLANTABLE OR ATTACHED RACE BOARD ATTENDANT: No RADIOLOGY DEPARTMENT: Ultrasound PERIPHERAL IV DATA: Not applicable SIGNED BY: Boubacar Burgess RDMS August 17, 2024 11:08 AM [facility] 07-30-2024 Note HNO ID: [id number] Author: JENNY HILL RN Service: ? Author Type: Registered Nurse Type: Progress Notes Filed: 07/30/2024 10:11 Note Text: I spoke with Ms Morales and informed her per the kidney txp selection committee she is approved pending Pelvic US (d/t adnexal mass noted on CT). 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 Ms Morales acknowledged understanding. Order placed. Jenny Hill RN [facility] 07-30-2024 History of Presen t illness Narrative I spoke with Ms Morales and informed her per the kidney txp selection committee she is approved pending Pelvic US (d/t adnexal mass noted on CT). 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 Ms Morales acknowledged understanding. Order placed. Jenny Hill RN documented in this encounter [facility] 07-14-2024 History of Presen t illness Narrative I have reviewed the patient s medication profile and there are no identified medication issues that would preclude transplant in this patient. Elida Garcias PharmD documented in this encounter [facility] 07-14-2024 Note HNO ID: [id number] Author: ELIDA GARCIAS RPh Service: ? Author Type: Pharmacist Type: Progress Notes Filed: 07/14/2024 15:56 Note Text: I have reviewed the patient?s medication profile and there are no identified medication issues that would preclude transplant in this patient. Elida Garcias PharmD [facility] 05-11-2024 Note [facility] Medical Records Department [address] [place] [address] History Physical Exam 05/11/24 1052 MR#: [id number] Acct: [id number] Name: ADRIANA MORALES Rep #: [id number] : 1975 49 From: Job Basurto MD PCP: Dr. Brenna Alexandra MD Status:[facility] Location: [place] [address] HPI - General General Date of Admission: 05/11/24 Date of Service: 05/11/24 Chief Complaint: Screening colonoscopy HPI Narrative ADRIANA MORALES, is a 49 F who presents today for screening colonoscopy. She has had no previous colonoscopy. She denies any GI issues or problems. [facility] Medical History Easy bruising Umbilical hernia Non-smoker History of edema History of echocardiogram History of stress test Cardiology follow-up encounter Chest pain Polycystic kidney disease Essential hypertension End-stage renal disease needing dialysis Home Medications ???Medication ???Instructions ???Recorded ???Last Taken ???Type ferrous sulfate 324 mg (65 mg 324 mg PO DAILY 12/04/22 Unknown History iron) tablet,delayed release metoprolol succinate 50 mg 50 mg PO DAILY 02/19/23 05/11/24 08:00 History tablet,extended release 24 hr amlodipine 10 mg tablet 10 mg PO QDAY 02/19/24 05/10/24 History calcitriol 0.25 mcg capsule 0.25 mcg PO BID 02/19/24 Unknown History furosemide 40 mg tablet (Lasix) 40 mg PO BID 02/19/24 05/10/24 History potassium chloride 20 mEq 20 meq PO BID 02/19/24 05/10/24 History tablet,extended release(part/cryst) (Klor-Con M) Allergy/AdvReac Type Severity Reaction Status Date / Time allopurinol AdvReac Nausea Verified 05/11/24 09:42 Family History Mother Diabetes Hypertension Kidney disease Father Hypertension Grandmother Kidney disease Surgical History H/O umbilical hernia repair Peritoneal dialysis catheter in place Social History adopted: No household members: other details: lives with father housing: house number of children: 0 current occupational status: employed current occupation: [employer] history of recent travel: No sexually active: No Smoking Status: Never smoker alcohol intake: never substance use type: does not use well-balanced diet: daily or most days caffeine: Yes eating out: 1-3 times/week what type of physical activity do you participate in: walking seatbelt use: always do you feel safe at home: Yes additional social history: single ROS Constitutional Constitutional: Reports systems reviewed and no addt'l complaints, except as documented Eyes Eyes: Reports systems reviewed and no addt'l complaints, except as documented ENT HEENT: Reports systems reviewed and no addt'l complaints, except as documented Cardiovascular Cardiovascular: Reports systems reviewed and no addt'l complaints, except as documented Respiratory/Chest Respiratory/Chest: Reports systems reviewed and no addt'l complaints, except as documented Gastrointestinal Gastrointestinal: Reports systems reviewed and no addt'l complaints, except as documented Genitourinary Genitourinary: Reports systems reviewed and no addt'l complaints, except as documented Musculoskeletal Musculoskeletal: Reports systems reviewed and no addt'l complaints, except as documented Vital Signs Vital Signs Vital Signs: 05/11/24 09:43 05/11/24 09:43 05/11/24 10:29 Temperature 97.6 F L 97.6 F L Temperature Source Temporal Pulse Rate 99 99 Respiratory Rate 16 16 Respiratory Pattern Normal Blood Pressure 112/89 H 112/89 H Blood Pressure Mean 96 Blood Pressure Source Monitor Blood Pressure Position Semi-Fowlers Blood Pressure Location Right Arm Pulse Ox 98 98 Oxygen Delivery Method Room Air Room Air Weight Weight: 198 lb Body Mass Index (BMI) 28.4 Physical Exam Const alert, oriented x3, no apparent distress and average body habitus Results Lab / Micro Data Labs: Laboratory Results - last 24 hr 05/11/24 09:31: Urine Test Cancelled 05/11/24 10:05: Serum , Qual NEGATIVE Assessment Plan Assessment/Plan (1) Screening for malignant neoplasm of colon: PLAN: Plan 49-year-old female in need of a screening colonoscopy. We discussed the details of the planned procedure and she wishes to proceed. This will begin momentarily Charges/Coding Visit Charges Inpatient E M: 23966 Init Hosp L1 05/11/24 1056 Cosigner Signature (if applicable): CC: Dr. Brenna Alexandra MD; Dr. Job Basurto MD Signed [facility] 05-07-2024 Note HNO ID: [id number] Author: ASHLIE FINNEY RT(R) Service: ? Author Type: Technologist Type: Progress Notes Filed: 05/07/2024 10:39 Note Text: RADIOLOGY SERVICE PROGRESS NOTE SERVICE DATE: 05/07/2024 SERVICE TIME: 10:37 AM PATIENT IDENTITY VERIFICATION COMPLETED USING TWO (2) STANDARD IDENTIFIERS: Name and Date of confirmed by patient verbally FALL SCREENING: Has the patient had 2 falls in the last year or 1 fall with injury or currently using an Ambulatory Assistive Device (Walker, Cane, Wheelchair, Crutches, etc.)? No PATIENT GENDER DATA: .female : No status: No ALLERGIES: NA MEDICATIONS REVIEWED: Not applicable PATIENT RELEVANT IMPLANT DATA REVIEWED: Not Applicable PATIENT PRESENTS WITH AN IMPLANTABLE OR ATTACHED RACE BOARD ATTENDANT: NA CREATININE: Creatinine Date Value Ref Range Status 03/10/2024 6.52 (H) 0.58 - 0.96 mg/dL Final Estimated Glomerular Filtration Rate Date Value Ref Range Status 03/10/2024 7 (L) >=60 mL/min/1.73m? Final Comment: Estimated Glomerular Filtration Rate (eGFR) is calculated using the 2020 CKD-EPI creatinine equation. This equation utilizes serum creatinine, sex, and age as parameters. The creatinine assay has traceable calibration to isotope dilution-mass spectrometry. Refer to KDIGO guidelines for clinical interpretation. In patients with unstable renal function, e.g. those with acute kidney injury, the eGFR may not accurately reflect actual GFR. P.O.C.T. RESULTS: N/A May 07, [address] PERFORMED: No IV SITE: Ambulatory: A peripheral IV was started in the Right antecubital site with a Angio cath: 22 gauge. POST EXAM PIV STATUS: Discontinued PROCEDURE TYPE: NM Stress: 13.1 mCi [id number] was administered IV for Rest Imaging at 0815 by LETY. 33.4 mCi [id number] was administered IV for Stress Imaging at 1035 by TMM9. ADMINISTRATION TIME: 1035 PATIENT DISCHARGED TO: Ambulatory patient, left MI department area. Is this a therapy: No A Diagnostic radioactive procedure has taken place, with no further precautions necessary other than routine body substance precautions. More information regarding radiation safety can be found using this link: [email or web address] SIGNATURE: RT Lee(R) PATIENT NAME: Adriana Morales DATE: May 07, 2024 TIME: 10:37 AM PAGER/CONTACT #: [facility] 05-07-2024 History of Presen t illness Narrative Summary: MRI Radiology Service Progress Note PATIENT NAME: Adriana Morales DATE OF SERVICE: May 07, 2024 TIME: 8:03 AM PATIENT IDENTITY VERIFICATION COMPLETED USING TWO (2) IDENTIFIERS: Name and Date of confirmed by patient verbally and Name and Date of confirmed by identification band. FALL SCREENING: Has the patient had 2 falls in the last year or 1 fall with injury or currently using an Ambulatory Assistive Device (Walker, Cane, Wheelchair, Crutches, etc.)? No PATIENT GENDER DATA: Female. status: : No status: NO. PATIENT RELEVANT IMPLANT DATA REVIEWED: Yes PATIENT PRESENTS WITH AN IMPLANTABLE OR ATTACHED RACE BOARD ATTENDANT: No RADIOLOGY DEPARTMENT: MR; Exam(s) Completed: Head: [place] MRA PERIPHERAL IV DATA: Not applicable SIGNED BY: RT Crystal(R) May 07, 2024 8:03 AM documented in this encounter [facility] 05-07-2024 Note HNO ID: [id number] Author: MORGAN BROWN RT(R) Service: ? Author Type: Technologist Type: Progress Notes Filed: 05/07/2024 08:04 Note Text: Summary: MRI Radiology Service Progress Note PATIENT NAME: Adriana Morales DATE OF SERVICE: May 07, 2024 TIME: 8:03 AM PATIENT IDENTITY VERIFICATION COMPLETED USING TWO (2) IDENTIFIERS: Name and Date of confirmed by patient verbally and Name and Date of confirmed by identification band. FALL SCREENING: Has the patient had 2 falls in the last year or 1 fall with injury or currently using an Ambulatory Assistive Device (Walker, Cane, Wheelchair, Crutches, etc.)? No PATIENT GENDER DATA: Female. status: : No status: NO. PATIENT RELEVANT IMPLANT DATA REVIEWED: Yes PATIENT PRESENTS WITH AN IMPLANTABLE OR ATTACHED RACE BOARD ATTENDANT: No RADIOLOGY DEPARTMENT: MR; Exam(s) Completed: Head: [place] MRA PERIPHERAL IV DATA: Not applicable SIGNED BY: RT Crystal(R) May 07, 2024 8:03 AM [facility] 03-10-2024 History of Presen t illness Narrative Radiology Service Progress Note PATIENT NAME: Adriana Morales DATE OF SERVICE: March 10, 2024 TIME: 2:35 PM PATIENT IDENTITY VERIFICATION COMPLETED USING TWO (2) IDENTIFIERS: Name and Date of confirmed by patient verbally. FALL SCREENING: Has the patient had 2 falls in the last year or 1 fall with injury or currently using an Ambulatory Assistive Device (Walker, Cane, Wheelchair, Crutches, etc.)? No PATIENT GENDER DATA: Female. status: : No status: NO. PATIENT RELEVANT IMPLANT DATA REVIEWED: Not Applicable PATIENT PRESENTS WITH AN IMPLANTABLE OR ATTACHED RACE BOARD ATTENDANT: No RADIOLOGY DEPARTMENT: General X-ray: Exam(s) Completed: Chest X-Ray PERIPHERAL IV DATA: Not applicable SIGNED BY: RT Ly(Estuardo) March 10, 2024 2:35 PM documented in this encounter [facility] 03-10-2024 Note HNO ID: [id number] Author: LITTLE AQUINO RT(R) Service: Radiology Author Type: Technologist Type: Progress Notes Filed: 03/10/2024 14:35 Note Text: Radiology Service Progress Note PATIENT NAME: Adriana Morales DATE OF SERVICE: March 10, 2024 TIME: 2:35 PM PATIENT IDENTITY VERIFICATION COMPLETED USING TWO (2) IDENTIFIERS: Name and Date of confirmed by patient verbally. FALL SCREENING: Has the patient had 2 falls in the last year or 1 fall with injury or currently using an Ambulatory Assistive Device (Walker, Cane, Wheelchair, Crutches, etc.)? No PATIENT GENDER DATA: Female. status: : No status: NO. PATIENT RELEVANT IMPLANT DATA REVIEWED: Not Applicable PATIENT PRESENTS WITH AN IMPLANTABLE OR ATTACHED RACE BOARD ATTENDANT: No RADIOLOGY DEPARTMENT: General X-ray: Exam(s) Completed: Chest X-Ray PERIPHERAL IV DATA: Not applicable SIGNED BY: RT Ly(Estuardo) March 10, 2024 2:35 PM [facility] 03-10-2024 Instructions Jenny Hill RN - 03/10/2024 1:43 PM EST As part of your transplant evaluation you are required to complete the following additional items. Please be aware that your evaluation will not be considered complete until all testing has been submitted. YOU WILL NOT BE LISTED ON THE TRANSPLANT LIST until these results have been received by our office, reviewed by the transplant committee and approved for transplant. You will be contacted with the decision of the transplant committee at a future date. The following will be scheduled for you at a [facility] facility: CARDIAC: Nuclear stress test ECG (today) CANCER SCREENING: Mammogram Colonoscopy ADDITIONAL CONSULTS Imaging Studies: MRA Brain W/O Ivcon XR Chest (today Miscellaneous Items: Labs(today) Outside test results should be faxed to [phone]. Please review the kidney transplant educational materials on line at [email or web address] Sign-in: Kidney To check on your status of your evaluation, please contact your coordinator, Jenny Hill RN [phone]. Jenny Hill RN Kidney/Pancreas Pre-Newsroom Intern [facility] documented in this encounter [facility] 03-10-2024 Note HNO ID: [id number] Author: RAIMUNDO CURTIS MD Service: ? Author Type: Physician Type: Progress Notes Filed: 03/10/2024 15:35 Note Text: [facility] [employer] [facility] Transplant Evaluation CC: Consultation for Kidney transplant evaluation. Referred by: Maximus Machado MD [facility] [address] [place] [address] [place] [address] Fx# [phone] I will communicate with the referring provider by letter and/or shared electronic medical record. HPI: Ms Adriana Morales is a 49 y/o female with Polycystic kidney disease and history of hypertension, end-stage renal disease on peritoneal dialysis since 12/16/2022. Currently listed at [facility], active status since 03/23/2021. No [place] No Stroke No Cancers No Blood thinners No DVT/PE Listed at [facility] may transfer time to [facility] Was listed in 2020 Started HD in Dec 2022 No Renal Biopsy available No MRA of Brain available Except for occl back pain, denies cyst popping or etc BP 119/88 (BP Site: Right Arm, BP Position: Sitting, BP Cuff Size: Regular Adult) Pulse 84 Temp 36.9 ?C (98.4 ?F) (Oral) Ht 177.8 cm (5' 10) Wt 88.7 kg (195 lb 8.8 oz) BMI 28.06 kg/m? Patient presents ambulatory without assistive devices. 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 Smoking Status: Never UTI: No Kidney stones: No Pregnancies: No If yes, how many?: Miscarriages: No If yes, at what week(s)?: Chronic anti-coagulation: No Midodrine: No If yes, frequency: What is your blood pressure in between dialysis sessions?: Abdominal surgeries: Yes PD catheter and umbilical surgery no mesh Cardiovascular Disease?: No Peripheral Arterial Disease (TIA non-embolic, CVA non-embolic, amputation, abnormal PVRs, decreased pulses, etc): No Stroke: No Claudication: No Carotid Artery Stenosis: No DM: No Diabetic ulcers or chronic wounds: Prior transplant: No CKD: Yes: Cause of CKD: ADPKD Peritoneal dialysis, start date: 12/16/2022 Living Donors: No Residual UO: yes Hypercoagulable (hx of DVT/PE, miscarriages, prior use of anticoagulation, etc): No Malignancy (including skin cancer): No Last hospitalization: BP 119/88 (BP Site: Right Arm, BP Position: Sitting, BP Cuff Size: Regular Adult) Pulse 84 Temp 36.9 ?C (98.4 ?F) (Oral) Ht 177.8 cm (5' 10) Wt 88.7 kg (195 lb 8.8 oz) BMI 28.06 kg/m? PAST MEDICAL HISTORY Diagnosis Date ESRD (end stage renal disease) (HCC) Essential hypertension Polycystic kidney disease PAST SURGICAL HISTORY Procedure Laterality Date PERITONEAL CATHETER INSERTION HX Current Outpatient Medications Medication Sig ergocalciferol 50,000 unit capsule (VITAMIN D2, DRISDOL) Take 50,000 Units by mouth one time a week. ferrous sulfate EC 324 mg (65 mg iron) TbEC Take 324 mg by mouth once daily. sodium fluoride-vitamin D3 0.25 mg (0.55 mg)-400 unit/mL drop Take by mouth. LASIX 40 mg tablet Take 1 tablet by mouth two times a day. ferrous sulfate 325 mg (65 mg iron) tablet Take 1 tablet by mouth every afternoon. amLODIPine (NORVASC) 10 mg tablet Take 10 mg by mouth once daily. calcitriol (ROCALTROL) 0.5 mcg capsule Take 1 capsule by mouth once daily. metoprolol succinate ER (TOPROL XL) 50 mg 24 hr tablet Take 50 mg by mouth once daily. KLOR-CON M20 20 mEq tablet Take 40 mEq by mouth once daily. No current facility-administered medications for this visit. Family History Problem Relation Age of Onset Diabetes Mother Hypertension Mother Kidney Disease Mother Hypertension Father Kidney Disease Maternal Grandmother Pre-transplant testing: Cardiac Testing: EC03/10/2024 US - ECHO 04/02/2023 Impression: Normal LV size Left ventricular systolic function is normal The estimated ejection fraction is 60% Equivocal mitral valve prolapse Multiply liver cysts rated. MRA BRAIN: (r/o aneurysm) To schedule CT ABD/PEL WO IVCON 03/04/2023 Impression 1, Mild pneumoperitoneum with peritoneal dialysis catheter in place. 2. Complex cyst measuring 5.5 x 8.8 x 5.2 cm with a peripheral solid nodule that measures 3.2 cm in the left adnexa. Consider pelvic ultrasound for further evaluation. 3. Adult polycystic kidney and liver disease. 4. Innumerable cysts throughout the liver. 5. Numerous diverticula without diverticulitis, 6. Cyst measuring 2.4 cm right ovary. 7. Innumerable renal cysts bilaterally. CXR: 03/10/2024 PAP Test: 05/29/2023 Interpretation Negative for intraepithelial lesion or malignancy Mammogram: 2022 (updating this month) [address] [address] Colonoscopy: Never done Per her pcp she can wait until she is 50 Sensitizations: Prior transplant: No Blood transfusions: No : No Rabbit: No (more content not included)... [facility] 03-10-2024 History of Presen t illness Narrative [facility] [employer] [facility] Transplant Evaluation CC: Consultation for Kidney transplant evaluation. Referred by: Maximus Machado MD [facility] [address] [place] [address] & [place] [address] Fx# [phone] I will communicate with the referring provider by letter and/or shared electronic medical record. HPI: Ms Adriana Morales is a 49 y/o female with Polycystic kidney disease and history of hypertension, end-stage renal disease on peritoneal dialysis since 12/16/2022. Currently listed at [facility], active status since 03/23/2021. No [place] No Stroke No Cancers No Blood thinners No DVT/PE Listed at [facility] may transfer time to F Was listed in 2020 Started HD in Dec 2022 No Renal Biopsy available No MRA of Brain available Except for occl back pain, denies cyst popping or etc BP 119/88 (BP Site: Right Arm, BP Position: Sitting, BP Cuff Size: Regular Adult) Pulse 84 Temp 36.9 C (98.4 F) (Oral) Ht 177.8 cm (5' 10) Wt 88.7 kg (195 lb 8.8 oz) BMI 28.06 kg/m Patient presents ambulatory without assistive devices. 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 Smoking Status: Never UTI: No Kidney stones: No Pregnancies: No If yes, how many?: Miscarriages: No If yes, at what week(s)?: Chronic anti-coagulation: No Midodrine: No If yes, frequency: What is your blood pressure in between dialysis sessions?: Abdominal surgeries: Yes PD catheter and umbilical surgery no mesh Cardiovascular Disease?: No Peripheral Arterial Disease (TIA non-embolic, CVA non-embolic, amputation, abnormal PVRs, decreased pulses, etc): No Stroke: No Claudication: No Carotid Artery Stenosis: No DM: No Diabetic ulcers or chronic wounds: Prior transplant: No CKD: Yes: Cause of CKD: ADPKD Peritoneal dialysis, start date: 12/16/2022 Living Donors: No Residual UO: yes Hypercoagulable (hx of DVT/PE, miscarriages, prior use of anticoagulation, etc): No Malignancy (including skin cancer): No Last hospitalization: BP 119/88 (BP Site: Right Arm, BP Position: Sitting, BP Cuff Size: Regular Adult) Pulse 84 Temp 36.9 C (98.4 F) (Oral) Ht 177.8 cm (5' 10) Wt 88.7 kg (195 lb 8.8 oz) BMI 28.06 kg/m PAST MEDICAL HISTORY Diagnosis Date ESRD (end stage renal disease) (HCC) Essential hypertension Polycystic kidney disease PAST SURGICAL HISTORY Procedure Laterality Date PERITONEAL CATHETER INSERTION HX Current Outpatient Medications Medication Sig ergocalciferol 50,000 unit capsule (VITAMIN D2, DRISDOL) Take 50,000 Units by mouth one time a week. ferrous sulfate EC 324 mg (65 mg iron) TbEC Take 324 mg by mouth once daily. sodium fluoride-vitamin D3 0.25 mg (0.55 mg)-400 unit/mL drop Take by mouth. LASIX 40 mg tablet Take 1 tablet by mouth two times a day. ferrous sulfate 325 mg (65 mg iron) tablet Take 1 tablet by mouth every afternoon. amLODIPine (NORVASC) 10 mg tablet Take 10 mg by mouth once daily. calcitriol (ROCALTROL) 0.5 mcg capsule Take 1 capsule by mouth once daily. metoprolol succinate ER (TOPROL XL) 50 mg 24 hr tablet Take 50 mg by mouth once daily. KLOR-CON M20 20 mEq tablet Take 40 mEq by mouth once daily. No current facility-administered medications for this visit. Family History Problem Relation Age of Onset Diabetes Mother Hypertension Mother Kidney Disease Mother Hypertension Father Kidney Disease Maternal Grandmother Pre-transplant testing: Cardiac Testing: EC03/10/2024 US - ECHO 04/02/2023 Impression: Normal LV size Left ventricular systolic function is normal The estimated ejection fraction is 60% Equivocal mitral valve prolapse Multiply liver cysts rated. MRA BRAIN: (r/o aneurysm) To schedule CT ABD/PEL WO IVCON 03/04/2023 Impression 1, Mild pneumoperitoneum with peritoneal dialysis catheter in place. 2. Complex cyst measuring 5.5 x 8.8 x 5.2 cm with a peripheral solid nodule that measures 3.2 cm in the left adnexa. Consider pelvic ultrasound for further evaluation. 3. Adult polycystic kidney and liver disease. 4. Innumerable cysts throughout the liver. 5. Numerous diverticula without diverticulitis, 6. Cyst measuring 2.4 cm right ovary. 7. Innumerable renal cysts bilaterally. CXR: 03/10/2024 PAP Test: 05/29/2023 Interpretation Negative for intraepithelial lesion or malignancy Mammogram: 2022 (updating this month) [place] [address] Colonoscopy: Never done Per her pcp she can wait until she is 50 Sensitizations: Prior transplant: No Blood transfusions: No : No Rabbit: No Immunizations: HBV series: Received, date 11/13/2022, 05/15/2022, 04/12/2022 Pneumovax: Received, date ? Influenza vaccine: Received, date ? Covid vaccine: Received, date 07/21/2020, 06/30/2020 Jenny L Emily, RN Exclusion criteria for HCV organs (IF POTENTIAL RECIPIENT MEETS ANY OF THESE CRITERIA, THEY ARE EITHER NOT ELIGIBLE, OR THEY MUST SEE HEPATOLOGY FOR INFORMED CONSENT) [] HCV-RNA positive (such individuals may receive HCV donor positive organs, but are not part of this D+/R- program) [] HIV Infection [] Evidence of cirrhosis by imaging or biopsy [] or lactating women [] Prior surgery with altered gastroduodenal anatomy (Gastric bypass, Gastric sleeve) [] Required continued use of certain medications that may interfere with DAA absorption including: [] Statins [] PPI if dose required is > 20mg per day [] Amiodarone [] Anticonvulsants/mood stabilizers (eg: carbamazepine, phenytoin, oxcarbazine) [] Digoxin [] Current severe systemic infection [] Current illicit drug use Informed Consent for the option of considering an HCV positive organ MUST CHOOSE ONE OF THE OPTIONS BELOW [x] Yes, the patient is interested. Adriana Morales wishes to pursue the option of obtaining a HCV positive organ. Advantages and disadvantages of HCV viremic donor transplantation were reviewed. Patient received education on the risk of transmission of HCV following HCV viremic donor transplantation, the natural history of HCV, current therapies for HCV, side effects of therapy, and need for monitoring during and after therapy for HCV. Provided pt with educational slide packet and handout titled Transplantation of Hepatitis C Viremic Organs into Hepatitis C Negative Recipients. The risks of HCV transmission post-transplant, fibrosing cholestatic HCV, treatment failure, chronic HCV, cirrhosis and hepatic and non-hepatic manifestations of acute and chronic HCV were specifically discussed. Patient verbalized understanding of the risks and benefits of receiving a hepatitis C viremic organ and provided verbal consent to be enrolled in the protocol. All their questions were answered. [] No, the patient is not interested in this option. [] The patient would like more time to consider this option. Patient has been educated and can call back regarding accepting or declining this option. Dr Cutris REVIEW OF SYSTEMS GENERAL: No weight loss, malaise or fevers HEENT: Negative for frequent or significant headaches, s NECK: Negative for lumps, goiter, pain and significant neck swelling RESPIRATORY: Negative for cough, hemoptysis, wheezing, CARDIOVASCULAR: Negative for chest pain, leg swelling, GI: No nausea, vomiting, or diarrhea : No history of dysuria, frequency or incontinence SKIN: Negative for lesions, rash, and itching HEMATOLOGY/LYMPHOLOGY: Negative for prolonged bleeding, bruising easily or swollen nodes NEURO: No history of headaches, PHYSICAL EXAMINATION: General appearance: Well appearing, alert, in no acute distress, well-hydrated, well nourished. Skin: Skin color, texture, turgor normal, no suspicious rashes or lesions Head: Normocephalic, no masses, lesions, tenderness or abnormalities Eyes: Anicteric sclera. Pupils are equally round Neck: Supple, no adenopathy Lungs: Lungs clear to auscultation. No wheezing, rhonchi, rales. Heart: RRR without murmur, Abdomen: Abdomen soft, non-tender. Bowel sounds normal. No masses, organomegaly Extremities: No deformities, edema Peripheral pulses: Normal Neuro: Gait normal. A: ESRD 2 to PKD HTN Plan: Mr. Morales is an acceptable candidate for kidney transplantation pending completion of work up and meeting the rest of the team. Advantages and disadvantages of transplantation versus dialysis were reviewed. Discussed the operative procedure and potential complications. I addressed issues of post-operative recovery and follow up. Few things I have discussed with him a. because of his age, living donor would be ideal for him. b. the importance of compliance c. the frequent travel in the early post op period for monitoring d. We also discussed the transplant procedure and the need for urinary catheter and ureteric stent. I overviewed the issues of delayed graft function, the possible need for dialysis, and the possible need for re-operation during the early postoperative period. I also informed them of the occasional need for blood transfusion and they expressed their understanding and willingness to accept one if the need arises. I mentioned other complications including thromboembolic events, cardiac events, and infection. E can transfer time and make us primary Lastly I discussed the need for immunosuppressive therapy and the risk associated with this treatment. they would like to proceed 1. CT scan abdomen and pelvis non contrast - both eia okay 2. Serology - 3. Retrieve card testing I spent a total of 60 minutes on the date of the service which included preparing to see the patient, [id number] patient care, completing clinical documentation, obtaining and/or reviewing separately obtained history, performing a medically appropriate examination, counseling and educating the patient/family/caregiver, ordering medications, tests, or procedures, communicating with other HCPs (not separately reported), independently interpreting results (not separately reported), communicating results to the patient/family/caregiver, and care coordination (not separately reported). Raimundo Curtis MD documented in this encounter [facility] 03-10-2024 Note HNO ID: [id number] Author: KIMBERLI YAP LISW Service: ? Author Type: [employer] Type: Progress Notes Filed: 03/22/2024 13:40 Note Text: PSYCHOSOCIAL EVALUATION FOR KIDNEY TRANSPLANT FACE to FACE Social Supports: Sister and father Financial Concerns: Aultcare Compliance: Excellent Mental Health: Stable Substance Use: Denies SIPAT: 14 (Alternate support, pt's father is older, but continues to drive and is active.) REFERRAL: Adriana Morales was referred to Social Work for a psychosocial evaluation to establish if she would be a suitable candidate to receive a kidney transplant. She is a PD pt. Swapnil Aguilera manages her care. The dialysis center phone number is [phone]. The pt does not use assistive devices for ambulation. DIALYSIS START DATE: 12/16/2022 This social work psychosocial evaluation was completed with Adriana Morales on March 10, 2024. She was accompanied by her sister, Christine Malave. Race/Gender: White Female [place] Citizen: Yes IDENTIFYING INFORMATION/LIVING SITUATION Adriana Morales [id number] [facility] [address]. The home is a ranch style home. The pt lives with her father. They support each other. Father is independent and drives. There are not architectural barriers. The home is about 80 [place] from . Adriana Morales has been living in this home since 2019. Adriana Morales is is independent with all ADL's. Both the pt and her father drive and have vehicles. Pets in the home: One cat. Nephews will care for the cats while pt is recovering. TRANSPLANT LODGING PLANS FOR PATIENTS WHO LIVE 2.5 OR MORE HOURS AWAY FROM [facility]: Do you have the financial means to stay in the area for four weeks or more post-transplant? NA COMPREHENSION OF MEDICAL SITUATION Adriana Morales reports that her kidney disease is due to PKD. Pt has HTN secondary to the PKD. Adriana Morales was able to recall information that was presented to her today during the kidney transplant educational class. Adriana Morales does understand and, has knowledge of the transplant process, the risks of transplant, and transplant medications. Missed doctor appointments: No Missed/shortened/rescheduled dialysis appointments: No Knowledge of medications: Pt was able to list her medications and their purpose. Medication Compliance: Good compliance reported. Have you ever stopped taking any medication because you lost your insurance you could not afford it? No. Have you stopped taking medication because you felt you didn't need it or because of side-effects? No. Do you have any moral, baptist, or ethical views against transplants or blood transfusions: No. Have you ever been transplanted, evaluated, or listed at another center: [facility] Potential donor: No SUBSTANCE USE/ABUSE Alcohol: None. Tobacco: Never Exposure to second hand smoke: No Illegal substances: Denies Over the Counter Medications: Tylenol Opioids/Controlled Substances: No CAGE Questionnaire NA LEGAL ENCOUNTERS Currently on probation or parole: No Past or current warrants for arrest: No Substance related legal problems: No Valid drivers license:Yes History of any legal issues not previously mentioned: No MENTAL HEALTH HISTORY Affect: Appropriate/Consistent Alert: Alert Orientation: person, place and time Appearance: Unremarkable/appropriate Cognitive Function: Cognition appears relatively intact Mood: Euthymic Are you having thoughts that you would be better off , or of hurting yourself in some way? Denied when asked directly. Current mental health diagnoses / current feelings of anxiety or depression: No Previous mental health diagnoses: No Psychiatric medication: No. Who prescribes: NA Counseling: No Psychiatric services: No History of suicide attempt(s) or ideation: No History of harming self: No History of harming others: No History of psychiatric hospitalization: No Any family history of mental health diagnoses: No Is a referral to Transplant Psychiatry indicated for further evaluation or screening: No SOCIAL NARRATIVE Adriana Morales grew up in [place], [place]. She is 49 years of age. Adriana Morales was raised by both biological parents. She describes childhood as good. History of Abuse, Assault, or Neglect: No Parental Information: biological Father: Aman is 87 and in good health. Mother: , PKD. Sibling Information: One sister, Christine. Relationship History AND Current Status: Single Pregnancies: None Children: None EDUCATION Highest Educational Level: Bachelor Degree in Elementary Ed. Adriana Morales denies academic problems in school. 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 Current Employment Status: FT (more content not included)... [facility] 03-10-2024 History of Presen t illness Narrative PSYCHOSOCIAL EVALUATION FOR KIDNEY TRANSPLANT FACE to FACE Social Supports: Sister and father Financial Concerns: Aultcare Compliance: Excellent Mental Health: Stable Substance Use: Denies SIPAT: 14 (Alternate support, pt's father is older, but continues to drive and is active.) REFERRAL: Adriana Morales was referred to Social Work for a psychosocial evaluation to establish if she would be a suitable candidate to receive a kidney transplant. She is a PD pt. Swapnil Aguilera manages her care. The dialysis center phone number is [phone]. The pt does not use assistive devices for ambulation. DIALYSIS START DATE: 12/16/2022 This social work psychosocial evaluation was completed with Adriana Morales on March 10, 2024. She was accompanied by her sister, Christine Malave. Race/Gender: White Female [place] Citizen: Yes IDENTIFYING INFORMATION/LIVING SITUATION Adriana Morales [phone] [id number] [facility] [address]. The home is a ranch style home. The pt lives with her father. They support each other. Father is independent and drives. There are not architectural barriers. The home is about 80 minutes from . Adriana Morales has been living in this home since 2019. Adriana Morales is is independent with all ADL's. Both the pt and her father drive and have vehicles. Pets in the home: One cat. Nephews will care for the cats while pt is recovering. TRANSPLANT LODGING PLANS FOR PATIENTS WHO LIVE 2.5 OR MORE HOURS AWAY FROM [facility]: Do you have the financial means to stay in the area for four weeks or more post-transplant? NA COMPREHENSION OF MEDICAL SITUATION Adriana Morales reports that her kidney disease is due to PKD. Pt has HTN secondary to the PKD. Adriana Morales was able to recall information that was presented to her today during the kidney transplant educational class. Adriana Morales does understand and, has knowledge of the transplant process, the risks of transplant, and transplant medications. Missed doctor appointments: No Missed/shortened/rescheduled dialysis appointments: No Knowledge of medications: Pt was able to list her medications and their purpose. Medication Compliance: Good compliance reported. Have you ever stopped taking any medication because you lost your insurance you could not afford it? No. Have you stopped taking medication because you felt you didn't need it or because of side-effects? No. Do you have any moral, baptist, or ethical views against transplants or blood transfusions: No. Have you ever been transplanted, evaluated, or listed at another center: [facility] Potential donor: No SUBSTANCE USE/ABUSE Alcohol: None. Tobacco: Never Exposure to second hand smoke: No Illegal substances: Denies Over the Counter Medications: Tylenol Opioids/Controlled Substances: No CAGE Questionnaire NA LEGAL ENCOUNTERS Currently on probation or parole: No Past or current warrants for arrest: No Substance related legal problems: No Valid drivers license:Yes History of any legal issues not previously mentioned: No MENTAL HEALTH HISTORY Affect: Appropriate/Consistent Alert: Alert Orientation: person, place and time Appearance: Unremarkable/appropriate Cognitive Function: Cognition appears relatively intact Mood: Euthymic Are you having thoughts that you would be better off , or of hurting yourself in some way? Denied when asked directly. Current mental health diagnoses / current feelings of anxiety or depression: No Previous mental health diagnoses: No Psychiatric medication: No. Who prescribes: NA Counseling: No Psychiatric services: No History of suicide attempt(s) or ideation: No History of harming self: No History of harming others: No History of psychiatric hospitalization: No Any family history of mental health diagnoses: No Is a referral to Transplant Psychiatry indicated for further evaluation or screening: No SOCIAL NARRATIVE Adriana Morales grew up in [place], [place]. She is 49 years of age. Adriana Morales was raised by both biological parents. She describes childhood as good. History of Abuse, Assault, or Neglect: No Parental Information: biological Father: Aman is 87 and in good health. Mother: , PKD. Sibling Information: One sister, Christine. Relationship History & Current Status: Single Pregnancies: None Children: None EDUCATION Highest Educational Level: Bachelor Degree in Elementary Ed. Adriana Morales denies academic problems in school. 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 HEALTH INSURANCE/FINANCIAL Medical Insurance: AultCare Payer of Insurance Premium: Pt Prescription Coverage: Aultcare Insurance Policy Chan: Pt Medicare Status: Pt educated about ESRD Medicare Sent Edu 02/17/2024. Disability: NA Household Income: $35,000 Savings: Very little Do you have credit cards that could be used to pay for transplant medications in the event that you have an $800 to $3000 co-pay? Yes Fund Raising: Discussed fundraising. Pt was given a list of the medications for Kidney [place] recipients to learn how her insurance coverage applies. informed pt that she must be prepared to cover the copays of her immunosuppression and anti viral medications. Pt was also provided with information about fund raising. CAREGIVER/SUPPORT PLAN Primary Caregiver: sister King. She lives next door. Contact Number: [phone] Health Status and Availability of Caregiver: Good health/Confirmed during eval Valid Ethnic [employer] Teacher's License/Working Vehicle: Y/Y Caregiver Substance Use: Denies Caregiver Mental Health: Stable Secondary Caregiver: Aman Morales, father. Contact Number: [phone] Health Status and Availability: Confirmed on 03/22/2024. Valid [employer]nic [employer] Teacher's License/Working Vehicle: Y/Y Caregiver Substance Use: Denies Caregiver Mental Health: Stable PSYCHOSOCIAL RISKS Adherence to Treatment Protocols: Yes Ability to Understand Transplant Center's System of Care: Yes Active Psychiatric Diagnosis: No Financial Resources or Support: Yes Body Image/Scar: No IMPRESSIONS/RECOMMENDATIONS Adriana Morales is a suitable psychosocial candidate for kidney transplant. There are no psychosocial concerns that could have a negative impact on the successful and sustained outcome of a kidney transplant. Left a message on 03/18/24 for pt's PD nurse, Bridgett Reyes RN, regarding compliance. LM X 2. Bridgett called on 03/22/2024. She reports that the pt has perfect compliance and that they should clone her. Pt has the confirmed support of her sister and her father, with whom she lives. She has Aultcare and Medicare. Andressa has not disclosed substance use or mental health instability that could complicate her recovery. If listed, the patient should be scheduled for yearly visits with social work for the following purposes: to review health insurance, changes of caregiver support, changes in financial/employment status, and past or current issues with alcohol or drug use. We reviewed the follow up care sequence, including lab work twice a week and twice a week post transplant clinic appointments. We discussed the precautions to take because of being immunosuppressed. We also discussed the need to have a caregiver teradata developer for 2 weeks post transplant. Adriana Morales was advised that it is imperative to adhere to the medical regimen and recovery restrictions. Adriana Morales indicated understanding of this information. Adriana Morales had the opportunity to discuss any issues and questions. Patient was given information and brochures about the kidney transplant process and fund raising options. The patient was given the phone number of the transplant director social welfare to address future concerns. MICAH Hanna LISW-S, [facility] Transplant [employer] documented in this encounter [facility] 03-10-[address] López [address] - 03/10/2024 10:22 AM EST Eat 3 meals per day to ensure adequate nutrition. Combine a lean protein with a complex carbohydrate for improved energy levels. Use the healthy plate at mealtimes: 1/4 plate lean protein, 1/4 plate complex carbohydrates, 1/2 plate non starchy vegetables Limit sodium intake to 2000 mg per day. Start reading nutrition labels Choose frozen meals with less than 600 mg sodium per serving. Aim for less than 300 mg sodium per serving on other food products. Choose fresh and frozen fruits and vegetables. If you do choose canned foods, rinse and drain to reduce sodium Avoid adding extra salt to foods when cooking. Consider using salt-free seasonings for added flavor (like Mrs. Dash, garlic powder, onion powder, etc.) Limit restaurant foods. If eating out, consider getting sauces on the side, asking your windows server architect to have less salt added to your meal, and limit your portion. Eggs, yogurt, nuts/nut butters, seeds, meat/fish/poultry, cheese, cottage cheese, and yogurt all contain protein. If on dialysis, your body needs more protein. Include protein each time you eat. Consider using a protein shake if this is suggested by your dialysis dietitian (such as Rosa or [facility]). If not on dialysis, your body needs less protein. Consider limiting meat, fish, and poultry to 1 meal daily, no more than the size of a deck of cards. Incorporate plant-based protein, dairy, or eggs for lower protein options at other meals Limit sources of potassium and phosphorous as needed to maintain normal lab values Limit potassium to 2000 mg or less per day. See handout for more info. Limit phosphorous to 800-1000 mg or less per day. See handout for more info. If on dialysis, continue to limit sources of potassium and phosphorus as per your dialysis RD Stay active if able. Aim for 150 minutes of exercise per week. documented in this encounter [facility] 03-10-2024 Note HNO ID: [id number] Author: LISA LÓPEZ RD Service: ? Author Type: Registered Dietitian Type: Progress Notes Filed: 03/10/2024 10:22 Note Text: AMBULATORY PATIENT EDUCATION NOTE - Shared Nutrition Group (In Person) TOPIC:?Pre-kidney transplant nutrition evaluation Malnutrition Screening Significant unintentional weight loss? No Eating less than 75% of usual intake for more than 2 weeks? No Potential Signs of Inflammation: chronic condition READINESS TO LEARN: Cognitive Ability: Alert and oriented Motivation To Learn: Interested Family Support: High - Very involved in pt care Instruction Provided To: Patient and friend/other Patient Learns Best By: Multiple Methods Factors Affecting Learning: None Physical Limitations Affecting Learning: None LEARNING RESPONSE Patient/Family verbalizes understanding of pre-operative instructions and correct actions to take to follow pre-operative instructions. Anthropometrics: Height: Last 1 Encounter Ht Readings: Date: Ht: 03/10/2024 177.8 cm (5' 10) Weight: Last 1 Encounter Wt Readings: Date: Wt: 03/10/2024 88.7 kg (195 lb 8.8 oz) BMI: 28.06 kg/m2 Resting Metabolic Rate: 1595 Nutrition Assessment: Patient presents for nutrition clearance prior to kidney transplant. Optimizing nutritional adequacy will support recovery post-transplant. Nutrition Diagnosis: Behavioral-Environmental: Food and nutrition related knowledge deficit, related to, lack of prior exposure to information , as evidenced by client has no prior knowledge of need for food and nutrition - related information RECOMMENDED MALNUTRITION DIAGNOSIS: NO MALNUTRITION IDENTIFIED Educational materials provided: Healthy Lunch/Dinner Plate, High Protein Foods, Protein Controlled Diet, Controlling your Potassium Level, Low-Phosphorus Diet GL, and Your Sodium Controlled Diet, Renal Diet Basics, and Body Mass Index and Body Fat Patient participated in a pre-transplant shared nutrition group class which reviewed the following nutrition principles: Eat 3 meals per day to ensure adequate nutrition. Combine a lean protein with a complex carbohydrate for improved energy levels. Use the healthy plate at mealtimes: 1/4 plate lean protein, 1/4 plate complex carbohydrates, 1/2 plate non starchy vegetables Limit sodium intake to 2000 mg per day. Start reading nutrition labels Choose frozen meals with less than 600 mg sodium per serving. Aim for less than 300 mg sodium per serving on other food products. Choose fresh and frozen fruits and vegetables. If you do choose canned foods, rinse and drain to reduce sodium Avoid adding extra salt to foods when cooking. Consider using salt-free seasonings for added flavor (like Mrs. Thomson, garlic powder, onion powder, etc.) Limit restaurant foods. If eating out, consider getting sauces on the side, asking your windows server architect to have less salt added to your meal, and limit your portion. Eggs, yogurt, nuts/nut butters, seeds, meat/fish/poultry, cheese, cottage cheese, and yogurt all contain protein. If on dialysis, your body needs more protein. Include protein each time you eat. Consider using a protein shake if this is suggested by your dialysis dietitian (such as Rosa or [facility]by [employer]). If not on dialysis, your body needs less protein. Consider limiting meat, fish, and poultry to 1 meal daily, no more than the size of a deck of cards. Incorporate plant-based protein, dairy, or eggs for lower protein options at other meals Limit sources of potassium and phosphorous as needed to maintain normal lab values Limit potassium to 2000 mg or less per day. See handout for more info. Limit phosphorous to 800-1000 mg or less per day. See handout for more info. If on dialysis, continue to limit sources of potassium and phosphorus as per your dialysis RD Stay active if able. Aim for 150 minutes of exercise per week. Nutrition Pre-Transplant Assessment No contraindications Patient is to follow-up with in patient nutrition services after surgery. Referred/Supervised by: Transplant/Hawk Consult Billing Type: Ambulatory Group/30 min 1 unit SIGNATURE: Lisa López RD PATIENT NAME: Adriana Morales DATE: March 10, 2024 TIME: 10:20 AM PAGER: [facility] 03-10-2024 History of Presen t illness Narrative AMBULATORY PATIENT EDUCATION NOTE - Shared Nutrition Group (In Person) TOPIC:?Pre-kidney transplant nutrition evaluation Malnutrition Screening Significant unintentional weight loss? No Eating less than 75% of usual intake for more than 2 weeks? No Potential Signs of Inflammation: chronic condition READINESS TO LEARN: Cognitive Ability: Alert and oriented Motivation To Learn: Interested Family Support: High - Very involved in pt care Instruction Provided To: Patient and friend/other Patient Learns Best By: Multiple Methods Factors Affecting Learning: None Physical Limitations Affecting Learning: None LEARNING RESPONSE Patient/Family verbalizes understanding of pre-operative instructions and correct actions to take to follow pre-operative instructions. Anthropometrics: Height: Last 1 Encounter Ht Readings: Date: Ht: 03/10/2024 177.8 cm (5' 10) Weight: Last 1 Encounter Wt Readings: Date: Wt: 03/10/2024 88.7 kg (195 lb 8.8 oz) BMI: 28.06 kg/m2 Resting Metabolic Rate: 1595 Nutrition Assessment: Patient presents for nutrition clearance prior to kidney transplant. Optimizing nutritional adequacy will support recovery post-transplant. Nutrition Diagnosis: Behavioral-Environmental: Food and nutrition related knowledge deficit, related to, lack of prior exposure to information , as evidenced by client has no prior knowledge of need for food and nutrition - related information RECOMMENDED MALNUTRITION DIAGNOSIS: NO MALNUTRITION IDENTIFIED Educational materials provided: Healthy Lunch/Dinner Plate, High Protein Foods, Protein Controlled Diet, Controlling your Potassium Level, Low-Phosphorus Diet GL, and Your Sodium Controlled Diet, Renal Diet Basics, and Body Mass Index and Body Fat Patient participated in a pre-transplant shared nutrition group class which reviewed the following nutrition principles: Eat 3 meals per day to ensure adequate nutrition. Combine a lean protein with a complex carbohydrate for improved energy levels. Use the healthy plate at mealtimes: 1/4 plate lean protein, 1/4 plate complex carbohydrates, 1/2 plate non starchy vegetables Limit sodium intake to 2000 mg per day. Start reading nutrition labels Choose frozen meals with less than 600 mg sodium per serving. Aim for less than 300 mg sodium per serving on other food products. Choose fresh and frozen fruits and vegetables. If you do choose canned foods, rinse and drain to reduce sodium Avoid adding extra salt to foods when cooking. Consider using salt-free seasonings for added flavor (like Mrs. Dash, garlic powder, onion powder, etc.) Limit restaurant foods. If eating out, consider getting sauces on the side, asking your windows server architect to have less salt added to your meal, and limit your portion. Eggs, yogurt, nuts/nut butters, seeds, meat/fish/poultry, cheese, cottage cheese, and yogurt all contain protein. If on dialysis, your body needs more protein. Include protein each time you eat. Consider using a protein shake if this is suggested by your dialysis dietitian (such as Rosa or [facility]). If not on dialysis, your body needs less protein. Consider limiting meat, fish, and poultry to 1 meal daily, no more than the size of a deck of cards. Incorporate plant-based protein, dairy, or eggs for lower protein options at other meals Limit sources of potassium and phosphorous as needed to maintain normal lab values Limit potassium to 2000 mg or less per day. See handout for more info. Limit phosphorous to 800-1000 mg or less per day. See handout for more info. If on dialysis, continue to limit sources of potassium and phosphorus as per your dialysis RD Stay active if able. Aim for 150 minutes of exercise per week. Nutrition Pre-Transplant Assessment No contraindications Patient is to follow-up with in patient nutrition services after surgery. Referred/Supervised by: Transplant/Hawk Consult Billing Type: Ambulatory Group/30 min 1 unit SIGNATURE: Lisa López RD PATIENT NAME: Adriana Morales DATE: March 10, 2024 TIME: 10:20 AM PAGER: documented in this encounter [facility] 03-10-2024 Note HNO ID: [id number] Author: ZOCCHI, LUZ, RN Service: ? Author Type: Registered Nurse Type: Progress Notes Filed: 03/10/2024 10:00 Note Text: PRE-TRANSPLANT PATIENT EDUCATION NOTE Type of Transplant: Kidney Informed Consent for Evaluation signed: Yes Multiple Listing Form signed: Yes READINESS TO LEARN: Cognitive Ability: Alert and oriented Motivation to Learn: Interested Family Support: High - Very involved in pt care Instruction Provided to: Patient and family member Patient Learns Best by: Multiple Methods Factors Affecting Learning: None Physical Limitations Affecting Learning: None LEARNING RESPONSE: Diagnosis: ESRD Education Topics/Teaching Points: -Discussed living donor evaluation and approval process. -Discussed the evaluation and listing process. -Discussed the different types of donors (KDPI scoring, DCD, High Risk). -Explained EPTS scoring and how it is calculated. -Explained the surgical procedure and potential complications, surgeons, hospital stay at the time of transplant. -Explained lifetime immunosuppression therapy and frequency of blood draws/labs post-op and post-op course of treatment. -Reviewed National and [facility] outcomes from the most recent [facility] center-specific report; a copy of the program summary was given to the patient. -Explained that if the transplant is not performed at a Medicare-approved transplant center it could affect the ability to have immunosuppressive medications paid under Medicare Part B. Supplemental Material: -Pre-Transplant Patient Education Folder -UNOS: Questions AND Answers for Transplant Candidates about Multiple Listing and Waiting Time Transfer -UNOS: Questions AND Answers for Transplant Candidates about Kidney Allocation Policy -Directions to access [facility]'s data through the [facility] website. -Informed Consent for Transplant Program Participation patient education packet -National Kidney Registry pamphlet -Covid-19 Vaccination for Transplant Candidates Method of Instruction: Individual instruction Group class instruction Written instruction/Handouts Verbal instruction Power Point Patient/Family Response: Patient and family member asked appropriate questions, which were answered satisfactorily. Follow-Up Plan: Complete - No need for follow-up Referral/Recommendation: None Luz MITCHELL, RN Pre-Newsroom Intern [facility] 03-10-2024 History of Presen t illness Narrative PRE-TRANSPLANT PATIENT EDUCATION NOTE Type of Transplant: Kidney Informed Consent for Evaluation signed: Yes Multiple Listing Form signed: Yes READINESS TO LEARN: Cognitive Ability: Alert and oriented Motivation to Learn: Interested Family Support: High - Very involved in pt care Instruction Provided to: Patient and family member Patient Learns Best by: Multiple Methods Factors Affecting Learning: None Physical Limitations Affecting Learning: None LEARNING RESPONSE: Diagnosis: ESRD Education Topics/Teaching Points: -Discussed living donor evaluation and approval process. -Discussed the evaluation and listing process. -Discussed the different types of donors (KDPI scoring, DCD, High Risk). -Explained EPTS scoring and how it is calculated. -Explained the surgical procedure and potential complications, surgeons, hospital stay at the time of transplant. -Explained lifetime immunosuppression therapy and frequency of blood draws/labs post-op and post-op course of treatment. -Reviewed National and [facility] outcomes from the most recent [facility] center-specific report; a copy of the program summary was given to the patient. -Explained that if the transplant is not performed at a Medicare-approved transplant center it could affect the ability to have immunosuppressive medications paid under Medicare Part B. Supplemental Material: -Pre-Transplant Patient Education Folder -UNOS: Questions & Answers for Transplant Candidates about Multiple Listing and Waiting Time Transfer -UNOS: Questions & Answers for Transplant Candidates about Kidney Allocation Policy -Directions to access [facility]'s data through the [facility]TR website. -Informed Consent for Transplant Program Participation patient education packet -National Kidney Registry pamphlet -Covid-19 Vaccination for Transplant Candidates Method of Instruction: Individual instruction Group class instruction Written instruction/Handouts Verbal instruction Power Point Patient/Family Response: Patient and family member asked appropriate questions, which were answered satisfactorily. Follow-Up Plan: Complete - No need for follow-up Referral/Recommendation: None Luz MITCHELL, RN Pre-Newsroom Intern documented in this encounter [facility] 03-10-2024 Note Education (DTBAMN) ADRIANA MORALES ([id number]) 1975 F Date Time Provider Department 03/10/24 9:45 AM LISA LÓPEZ DTBAMN Reason for Visit: Patient Education [91] Primary Visit Diagnosis:Dietary counseling and surveillance [Z71.3] Other Visit Diagnosis:Awaiting organ transplant [Z76.82] During your visit today, we recorded the following information about you: Allergies As of Date: 03/10/2024 (Not on File) Date Reviewed: 03/10/2024 Reviewed by: Lisa López RD - Fully Assessed Prescriptions as of 03/10/2024 - amLODIPine (NORVASC) 10 mg tablet Take 10 mg by mouth once daily. - calcitriol (ROCALTROL) 0.5 mcg capsule Take 1 capsule by mouth once daily. - ergocalciferol 50,000 unit capsule (VITAMIN D2, DRISDOL) Take 50,000 Units by mouth one time a week. - ferrous sulfate EC 324 mg (65 mg iron) TbEC Take 324 mg by mouth once daily. - metoprolol succinate ER (TOPROL XL) 50 mg 24 hr tablet Take 50 mg by mouth once daily. - KLOR-CON M20 20 mEq tablet Take 40 mEq by mouth once daily. - sodium fluoride-vitamin D3 0.25 mg (0.55 mg)-400 unit/mL drop Take by mouth. - LASIX 40 mg tablet Take 1 tablet by mouth two times a day. - ferrous sulfate 325 mg (65 mg iron) tablet Take 1 tablet by mouth every afternoon. Disposition: Return if symptoms worsen or fail to improve. Follow-up and Disposition History for Encounter Date Provider Department Center 03/10/2024 [id number], [facility] Encounter Status:Closed by LISA LÓPEZ on 03/10/24 [facility] 03-10-2024 Note HNO ID: [id number] Author: REN RAO MD Service: ? Author Type: Fellow Type: Progress Notes Filed: 03/10/2024 15:31 Note Text: [facility] Transplant Evaluation CC: Consultation for Kidney transplant evaluation. Referred by: Maximus Machado MD [facility] [place] [address] Fx# [phone] I will communicate with the referring provider by letter and/or shared electronic medical record. HPI: Ms Adriana Morales is a 49 y/o female with Polycystic kidney disease and history of hypertension, end-stage renal disease on peritoneal dialysis since 12/16/2022. Currently listed at [facility], active status since 03/23/2021. No Renal Biopsy available No MRA of Brain available Patient presents ambulatory without assistive devices. 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 Smoking Status: Never UTI: No Kidney stones: No Pregnancies: No If yes, how many?: Miscarriages: No If yes, at what week(s)?: Chronic anti-coagulation: No Midodrine: No If yes, frequency: What is your blood pressure in between dialysis sessions?: Abdominal surgeries: Yes PD catheter and umbilical surgery no mesh Cardiovascular Disease?: No Peripheral Arterial Disease (TIA non-embolic, CVA non-embolic, amputation, abnormal PVRs, decreased pulses, etc): No Stroke: No Claudication: No Carotid Artery Stenosis: No DM: No Diabetic ulcers or chronic wounds: Prior transplant: No CKD: Yes: Cause of CKD: ADPKD Peritoneal dialysis, start date: 12/16/2022 Living Donors: No Residual UO: yes Hypercoagulable (hx of DVT/PE, miscarriages, prior use of anticoagulation, etc): No Malignancy (including skin cancer): No Last hospitalization: BP 119/88 (BP Site: Right Arm, BP Position: Sitting, BP Cuff Size: Regular Adult) Pulse 84 Temp 36.9 ?C (98.4 ?F) (Oral) Ht 177.8 cm (5' 10) Wt 88.7 kg (195 lb 8.8 oz) BMI 28.06 kg/m? PAST MEDICAL HISTORY Diagnosis Date ESRD (end stage renal disease) (HCC) Essential hypertension Polycystic kidney disease PAST SURGICAL HISTORY Procedure Laterality Date PERITONEAL CATHETER INSERTION HX Current Outpatient Medications Medication Sig ergocalciferol 50,000 unit capsule (VITAMIN D2, DRISDOL) Take 50,000 Units by mouth one time a week. ferrous sulfate EC 324 mg (65 mg iron) TbEC Take 324 mg by mouth once daily. sodium fluoride-vitamin D3 0.25 mg (0.55 mg)-400 unit/mL drop Take by mouth. LASIX 40 mg tablet Take 1 tablet by mouth two times a day. ferrous sulfate 325 mg (65 mg iron) tablet Take 1 tablet by mouth every afternoon. amLODIPine (NORVASC) 10 mg tablet Take 10 mg by mouth once daily. calcitriol (ROCALTROL) 0.5 mcg capsule Take 1 capsule by mouth once daily. metoprolol succinate ER (TOPROL XL) 50 mg 24 hr tablet Take 50 mg by mouth once daily. KLOR-CON M20 20 mEq tablet Take 40 mEq by mouth once daily. No current facility-administered medications for this visit. Family History Problem Relation Age of Onset Diabetes Mother Hypertension Mother Kidney Disease Mother Hypertension Father Kidney Disease Maternal Grandmother Pre-transplant testing: Cardiac Testing: EC03/10/2024 US - ECHO 04/02/2023 Impression: Normal LV size Left ventricular systolic function is normal The estimated ejection fraction is 60% Equivocal mitral valve prolapse Multiply liver cysts rated. MRA BRAIN: (r/o aneurysm) To schedule CT ABD/PEL WO IVCON 03/04/2023 Impression 1, Mild pneumoperitoneum with peritoneal dialysis catheter in place. 2. Complex cyst measuring 5.5 x 8.8 x 5.2 cm with a peripheral solid nodule that measures 3.2 cm in the left adnexa. Consider pelvic ultrasound for further evaluation. 3. Adult polycystic kidney and liver disease. 4. Innumerable cysts throughout the liver. 5. Numerous diverticula without diverticulitis, 6. Cyst measuring 2.4 cm right ovary. 7. Innumerable renal cysts bilaterally. CXR: 03/10/2024 Impression PAP Test: 05/29/2023 Interpretation Negative for intraepithelial lesion or malignancy Mammogram: 2022 (updating this month) [place] [address] Colonoscopy: Never done Patient calling pcp to order Sensitizations: Prior transplant: No Blood transfusions: No : No Rabbit: No Immunizations: HBV series: Received, date 11/13/2022, 05/15/2022, 04/12/2022 Pneumovax: Received, date Influenza vaccine: Received, date Covid vaccine: Received, date 07/21/2020, 06/30/2020 Jenny Hill RN I have confirmed and edited as necessary, the PFSH and ROS obtained by others. Ren Rao MD Exclusion criteria for HCV organs (IF POTENTIAL RECIPIENT MEETS ANY OF THESE CRITERIA, THEY ARE (more content not included)... [facility] 03-10-2024 History of Presen t illness Narrative [facility] Transplant Evaluation CC: Consultation for Kidney transplant evaluation. Referred by: Maximus Machado MD [facility] [address] [place] [address] & [place] [address] Fx# [phone] I will communicate with the referring provider by letter and/or shared electronic medical record. HPI: Ms Adriana Morales is a 49 y/o female with Polycystic kidney disease and history of hypertension, end-stage renal disease on peritoneal dialysis since 12/16/2022. Currently listed at [facility], active status since 03/23/2021. No Renal Biopsy available No MRA of Brain available Patient presents ambulatory without assistive devices. 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 Smoking Status: Never UTI: No Kidney stones: No Pregnancies: No If yes, how many?: Miscarriages: No If yes, at what week(s)?: Chronic anti-coagulation: No Midodrine: No If yes, frequency: What is your blood pressure in between dialysis sessions?: Abdominal surgeries: Yes PD catheter and umbilical surgery no mesh Cardiovascular Disease?: No Peripheral Arterial Disease (TIA non-embolic, CVA non-embolic, amputation, abnormal PVRs, decreased pulses, etc): No Stroke: No Claudication: No Carotid Artery Stenosis: No DM: No Diabetic ulcers or chronic wounds: Prior transplant: No CKD: Yes: Cause of CKD: ADPKD Peritoneal dialysis, start date: 12/16/2022 Living Donors: No Residual UO: yes Hypercoagulable (hx of DVT/PE, miscarriages, prior use of anticoagulation, etc): No Malignancy (including skin cancer): No Last hospitalization: BP 119/88 (BP Site: Right Arm, BP Position: Sitting, BP Cuff Size: Regular Adult) Pulse 84 Temp 36.9 C (98.4 F) (Oral) Ht 177.8 cm (5' 10) Wt 88.7 kg (195 lb 8.8 oz) BMI 28.06 kg/m PAST MEDICAL HISTORY Diagnosis Date ESRD (end stage renal disease) (HCC) Essential hypertension Polycystic kidney disease PAST SURGICAL HISTORY Procedure Laterality Date PERITONEAL CATHETER INSERTION HX Current Outpatient Medications Medication Sig ergocalciferol 50,000 unit capsule (VITAMIN D2, DRISDOL) Take 50,000 Units by mouth one time a week. ferrous sulfate EC 324 mg (65 mg iron) TbEC Take 324 mg by mouth once daily. sodium fluoride-vitamin D3 0.25 mg (0.55 mg)-400 unit/mL drop Take by mouth. LASIX 40 mg tablet Take 1 tablet by mouth two times a day. ferrous sulfate 325 mg (65 mg iron) tablet Take 1 tablet by mouth every afternoon. amLODIPine (NORVASC) 10 mg tablet Take 10 mg by mouth once daily. calcitriol (ROCALTROL) 0.5 mcg capsule Take 1 capsule by mouth once daily. metoprolol succinate ER (TOPROL XL) 50 mg 24 hr tablet Take 50 mg by mouth once daily. KLOR-CON M20 20 mEq tablet Take 40 mEq by mouth once daily. No current facility-administered medications for this visit. Family History Problem Relation Age of Onset Diabetes Mother Hypertension Mother Kidney Disease Mother Hypertension Father Kidney Disease Maternal Grandmother Pre-transplant testing: Cardiac Testing: EC03/10/2024 US - ECHO 04/02/2023 Impression: Normal LV size Left ventricular systolic function is normal The estimated ejection fraction is 60% Equivocal mitral valve prolapse Multiply liver cysts rated. MRA BRAIN: (r/o aneurysm) To schedule CT ABD/PEL WO IVCON 03/04/2023 Impression 1, Mild pneumoperitoneum with peritoneal dialysis catheter in place. 2. Complex cyst measuring 5.5 x 8.8 x 5.2 cm with a peripheral solid nodule that measures 3.2 cm in the left adnexa. Consider pelvic ultrasound for further evaluation. 3. Adult polycystic kidney and liver disease. 4. Innumerable cysts throughout the liver. 5. Numerous diverticula without diverticulitis, 6. Cyst measuring 2.4 cm right ovary. 7. Innumerable renal cysts bilaterally. CXR: 03/10/2024 Impression PAP Test: 05/29/2023 Interpretation Negative for intraepithelial lesion or malignancy Mammogram: 2022 (updating this month) [place] [address] Colonoscopy: Never done Patient calling pcp to order Sensitizations: Prior transplant: No Blood transfusions: No : No Rabbit: No Immunizations: HBV series: Received, date 11/13/2022, 05/15/2022, 04/12/2022 Pneumovax: Received, date Influenza vaccine: Received, date Covid vaccine: Received, date 07/21/2020, 06/30/2020 Jenny Hill RN I have confirmed and edited as necessary, the PFSH and ROS obtained by others. Ren Rao MD Exclusion criteria for HCV organs (IF POTENTIAL RECIPIENT MEETS ANY OF THESE CRITERIA, THEY ARE EITHER NOT ELIGIBLE, OR THEY MUST SEE HEPATOLOGY FOR INFORMED CONSENT) [] HCV-RNA positive (such individuals may receive HCV donor positive organs, but are not part of this D+/R- program) [] HIV Infection [] Evidence of cirrhosis by imaging or biopsy [] or lactating women [] Prior surgery with altered gastroduodenal anatomy (Gastric bypass, Gastric sleeve) [] Required continued use of certain medications that may interfere with DAA absorption including: [] Statins [] PPI if dose required is > 20mg per day [] Amiodarone [] Anticonvulsants/mood stabilizers (eg: carbamazepine, phenytoin, oxcarbazine) [] Digoxin [] Current severe systemic infection [] Current illicit drug use Informed Consent for the option of considering an HCV positive organ MUST CHOOSE ONE OF THE OPTIONS BELOW [x] Yes, the patient is interested. Adriana Morales wishes to pursue the option of obtaining a HCV positive organ. Advantages and disadvantages of HCV viremic donor transplantation were reviewed. Patient received education on the risk of transmission of HCV following HCV viremic donor transplantation, the natural history of HCV, current therapies for HCV, side effects of therapy, and need for monitoring during and after therapy for HCV. Provided pt with educational slide packet and handout titled Transplantation of Hepatitis C Viremic Organs into Hepatitis C Negative Recipients. The risks of HCV transmission post-transplant, fibrosing cholestatic HCV, treatment failure, chronic HCV, cirrhosis and hepatic and non-hepatic manifestations of acute and chronic HCV were specifically discussed. Patient verbalized understanding of the risks and benefits of receiving a hepatitis C viremic organ and provided verbal consent to be enrolled in the protocol. All their questions were answered. [] No, the patient is not interested in this option. [] The patient would like more time to consider this option. Patient has been educated and can call back regarding accepting or declining this option. Impression: 41 year old female here for evaluation of eligibility for kidney transplantation due to a h/o ESRD (on PD since 12/19/2022) secondary to ADPKD. The patient is a good candidate for kidney transplantation. Additionally: Patient is currently actively listed for kidney transplant at [facility]. She does have a family history of ADPKD in her mother and grandmother and does report history of hemorrhagic stroke in her grandmother. Does additionally have extensive family history of cardiac disease. It does appear that she had MRA and stress test in 2020, report not available at this time. 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 ROS: General: Negative for fever, chills, weight loss CVS: negative for chest pain or SOB Resp: negative for cough or mucous production GI/: negative for flank pain, hematuria Extremities: positive for ankle swelling Physical examination: General: Awake, alert, no acute distress HEENT: Non-scleral icterus, mucous membranes moist CVS: S1 and S2 without RRR Abdomen: Soft, PD catheter present Extremities: Ankle edema present We had the opportunity to discuss the following, specific for this patient: 1) Risks and benefits of transplantation including overall average increase in life expectancy and higher quality of life with transplantation for most recipients but not all; however, there is during the immediate transplant period a higher risk of over staying on dialysis that is variable depending on recipient and donor factors. 2) Types of donor organs, including possibility of living donors, donors, donor quality as assessed by KDPI (higher KDPI being lower quality with especial attention to those organs with KDPI >85%), hep C donors, donor after cardiac (DCD) and CDC Increased risk donor types, with relative benefit of living donation over donor transplantation explained. 3) Detailed discussion regarding immunosuppression following transplantation, including usual protocols and drugs involved. This included the risks of infection, possibly life threatening, and malignancy. We also discussed possible need for dialysis post-transplant and re-admission to the hospital. 4) Post-transplant care and compliance with medical treatment, noting that this is very important for optimal transplant outcomes. 5) Possible recurrence of disease which depending on condition it could lead to graft failure. Patient expresses understanding of the information discussed. Given her current issues, we plan: 1. Labs per protocol 2. Will need MRA of the brain 3. Needs repeat cardiac stress test 4. Needs colonoscopy 5. Awaiting updated mammogram report Opportunity to ask questions given. Appears to understand. Communication with referring provider done by letter. Case discussed with Dr. Maira Aranda MD PGY-V Nephrology Fellow I have seen and examined the patient with Pineda Aranda MD . I have confirmed the hubbard portions of the history and physical independently. In summary 49-year-old female ADPKD disease currently managed with peritoneal dialysis. Main manifestations of her cystic kidney disease have been hypertension and enlarged kidneys. Positive family history history of hemorrhagic stroke in grandmother. No significant cardiovascular risk factors except CKD and hypertension. She is probably a very good candidate for kidney transplantation I agree with above workup will need an MRI of the brain repeat noninvasive cardiovascular test and cancer screening. Ren Rao MD This note was partially generated using ARE[employer] voice recognition system, and there may be some incorrect words, spellings, and punctuation that were not noted in checking the note before saving. documented in this encounter [facility] 03-05-2024 Note HNO ID: [id number] Author: AASHISH SIMONS RN Service: ? 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 No (Safety Net = Pt needing an additional transplant within 12 months for any organ) Adriana Morales [phone] Spoke with: Patient Best Contact FOR PANCREAS AND KIDNEY/PANCREAS TRANSPLANT AGE 55+ is a HARD STOP If patient is NOT on Dialysis & has a GFR >21 is a HARD STOP REFERRING ASSOCIATE PROFESSOR OF CHURCH MUSIC / PHYSICIAN:Dr. Stroud [facility] Have you ever been evaluated for kidney/pancreas transplant? Yes If YES, where? [facility],[address], [place] [address] . In 2020 Status of listing/evaluation: Active Have you had a previous transplant? No Have you had one or both kidneys removed: No Reason: N/A OUT OF STATE MEDICAID PATIENTS: APC - run the Medicaid through [facility] to determine if the coverage is Out of Network (OON) with [facility]. If the Medicaid is OON, inform the patient that their PCP will need to send a referral to the Out of State Medicaid for a Transplant Evaluation. Have you been seen at another Transplant Center that was in-network with your Out of State (OOS) Medicaid and denied a Transplant Evaluation? No Has your PCP sent in a referral for transplant to your (OOS) Medicaid home health care case manager? No Height: 5.10 Weight: 194 BMI: 27.8 KIDNEY TRANSPLANT BMI>42 is a HARD STOP PANCREAS TRANSPLANT BMI>32 is a HARD STOP Have you had weight loss without trying within the last 30 days? No If YES, please complete the Malnutrition Screening Tool (MST). Malnutrition Screening Tool (MST) If YES, how much weight have you lost? Unsure- 2 Weight loss score: 0 Have you been eating poorly in the last week because of a decreased appetite? No- 0 Appetite score: 0 Total MST score (weight loss + appetite scores): 0 Score of 2 or more = referral to registered dietitian for an individual appointment Any history of Smoking/Vaping/Nicotine products: Non-smoker If a current smoker, this is a HARD STOP Packs/Day N/A X # of Yrs smoked N/A = Pack Yrs N/A Oxygen use: NO If on continuous oxygen this is a HARD STOP Blood Transfusion: Are you willing to accept a blood transfusion if needed? Yes If NO this is a HARD STOP Assistive devices: No assistive device Activity Level: Light activity COPD/Emphysema/Other pulmonary problem: No Dialysis: [facility] Days: Peritoneal Dialysis start date: 12/16/2022 If not on dialysis, what is your GFR? N/A Do you have Diabetes? No Age diagnosed: N/A Insulin dependent: No Hypoglycemic unawareness: No Have you had a Kidney Biopsy: No Have you had a Liver Biopsy: No Dx of Cirrhosis? No Dx of Hepatitis? No Hx of ETOH? No Hx of Drug use? No Hx of Psychiatric disorder? No Dx of HIV/AIDS? No if yes, Infectious Disease doctor name/where? Hx of Cancer? no Hx of Hypertension? Yes Hx of [place]/Heart Attack? No Hx of TIA/CVA or Stroke? No Are you on a blood thinner? No If YES which medication are you on? N/A Have you had a CABG or STENTS? No Have you ever had a Stress Test? Yes. If yes, date and location: 2020 [facility] [address] [place] [address] Have you ever had an Echo? Yes. If yes, date and location: [address] [address] Have you ever had a Cardiac Cath? No CT Abdomen/Pelvis: Yes. If yes, date and location: [address] [address] Mammogram: Yes. If yes, date and location: [address] [address] Pap Test: Yes. If yes, date and location: [address] [address] Colonoscopy: No Hx of Lupus? No Sickle Cell Trait or Disease: No Have you had any prior surgeries? no Do you have a potential living donor? NO MyCHART Is the patient signed up for Sulfagenix? No If YES - send patient the Kidney/Pancreas New Referral Message. If NO - obtain their email address AND send Squarespace sign up information: email address: No e-mail address on record Is the patient okay with having a Virtual Appt: No ( Patient does not have my chart) What facilities do we need outside records from: yes Have records been retrieved from Care Everywhere: Yes. Have records been requested from [facility]? Yes Additional Comments about patient/evaluation: Record requested Route the referral to the Kidney Txp paper goods machine set up operator, Aashish Simons. Raul Solis [facility] 02-25-2024 Miscellaneous Notes KIDNEY TRANSPLANT REFERRAL (enter above which organ the patient needs; Kidney, Pancreas or Kidney/Pancreas) Is this referral for a Safety Net or HIV Patient? No (Safety Net = Pt needing an additional transplant within 12 months for any organ) Adriana Morales [phone] Spoke with: Patient Best Contact FOR PANCREAS AND KIDNEY/PANCREAS TRANSPLANT AGE 55+ is a HARD STOP If patient is NOT on Dialysis & has a GFR >21 is a HARD STOP REFERRING ASSOCIATE PROFESSOR OF CHURCH MUSIC / PHYSICIAN:Lillian Keenan Have you ever been evaluated for kidney/pancreas transplant? Yes If YES, where? The [facility],[address], [place] [address] . In 2020 Status of listing/evaluation: Active Have you had a previous transplant? No Have you had one or both kidneys removed: No Reason: N/A OUT OF STATE MEDICAID PATIENTS: APC - run the Medicaid through [facility] to determine if the coverage is Out of Network (OON) with [facility]. If the Medicaid is OON, inform the patient that their PCP will need to send a referral to the Out of State Medicaid for a Transplant Evaluation. Have you been seen at another Transplant Center that was in-network with your Out of State (OOS) Medicaid and denied a Transplant Evaluation? No Has your PCP sent in a referral for transplant to your (OOS) Medicaid home health care case manager? No Height: 5.10 Weight: 194 BMI: 27.8 KIDNEY TRANSPLANT BMI>42 is a HARD STOP PANCREAS TRANSPLANT BMI>32 is a HARD STOP Have you had weight loss without trying within the last 30 days? No If YES, please complete the Malnutrition Screening Tool (MST). Malnutrition Screening Tool (MST) If YES, how much weight have you lost? Unsure- 2 Weight loss score: 0 Have you been eating poorly in the last week because of a decreased appetite? No- 0 Appetite score: 0 Total MST score (weight loss + appetite scores): 0 Score of 2 or more = referral to registered dietitian for an individual appointment Any history of Smoking/Vaping/Nicotine products: Non-smoker If a current smoker, this is a HARD STOP Packs/Day N/A X # of Yrs smoked N/A = Pack Yrs N/A Oxygen use: NO If on continuous oxygen this is a HARD STOP Blood Transfusion: Are you willing to accept a blood transfusion if needed? Yes If NO this is a HARD STOP Assistive devices: No assistive device Activity Level: Light activity COPD/Emphysema/Other pulmonary problem: No Dialysis: [facility] Days: Peritoneal Dialysis start date: 12/16/2022 If not on dialysis, what is your GFR? N/A Do you have Diabetes? No Age diagnosed: N/A Insulin dependent: No Hypoglycemic unawareness: No Have you had a Kidney Biopsy: No Have you had a Liver Biopsy: No Dx of Cirrhosis? No Dx of Hepatitis? No Hx of ETOH? No Hx of Drug use? No Hx of Psychiatric disorder? No Dx of HIV/AIDS? No if yes, Infectious Disease doctor name/where? Hx of Cancer? no Hx of Hypertension? Yes Hx of [place]/Heart Attack? No Hx of TIA/CVA or Stroke? No Are you on a blood thinner? No If YES which medication are you on? N/A Have you had a CABG or STENTS? No Have you ever had a Stress Test? Yes. If yes, date and location: [address] [address] Have you ever had an Echo? Yes. If yes, date and location: [address] [address] Have you ever had a Cardiac Cath? No CT Abdomen/Pelvis: Yes. If yes, date and location: [address] [address] Mammogram: Yes. If yes, date and location: 2022 [place] [address] Pap Test: Yes. If yes, date and location: [address] [address] Colonoscopy: No Hx of Lupus? No Sickle Cell Trait or Disease: No Have you had any prior surgeries? no Do you have a potential living donor? NO MyCHART Is the patient signed up for Sulfagenix? No If YES - send patient the Kidney/Pancreas New Referral Message. If NO - obtain their email address AND send The [employer] sign up information: email address: No e-mail address on record Is the patient okay with having a Virtual Appt: No ( Patient does not have my chart) What facilities do we need outside records from: yes Have records been retrieved from Care Everywhere: Yes. Have records been requested from [facility]? Yes Additional Comments about patient/evaluation: Record requested Route the referral to the Kidney Txp paper goods machine set up operator, Aashish Simons. Raul Solis documented in this encounter [facility] 02-20-2024 Telephone encounter Note Called patient regarding kidney transplant referral. Per patient call back next Friday. Raul Solis [facility] 02-20-2024 Miscellaneous Notes Called patient regarding kidney transplant referral. Per patient call back next Friday. Raul Solis documented in this encounter [facility] 10-16-2023 History of Presen t illness Narrative Images from the original note were not included. Comprehensive Transplant Center Wait list Evaluation Dialysis Center: [facility] Chief Complaint: Scheduled Kidney Transplant wait list evaluation. History of Present Illness: Adriana Morales was initiated on chronic dialysis 12/16/2022 due to Polycystic Kidneys and is currently on peritoneal dialysis. Since Adriana was most recently evaluated in clinic on 10/24/2022, she underwent umbilical hernia repair on 07/29/2023. [place] kidney biopsy: no List Date: 03/23/2021 Inactive Date(s): None Verified she is active in [facility]. Insurance has been verified via [employer] Insurance Assessment Form Advanced: Authorization end date 03/31/2024 Review of Symptoms: History obtained from chart review and the patient Energy level 0-10 (last month with 0 no energy and 10 most energy ever had): 5 Psychological ROS:normal Ophthalmic ROS: normal Respiratory ROS: normal CPAP/bi-pap: not ordered Cardiovascular ROS: normal Vascular access: none Gastrointestinal ROS:normal Genito-Urinary ROS: urinates a moderate to large amount per day Musculoskeletal ROS: normal Neurological ROS:normal Dermatological ROS: intact Social History Living situation: dad 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 Estimated body mass index is 26.39 kg/m as calculated from the following: Height as of 10/24/22: 1.778 m (5' 10). Weight as of this encounter: 83.4 kg (183 lb 14.4 oz). General: well-appearing Cardio: S1S2 RRR Lungs: Clear to auscultation Femoral Pulse:right femoral present Skin: intact Allergies: Allergies Allergen Reactions Allopurinol Abdominal Discomfort cramps Lisinopril Related to decline in kidney function Losartan Medications: Current Outpatient Medications Medication Sig ferrous sulfate [address] Take 1 tablet by mouth daily. Klor-Con M20 20 MEQ Tab CR tablet Take 1 tablet by mouth 2 times daily with meals. Lasix 40 MG tablet Take 1 tablet by mouth 2 times daily. amLODIPine 10 MG tablet Take 1 tablet by mouth daily. calcitRIOL 0.5 MCG capsule Take 1 capsule by mouth daily. Ergocalciferol 1.25 MG (46964 UT) capsule Take 1 capsule by mouth once a week. Metoprolol succinate 50 MG tablet XL Take 1 tablet by mouth daily. Laboratory Data O POS cPRA (%) Date Value 10/06/2023 0 Health Maintenance: Mammogram: 04/04/2022 no mammographic evidence of malignancy Pap Smear:05/29/2023 negative for intraepithelial lesion or malignancy Adriana reports that she has never smoked. She has never used smokeless tobacco. Cardiac Testin04/02/2023 Normal LV size Left ventricular systolic function is normal The estimated ejection fraction is 60% Equivocal mitral valve prolapse Active living donors: 0 EPTS score: 14% Maximum KDPI acceptable: 85% Impression and Plan Adriana Morales will remain active on the kidney transplant wait list with a qualifying date of 03/23/2021. Polycystic kidney disease - 05/31/2020 no aneurysms Hyperparathyroidism- PTH unavailable Functional status: 3.26 Pre-frail - advise to increase physical and cognitive activity Ms. Morales was highly encouraged to find a living donor. Consider a transplant champion. She was educated on Hepatitis C Antibody positive/RADHA negative donors so if she received a kidney offer with this classification, she could make an informed decision. She was educated on Hepatitis C Antibody positive/RADHA positive donors so if she received a kidney offer with this classification, she could make an informed decision. Consent previously signed. Ms. Morales will be asked to return for a wait list appointment as well as repeat cardiac testing according to protocol. She was also asked to keep the transplant center updated with any change in condition or hospitalizations. Time Spent on Encounter: 30 minutes Magda Mcdaniel MSN, RN, MATERIALS RESEARCH ENGINEER-BC, CCTN Certified Nurse Practitioner Comprehensive Transplant Center [facility] [address] [facility] [id number] documented in this encounter [facility] 10-16-2023 Instructions YON Santos - 10/16/2023 9:30 AM EDT Living Donor [place] Ask one or two family members or [...] or hospitalizations by calling your coordinator at [phone]. Continue your health maintenance while waiting for your transplant. You have the right to opt out of the transplant process at any time. If you would like to discuss alternative treatments or therapies to kidney transplantation, please discuss with your provider. May 2020-April 2021 The [facility] 330 People Received Kidney Transplants 76 Living donor 254 donor donor [facility] Requires dialysis in the first week after [...] injection of drugs Has been in lockup, senior living, senior care or juvenile correctional facility for > 72 [...] may receive an offer in which the manager transplant asks you if you want to accept [...] may receive an offer in which the manager transplant asks you if you want to accept [...] rare. HCV is contagious, but only through [id number] contact. HCV is not transmitted by hugging, [...] wait time may be much shorter. 1 [place] Association for the Study of Liver Diseases (AASLD) and the Infectious Diseases Society of [place] (IDSA). Recommendations for testing, management, and treating hepatitis C. HCV testing and linkage to care. Available at: https://www.hcvguidelines.org 2 Epclusa full prescribing information [id number] revised 03/2019 3 Mavyret full prescribing information [...] chance patient survival documented in this encounter [facility] 07-29-2023 Hospital Discharg e instructions Patient Education 07/29/2023 14:13:16 8- Post Op General Surgery (04/2020) (Custom) What to Do After Your General Surgery This sheet will give you general information on what to do when you are home after surgery. However, you should always follow any specific instructions given to you by your surgeon. Pain Medication Please follow the directions on the label of your medication and use your discharge medication list provided by the hospital. Do not take pain medication on an empty stomach. This may cause a stomachache. Constipation is common while taking oral pain medication after surgery. Use a stool softener (Colace) or gentle laxative (milk of magnesia) if needed. As soon as your pain allows, use less of any narcotic pain medication. You may take [id number] pain medication if you no longer need your prescribed pain medication. Dmfo-vrr-vuzqdyf pain medications are Tylenol or Advil/Motrin (ibuprofen). Do not take Tylenol if you are still taking Sophia or Percocet. They are the same type of medication, and too much acetaminophen can hurt your liver. Activity It is OK to use stairs. Do not lift more than 15 pounds. After surgery, you may feel tired. Rest is important for healing. Slowly increase your activity level by walking and doing normal activities as you feel comfortable. Do not drive while taking narcotic pain medication. They should be out of your system for [address]. Diet Eating smaller meals instead of three large meals is good. This may help with your appetite and nutrition. Good nutrition will help you heal. Follow diet instructions that you were taught after surgery. Infection Prevention Washing your hands is one of the best ways to prevent infection. Always wash your hands before and after touching your incision or bandage. Hands carry germs that can cause infections. Try not to touch your incision. Keep the Incision Clean Wear clean, loose-fitting clothes to prevent clothes from rubbing on the incision. Put clean sheets on your bed when you get home. Do not let other people or animals touch the incision. Showering You may start to shower 48 hours after your surgery. Use a clean washcloth and towel on your incision before you use it on any other area of your body. Adjust the shower spray to gentle and use warm water. Gently wash over your incision using antibacterial soap and water and pat it dry. Do not rub the incision. Do not soak or submerge in the bathtub or hot tub until your surgeon says it is OK. Wound Care If you have a clear, see-through bandage over your incision(s), you may shower with it in place. The bandage is waterproof. oIt is normal to see a small amount of reddish fluid under the clear bandage. You may remove your bandage after 48 hours. If you are in the hospital longer than 48 hours, it is OK to remove your bandage when you get home. If you have thin white tape strips (Steri-Strips) over your incision, keep them dry. Do not remove them unless they begin curling up at the sides and are almost falling off. Amanda or sutures are generally removed within seven to 14 days at your follow-up appointment. Drain Care If you have a drain, empty it two to three times per day or if it gets half full. Write down the time it was emptied and amount of fluid on a piece of paper. Bring your paper with times and fluid amounts to your follow-up appointment to show your surgeon. Call Your Doctor If: You have a fever of 101 degrees or higher. It is not uncommon to have a low-grade fever after surgery. You have new redness or fluid around the incision that smells bad or looks like pus. Your skin is very painful, red, warm and/or swollen around the incision. You have a lot of bleeding (push with pressure on the area if this happens). You have bad stomach pain or you start throwing up. If you are unable to reach your surgeon, go to the hospital. Follow Up If a follow-up appointment has not been made, please call your surgeon s office. Most appointments are 10 14 days after surgery. If you have any problems or concerns before then, call the surgeon s office. 07/29/2023 14:13:16 1- [facility] General Discharge Guidelines (01/17/2023) (Custom) JACE SAME DAY SURGERY DISCHARGE INSTRUCTIONS PLEASE FOLLOW THE INSTRUCTIONS BELOW MARKED WITH AN X: __X_Regular Diet: Start with clear liquids, then soup and crackers. Gradually add other foods unless otherwise instructed by your surgeon __X_Drink extra fluids ACTIVTY: __X_Since you have had anesthetic, it would be advisable not to drive, drink alcohol, or make major decisions over the next 24 hours. You may require more rest tonight and tomorrow __X_Do not drive vehicle while taking narcotics and as directed by your Surgeon ____Restrict activity as follows: ____Do not have sexual intercourse. Nothing in the vagina-No tampons or Douching ____No heavy lifting, pushing, or straining ____Elevate operative limb ____Ice as directed __X_Follow all written and verbal instructions given to you by your Doctor ____Other: BATHING/SHOWERING ____Sponge bathe until office visit. ____Sitting in tub of warm water may relieve discomfort ____May tub bathe ____May shower in 24-48 hours with clean linen unless otherwise instructed by your Doctor DRESSING: ____Keep operative area clean and dry ____Check the operative area for signs of bleeding. Apply pressure to the bleeding site if necessary. ____Change drip pad as needed ____Wear scrotal support for comfort WATCH FOR SIGNS OF INFECTION: (Usually appears 36-48 hours after surgery) Increased temperature (101 degrees Fahrenheit or higher) Redness or swelling Increased pain Foul odor or drainage If you have any questions, please call your doctor at the number listed on your follow-up instructions. 07/29/2023 14:13:16 Umbilical Hernia, Adult Umbilical Hernia, Adult A hernia is a bulge of tissue that pushes through an opening between muscles. An umbilical hernia happens in the abdomen, near the belly button (umbilicus). The hernia may contain tissues from the small intestine, large intestine, or fatty tissue covering the intestines (omentum). Umbilical hernias in adults tend to get worse over time, and they require surgical treatment. There are several types of umbilical hernias. You may have: A hernia located just above or below the umbilicus (indirect hernia). This is the most common type of umbilical hernia in adults. A hernia that forms through an opening formed by the umbilicus (direct hernia). A hernia that comes and goes (reducible hernia). A reducible hernia may be visible only when you strain, lift something heavy, or cough. This type of hernia can be pushed back into the abdomen (reduced). A hernia that traps abdominal tissue inside the hernia (incarcerated hernia). This type of hernia cannot be reduced. A hernia that cuts off blood flow to the tissues inside the hernia (strangulated hernia). The tissues can start to if this happens. This type of hernia requires emergency treatment. What are the causes? An umbilical hernia happens when tissue inside the abdomen presses on a weak area of the abdominal muscles. What increases the risk? You may have a greater risk of this condition if you: Are obese. Have had several pregnancies. Have a buildup of fluid inside your abdomen (ascites). Have had surgery that weakens the abdominal muscles. What are the signs or symptoms? The main symptom of this condition is a painless bulge at or near the belly button. A reducible hernia may be visible only when you strain, lift something heavy, or cough. Other symptoms may include: Dull pain. A feeling of pressure. Symptoms of a strangulated hernia may include: Pain that gets increasingly worse. Nausea and vomiting. Pain when pressing on the hernia. Skin over the hernia becoming red or purple. Constipation. Blood in the stool. How is this diagnosed? This condition may be diagnosed based on: A physical exam. You may be asked to cough or strain while standing. These actions increase the pressure inside your abdomen and force the hernia through the opening in your muscles. Your health care provider may try to reduce the hernia by pressing on it. Your symptoms and medical history. How is this treated? Surgery is the only treatment for an umbilical hernia. Surgery for a strangulated hernia is done as soon as possible. If you have a small hernia that is not incarcerated, you may need to lose weight before having surgery. Follow these instructions at home: Lose weight, if told by your health care provider. Do not try to push the hernia back in. Watch your hernia for any changes in color or size. Tell your health care provider if any changes occur. You may need to avoid activities that increase pressure on your hernia. Do not lift anything that is heavier than 10 lb (4.5 kg) until your health care provider says that this is safe. Take [id number] and prescription medicines only as told by your health care provider. Keep all follow-up visits as told by your health care provider. This is important. Contact a health care provider if: Your hernia gets larger. Your hernia becomes painful. Get help right away if: You develop sudden, severe pain near the area of your hernia. You have pain as well as nausea or vomiting. You have pain and the skin over your hernia changes color. You develop a fever. This information is not intended to replace advice given to you by your health care provider. Make sure you discuss any questions you have with your health care provider. Document Released: 09/20/2016 Document Revised: 06/03/2018 Document Reviewed: 10/20/2017 [employer] Patient Education 2020 [employer]. Follow Up Care 07/21/2023 11:39:50 With:DANIELLE GASPAR JR, MD, Surgery Address: [address] [place] [address] [address] [place] [address] [phone] When: Unknown Comments:Follow-up as scheduled [facility] 07-29-2023 Anesthesiology Consult note Patient: ADRIANA MORALES Age: 48 years Sex: Female : 1975 Associated Diagnoses: None Author: MALIA GALEAS MD Postoperative Information Post Operative Info: Post op day: Post Anesthesia Care Unit. Patient location: PACU. Assessment Postanesthesia assessment Vitals: Vital signs from flowsheet : Vital Signs 07/29/2023 14:14 EDT Temperature Temporal Artery 36.4 DegC Peripheral Pulse Rate 58 bpm LOW Respiratory Rate 16 br/min Systolic Blood Pressure Non-Invasive 139 mmHg Diastolic Blood Pressure Non-Invasive 82 mmHg 07/29/2023 13:55 EDT Temperature Temporal Artery 37.0 DegC Heart Rate Monitored 63 bpm Respiratory Rate 16 br/min Systolic Blood Pressure Non-Invasive 126 mmHg Diastolic Blood Pressure Non-Invasive 77 mmHg Mean Arterial Pressure (NBP) 93 mmHg 07/29/2023 13:40 EDT Heart Rate Monitored 67 bpm Respiratory Rate 16 br/min Systolic Blood Pressure Non-Invasive 130 mmHg Diastolic Blood Pressure Non-Invasive 78 mmHg Mean Arterial Pressure (NBP) 95 mmHg 07/29/2023 13:25 EDT Temperature Temporal Artery 36.7 DegC Heart Rate Monitored 65 bpm Respiratory Rate 16 br/min Systolic Blood Pressure Non-Invasive 136 mmHg Diastolic Blood Pressure Non-Invasive 82 mmHg Mean Arterial Pressure (NBP) 98 mmHg 07/29/2023 13:21 EDT Systolic Blood Pressure Non-Invasive 143 mmHg mmHg Diastolic Blood Pressure Non-Invasive 120 mmHg mmHg 07/29/2023 13:20 EDT Heart Rate Monitored 59 bpm bpm Respiratory Rate - Anes 10 br/min br/min 07/29/2023 13:18 EDT Systolic Blood Pressure Non-Invasive 114 mmHg mmHg Diastolic Blood Pressure Non-Invasive 79 mmHg mmHg 07/29/2023 13:15 EDT Heart Rate Monitored 64 bpm bpm Respiratory Rate - Anes 10 br/min br/min Systolic Blood Pressure Non-Invasive 107 mmHg mmHg Diastolic Blood Pressure Non-Invasive 79 mmHg mmHg 07/29/2023 13:12 EDT Systolic Blood Pressure Non-Invasive 107 mmHg mmHg Diastolic Blood Pressure Non-Invasive 78 mmHg mmHg 07/29/2023 13:10 EDT Temperature (Route Not Specified) 36.65 DegC DegC Heart Rate Monitored 67 bpm bpm Respiratory Rate - Anes 10 br/min br/min 07/29/2023 13:09 EDT Systolic Blood Pressure Non-Invasive 123 mmHg mmHg Diastolic Blood Pressure Non-Invasive 86 mmHg mmHg 07/29/2023 13:06 EDT Systolic Blood Pressure Non-Invasive 117 mmHg mmHg Diastolic Blood Pressure Non-Invasive 81 mmHg mmHg 07/29/2023 13:05 EDT Temperature (Route Not Specified) 36.6 DegC DegC Heart Rate Monitored 70 bpm bpm Respiratory Rate - Anes 10 br/min br/min 07/29/2023 13:03 EDT Systolic Blood Pressure Non-Invasive 106 mmHg mmHg Diastolic Blood Pressure Non-Invasive 78 mmHg mmHg 07/29/2023 13:00 EDT Temperature (Route Not Specified) 36.61 DegC DegC Heart Rate Monitored 72 bpm bpm Respiratory Rate - Anes 10 br/min br/min Systolic Blood Pressure Non-Invasive 103 mmHg mmHg Diastolic Blood Pressure Non-Invasive 80 mmHg mmHg 07/29/2023 12:57 EDT Systolic Blood Pressure Non-Invasive 86 mmHg mmHg Diastolic Blood Pressure Non-Invasive 59 mmHg mmHg 07/29/2023 12:55 EDT Temperature (Route Not Specified) 36.63 DegC DegC Heart Rate Monitored 63 bpm bpm Respiratory Rate - Anes 10 br/min br/min 07/29/2023 12:54 EDT Systolic Blood Pressure Non-Invasive 85 mmHg mmHg Diastolic Blood Pressure Non-Invasive 59 mmHg mmHg 07/29/2023 12:52 EDT Systolic Blood Pressure Non-Invasive 85 mmHg mmHg Diastolic Blood Pressure Non-Invasive 58 mmHg mmHg 07/29/2023 12:51 EDT Systolic Blood Pressure Non-Invasive 83 mmHg mmHg Diastolic Blood Pressure Non-Invasive 57 mmHg mmHg 07/29/2023 12:50 EDT Temperature (Route Not Specified) 36.65 DegC DegC Heart Rate Monitored 67 bpm bpm Respiratory Rate - Anes 10 br/min br/min 07/29/2023 12:48 EDT Systolic Blood Pressure Non-Invasive 90 mmHg mmHg Diastolic Blood Pressure Non-Invasive 57 mmHg mmHg 07/29/2023 12:45 EDT Temperature (Route Not Specified) 36.36 DegC DegC Heart Rate Monitored 76 bpm bpm Respiratory Rate - Anes 10 br/min br/min Systolic Blood Pressure Non-Invasive 96 mmHg mmHg Diastolic Blood Pressure Non-Invasive 65 mmHg mmHg 07/29/2023 12:42 EDT Systolic Blood Pressure Non-Invasive 98 mmHg mmHg Diastolic Blood Pressure Non-Invasive 69 mmHg mmHg 07/29/2023 12:40 EDT Heart Rate Monitored 69 bpm bpm Respiratory Rate - Anes 0 br/min br/min 07/29/2023 12:39 EDT Systolic Blood Pressure Non-Invasive 127 mmHg mmHg Diastolic Blood Pressure Non-Invasive 80 mmHg mmHg 07/29/2023 12:36 EDT Systolic Blood Pressure Non-Invasive 117 mmHg mmHg Diastolic Blood Pressure Non-Invasive 104 mmHg mmHg 07/29/2023 12:35 EDT Respiratory Rate - Anes 0 br/min br/min 07/29/2023 10:07 EDT Temperature Temporal Artery 36.6 DegC Peripheral Pulse Rate 72 bpm Respiratory Rate 18 br/min Systolic Blood Pressure Non-Invasive 128 mmHg Diastolic Blood Pressure Non-Invasive 89 mmHg . Mental status: at preoperative baseline. Respiratory function: respirations are non-labored, Stable. Respiratory support: none. CV function: Stable. Cardiovascular support: none. Pain: Satisfactory. Nausea status: Satisfactory. Postoperative hydration status: within normal limits. Notes: Patient is sufficiently recovered from anesthesia to participate in the evaluation. No follow-up care needed. No complications post-anesthesia.. Digitally Signed by MALIA GALEAS MD on 07/29/2023 03:20 PM [facility] 07-29-2023 Summary of episod e note Discharge Instructions Thank you for allowing [facility] to assist you with your healthcare needs. The following is important discharge information regarding your hospital visit. Your Diagnosis Acute post-operative pain What to do next Scheduled Follow-Up Appointments Appointment Type When With Where Contact InformationGS OV Post Op 08/21/2023 09:45 AM EDT DANIELLE GASPAR JR, MD [facility] Surgery Follow Up Appointments Follow Up with DANIELLE GASPAR JR, MD, Surgery When Why: Follow-up as scheduled Where: [address] [facility] [address] [place] [address] [phone] The Following Activity and Diet Have Been Ordered for You No qualifying data available. No qualifying data available. The Following Equipment Has Been Ordered for You No qualifying data available. The Following Treatments Have Been Ordered for You Discharge Labs No qualifying data available. Discharge Radiology No qualifying data available. Other Therapies No qualifying data available. Post Acute Orders No qualifying data available. Someone Will Contact You Regarding These Home Health Referrals No home referrals have been ordered for you. No one will call you. Allergies allopurinol (Abdominal pain, Cramping) Medications Please ask your primary doctor or pharmacist before taking any other medication not listed, including over the counter drugs, herbal medications, vitamins and or supplements as they may interact with your home medications. What How Much When Why Instructions Last Dose New acetaminophen-hydrocodone (Sophia 325- 5 mg oral tablet) 1 tab(s) by mouth Every 4 hours as needed for for pain Acute post-operative pain Duration: 3 Days Pickup at [facility] Unchanged amLODIPine (amLODIPine 10 mg oral tablet) 1 tab(s) by mouth Daily at bedtime Unchanged ferrous sulfate (ferrous sulfate 324 mg (65 mg elemental iron) oral delayed release tablet) 1 tab(s) by mouth Once a day (in the morning) Unchanged gentamicin topical (gentamicin 0.1% topical cream) 1 application Topical Once a day (in the morning) Unchanged metoprolol (Metoprolol Succinate ER 50 mg oral TABLET extended release) 1 tab(s) by mouth Once a day (in the morning) Pharmacy Information [facility]: [address] [place], [place] [id number] [phone] What How Much When Comments Stop Taking diphenhydrAMINE (Benadryl 25 mg oral capsule) 1 cap by mouth Every 4 hours as needed for as needed for allergy symptoms Stop Taking mupirocin topical (mupirocin 2% topical ointment) 1 application Topical Two (2) times a day Bilateral intranasal application twice daily for 5 days prior to surgery &/ or as many days leading up to surgery as possible due to surgical urgency/ scheduling. Send to patient's preferred pharmacy. Please take this list to your next doctor s visit. Bring all medications you take, including over the counter medications, herbals and other supplements with you to your doctor s visit. Patients and families are reminded to discard old lists and to update any records with all medication providers or retail pharmacies. Education Materials What to Do After Your General Surgery This sheet will give you general information on what to do when you are home after surgery. However, you should always follow any specific instructions given to you by your surgeon. Pain Medication Please follow the directions on the label of your medication and use your discharge medication list provided by the hospital. Do not take pain medication on an empty stomach. This may cause a stomachache. Constipation is common while taking oral pain medication after surgery. Use a stool softener (Colace) or gentle laxative (milk of magnesia) if needed. As soon as your pain allows, use less of any narcotic pain medication. You may take [id number]-[id number] pain medication if you no longer need your prescribed pain medication. Hxnz-dnl-etszkcw pain medications are Tylenol or Advil/Motrin (ibuprofen). Do not take Tylenol if you are still taking Sophia or Percocet. They are the same type of medication, and too much acetaminophen can hurt your liver. Activity It is OK to use stairs. Do not lift more than 15 pounds. After surgery, you may feel tired. Rest is important for healing. Slowly increase your activity level by walking and doing normal activities as you feel comfortable. Do not drive while taking narcotic pain medication. They should be out of your system for 24 [address]. Diet Eating smaller meals instead of three large meals is good. This may help with your appetite and nutrition. Good nutrition will help you heal. Follow diet instructions that you were taught after surgery. Infection Prevention Washing your hands is one of the best ways to prevent infection. Always wash your hands before and after touching your incision or bandage. Hands carry germs that can cause infections. Try not to touch your incision. Keep the Incision Clean Wear clean, loose-fitting clothes to prevent clothes from rubbing on the incision. Put clean sheets on your bed when you get home. Do not let other people or animals touch the incision. Showering You may start to shower 48 hours after your surgery. Use a clean washcloth and towel on your incision before you use it on any other area of your body. Adjust the shower spray to gentle and use warm water. Gently wash over your incision using antibacterial soap and water and pat it dry. Do not rub the incision. Do not soak or submerge in the bathtub or hot tub until your surgeon says it is OK. Wound Care If you have a clear, see-through bandage over your incision(s), you may shower with it in place. The bandage is waterproof. o It is normal to see a small amount of reddish fluid under the clear bandage. You may remove your bandage after 48 hours. If you are in the hospital longer than 48 hours, it is OK to remove your bandage when you get home. If you have thin white tape strips (Steri-Strips) over your incision, keep them dry. Do not remove them unless they begin curling up at the sides and are almost falling off. [place] or sutures are generally removed within seven to 14 days at your follow-up appointment. Drain Care If you have a drain, empty it two to three times per day or if it gets half full. Write down the time it was emptied and amount of fluid on a piece of paper. Bring your paper with times and fluid amounts to your follow-up appointment to show your surgeon. Call Your Doctor If: You have a fever of 101 degrees or higher. It is not uncommon to have a low-grade fever after surgery. You have new redness or fluid around the incision that smells bad or looks like pus. Your skin is very painful, red, warm and/or swollen around the incision. You have a lot of bleeding (push with pressure on the area if this happens). You have bad stomach pain or you start throwing up. If you are unable to reach your surgeon, go to the hospital. Follow Up If a follow-up appointment has not been made, please call your surgeon s office. Most appointments are 10 14 days after surgery. If you have any problems or concerns before then, call the surgeon s office. [facility]ACE SAME DAY SURGERY DISCHARGE INSTRUCTIONS PLEASE FOLLOW THE INSTRUCTIONS BELOW MARKED WITH AN X: __X_Regular Diet: Start with clear liquids, then soup and crackers. Gradually add other foods unless otherwise instructed by your surgeon __X_Drink extra fluids ACTIVTY: __X_Since you have had anesthetic, it would be advisable not to drive, drink alcohol, or make major decisions over the next 24 hours. You may require more rest tonight and tomorrow __X_Do not drive vehicle while taking narcotics and as directed by your Surgeon ____Restrict activity as follows: ____Do not have sexual intercourse. Nothing in the vagina-No tampons or Douching ____No heavy lifting, pushing, or straining ____Elevate operative limb ____Ice as directed __X_Follow all written and verbal instructions given to you by your Doctor ____Other: BATHING/SHOWERING ____Sponge bathe until office visit. ____Sitting in tub of warm water may relieve discomfort ____May tub bathe ____May shower in 24-48 hours with clean linen unless otherwise instructed by your Doctor DRESSING: ____Keep operative area clean and dry ____Check the operative area for signs of bleeding. Apply pressure to the bleeding site if necessary. ____Change drip pad as needed ____Wear scrotal support for comfort WATCH FOR SIGNS OF INFECTION: (Usually appears 36-48 hours after surgery) Increased temperature (101 degrees Fahrenheit or higher) Redness or swelling Increased pain Foul odor or drainage If you have any questions, please call your doctor at the number listed on your follow-up instructions. Umbilical Hernia, Adult A hernia is a bulge of tissue that pushes through an opening between muscles. An umbilical hernia happens in the abdomen, near the belly button (umbilicus). The hernia may contain tissues from the small intestine, large intestine, or fatty tissue covering the intestines (omentum). Umbilical hernias in adults tend to get worse over time, and they require surgical treatment. There are several types of umbilical hernias. You may have: A hernia located just above or below the umbilicus (indirect hernia). This is the most common type of umbilical hernia in adults. A hernia that forms through an opening formed by the umbilicus (direct hernia). A hernia that comes and goes (reducible hernia). A reducible hernia may be visible only when you strain, lift something heavy, or cough. This type of hernia can be pushed back into the abdomen (reduced). A hernia that traps abdominal tissue inside the hernia (incarcerated hernia). This type of hernia cannot be reduced. A hernia that cuts off blood flow to the tissues inside the hernia (strangulated hernia). The tissues can start to if this happens. This type of hernia requires emergency treatment. What are the causes? An umbilical hernia happens when tissue inside the abdomen presses on a weak area of the abdominal muscles. What increases the risk? You may have a greater risk of this condition if you: Are obese. Have had several pregnancies. Have a buildup of fluid inside your abdomen (ascites). Have had surgery that weakens the abdominal muscles. What are the signs or symptoms? The main symptom of this condition is a painless bulge at or near the belly button. A reducible hernia may be visible only when you strain, lift something heavy, or cough. Other symptoms may include: Dull pain. A feeling of pressure. Symptoms of a strangulated hernia may include: Pain that gets increasingly worse. Nausea and vomiting. Pain when pressing on the hernia. Skin over the hernia becoming red or purple. Constipation. Blood in the stool. How is this diagnosed? This condition may be diagnosed based on: A physical exam. You may be asked to cough or strain while standing. These actions increase the pressure inside your abdomen and force the hernia through the opening in your muscles. Your health care provider may try to reduce the hernia by pressing on it. Your symptoms and medical history. How is this treated? Surgery is the only treatment for an umbilical hernia. Surgery for a strangulated hernia is done as soon as possible. If you have a small hernia that is not incarcerated, you may need to lose weight before having surgery. Follow these instructions at home: Lose weight, if told by your health care provider. Do not try to push the hernia back in. Watch your hernia for any changes in color or size. Tell your health care provider if any changes occur. You may need to avoid activities that increase pressure on your hernia. Do not lift anything that is heavier than 10 lb (4.5 kg) until your health care provider says that this is safe. Take ojsb-egp-bafljkk and prescription medicines only as told by your health care provider. Keep all follow-up visits as told by your health care provider. This is important. Contact a health care provider if: Your hernia gets larger. Your hernia becomes painful. Get help right away if: You develop sudden, severe pain near the area of your hernia. You have pain as well as nausea or vomiting. You have pain and the skin over your hernia changes color. You develop a fever. This information is not intended to replace advice given to you by your health care provider. Make sure you discuss any questions you have with your health care provider. Document Released: 09/20/2016 Document Revised: 06/03/2018 Document Reviewed: 10/20/2017 CritiTech Patient Education 2020 [employer]. Additional Information VACCINATE! IT SAVES LIVES! Members of the community who have not yet received the COVID-19 vaccine and would like to receive it can visit one of [facility] vaccine clinics. There are many vaccine clinic locations within the [facility]. For locations and available times, please visit https://gettheshot.coronavirus.o ino.gov/. It is important to note that some COVID mobile vaccine clinics are held outdoors and may be canceled in rainy or stormy conditions. To learn more about pediatric vaccinations (ages 5-11), we invite you to visit the [facility] webpage. https://www.[facility].org/p ages/1955-Qaeqg-Azppztoeehm-Freq qnlnqh-Vxsxz-Lrpqjhjbj.html To learn more about the COVID-19 vaccine, we invite you to visit the CDC website for a list of frequently asked questions.https://www.cdc.gov/co ronavirus/2019-ncov/vaccines/faq .html [facility] Patient Portal Access Instructions: Stay connected with your healthcare team and access your personal medical information anytime with the [facility] Patient Portal. Please follow the directions below to create your [facility] account: 1.Access the email account you provided upon registration to the hospital/physician office.2.Look for an invitation email from [facility].3.Open the email and access the invitation link: Accept Invitation to [facility].4.Fill in the required khanna to create your account. To access your account, visit [email or web address]. Click the blue button labeled Access Patient [...] you will allow to register on the [facility] Patient Portal for access to your information. You can also access the [facility] Patient Portal on the [facility] Anywhere tung. Simply click on Patient Portal and then log into your account. If you would like to receive a full copy of your medical records, please contact the [facility] Medical Records Department by calling [phone], Friday through Friday between 8 a.m. and [...] Call your local pharmacy or go to [email or web address] [email or web address] to find one close to you.3.Make use of household items: Use cat litter or old coffee grounds to dispose medications if other options are not available. Mix your drugs with these household products, seal them in an airtight container and throw it into the garbage. Call [facility]: [phone] to be sure your drugs can be [...] a CHART COPY. Signatures Patient Education Materials 8- Post Op General Surgery (04/2020) (Custom) 1- [facility] General Discharge Guidelines (01/17/2023) (Custom) Umbilical Hernia, Adult Medication Leaflets My discharge plan and instructions have been reviewed and explained to me and I,ADRIANA MORALES understand my current condition and have read and understand these discharge instructions. I have received a written copy of the plan/instructions. If I have questions, I am aware that I should contact my doctor. 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 Form: 1522 [id number]) R: 08/1112/03/2022 13:18:14 Peritoneal Dialysis Catheter Placement, [...] and water are not available, use hand senior materials planner. ?Leave stitches (sutures), skin glue, or adhesive [...] ?Pus or a bad smell. Medicines Take dwpy-rnj-gvghsxr and prescription medicines only as told by [...] care provider may recommend that you: ?Take cxnx-gjb-egjqqnm or prescription medicines. ?Eat foods that are [...] 10/24/2017 Document Revised: 08/12/2019 Document Reviewed: 10/24/2017 ElseObsorb Patient Education 2020 [employer]. Follow Up Care 11/11/2022 09:48:10 With:DANIELLE GASPAR JR, MD, Surgery Address: [address] [facility] [address] [place] [address]- [phone] When: Unknown Comments:Call Dr. Gaspar's office to schedule a follow-up appointment. With:DANIELLE GASPAR JR, MD, Surgery Address: [facility] [address] [place] [address] [address] [place] [address]- When: Unknown Comments:Call office, , to make appointment. See Dr. Gaspar in 2 weeks.. [facility] 12-03-2022 Summary of episod e note Discharge Instructions Thank you for allowing [facility] to assist you with your healthcare needs. The following is important discharge information regarding your hospital visit. Your Care Team BRENNA ALEXANDRA MD Your Diagnosis Acute post-operative pain [...] to schedule a follow-up appointment. Where: [address] [facility] [address] [place] [address]- [phone] Follow Up with DANIELLE GASPAR JR, MD, Surgery When Why: Call office, , to make appointment. See Dr. Gaspar in 2 weeks.. Where: [facility] [address] [facility] [address] [place] [address]- The Following Activity and Diet Have Been [...] When Why Instructions Last Dose New acetaminophen-hydrocodone (Sophia 325- 5 mg oral tablet) 1 tab(s) by mouth Every 6 hours as needed for for pain Acute post-operative pain Duration: 5 Days Pickup at [facility] Unchanged amlodipine-benazepril (amlodipine-benazepril 5 mg-20 [...] Three (3) times a day Pharmacy Information [facility]: [address] [place] [address] [phone] What How Much When Comments Stop Taking [...] medication providers or retail pharmacies. Education Materials [facility] SAME DAY SURGERY DISCHARGE INSTRUCTIONS PLEASE FOLLOW [...] us better serve our patients. Form: 1522 (18121) R: 08/11 Peritoneal Dialysis Catheter Placement, Care [...] and water are not available, use hand senior materials planner. ? Leave stitches (sutures), skin glue, or [...] Pus or a bad smell. Medicines Take ttuu-tyu-oujgvkd and prescription medicines only as told by [...] provider may recommend that you: ? Take dlre-ttb-aqsdium or prescription medicines. ? Eat foods that [...] 10/24/2017 Document Revised: 08/12/2019 Document Reviewed: 10/24/2017 ElseObsorb Patient Education 2020 [employer]. Additional Information VACCINATE! IT SAVES LIVES! Members of the community who have not yet received the COVID-19 vaccine and would like to receive it can visit one of [facility] vaccine clinics. There are many vaccine clinic locations within the [facility]. For locations and available times, please visit https://gettheshot.coronavirus.o ino.gov/. It is important to note that some COVID mobile vaccine clinics are held outdoors and may be canceled in rainy or stormy conditions. To learn more about pediatric vaccinations (ages 5-11), we invite you to visit the [facility] webpage. https://www.[facility].org/p ages/9803-Fnngs-Moxwsboblhi-Freq gmuxcj-Pvhfl-Oqlfgzrcg.html To learn more about the COVID-19 vaccine, we invite you to visit the CDC website for a list of frequently asked questions.https://www.cdc.gov/co ronavirus/2019-ncov/vaccines/faq .html [facility] Patient Portal Access Instructions: Stay connected with your healthcare team and access your personal medical information anytime with the [facility] Patient Portal. Please follow the directions below to create your [facility] account: 1.Access the email account you provided upon registration to the hospital/physician office.2.Look for an invitation email from [facility].3.Open the email and access the invitation link: Accept Invitation to [facility].4.Fill in the required khanna to create your account. To access your account, visit [email or web address]. Click the blue button labeled Access Patient [...] you will allow to register on the [facility] Patient Portal for access to your information. You can also access the [facility] Where[facility] Patient Portal on the [facility] Anywhere tung. Simply click on Patient Portal and then log into your account. If you would like to receive a full copy of your medical records, please contact the [facility] Medical Records Department by calling [phone], Friday through Friday between 8 a.m. and [...] Call your local pharmacy or go to [email or web address] to find one close to you.3.Make use of household items: Use cat litter or old coffee grounds to dispose medications if other options are not available. Mix your drugs with these household products, seal them in an airtight container and throw it into the garbage. Call [facility]: [phone] to be sure your drugs can be [...] been reviewed and explained to me and I,ADRIANA MORALES understand my current condition and have read and understand these discharge instructions. I have received a written copy of the plan/instructions. If I have questions, I am aware that I should contact my doctor. Patient/Electrician Yard Signature: Date/Time: Relationship to Patient: Witness Name/Signature: Date/Time: [facility] 12-03-2022 Anesthesiology Consult note Patient: ADRIANA MORALES Age: 47 years Sex: Female : [...] NICHELLE LOPEZ DO on 12/03/2022 12:49 PM [facility] 12-03-2022 Anesthesiology Consult note Patient: ADRIANA MORALES Age: 47 years Sex: Female : [...] Problem list: Medical Hypertension / SNOMED CT 21094887 / Confirmed Kidney disease / SNOMED CT 515684511 / Confirmed Shortness of breath / SNOMED CT 575326664 / Confirmed, Active Problems (6) Anemia Glasses Hypertension Kidney disease Shortness of breath Vitamin D deficiency Histories Past Medical History: No active or resolved past medical history items have been selected or recorded. Family History: Atrial fibrillation Father Kidney disease Mother Skin cancer Father Procedure history: Extraction of wisdom tooth (560610056). Social History Social & Psychosocial Habits Alcohol [...] Charted Resp Rate 18 br/min (DEC 03 09:) RUM144 mmHg (DEC 03 09:) DBP81 mmHg (DEC 03:) Measurements from flowsheet : Measurements 12/03/2022 9:01 EDT Height 177.8 cm Height in inches 70 inch(es) Admission Weight 76.9 kg Weight Lbs 169.2 lb Weight Method Actual Hiram Body Weight 68.50 kg Type of Scale [...] Weight Lbs 169.2 lb Weight Method Actual Hiram Body Weight 68.50 kg Type of Scale [...] no difficulties Skin Temperature Warm Skin Description Lealman, Dry Skin Integrity Intact Characteristics of Speech [...] indicates understanding Safety Brochure Information Reviewed Yes Jace Blakely Video Viewed No Discharge To, Anticipated [...] Note-Nursing Date\Time Correction . Assessment and Plan [place] Society of Anesthesiologists (ASA) physical status classification: [...] NATASHA FLORES MD on 12/03/2022 10:09 AM [facility] 10-24-2022 History of Presen t illness Narrative Images from the original note were not included. [facility] Wait list Evaluation Dialysis Center: (Not currently on dialysis) Chief Complaint: Scheduled Kidney Transplant wait list evaluation. History of Present Illness: Adriana Morales has chronic kidney disease due to Polycystic Kidneys and is not on dialysis with the most recent eGFR of 13 ml/min on 09/19/2022. Since Adriana was most recently evaluated in clinic on 08/22/2021, she has not had any hospitalizations, surgeries, or infections. 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 Estimated body mass index is 24.91 kg/m as calculated from the following: Height as of this encounter: 1.778 m (5' 10). Weight as of this encounter: 78.7 kg [...] tablet by mouth daily. Ergocalciferol 1.25 MG (52033 UT) capsule Take 1 capsule by mouth once a week. Laboratory Data O POS cPRA (%) Date Value 08/27/2022 0 Health Maintenance: Mammogram: 04/04/2022 no mammographic evidence of malignancy Pap Smear: 06/14/2019 negative for intraepithelial lesion or malignancy Adriana reports that she has never smoked. She [...] KDPI acceptable: 85% Impression and Plan 1. Adriana Morales will remain active on the kidney [...] Encounter: 30 minutes Magda Mcdaniel MSN, RN, MATERIALS RESEARCH ENGINEER-BC, CCTN Certified Nurse Practitioner Comprehensive Transplant Center [facility] [address] [facility] [address] Transplant Psychosocial Social History: This SW met with patient and patient's sister Christine during clinic visit to complete patient's social history. Pt reports access to support through her sister Christine, her father De, and multiple extended family members. Pt lives with her father De who also travels to [place] in the winter time. 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 Pt denies financial concerns at this time. Pt reports access to [employer] insurance. Pt does not want follow [facility] financial counselors. Pt denies current use of [...] mental health treatment. Pt is aware of [employer] [facility] support group and was encouraged to reach out if she wishes to receive information regarding additional supportive services. Pt denies wanting additional follow-up by SW. Pt [...] at this time. DORY Sarmiento LISW Transplant [employer] Telephone: [phone] documented in this encounter [facility] 10-24-2022 Instructions Magda Mcdaniel APRN-STRATIGRAPHY TEACHER - 10/24/2022 9:00 AM EDT Living Donor [place] Ask one or two family members or [...] or hospitalizations by calling your coordinator at [phone]. Continue your health maintenance while waiting for your transplant. You have the right to opt out of the transplant process at any time. If you would like to discuss alternative treatments or therapies to kidney transplantation, please discuss with your provider. May 2020-April 2021 [facility] 330 People Received Kidney Transplants 76 Living donor 254 donor donor [facility] Living donor [facility] Requires dialysis in the first week after [...] injection of drugs Has been in lockup, senior living, senior care or juvenile correctional facility for > 72 [...] may receive an offer in which the manager transplant asks you if you want to accept [...] may receive an offer in which the manager transplant asks you if you want to accept [...] rare. HCV is contagious, but only through sjkse-si-mamdr contact. HCV is not transmitted by hugging, [...] wait time may be much shorter. 1 [place] Association for the Study of Liver Diseases (AASLD) and the Infectious Diseases Society of [place] (IDSA). Recommendations for testing, management, and treating hepatitis C. HCV testing and linkage to care. Available at: https://www.hcvguidelines.org 2 Epclusa full prescribing information [id number] revised 03/2019 3 Mavyret full prescribing information [...] chance patient survival documented in this encounter [facility] 08-22-2021 Instructions YON Jarrell - 08/22/2021 9:19 AM EDT Living Donor [place] Ask one or two family members or [...] series. We offer the vaccine at the [facility] on the ground floor. Your To Do List Update our transplant center updated with any illnesses, open wounds or hospitalizations by calling your coordinator at [phone]. Continue your health maintenance while waiting for your transplant. You have the right to opt out of the transplant process at any time. If you would like to discuss alternative treatments or therapies to kidney transplantation, please discuss with your provider. November 2018- October 2019 The [facility] 331 People Received Kidney Transplants 85 Living donor 246 donor donor [facility] Living donor [facility] Requires dialysis in the first week after [...] injection of drugs Has been in lockup, senior living, senior care or juvenile correctional facility for > 72 [...] may receive an offer in which the manager transplant asks you if you want to accept [...] may receive an offer in which the manager transplant asks you if you want to accept [...] rare. HCV is contagious, but only through rxlpe-ql-bdsuf contact. HCV is not transmitted by hugging, [...] wait time may be much shorter. 1 [place] Association for the Study of Liver Diseases (AASLD) and the Infectious Diseases Society of [place] (IDSA). Recommendations for testing, management, and treating hepatitis C. HCV testing and linkage to care. Available at: https://www.hcvguidelines.org 2 Epclusa full prescribing information [id number] revised 03/2019 3 Mavyret full prescribing information [...] treatment protocols, and other factors. https://optn.transplant.hrsa.gov /resources/guidance/kidney-donor -lzejmec-nihjl-quah-vgclk-vgi-uz inicians/#:~:text=Figure%201%20s hows%20that%20a,function%20for%2 0about%209%20years. Did not receive dialysis before kidney transplant Was on dialysis for 4 years before kidney transplant 5 years after transplant 86% chance patient survival 75% chance patient survival 8 years after transplant 78% chance patient survival 65% chance patient survival documented in this encounter [facility] 08-22-2021 History of Presen t illness Narrative [facility] Wait list Evaluation Dialysis Center: (Not currently on dialysis). Follows with Dr. Chandler Chief Complaint: Scheduled Kidney Transplant wait list evaluation. History of Present Illness: Adriana Morales has chronic kidney disease due to Polycystic Kidneys and is not on dialysis with the most recent eGFR of 19 ml/min on 03/04/21. 03/23/21 Listed [facility] Verified she is active in [facility]. Review of Symptoms: History obtained from the [...] temperature source Temporal, height 1.778 m (5' 10), weight 80.5 kg (177 lb 8 oz). Estimated body mass index is 25.47 kg/m as calculated from the following: Height as of this encounter: 1.778 m (5' 10). Weight as of this encounter: 80.5 kg [...] series. We offer the vaccine at the [facility] on the ground floor. COVID-19 vaccine received first two doses Colonoscopy: n/a Mammogram: reports had in the last year Pap Smear: reports had in the last year MRI HEAD: 05/31/2020 [place] HISTORY: pre kidney transplant eval, hx polycystic kidney; prev mra 2014 FINDINGS # of images incl. paperwork: 197 Flow is present within bilateral intracranial ICA, DINORAH, MCA, vertebral, superior cerebellars, the basilar artery, and the handicraft or hobby shop manager. The anterior communicating artery is patent. Bilateral posterior communicating arteries are present bilaterally. No aneurysm, stenoses, occlusions, nor dissections. IMPRESSION: Normal Cardiac Testing: STRESS TEST: 06/16/2020 [facility] Interpretation: Rest and stress SPECT Cardioilte nuclear imaging status past realignment, normalization, andattenuation correction, demonstrates [normal myocardial radioIsotope uptake]. The gated Cardiolite study demonstrates [no significant regional wall motion abnormalities]. The reported LVEF is [74]%. Impression: 1. There Is[no evidence of significant Ischemia or Infarction]. 2. The gated Cardiolite study reports an LVEF of [74]%. ECHO: 06/16/2020 [facility] Interpretation Summary The estimated ejection fraction is 55 %. No evidence for diastolic dysfunction. Unable to estimate RV systolic pressure due to inadequate Active living donors: 0 EPTS score: 12% Maximum KDPI acceptable: 85% Impression and Plan 1. Adriana Morales will remain active on the kidney [...] hospitalizations. Time Spent on Encounter: 25 minutes No Brewster MS (Link), RN, 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 Certified Nurse Practitioner Comprehensive Transplant Center [facility] [address] [facility] [address] Transplant Psychosocial Social History: This SW met with patient during clinic visit to complete patient's social history. Pt reports access to support through her sister Christine, her father, and numerous extended family members. Pt lives with her father. 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 Pt denies generally financial concerns at [...] psychosocial standpoint at this time. DORY Sarmiento, YELITZA Transplant [employer] Telephone: [phone] documented in this encounter [facility] Evaluation + Plan note Future Appointments [facility] Evaluation + Plan note Future Appointments Appointment Date:08/21/2023 09:45:00 AM Scheduled Provider:DANIELLE GASPAR JR, MD Location:Gen Surg CAN Appointment Type:GS OV Post Op [facility] Evaluation note Diagnosis Patient on waiting list for kidney transplant- [facility] Patient on waiting list for kidney transplant- Primary [facility] information available [facility] Work Phone: evaluation note* Diagnosis Onset Date Resolution Status Essential hypertension acute [facility] Work Phone: evaluation note* Diagnosis Onset Date Resolution Status Essential hypertension acute Encounter for routine gynecological examination noneactive [facility] Work Phone: evaluation note* Diagnosis Patient on waiting list for kidney transplant- Primary ESRD (end stage renal disease) on dialysis End stage renal disease [facility] Hypertension, unspecified type- Primary ESRD on dialysis (HCC) End stage renal disease Pre-transplant evaluation for ESRD (end stage renal disease) Other specified pre-operative examination [facility] Pre-transplant evaluation for kidney transplant- Primary Other specified pre-operative examination [facility] [place] [facility] Diagnosis Pre-transplant evaluation for CKD (chronic kidney disease)- Primary Other specified pre-operative examination [facility] [place] [facility]* Diagnosis Dietary counseling and surveillance- Primary Dietary surveillance and counseling Awaiting organ transplant Awaiting organ transplant status [facility] [place] [facility]* Diagnosis Pre-transplant evaluation for ESRD (end stage renal disease)- Primary Other specified pre-operative examination [facility] Pre-transplant evaluation for ESRD (end stage renal disease)- Primary Other specified pre-operative examination [facility] [place] [facility] Diagnosis Pre-transplant evaluation for ESRD (end stage renal disease)- Primary Other specified pre-operative examination [facility] Pre-transplant evaluation for ESRD (end stage renal disease)- Primary Other specified pre-operative examination [facility] Diagnosis ESRD on dialysis (HCC)- Primary End stage renal disease Hypertension, unspecified type PKD (polycystic kidney disease) Polycystic kidney, unspecified type [facility] Diagnosis Encounter for other preprocedural examination- Primary Pre-operative cardiovascular examination [facility] Diagnosis Acute renal failure with acute tubular necrosis superimposed on chronic kidney disease, on chronic dialysis (HCC) [facility] [place] [facility]* Diagnosis Encounter for other preprocedural examination Pre-operative cardiovascular examination [facility] Diagnosis Pre-transplant evaluation for ESRD (end stage renal disease) Other specified pre-operative examination [facility] [place] [facility]* Diagnosis Pre-transplant evaluation for kidney transplant- Primary Other specified pre-operative examination [facility] [place] [facility]* Diagnosis Pre-transplant evaluation for kidney transplant Other specified pre-operative examination [facility] [place] [facility] Diagnosis Pre-transplant evaluation for kidney transplant- Primary Other specified pre-operative examination Pre-transplant evaluation for ESRD (end stage renal disease) Other specified pre-operative examination ESRD on dialysis (HCC) End stage renal disease [facility] Narrative No data available for this section [facility] Discharge instructions No data available for this section [facility] Discharge instructions Additional Instructions Thank you for trusting us with your care today! Please take Tylenol (2 pills, 650 mg) every 6 hours as needed for pain and fever control. If this does not control your pain please take Sophia that has been provided. Please return to the emergency department if your symptoms change or worsen. Please follow with your primary care physician for further outpatient evaluation and management.[facility] Work Phone: Progress note No data available for this section [facility] Reason for referral (narrative)* Diagnostic Procedure Only (Routine) - New Request Specialty Diagnoses / Procedures Referred By Contac t Referred To Contact MOLECULAR & FUNCTIONAL IMAGING Diagnoses Encounter for other preprocedural examination Pre-operative cardiovascular examination Procedures NM CARDIAC PERF STRESS/PHARM MYOCARDIAL SPECT MULTIPLE STUDIES Ren Rao MD [address] [id number] Molecular & Functional Imaging [address] [place], [place] [id number] Referral ID Status Reason Start Date Expiration Date Visits Requested Visits Authorized [id number] New Request Auto-Generat ed Referral 03/10/2024 04/09/2025 1 1 [facility] for referral (narrative)* Diagnostic Procedure Only (Routine) - Closed Specialty Diagnoses / Procedures Referred By Benjamin sarmiento Referred To Contact MOLECULAR & FUNCTIONAL IMAGING Diagnoses Encounter for other preprocedural examination Pre-operative cardiovascular examination Procedures NM CARDIAC PERF STRESS/PHARM MYOCARDIAL SPECT MULTIPLE STUDIES Ren Rao MD [address] [place] [address] Molecular & Functional Imaging [address] [place], [place] [id number] Referral ID Status Reason Start Date Expiration Date V isits Requested Visits Authorized [id number] Closed Auto-Generated Referral Patient Cleared - INN Insurance Found 03/10/2024 02/25/2025 2 2 [facility] for visit Narrative* Diagnostic Procedure Only (Routine) - Closed Specialty Diagnoses / Procedures Referred By Contac t Referred To Contact MOLECULAR & FUNCTIONAL IMAGING Diagnoses Encounter for other preprocedural examination Pre-operative cardiovascular examination Procedures NM CARDIAC PERF STRESS/PHARM MYOCARDIAL SPECT MULTIPLE STUDIES Ren Rao MD [address] [id number] Molecular & Functional Imaging [address] [id number] Referral ID Status Reason Start Date Expiration Date V isits Requested Visits Authorized [id number] Closed Auto-Generated Referral Patient Cleared - INN Insurance Found 03/10/2024 02/25/2025 2 2 [facility]* Diagnostic Procedure Only (Routine) - Closed Specialty Diagnoses / Procedures Referred By Benjamin sarmiento Referred To Contact US IMAGING Diagnoses Pre-transplant evaluation for kidney transplant Procedures US FEMALE PELVIS TRANSVAG US TRANSVAGINAL Ren Rao MD [address] [place] [address] Phone: tel: fax: US IM[id number] Referral ID Status Reason Start Date Expiration Date V isits Requested Visits Authorized [id number] Closed Auto-Generate d Referral 07/30/2024 08/29/2025 1 1 [facility] Summary Purpose Family History No Family History Records Found Relationship Condition Age at Onset Recorded Date/T chauncey mother Diabetes mellitus Unknown Hypertension Unknown Kidney disorder Unknown father Hypertension Unknown grandmother Kidney disorder Unknown Advance Directives No Advanced Directives Records Found Advance Directive Response Recorded Date/ Time Living Will No December 04, 2022 2:33am Power of Hotel Reservation Agent No December 04 2:33am Advance Directive Response Recorded Date/ Time Living Will No December 04, 2022 1:33am Power of Hotel Reservation Agent No December 04 1:33am Chief Complaint and Reason for Visit Chief Complaint NV, ABD PAIN Chief Complaint TACHYCARDIA I10 Amb Documentation Reason for Visit Essential hypertensi on Chief Complaint TACHYCARDIA I10 Amb Documentation 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 Reason for Visit Essential hypertensi on Encounter for routine gynecological examination Reason for Referral Specialty Diagnoses / Procedures Referred By Benjamin sarmiento Referred To Contact MR IMAGING Diagnoses Pre-transplant evaluation for ESRD (end stage renal disease) Procedures MRA BRAIN WO IVCON MRA, HEAD W/O CONTRAST Ren Rao MD [address] [place] [address] Mr Imaging [id number] Referral ID Status Reason Start Date Expiration Date Visits Requested Visits Authorized [id number] New Request Auto-Generat ed Referral 03/10/2024 04/09/2025 1 1 Specialty Diagnoses / Procedures Referred By Benjamin t Referred To Contact TRANSPLANT Diagnoses Hypertension, unspecified type ESRD on dialysis (HCC) Pre-transplant evaluation for ESRD (end stage renal disease) Procedures CONSULT TO TRANSPLANT CENTER OFFICE/OUTPATIENT NEW HIGH MDM 60 MINUTES CHEST X-RAY, FRONT&LAT ECG ROUTINE ECG W/LEAST 12 LDS TRCG ONLY W/O I&R CT ANGIOGRAPHY CHEST W/CONTRAST/NONCONTRAST CT ABDOMEN W & W/O CONTRAST Stuart Jimenez MD [address] [place] [address] [facility] [address] [place] [address] Referral ID Status Reason Start Date Expiration Date Visits Requested Visits Authorized [id number] Pending Review Financial Clearance Required - OON Payor 02/24/2025 99 99 Additional Source Comments INFORMATION SOURCE (unrecogn ized section and content) DATE CREATED AUTHOR 03/04/2021 [facility] DATE CREATED AUTHOR AUTHOR'S ORGANIZ ATION 09/02/2023 [facility] DATE CREATED AUTHOR AUTHOR'S ORGANIZ ATION 06/10/2024 [facility] DATE CREATED AUTHOR AUTHOR'S ORGANIZ ATION 08/18/2024 [facility] DATE CREATED AUTHOR AUTHOR'S ORGANIZ ATION 09/29/2024 [facility] DATE CREATED AUTHOR AUTHOR'S ORGANIZ ATION 10/04/2024 [facility] DATE CREATED AUTHOR AUTHOR'S ORGANIZ ATION 10/09/2024 [facility] Reason for Visit (unrecogniz ed section and content) Reason Comments Transplant Evaluation Specialty Diagnoses / Procedures Referred By Bejnamin sarmiento Referred To Contact TRANSPLANT Diagnoses Hypertension, unspecified type ESRD on dialysis (HCC) Pre-transplant evaluation for ESRD (end stage renal disease) Procedures CONSULT TO TRANSPLANT CENTER OFFICE/OUTPATIENT NEW HIGH MDM 60 MINUTES CHEST X-RAY, FRONT&LAT ECG ROUTINE ECG W/LEAST 12 LDS TRCG ONLY W/O I&R CT ANGIOGRAPHY CHEST W/CONTRAST/NONCONTRAST CT ABDOMEN W & W/O CONTRAST Stuart Jimenez MD [address] [place] [address] [facility] [place] [address] [address] Referral ID Status Reason Start Date Expiration Date Visits Requested Visits Authorized [id number] Authorized Financial Clearance Required - OON Payor Patient Cleared - INN Insurance Found 4 02/25/2025 99 99 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 Specialty Diagnoses / Procedures Referred By Contac t Referred To Contact Certified Nurse Practitioner / Transplant Surgery Diagnoses in person Procedures PRE WAITLIST PATIENT Lillian Chandler MBBS [address] [place] [address] No [employer] 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 [address] [place] [phone] Referral ID Status Reason Start Date Expiration Date V isits Requested Visits Authorized [id number] New Request 08/22/2021 09/16/2022 1 1 Specialty Diagnoses / Procedures Referred By Contac t Referred To Contact Certified Nurse Practitioner / Transplant Surgery Procedures PRE WAITLIST PATIENT No [employer] 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 [address] [phone] No [employer] 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 [address] [place] [phone] Referral ID Status Reason Start Date Expiration Date V isits Requested Visits Authorized [id number] New Request 10/23/2022 11/17/2023 1 1 Specialty Diagnoses / Procedures Referred By Contac t Referred To Contact Certified Nurse Practitioner / Transplant Surgery Procedures PRE WAITLIST PATIENT Self, Self Magda Mcdaniel, 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 [address], [place] [address] Referral ID Status Reason Start Date Expiration Date V isits Requested Visits Authorized [id number] New Request 10/16/2023 11/09/2024 1 1 Reason Comments Referral - Kidney Txp Reason Comments Referral - Kidney Txp Reason Comments Patient Education Specialty Diagnoses / Procedures Referred By Contac t Referred To Contact TRANSPLANT Diagnoses Hypertension, unspecified type ESRD on dialysis (HCC) Pre-transplant evaluation for ESRD (end stage renal disease) Procedures CONSULT TO TRANSPLANT CENTER OFFICE/OUTPATIENT NEW HIGH MDM 60 MINUTES CHEST X-RAY, FRONT&LAT ECG ROUTINE ECG W/LEAST 12 LDS TRCG ONLY W/O I&R CT ANGIOGRAPHY CHEST W/CONTRAST/NONCONTRAST CT ABDOMEN W & W/O CONTRAST Stuart Jimenez MD [address] [phone] Trac Txp Ctr [facility] [address] [place] [address] Reason Comments Radio Main J1 Specialty Diagnoses / Procedures Referred By Contac t Referred To Contact MR IMAGING Diagnoses Pre-transplant evaluation for ESRD (end stage renal disease) Procedures MRA BRAIN WO IVCON MRA, HEAD W/O CONTRAST Ren Rao MD [address] [place] [address] Mr Imaging [place] [address] Referral ID Status Reason Start Date Expiration Date V isits Requested Visits Authorized [id number] Closed Auto-Generated Referral Patient Cleared - INN Insurance Found 03/10/2024 02/25/2025 1 1 Reason Comments Clinical Update Reason Comments approval note Reason Comments listed phone call Care Teams (unrecognized sec tion and content) Shop Assistant Relationship Specialty Start Date End Date Freda Osorio DO [address] [place], [place] [phone] PCP - General Family Medicine 01/24/20 Shop Assistant Relationship Specialty Start Date End Date Freda Osorio DO [address] [place], [place] [phone] PCP - General Family Medicine 01/24/20 Team Status: Active Member Role Status Dates Dr. Jenny Ellis MD Family Provider Active Dr. Brenna Alexandra MD Primary Care Provider Active Team Status: Inactive Member Role Status Dates Dr. Bernna Alexandra MD Primary Care Provider Active Dr. Manny Weber DO Emergency Provider Active Team Status: Inactive Member Role Status Dates Dr. Brenna Alexandra MD Primary Care Provider, Refer ring Provider Active Dr. Randall Payne MD Attending Provider Active Team Status: Active Member Role Status Dates Dr. Brenna Alexandra MD Primary Care Provider Active Dr. Randall Payne MD Attending Provider Active Team Status: Active Member Role Status Dates Dr. Brenna Alexandra MD Primary Care Provider Active Harvey Blas AIR CHIEF MARSHAL, AIR CHIEF MARSHAL-C Attending Provider Active Team Status: Inactive Member Role Status Dates Dr. Brenna Alexandra MD Primary Care Provider Active Dr. Randall Payne MD Attending Provider, Referring Pro vider Active Team Status: Inactive Member Role Status Dates Dr. Brenna Alexandra MD Primary Care Provider, Refer ring Provider Active Belinda Marinelli CNM Attending Provider Active Team Status: Inactive Member Role Status Dates Dr. Brenna Alexandra MD Primary Care Provider Active Belinda Marinelli CNM Attending Provider, Referring Pr ovider Active Shop Assistant Relationship Specialty Start Date End Date Brenna Alexandra MD [address] [facility] [address] [place] [address] PCP - General Family Medicine 10/16/23 Goals (unrecognized section and content) Goals may be documented in a n alternate section Source Comments (unrecognize d section and content) In the event this informatio n is protected by the Federal Confidentiality of Alcohol and Drug Abuse Patient Records regulations: The Federal rules restrict any use of the information to criminally investigate or prosecute any alcohol or drug abuse patient.[facility] the event this information is protected by the Federal Confidentiality of Alcohol and Drug Abuse Patient Records regulations: The Federal rules restrict any use of the information to criminally investigate or prosecute any alcohol or drug abuse patient.[facility] the event this information is protected by the Federal Confidentiality of Alcohol and Drug Abuse Patient Records regulations: The Federal rules restrict any use of the information to criminally investigate or prosecute any alcohol or drug abuse patient.[facility] the event this information is protected by the Federal Confidentiality of Alcohol and Drug Abuse Patient Records regulations: The Federal rules restrict any use of the information to criminally investigate or prosecute any alcohol or drug abuse patient.[facility] the event this information is protected by the Federal Confidentiality of Alcohol and Drug Abuse Patient Records regulations: The Federal rules restrict any use of the information to criminally investigate or prosecute any alcohol or drug abuse patient.[facility] the event this information is protected by the Federal Confidentiality of Alcohol and Drug Abuse Patient Records regulations: The Federal rules restrict any use of the information to criminally investigate or prosecute any alcohol or drug abuse patient.[facility] the event this information is protected by the Federal Confidentiality of Alcohol and Drug Abuse Patient Records regulations: The Federal rules restrict any use of the information to criminally investigate or prosecute any alcohol or drug abuse patient.[facility] the event this information is protected by the Federal Confidentiality of Alcohol and Drug Abuse Patient Records regulations: The Federal rules restrict any use of the information to criminally investigate or prosecute any alcohol or drug abuse patient.[facility] the event this information is protected by the Federal Confidentiality of Alcohol and Drug Abuse Patient Records regulations: The Federal rules restrict any use of the information to criminally investigate or prosecute any alcohol or drug abuse patient.[facility] the event this information is protected by the Federal Confidentiality of Alcohol and Drug Abuse Patient Records regulations: The Federal rules restrict any use of the information to criminally investigate or prosecute any alcohol or drug abuse patient.[facility] the event this information is protected by the Federal Confidentiality of Alcohol and Drug Abuse Patient Records regulations: The Federal rules restrict any use of the information to criminally investigate or prosecute any alcohol or drug abuse patient.[facility] the event this information is protected by the Federal Confidentiality of Alcohol and Drug Abuse Patient Records regulations: The Federal rules restrict any use of the information to criminally investigate or prosecute any alcohol or drug abuse patient.[facility] the event this information is protected by the Federal Confidentiality of Alcohol and Drug Abuse Patient Records regulations: The Federal rules restrict any use of the information to criminally investigate or prosecute any alcohol or drug abuse patient.[facility] the event this information is protected by the Federal Confidentiality of Alcohol and Drug Abuse Patient Records regulations: The Federal rules restrict any use of the information to criminally investigate or prosecute any alcohol or drug abuse patient.[facility] the event this information is protected by the Federal Confidentiality of Alcohol and Drug Abuse Patient Records regulations: The Federal rules restrict any use of the information to criminally investigate or prosecute any alcohol or drug abuse patient.[facility] the event this information is protected by the Federal Confidentiality of Alcohol and Drug Abuse Patient Records regulations: The Federal rules restrict any use of the information to criminally investigate or prosecute any alcohol or drug abuse patient.[facility] the event this information is protected by the Federal Confidentiality of Alcohol and Drug Abuse Patient Records regulations: The Federal rules restrict any use of the information to criminally investigate or prosecute any alcohol or drug abuse patient.[facility] the event this information is protected by the Federal Confidentiality of Alcohol and Drug Abuse Patient Records regulations: The Federal rules restrict any use of the information to criminally investigate or prosecute any alcohol or drug abuse patient.[facility] the event this information is protected by the Federal Confidentiality of Alcohol and Drug Abuse Patient Records regulations: The Federal rules restrict any use of the information to criminally investigate or prosecute any alcohol or drug abuse patient.[facility] the event this information is protected by the Federal Confidentiality of Alcohol and Drug Abuse Patient Records regulations: The Federal rules restrict any use of the information to criminally investigate or prosecute any alcohol or drug abuse patient.[facility] the event this information is protected by the Federal Confidentiality of Alcohol and Drug Abuse Patient Records regulations: The Federal rules restrict any use of the information to criminally investigate or prosecute any alcohol or drug abuse patient.[facility] the event this information is protected by the Federal Confidentiality of Alcohol and Drug Abuse Patient Records regulations: The Federal rules restrict any use of the information to criminally investigate or prosecute any alcohol or drug abuse patient.[facility] the event this information is protected by the Federal Confidentiality of Alcohol and Drug Abuse Patient Records regulations: The Federal rules restrict any use of the information to criminally investigate or prosecute any alcohol or drug abuse patient.[facility] the event this information is protected by the Federal Confidentiality of Alcohol and Drug Abuse Patient Records regulations: The Federal rules restrict any use of the information to criminally investigate or prosecute any alcohol or drug abuse patient.[facility] FOR RECORDS PERTAINING TO PATIENTS WHO ARE [...] BE BASED ON THE PRIMARY CLINICAL RECORDS. [facility] provides no warranty or guarantee of the accuracy or completeness of information in this document.
[2024-10-15 19:58] LABS: Absolute Neutrophil Count 6.5 X10^3/uL (2.0-7.7); Basophil# 0.02 X10^3/uL; Basophil% 0.3 % (0-1); Eosinophil# 0.03 X10^3/uL; Eosinophils% 0.4 % (0-5); Hematocrit 36.1 % (37-47); Hemoglobin 11.8 g/dL (12.0-15.0); Lymphocyte % 4.1 % (19-41); Mean Corp Hgb Conc 32.7 g/dL (32-36); Mean Corpuscular Hgb 30.4 pg (27.0-32.0); Monocyte# 0.41 X10^3/uL; Monocyte% 5.6 % (0-10); NRBC Flagged by Analyzer 0 % (0-5); Neutrophil # 6.49 X10^3/uL (2.7-7.7); Neutrophil % 89.1 % (47-70); POSITIVE DIFFERENTIAL YES; Platelet Count 273 K/mm3 (150-450); RBC Distribution Width CV 14.1 % (11.6-14.6); RBC Distribution Width SD 47.5 fl (35.1-43.9); Red Blood Count 3.88 M/mm3 (4.2-5.4); White Blood Count 7.3 K/mm3 (4.4-11.0)
[2024-10-15 20:00] VITALS: BP 105/73; PULSE 105; RESP 16; TEMP 37.4; O2SAT 94
--- NOTE | 2024-10-15 20:03 | RAD_ITS ---
PROCEDURE: CHEST 1 VIEW (PORTABLE) 10/15/2024 REASON FOR EXAM: COUGH TECHNIQUE: Frontal view of the chest. COMPARISON: None. FINDINGS: Hardware: None. Heart: The heart size is normal. Lungs: No focal consolidation, pleural effusion or pneumothorax. Bones: The bones are unremarkable. RAD/Chest 1 View (Portable) IMPRESSION: Negative Chest. Reading Location: [id number]
[2024-10-15 20:13] LABS: International Normalized Ratio 1.2; Prothrombin Time (Protime)PT. 15.8 SECONDS (11.7-14.9)
[2024-10-15 20:14] LABS: Partial Thromboplast Time 27.1 Seconds (24.1-36.2)
[2024-10-15 20:27] LABS: Mucous, Urine 0 SEEN /hpf (<or=2+)
[2024-10-15 20:49] VITALS: BP 101/76; PULSE 104; RESP 14; TEMP 37.6; O2SAT 94
[2024-10-15 21:19] LABS: Lactic Acid < 1.0 mmol/L (0.0-2.0)
[2024-10-15 21:24] LABS: Color, Urine Yellow (Yellow); Glucose, Dipstick Normal (Normal); Ketone-Dipstick Negative (Negative); Leukocyte Esterase-Dipstick 100 /ul (Negative); Nitrite-Dipstick Negative (Negative); Occult Blood-Urine 250 /ul (Negative); Protein-Dipstick 100 mg/dl (Negative); Red Blood Cells-Urine 10-25 SEEN /hpf (0-5); Squamous Epithelial Cells - UA 25-50 SEEN /hpf (5-10); Urine Bilirubin Dipstick Negative (Negative); Urine Clarity Sl. Cloudy (Clear); Urine Urobilinogen Normal (Normal); White Blood Cells 10-25 SEEN /hpf (0-5)
[2024-10-15 21:25] LABS: ALB/GLOB Ratio 0.7 RATIO (0.9-2.4); AST(SGOT) 19 U/L (<=31); Alanine Aminotransfer ALT/SGPT 7 U/L (<=34); Albumin, Serum 2.6 g/dL (3.5-5.0); Alkaline Phosphatase 79 U/L (35-104); Anion Gap 14 (5-15); BUN 36 mg/dL (4-19); Calcium,Total 8.9 mg/dL (7.6-11.0); Carbon Dioxide 25.6 mmol/L (21.0-32.0); Chloride 95 mmol/L (98-108); Creatinine, Serum 7.24 mg/dL (0.70-1.20); EST Glomerular Filtration Rate 6 (>60); Estimated Creatinine Clearance 11.39 ml/min (50-250); Globulin 3.8 g/dL (2.2-4.2); Glucose 88 mg/dL (70-99); Potassium 3.8 mmol/L (3.3-5.1); Procalcitonin 0.79 ng/mL (<=0.10); Protein, Total 6.3 g/dL (5.9-8.4); Sodium Level 135 mmol/L (133-145); Total Bilirubin 0.32 mg/dL (0.00-1.30)
[2024-10-15 21:25] LABS: Bacteria 3+ /hpf (None Seen); Transitional Epithelial - Ur 5-10 SEEN /hpf (0-5)
[2024-10-15 22:00] VITALS: BP 119/87; PULSE 101; RESP 16; TEMP 37.1; O2SAT 96
[2024-10-15 22:06] LABS: Auto B Fluid Analyzer BKGD Ct COUNTS W/IN LIMITS (W/IN LIMITS); Source- Body Fluid PERITONEAL FLUID
[2024-10-15 22:07] LABS: Appearance/Body Fluid TURBID; Color/Body Fluid COLORLESS
[2024-10-15 22:08] LABS: Red Cell Count/Body Fluid 0.003 10^6/ul; White Blood Count/Body Fluid 0.676 10^3/uL
[2024-10-15 22:09] LABS: Body Fluid Mononuclear WBC # 0.462 10^3/uL; Body Fluid Mononuclear WBC % 68.3 %; Body Fluid Polynuclear WBC # 0.214 10^3/uL; Body Fluid Polynuclear WBC % 31.7 %
[2024-10-15 23:00] VITALS: BP 113/64; PULSE 106; RESP 19; TEMP 37; O2SAT 98
[2024-10-15 23:24] LABS: Body Fluid QC Type(s) BF1Q; Lymphocytes 36 %; Neutrophil (Segs) 64 %
[2024-10-15 23:25] LABS: Body Fluid Total Cells Counted 0.691 10^3/ul
[2024-10-15] MEDS: Ceftriaxone 1 GM/50 ML BAG IV (23:59)
[2024-10-16] VITALS (10 sets, daily range): BP systolic 109–126; BP diastolic 75–93; PULSE 85–99; RESP 14–19; TEMP 37–37.2; O2SAT 93–98
--- NOTE | 2024-10-16 07:54 | PCA ---
THIS CHIP PERSON RECEIVED A CALL FROM [facility] CONCERNING PT'S BED ASSIGNMENT AT 0745. PT IS GOING TO BED 6612. N2N IS [phone]. TO DR BANEGAS. PHYSICIANS GAVE AN ETA FOR TRANSPORT: 0845
--- NOTE | 2024-10-16 08:20 | ED.RN ---
report called to Shaquille BLANTON
[2024-10-19 14:56] LABS: Pathologist Comment/Body Fluid Reviewed
== END 2024-10-16 11:06 | disposition other institution (70) ==
PROVIDERS: Emergency Provider Emergency Medicine; PCP Student in an Organized Health Care Education/Training Program; Visit Provider Emergency Medicine
DX: K65.2 Spontaneous bacterial peritonitis (principal); I12.0 Hypertensive chronic kidney disease with stage 5 chronic kidney disease or end stage renal disease; N18.6 End stage renal disease; R79.89 Other specified abnormal findings of blood chemistry; Q61.3 Polycystic kidney, unspecified; I10 Essential (primary) hypertension; Z99.2 Dependence on renal dialysis; R05.9 Cough, unspecified; Z79.899 Other long term (current) drug therapy
CPT/HCPCS: 71045; 74176; 80053; 81001; 83605; 84145; 85025; 85610; 85730; 87040; 87070; 87075; 87086; 87088; 87205; 87633; 89050; 93005; 96365; 99285; A4216

== ENCOUNTER 2024-12-23 12:37 | Outpatient (CLI) | payer OTHER, SELFPAY ==
--- NOTE | 2024-12-23 12:40 | VDUE_ITS ---
Reason For Study Reason For Study: End stage renal disease Right Lower Arm Left Arm Radial artery at distal forearm measures 0.21x0.20 cm Brachial artery at mid upper arm measures 0.32x0.32 with a velocity of 62.0 cm/sec. cm with a velocity of 78.8 cm/sec. Right Arm Cephalic Vein at distal forearm measures 0.25x0.24 Brachial artery at mid upper arm measures 0.25x0.26 cm. cm with a velocity of 72.3 cm/sec. Cephalic Vein at mid forearm measures 0.23x0.23 cm. Cephalic Vein at distal forearm measures 0.34x0.36 Cephalic Vein proximal forearm measures 0.25x0.29 cm. cm. Cephalic Vein distal upper arm measures 0.28x0.32 cm. Cephalic Vein at mid forearm measures 0.32x0.34 cm. Cephalic Vein at mid upper arm measures 0.31x0.31 cm. Cephalic Vein proximal forearm measures 0.31x0.31 cm. Cephalic Vein at proximal upper arm measures Cephalic Vein distal upper arm measures 0.12x0.13 cm. 0.32x0.32 cm. Cephalic Vein at mid upper arm measures 0.14x0.16 cm. Proximal Basilic vein measures 0.47x0.46 cm. Cephalic Vein at proximal upper arm measures Mid Basilic vein measures 0.50x0.47 cm. 0.22x0.28 cm. Distal Basilic vein measures 0.45x0.48 cm. Bright intraluminal echoes noted in the Cephalic V at Left Lower Arm the antecubital space consistent with Chronic DVT. Radial artery at distal forearm measures 0.22x0.20 cm Proximal Basilic vein measures 0.33x0.33 cm. with a velocity of 60.7 cm/sec. Mid Basilic vein measures 0.41x0.39 cm. Distal Basilic vein measures 0.40x0.50 cm. Procedure Exam performed in department. VL/Dialysis Vein Map PRE-OP BILAT Interpretation Summary The superficial veins of the upper extremities appear patent, and segmental romy meters are as documented above. Chronic venous changes are noted in the right cephalic vein in the antecubital space. T he radial and brachial arteries appear patent bilaterally, demonstrating normal pulsatile arterial flow and normal pea k systolic velocities. Arterial diameters are as documented above. Ordering Physician: Sarah Carrasquillo Referring Physician: Sarah Carrasquillo Performed By: Velia Bolanos RVT ???
== END 2024-12-23 23:59 | disposition home or self-care (01) ==
LOC: CVS 12:38
PROVIDERS: PCP Student in an Organized Health Care Education/Training Program; Referring Provider Internal Medicine Nephrology; Visit Provider Internal Medicine Nephrology
DX: N18.6 End stage renal disease (principal); R79.89 Other specified abnormal findings of blood chemistry; I87.8 Other specified disorders of veins
CPT/HCPCS: 93985

== ENCOUNTER 2025-01-27 09:02 | Outpatient (CLI) | payer OTHER, SELFPAY | END 2025-01-27 23:59 | disposition home or self-care (01) | LOC: CVS 09:04 | PROVIDERS: PCP Student in an Organized Health Care Education/Training Program; Referring Provider Internal Medicine Nephrology; Visit Provider Internal Medicine Nephrology | DX: N18.6 End stage renal disease (principal) ==

== ENCOUNTER → 2025-03-24 | Outpatient (CLI) | payer OTHER, SELFPAY ==
--- NOTE | 2025-03-24 16:00 | RAD_ITS ---
PROCEDURE: CHEST PA AND LATERAL 03/24/2025 REASON FOR EXAM: HTN TECHNIQUE: Procedure Code: RADCXR Modality: DX Procedure: CHEST PA AND LATERAL COMPARISON: AP chest of 10/15/2024. RAD/Chest PA and Lateral IMPRESSION: Interval placement of a right subclavian central venous catheter, but with tip projecting near the expected junction of the SVC and right atrium. No pneumothorax is seen. No pleural effusion is evident. No evidence of pulmonary edema. Lungs appear clear of acute disease. The cardiomediastinal silhouette is stable, without evidence of cardiomegaly. No acute osseous change is seen. Reading Location: [place] [id number]
== END | disposition home or self-care (01) ==
LOC: RAD 15:53
PROVIDERS: PCP Student in an Organized Health Care Education/Training Program; Referring Provider Internal Medicine Cardiovascular Disease; Visit Provider Internal Medicine Cardiovascular Disease
DX: I34.1 Nonrheumatic mitral (valve) prolapse (principal); I48.91 Unspecified atrial fibrillation; R06.02 Shortness of breath
CPT/HCPCS: 71046

== ENCOUNTER 2025-03-28 08:08 | Day surgery (SDC) | payer OTHER, SELFPAY ==
--- NOTE | 2025-03-14 13:00 | PAT.ANESEVAL ---
Pre-Assessment Diagnosis/Proposed Procedure Planned Operative Procedure(s): (R) Right Arteriovenous Fistula,Creation Anesthesia History Anesthesia History - plasterer tender: Anesthesia History - plasterer tender Hx Hospitalization Yes: [facility] 2024 INFECTION 03/14/25 10:50 AT PERITONEAL DIALYSIS CATH, CVA Any Problems With Anesthesia Yes: PONV 03/14/25 10:50 Cholinesterase deficiency No 03/14/25 10:50 You/Your Family Experience No 03/14/25 10:50 fever (hyperthermia) with Relationship Recent Exposure to Contagious No 05/11/24 09:43 Disease Does patient have nerve No 03/14/25 10:50 stimulator Patient instructed to have device shut off --Does patient have Pacemaker or ICD? When Was Last Pacemaker Check QUESTION #4 FULL TEXT: You/Your Family Experience fever (hyperthermia) with Anesthesia Last Oral Intake Last Oral intake: Last Oral Intake NPO since Meds taken in AM with sips of water? Meds patient instructed to take am of surgery PONV PONV - plasterer tender: PONV - plasterer tender Female Yes 03/14/25 10:50 HX of Motion Sickness Yes 03/14/25 10:50 HX of N/V After Surgery Yes 03/14/25 10:50 Non-Smoker Yes 03/14/25 10:50 Duration of Surgery greater No 03/14/25 10:50 than 60 minutes Number of Risk Factors 4 03/14/25 10:50 PONV Score Severe Risk 03/14/25 10:50 Height & Weight Height & Weight: Anesthesia: Height & Weight Height 5 ft 10 in 02/28/25 08:31 Respiratory Assessment Respiratory Assessment - plasterer tender: Respiratory Tract Infection Hx - plasterer tender Hx Respiratory Tract Infection No 03/14/25 10:50 STOP Sleep Apnea STOP Sleep Apnea - plasterer tender: STOP Sleep Apnea - plasterer tender Hx Hypertension Yes: CONTROLLED WITH MEDS 03/14/25 10:50 Hx Sleep Apnea No 03/14/25 10:50 CPAP No 03/14/25 10:50 BIPAP Do you snore loudly (louder No 03/14/25 10:50 than talking or can be heard Do you often feel tired/ No 03/14/25 10:50 fatigued/ sleepy during daytime? Has anyone observed you stop No 03/14/25 10:50 breathing during sleep? STOP Results Negative 03/14/25 10:50 QUESTION #5 FULL TEXT : Do you snore loudly (louder than talking or can be heard through closed doors)? 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 Specify any problems Hx of Preganancy in last 3 No 03/14/25 10:50 Months Nurse Filling Out Transfusion [facility] 03/14/25 10:50 & Questions: Date: 03/14/25 03/14/25 10:50 Time: 10:55 03/14/25 10:50 Patient unable to answer at this time (ie. confused, unrespo /Reproduction History /Reproductive History - plasterer tender: /Reproductive Hx- plasterer tender Hx Now No 03/14/25 10:50 Gestational Age (in weeks): EDC: Hx Hx Para Hx Section SAB No 03/14/25 10:50 Does the father of the baby or his family experience fever w Father of the baby Malignant Hypertension history comment [facility] Medical History (Updated 03/14/25 @ 11:07 by Marlen Dowd) Wears glasses Ambulates with cane History of renal disease Low iron High cholesterol Excessive bleeding Restless legs Dietary restriction PONV (postoperative nausea and vomiting) Shortness of breath on exertion CVA (cerebral vascular accident) Fungal infection associated with peritoneal dialysis catheter Easy bruising Umbilical hernia Non-smoker History of edema History of echocardiogram History of stress test Cardiology follow-up encounter Chest pain Polycystic kidney disease Essential hypertension End-stage renal disease needing dialysis Home Medications ?Medication ?Instructions ?Recorded ?Last Taken ?Type sevelamer carbonate 800 mg tablet 800 mg PO BID 10/15/24 Unknown History apixaban 5 mg tablet (Eliquis) 5 mg PO BID 12/14/24 Unknown History aspirin 81 mg tablet 81 mg PO QDAY 12/14/24 Unknown History atorvastatin 40 mg tablet 40 mg PO QDAY #90 tabs 12/14/24 Unknown Rx diphenhydramine HCl 25 mg tablet 25 mg PO BID PRN allergic reaction 12/14/24 Unknown History (Benadryl Allergy) melatonin 3 mg capsule 3 mg PO HS PRN sleep 12/14/24 Unknown History metoprolol succinate 25 mg 25 mg PO DAILY #90 tabs 12/14/24 Unknown Rx tablet,extended release 24 hr multivitamin 1 tab PO QAM 12/14/24 Unknown History Lactobacillus acidophilus 10 100 mmu cells PO DAILY 03/14/25 Unknown History billion cell capsule (NewFlora) Allergy/AdvReac Type Severity Reaction Status Date / Time allopurinol AdvReac Nausea Verified 03/14/25 10:42 Family History Mother Diabetes Hypertension Kidney disease Father Hypertension Grandmother Kidney disease Surgical History (Updated 03/14/25 @ 11:07 by Marlen Dowd) History of colonoscopy History of surgery H/O umbilical hernia repair Peritoneal dialysis catheter in place (10/20/24) Social History adopted: No household members: other details: lives with father housing: house number of children: 0 current occupational status: employed current occupation: [employer] history of recent travel: No sexually active: No Smoking Status: Never smoker alcohol intake: never substance use type: does not use well-balanced diet: daily or most days caffeine: Yes eating out: 1-3 times/week what type of physical activity do you participate in: walking seatbelt use: always do you feel safe at home: Yes additional social history: single Audit: Pertinent Findings HISTORY of Pertinent Findings History of Pertinent Findings: history of hypertension, end-stage renal disease on peritoneal dialysis and a family history of polycystic kidney disease as well as has self. Pertinent Findings EKG Perinent findings: 10/2024: Sinus rhythm Stress test pertinent findings: Stress Test 06/16/2020 Impression: 1. Technically adequate (percent predicted maximal heart rate greater than 85%) exercise tolerance test 2. Stress test is[positive] for exercise-induced EKG changes of ischemia. This could be a false positive finding. 3. The test test is [negative] for exercise-induced chest pain 4. Functional capacity is[excellent for age] 5. Nuclear images pending Myocardial perfusion imaging study: Impression: 1. There is[no evidence of significant ischemia or infarction]. 2. The gated Cardiolite study reports an LVEF of [74]%. Echo (EF%) pertinent findings: Echocardiogram from 04/02/2023: Interpretation Summary Normal LV size. Left ventricular systolic function is normal. The estimated ejection fraction is 60 %. Equivocal mitral valve prolapse. Multiple liver cysts noted. [place] 10/2024: EF 60-65%, with hypertrophy. Recommendation Anesthesia Recommendation Anesthesia recommendation: OPTIMIZED for anesthesia (EKG on DOS )
[2025-03-21 17:29] LABS: Hematocrit 42.4 % (37-47); Hemoglobin 13.7 g/dL (12.0-15.0); Mean Corp Hgb Conc 32.3 g/dL (32-36); Mean Corpuscular Volume 92.8 fL (81-99); Mean Platelet Vol. 9.9 fl (6.2-12.0); Platelet Count 219 K/mm3 (150-450); RBC Distribution Width CV 14.5 % (11.6-14.6); RBC Distribution Width SD 49.1 fl (35.1-43.9); Red Blood Count 4.57 M/mm3 (4.2-5.4); White Blood Count 4.6 K/mm3 (4.4-11.0)
[2025-03-21 18:08] LABS: Anion Gap 9 (5-15); BUN 10 mg/dL (4-19); BUN/Creat Ratio 3.1 RATIO (10-20); Calcium,Total 9.9 mg/dL (7.6-11.0); Carbon Dioxide 32.9 mmol/L (21.0-32.0); Chloride 97 mmol/L (98-108); Glucose 89 mg/dL (70-99); Potassium 3.3 mmol/L (3.3-5.1)
--- NOTE | 2025-03-22 17:16 | PAT.ANE_ITS ---
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 When Was Last Pacemaker Check QUESTION #4 FULL TEXT: You/Your Family Experience fever (hyperthermia) with Anesthesia Last Oral Intake Last Oral intake: Last Oral Intake NPO since Meds taken in AM with sips of water? Meds patient instructed to take am of surgery PONV PONV - citizen participation specialist: PONV - citizen participation specialist Female Yes 03/14/25 10:50 HX of Motion Sickness Yes 03/14/25 10:50 HX of N/V After Surgery Yes 03/14/25 10:50 Non-Smoker Yes 03/14/25 10:50 Duration of Surgery greater No 03/14/25 10:50 than 60 minutes Number of Risk Factors 4 03/14/25 10:50 PONV Score Severe Risk 03/14/25 10:50 Height & Weight Height & Weight: Anesthesia: Height & Weight Height 5 ft 10 in 02/28/25 08:31 Respiratory Assessment Respiratory Assessment - citizen participation specialist: Respiratory Tract Infection Hx - citizen participation specialist Hx Respiratory Tract Infection No 03/14/25 10:50 STOP Sleep Apnea STOP Sleep Apnea - citizen participation specialist: STOP Sleep Apnea - citizen participation specialist Hx Hypertension Yes: CONTROLLED WITH MEDS 03/14/25 10:50 Hx Sleep Apnea No 03/14/25 10:50 CPAP No 03/14/25 10:50 BIPAP Do you snore loudly (louder No 03/14/25 10:50 than talking or can be heard Do you often feel tired/ No 03/14/25 10:50 fatigued/ sleepy during daytime? Has anyone observed you stop No 03/14/25 10:50 breathing during sleep? STOP Results Negative 03/14/25 10:50 QUESTION #5 FULL TEXT : Do you snore loudly (louder than talking or can be heard through closed doors)? 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 Specify any problems Hx of Preganancy in last 3 No 03/14/25 10:50 Months Nurse Filling Out Transfusion [facility] 03/14/25 10:50 & Questions: Date: 03/14/25 03/14/25 10:50 Time: 10:55 03/14/25 10:50 Patient unable to answer at this time (ie. confused, unrespo /Reproduction History /Reproductive History - citizen participation specialist: /Reproductive Hx- citizen participation specialist Hx Now No 03/14/25 10:50 Gestational Age (in weeks): EDC: Hx Hx Para Hx Section SAB No 03/14/25 10:50 Does the father of the baby or his family experience fever w Father of the baby Malignant Hypertension history comment [facility] Medical History (Updated 03/14/25 @ 11:07 by Marlen Dowd) Wears glasses Ambulates with cane History of renal disease Low iron High cholesterol Excessive bleeding Restless legs Dietary restriction PONV (postoperative nausea and vomiting) Shortness of breath on exertion CVA (cerebral vascular accident) Fungal infection associated with peritoneal dialysis catheter Easy bruising Umbilical hernia Non-smoker History of edema History of echocardiogram History of stress test Cardiology follow-up encounter Chest pain Polycystic kidney disease Essential hypertension End-stage renal disease needing dialysis Home Medications ?Medication ?Instructions ?Recorded ?Last Taken ?Type sevelamer carbonate 800 mg tablet 800 mg PO BID Unknown History apixaban 5 mg tablet (Eliquis) 5 mg PO BID 12/14/24 Un known History aspirin 81 mg tablet 81 mg PO QDAY 12/14/24 Unkno wn History atorvastatin 40 mg tablet 40 mg PO QDAY #90 tabs 12/14 Unknown Rx diphenhydramine HCl 25 mg tablet 25 mg PO BID PRN bunny rgic reaction 12/14/24 Unknown History (Benadryl Allergy) melatonin 3 mg capsule 3 mg PO HS PRN sleep 5 Unknown History metoprolol succinate 25 mg 25 mg PO DAILY #90 tabs 04/28 Unknown Rx tablet,extended release 24 hr multivitamin 1 tab PO QAM 12/14/24 Unknow n History Lactobacillus acidophilus 10 100 mmu cells PO DAILY Unknown History billion cell capsule (NewFlora) Allergy/AdvReac Type Severity Reaction Status Date / Time allopurinol AdvReac Nausea Verified 03/14/25 10:42 Family History Mother Diabetes Hypertension Kidney disease Father Hypertension Grandmother Kidney disease Surgical History (Updated 03/14/25 @ 11:07 by Marlen Dowd) History of colonoscopy History of surgery H/O umbilical hernia repair Peritoneal dialysis catheter in place (10/20/24) Social History adopted: No household members: other details: lives with father housing: house number of children: 0 current occupational status: employed current occupation: [employer] history of recent travel: No sexually active: No Smoking Status: Never smoker alcohol intake: never substance use type: does not use well-balanced diet: daily or most days caffeine: Yes eating out: 1-3 times/week what type of physical activity do you participate in: walking seatbelt use: always do you feel safe at home: Yes additional social history: single Audit: Pertinent Findings HISTORY of Pertinent Findings History of Pertinent Findings: EKG Pertinent Findings EKG Perinent findings 10/2024: Sinus rhythm 03/14/25 13:02 Stress Test Pertinent Findings Stress test pertinent findings Stress Test 06/16/2020 03/14/25 13:02 Impression: 1. Technically adequate ( percent predicted maximal heart rate greater than 85%) exercise tolerance test 2. Stress test is[positive] for exercise-induced EKG changes of ischemia. This could be a false positive finding. 3. The test test is [ negative] for exercise- induced chest pain 4. Functional capacity is[ excellent for age] 5. Nuclear images pending Myocardial perfusion imaging study: Impression: 1. There is[no evidence of significant ischemia or infarction]. 2. The gated Cardiolite study reports an LVEF of [74 ]%. Echo Pertinent Findings Echo (EF%) pertinent findings Echocardiogram from 04/02/ 03/14/25 13:02 2022: Interpretation Summary Normal LV size. Left ventricular systolic function is normal. The estimated ejection fraction is 60 %. Equivocal mitral valve prolapse. Multiple liver cysts noted. [place] 10/2024: EF 60-65%, with hypertrophy. Pertinent Findings Additional pertinent findings: Creatinine high last result on 03/21/2025 creatinine 3.11 potassium has been within normal limit. Patient is having AV fistula. Recommendation Anesthesia Recommendation Anesthesia recommendation: OPTIMIZED for anesthesia
[2025-03-28] VITALS (7 sets, daily range): BP systolic 103–120; BP diastolic 73–86; PULSE 62–82; RESP 16; TEMP 36.1–36.2; O2SAT 96–99; BMI 24.2
[2025-03-28 08:39] LABS: Internal QC Validated? YES +Cl - CLEAR BKGD; Pregnancy, Urine Negative Negative; Record Kit Lot#,Urine Preg 980607
[2025-03-28] MEDS: 0.9% Normal Saline (1000mL) 1,000 ML 15 ML IV (08:53)
--- NOTE | 2025-03-28 08:57 | PRE.ANES_ITS ---
ASA Classification* ASA Classification ASA Classification: 4 (ESRD, HTN, HTN, hx CVA, ADPKD) Assessment & Plan Anesthesia* Anesthesia Assessment Anesthesia Assessment: Discussed sedation and/or anesthesia options, risks, benefits, and alternatives with patient/parents/legal guardian/POA. Questions invited. The patient/parents/legal guardian/POA seems to understand and agrees to proceed with anesthesia plan. Reviewed the physical assessment, medical history, allergy history and patient home medications list prior to surgery/procedure/anesthetic and documented any changes. Performed airway and anesthesia risk assessments. Anesthesia Type Anesthesia Type: MAC and Block (Interscalene/Supraclav consent obtained, will perform block if needed post-op. Benefits/risks/alternatives explained. Opportunity for questions illicited. ) History Source History Obtained from:: Patient and Chart Anesthesia Focused Assessment* Temperature: 97 F Pulse Rate: 82 Blood Pressure: 120/75 Respiratory Rate: 16 Pulse Ox: 99 Oxygen Delivery Method: Room Air Airway Assessment Mouth opens: >3 cm Mallampati Score: II Neck Range of motion (ROM): Full ROM Labs Anesthesia Preop lab: CBC WBC, (4.4-11.0) 4.6 K/mm3 03/21/25, 16:22 RBC, (4.2-5.4) 4.57 M/mm3 03/21/25, 16:22 Hgb, (12.0-15.0) 13.7 g/dL 03/21/25, 16:22 Hct, (37-47) 42.4 % 03/21/25, 16:22 Plt Count, (150-450) 219 K/mm3 03/21/25, 16:22 CHEMISTRY Potassium, (3.3-5.1) 3.3 mmol/L 03/21/25, 16:22 Sodium, (133-145) 138 mmol/L 03/21/25, 16:22 Phosphorus, (2.5-4.9) 4.6 mg/dL 02/02/18, 16:08 BUN, (4-19) 10 mg/dL 03/21/25, 16:22 Creatinine, (0.70-1.20) 3.11 mg/dL H 03/21/25, 16:22 Glucose, (70-99) 89 mg/dL 11/17/25, 16:22 TSH, (0.358-3.74) 3.00 uIU/mL 05/04/13, 11:03 COAG PT, (11.7-14.9) 15.8 SECONDS H 10/15/24, 19:42 Urine Test Negative Negative Today, 08:22 Pre-Assessment Diagnosis/Proposed Procedure Planned Operative Procedure(s): (R) Right Arteriovenous Fistula,Creation Anesthesia History Anesthesia History - cloth desizing range tender: Anesthesia History - cloth desizing range tender Hx Hospitalization Yes: [facility]24 INFECTION 03/14/25 10:50 AT [facility]ONE[facility] CATH, CVA Any Problems With Anesthesia Yes: PONV 03/14/25 10:50 Cholinesterase deficiency No 03/14/25 10:50 You/Your Family Experience No 03/14/25 10:50 fever (hyperthermia) with Relationship Recent Exposure to Contagious No 03/28/25 08:44 Disease Does patient have nerve No 03/14/25 10:50 stimulator Patient instructed to have device shut off --Does patient have Pacemaker No 03/28/25 08:44 or ICD? When Was Last Pacemaker Check QUESTION #4 FULL TEXT: You/Your Family Experience fever (hyperthermia) with Anesthesia Last Oral Intake Last Oral intake: Last Oral Intake NPO since 18:00 03/28/25 08:44 Meds taken in AM with sips of water? Meds patient instructed to take am of surgery PONV PONV - cloth desizing range tender: PONV - cloth desizing range tender Female Yes 03/14/25 10:50 HX of Motion Sickness Yes 03/14/25 10:50 HX of N/V After Surgery Yes 03/14/25 10:50 Non-Smoker Yes 03/14/25 10:50 Duration of Surgery greater No 03/14/25 10:50 than 60 minutes Number of Risk Factors 4 03/14/25 10:50 PONV Score Severe Risk 03/14/25 10:50 Height & Weight Height & Weight: Anesthesia: Height & Weight Height 5 ft 10 in 03/28/25 08:44 Weight: 76.657 kg 03/28/25 08:44 Body Mass Index (BMI) 24.2 03/28/25 08:44 Respiratory Assessment Respiratory Assessment - cloth desizing range tender: Respiratory Tract Infection Hx - cloth desizing range tender Hx Respiratory Tract Infection No 03/14/25 10:50 STOP Sleep Apnea STOP Sleep Apnea - cloth desizing range tender: STOP Sleep Apnea - cloth desizing range tender Hx Hypertension Yes: CONTROLLED WITH MEDS 03/14/25 10:50 Hx Sleep Apnea No 03/14/25 10:50 CPAP No 03/14/25 10:50 BIPAP Do you snore loudly (louder No 03/14/25 10:50 than talking or can be heard Do you often feel tired/ No 03/14/25 10:50 fatigued/ sleepy during daytime? Has anyone observed you stop No 03/14/25 10:50 breathing during sleep? STOP Results Negative 03/14/25 10:50 QUESTION #5 FULL TEXT : Do you snore loudly (louder than talking or can be heard through closed doors)? 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 Specify any problems Hx of Preganancy in last 3 No 03/14/25 10:50 Months Nurse Filling Out Transfusion [id number] 03/14/25 10:50 & Questions: Date: 03/14/25 03/14/25 10:50 Time: 10:55 03/14/25 10:50 Patient unable to answer at this time (ie. confused, unrespo /Reproduction History /Reproductive History - cloth desizing range tender: /Reproductive Hx- cloth desizing range tender Hx Now No 03/14/25 10:50 Gestational Age (in weeks): EDC: Hx Hx Para Hx Section SAB No 03/14/25 10:50 Does the father of the baby or his family experience fever w Father of the baby Malignant Hypertension history comment Active Medications Active Medications: Current Medications Generic Name Dose Route Start Last Admin Trade Name Freq PRN Reason Stop Dose Admin Sodium Chloride 1,000 mls @ 15 mls/hr 03/28/25 08:25 03/28/25 08:53 IV 15 mls/hr .Q48H LASHAWN Administration PFSH Medical History Wears glasses Ambulates with cane History of renal disease Low iron High cholesterol Excessive bleeding Restless legs Dietary restriction PONV (postoperative nausea and vomiting) Shortness of breath on exertion CVA (cerebral vascular accident) Fungal infection associated with peritoneal dialysis catheter Easy bruising Umbilical hernia Non-smoker History of edema History of echocardiogram History of stress test Cardiology follow-up encounter Chest pain Polycystic kidney disease Essential hypertension End-stage renal disease needing dialysis Home Medications ?Medication ?Instructions ?Recorded ?Last Taken ?Type sevelamer carbonate 800 mg tablet 800 mg PO BID Unknown History aspirin 81 mg tablet 81 mg PO QDAY 12/14/2403/27 History atorvastatin 40 mg tablet 40 mg PO QDAY #90 tabs 12/14 Unknown Rx diphenhydramine HCl 25 mg tablet 25 mg PO BID PRN bunny rgic reaction 12/14/24 Unknown History (Benadryl Allergy) melatonin 3 mg capsule 3 mg PO HS PRN sleep 5 Unknown History metoprolol succinate 25 mg 25 mg PO DAILY #90 tabs 04/2803/27/25 09:00 Rx tablet,extended release 24 hr multivitamin 1 tab PO QAM 12/14/24 Unknow n History Lactobacillus acidophilus 10 100 mmu cells PO DAILY Unknown History billion cell capsule (NewFlora) apixaban 5 mg tablet (Eliquis) 5 mg PO BID #180 tabs 1 05/24/24 03/27/25 Rx Allergy/AdvReac Type Severity Reaction Status Date / Time allopurinol AdvReac Nausea Verified 03/28/25 08:43 Family History Mother Diabetes Hypertension Kidney disease Father Hypertension Grandmother Kidney disease Surgical History History of colonoscopy History of surgery H/O umbilical hernia repair Peritoneal dialysis catheter in place (10/20/24) Social History adopted: No household members: other details: lives with father housing: house number of children: 0 current occupational status: employed current occupation: [employer] history of recent travel: No sexually active: No Smoking Status: Never smoker alcohol intake: never substance use type: does not use well-balanced diet: daily or most days caffeine: Yes eating out: 1-3 times/week what type of physical activity do you participate in: walking seatbelt use: always do you feel safe at home: Yes additional social history: single Review of Systems (Anesthesia) ROS Narrative System reviewed and no additional complaints, except as documented. Physical Exam Const alert, oriented x3 and average body habitus Resp normal respiratory effort, normal air movement and clear to auscultation bilaterally Cardio regular rate, regular rhythm and no murmurs; Negative for diaphoretic
--- NOTE | 2025-03-28 09:28 | HP.PCM_ITS ---
History and Physical Allergies allopurinol Adverse Reaction (Verified 03/02/25 16:13) Nausea Medications ?Medication ?Instructions ?Recorded ?Confirmed ?Type ferrous sulfate 324 mg (65 mg 324 mg PO DAILY 12/04/22 03/02/25 Histor y iron) tablet,delayed release sevelamer carbonate 800 mg tablet 800 mg PO TID 10/15/24 03/02/25 History apixaban 5 mg tablet (Eliquis) 5 mg PO BID 12/14/24 03/02/25 History aspirin 81 mg tablet 81 mg PO QDAY 12/14/24 03/02/25 History atorvastatin 40 mg tablet 40 mg PO QDAY #90 tabs 12/14/24 03/02/25 Rx diphenhydramine HCl 25 mg tablet 25 mg PO BID PRN 12/14/24 03/02/25 Histo ry (Benadryl Allergy) magnesium hydroxide 400 mg/5 mL 30 ml PO QDAY PRN 12/14/24 03/02/25 Hist ory oral suspension melatonin 3 mg capsule 3 mg PO HS PRN 12/14/24 03/02/25 History metoprolol succinate 25 mg 25 mg PO DAILY #90 tabs 12/14/24 5 Rx tablet,extended release 24 hr multivitamin 1 tab PO QAM 12/14/24 03/02/25 History Is last menstrual period known: Yes Post menopausal: No Patient : No Have you fallen in the past year?: Yes PFSH Medical History CVA (cerebral vascular accident) Fungal infection associated with peritoneal dialysis catheter Easy bruising Umbilical hernia Non-smoker History of edema History of echocardiogram History of stress test Cardiology follow-up encounter Chest pain Polycystic kidney disease Essential hypertension End-stage renal disease needing dialysis Surgical History H/O umbilical hernia repair Peritoneal dialysis catheter in place (10/20/24) Family History Mother Diabetes Hypertension Kidney disease Father Hypertension Grandmother Kidney disease Social History adopted: No household members: other details: lives with father housing: house number of children: 0 current occupational status: employed current occupation: [employer] history of recent travel: No sexually active: No Smoking Status: Never smoker alcohol intake: never substance use type: does not use well-balanced diet: daily or most days caffeine: Yes eating out: 1-3 times/week what type of physical activity do you participate in: walking seatbelt use: always do you feel safe at home: Yes additional social history: single HPI HPI HPI: JAMIL BARGER, is a 50 F who presents to the office today for evaluation for dialysis access. She had renal failure due to polycystic kidney disease and had been on peritoneal dialysis for over a year. Earlier this year she developed an infection requiring it to be removed. During that hospitalization she also suffered a left hemispheric stroke with residual RUE/RLE deficits. She is now effectively left hand dominant, no prior arm/clavicle fractures/pacer/node removal. Did have a tunneled IJ PICC for atbx after PD catheter infection. Has been using tunneled IJ catheter without issue since placement. She is currently actively pursuing transplant and is meeting with [facility] team in a few weeks to discuss a possible match. ROS General General: Yes weight change and appetite; No fatigue, colon cancer, breast cancer or weakness HEENT HEENT: No difficulty swallowing, eye injury, eye surgery, swollen glands or hoarseness Endo Endocrine: No thyroid disease, diabetes mellitus, thyroid cancer, Hair loss, heat intolerance or cold intolerance Skin Skin: No rash or changing moles Musc Musculoskeletal: No back problems, arthritis, rheumatoid arthritis, gout or joint pain Cardio Cardiovascular: Yes high blood pressure; No murmur, pacemaker, heart disease, atrial fibrillation, heart attack, heart stent, palpitations, shortness of breath with exertion or chest pain Psych Psychiatric: No depression, anxiety or hearing voices Resp Respiratory: No shortness of breath, No sleep apnea, No cough, No COPD, No asthma, No emphysema and No wheezing Gastro Gastrointestinal: No abdominal pain, Yes nausea or vomiting, No diarrhea, No constipation, No blood in stool, No acid reflux, No hemorrhoids, No ulcers, No gallbladder problem and No black,tarry stools Chau Hematologic: Yes blood thinners, No blood disorders, No bleeding, Yes anemia and Yes blood clots Neuro Neurologic: No system reviewed and no additional complaints, except as documented, No as per HPI, No abnormal gait, No abnormal hearing, No abnormal movements, No abnormal speech, No behavioral changes, No burning sensations, Yes confusion, No convulsions, Yes disequilibrium, No dizziness, Yes localized weakness, No frequent falls, No headache(s), No lack of coordination, Yes loss of vision, No memory loss, Yes numbness, No other visual disturbances, No radicular pain, Yes restless legs, No sensory deficit, No syncope, Yes tingling, No tremor(s), No weakness and No other Exam Const General: cooperative, healthy appearing, comfortable, no acute distress and well developed Nutritional Appearance: well nourished Orientation: alert, awake and oriented x3 HENMT Head: normocephalic and atraumatic Ears: hearing grossly normal bilaterally Nose: external nose normal Eyes General: appearance normal, both eyes and all related structures EOM: EOM intact bilaterally Neck Neck: normal visual inspection, full ROM, no lymphadenopathy and trachea midline Thyroid: thyroid normal Lymphatic: no lymphadenopathy noted Resp Effort & Inspection: normal respiratory effort, able to speak in complete sentences, symmetric chest movement, no audible wheezes, not labored, no stridor and no use of accessory muscles Auscultation: clear to auscultation bilaterally Cardio Rate: regular rate Rhythm: regular rhythm Heart Sounds: no murmurs Bruits: no carotid bruits Pulses: brachial pulses present, radial pulses present, popliteal pulses present, posterior tibial pulses present and dorsalis pedis present Skin General: no rashes or lesions noted and no erythema Wounds: no wounds Neuro Cranial Nerves: CN's II-XI intact bilaterally and EOM intact bilaterally Speech: speech normal Gait: gait assisted Motor: other (RUE/RLE weakness) Sensory Exam: no sensory deficits noted Psych Appearance: grossly normal and well kempt Mental Status: mental status grossly normal Mood: congruent mood Speech and Movement: speech and movement normal Thought Content: normal Judgment: judgment good Coding Level of Care Code Off vis,new,level 4 Diagnoses ESRD (end stage renal disease) on dialysis N18.6; Z99.2 Assessment and Plan Assessment and Plan (1) ESRD (end stage renal disease) on dialysis: Status: Chronic Plan: -mapping reveals adequate right lower arm cephalic, basilic adequate; left cephalic throughout and basilic adequate -she would prefer to use right arm since she now relies on left arm after stroke -risks/benefits/alternatives/indications discussed, agreeable to schedule
[2025-03-28] MEDS: Cefazolin 1 GM/5 ML Vial 2 GM IV (09:57)
[2025-03-28] MEDS: Lidocaine 1% (5 ml sdv) 5 ML Vial 4 ML IV (10:00)
[2025-03-28] MEDS: fentaNYL 100 MCG/2 ML Ampul 50 MCG IV (10:15)
[2025-03-28] MEDS: Lidocaine 1% (20 ml mdv) 20 ML Vial (10:25)
[2025-03-28] MEDS: Heparin Injection (Vial) 5,000 UNIT/ML VIAL 7000 UNIT IV (10:39)
--- NOTE | 2025-03-28 11:19 | DCINST_ITS ---
Discharge Instructions Diet Discharge Diet: No restrictions Activity Lifting Restrictions: do not lift > 20 lbs with right arm for 14 days Additional Activity Instructions:: do not submerge incision for 14 days Dressing / Incision Call your doctor if your incision/area has: Sudden Increased Bleeding, Increased Pain/ Swelling, Increased Redness and Foul Smelling Discharge Call your doctor if you observe: Coldness, Increased Pain and Numbness or Tingling Remove Dressing in: 2 days Cleanse incision/area with: Soap & Water Follow Up Care Test Results: Test results from this visit will be discussed in further detail at your follow- up appointment, if applicable. Discharge Plan Admission Attending Provider: Javid Luna Primary Care Provider: Brenna Aceves Instructions Print Language: Swazi Discharge Orders/Prescriptions Prescriptions: New oxycodone 5 mg tablet 5 mg PO Q8H PRN (Reason: pain) 1 Days Qty: 3 0RF Continued aspirin 81 mg tablet 81 mg PO QDAY diphenhydramine HCl [Benadryl Allergy] 25 mg tablet 25 mg PO BID PRN (Reason: allergic reaction) melatonin 3 mg capsule 3 mg PO HS PRN (Reason: sleep) multivitamin Tablet 1 tab PO QAM atorvastatin 40 mg tablet 40 mg PO QDAY Qty: 90 3RF metoprolol succinate 25 mg tablet extended release 24 hr 25 mg PO DAILY Qty: 90 3RF sevelamer carbonate 800 mg tablet 800 mg PO BID NewFlora 10 billion cell capsule 100 mmu cells PO DAILY Held Eliquis 5 mg tablet 5 mg PO BID Qty: 180 3RF Hold Instructions: Resume on 03/29/25. AM dose Referrals / Follow Up: Brenna Aceves MD [Primary Care Provider, Internal Medicine] Disposition Disposition (needs filled in before D/C Order can be placed): Home, Self Care
--- NOTE | 2025-03-28 12:37 | PCM.POST.ANE ---
Anesthesia: Postop Eval I Current Vital Signs Temperature: 97.1 F Pulse Rate: 66 Blood Pressure: 103/86 Respiratory Rate: 16 Pulse Ox: 96 Oxygen Delivery Method: Room Air Assessment Airway patent: Yes Spontaneous unlabored respirations: Yes Mental status: Awake nausea: No Vomiting: No Anesthesia Complication: No Fluid Hydration Crystalloid volume administer (ml): 300 Total IV fluid infused: 300 Progress Note Anesthesia document: Postop Eval 1 completed: Yes
--- NOTE | 2025-03-28 12:38 | PCM.POSTANE2 ---
Anesthesia Postop Eval I Sum Postop Eval Completion status Anesthesia document: Postop Eval 1 completed: Yes Anesthesia Postop Eval I Summary Anesthesia Postop Eval I Summary: Anesthesia Postop Eval I: Assessment Summary Airway patent Yes 03/28/25 12:38 Spontaneous unlabored Yes 03/28/25 12:38 respirations Mental status Awake 03/28/25 12:38 nausea No 03/28/25 12:38 Vomiting No 03/28/25 12:38 Anesthesia Postop Eval I: Fluid Summary Crystalloid volume administer 300 03/28/25 12:38 (ml) Colloids volume administered ( ml) Blood Product volume administered (ml) Total IV fluid infused 300 03/28/25 12:38 Anesthesia Postop Eval I: Summary Notes Anesthesia Complication No 03/28/25 12:38 Anesthesia Complication Comment: Post-operative progress note Anesthesia: Postop Eval II Evaluation Mental status: Awake Pain Level: 0 nausea: No Vomiting: No Complications Anesthesia Complication: No
--- NOTE | 2025-03-28 17:25 | PCM.OPRPT ---
Operative Report (Standard) Operative Information Date of Procedure: 03/28/25 Pre-Operative Diagnosis: End-stage renal disease currently on dialysis Post-Operative Diagnosis: Same Surgery/Procedure Performed: Right radiocephalic fistula creation at the wrist director equipment: Yes [employer] Attendant: Kan Lopez Tasks completed by certified surgical first assistant: Opening, Closing, Opening & closing, Hemostasis: Tie, Hemostasis: Electrocautery and Retracting Type of Anesthesia: Local MAC, Local and MAC RN Documented Start/Stop Times: Operation Date: 03/28/25 10:00 Case Time Into Pre-Op 03/28/25 08:17 Out of Pre-Op 03/28/25 09:49 Anesthesia Start 03/28/25 09:52 Into Room 03/28/25 09:52 Procedure Start 03/28/25 10:25 Procedure End 03/28/25 11:28 Anesthesia End 03/28/25 11:31 Out of Room 03/28/25 11:31 Into Recovery 03/28/25 11:35 Into Phase II Recovery 03/28/25 11:46 Out of Recovery 03/28/25 11:46 Out of Phase II 03/28/25 12:37 Procedure Start Time: 10:25 Procedure Stop Time: 11:30 Select all DRAINS/GRAFTS/IMPLANTS that apply: None Estimated Blood Loss: 2 Specimen collected: No Description of surgery: HPI: Patient is a 50-year-old female with end-stage renal disease currently on dialysis via a tunneled IJ catheter. She had vein mapping which revealed adequate forearm cephalic vein so she presents now for elective fistula creation. Description of procedure: Upon obtaining informed consent and verification correct patient procedure site the patient was taken to the operating room where she was positioned prepped and draped in usual sterile fashion. Timeout was performed and moderate sedation ministered by anesthesia. Ultrasound used to evaluate the cephalic vein from the wrist to the outflow via the basilic vein found to be patent and continuous and compressible throughout. Skin overlying the radial and cephalic vessels at the wrist was anesthetized with 1% lidocaine and a longitudinal incision made just proximal to the wrist. Bovie was used to dissect through the subcutaneous tissue laterally to the cephalic vein. Once the vein was visualized sharp section was used to dissect free proximal and distal with care taken to identify protect adjacent nerves. Once an adequate length was dissected free attention was turned to the radial artery with Bovie used to dissect medially until the vessel was visualized. Sharp dissection was then used to dissect free the radial artery from adjacent nerve and vein structures with care taken to identify protect the structures. A writing was used to place a vessel the proximal and distal and the patient was then heparinized allowed to circulate for 3 minutes. The cephalic vein was then ligated distally in the field and divided and then marked to maintain orientation. It was then dilated up to 3 mm and flushed with heparinized saline. The radial artery was then occluded with Vesseloops and longitudinal arteriotomy created with 11 blade extended the Toribio scissors. The vein was then beveled to match the arteriotomy and anastomosis performed with a 6-0 Prolene in a running fashion. Prior to completing a suture line the vessels were backbled after bleeding suture line clamps removed and satisfactory hemostasis was observed. The hand remained pink with normal capillary refill and there was brisk Doppler signal compatible with fistula flow pattern in the outflow vein. Given the size of the vessel there was no thrill palpable though this was in part to be expected. Heparin was then reversed with protamine and the incision inspected for hemostasis. It was then closed with 3-0 Vicryl, 4-0 Monocryl and Dermabond for the skin. At the conclusion of case patient was awakened from anesthesia taken the recovery room with anticipated discharge to home. Surgical Findings: See above Complications Complications: No
== END 2025-03-28 12:38 | disposition home or self-care (01) ==
LOC: SDC 08:09 → AC 08:10
PROVIDERS: PCP Student in an Organized Health Care Education/Training Program; Referring Provider Surgery Trauma Surgery; Visit Provider Surgery Trauma Surgery
PROC: (CPT 36818; principal; 2025-03-28 09:40)
DX: Z49.01 Encounter for fitting and adjustment of extracorporeal dialysis catheter (principal); I12.0 Hypertensive chronic kidney disease with stage 5 chronic kidney disease or end stage renal disease; N18.6 End stage renal disease; Q61.3 Polycystic kidney, unspecified; Z79.01 Long term (current) use of anticoagulants; E78.00 Pure hypercholesterolemia, unspecified; Z79.82 Long term (current) use of aspirin; Z79.899 Other long term (current) drug therapy
CPT/HCPCS: 36818; 01844; 36415; 80048; 81025; 85027; A4648; J2405

== ENCOUNTER → 2025-04-05 | Outpatient (CLI) | payer OTHER, SELFPAY ==
--- NOTE | 2025-04-05 08:06 | US_ITS ---
PROCEDURE: PELVIC W/ TRANSVAGINAL 04/05/2025 REASON FOR EXAM: OVARIAN CYST TECHNIQUE: Procedure Code: [id number] Modality: US Procedure: PELVIC W/ TRANSVAGINAL COMPARISON: Cyst FINDINGS: The uterus measures 6.2 x 9.2 x 5.3 cm. There is an anterior subserosal fibroid measuring 3.9 x 3.7 x 3.3 cm. The endometrium measures 0.4 cm. Nabothian cysts are visible. The right ovary is not visible. The left ovary measures 1.3 x 1.2 x 0.7 cm. Normal flow is documented in the left ovary. There is no adnexal mass or free fluid. US/Pelvic w/ Transvaginal IMPRESSION: There is an anterior subserosal fibroid measuring 3.9 x 3.7 x 3.3 cm. The endometrium measures 0.4 cm. Reading Location: [facility]
== END | disposition home or self-care (01) ==
LOC: US 08:00 → OPUS 08:01
PROVIDERS: PCP Student in an Organized Health Care Education/Training Program; Referring Provider Obstetrics & Gynecology; Visit Provider Obstetrics & Gynecology
DX: N83.209 Unspecified ovarian cyst, unspecified side (principal)
CPT/HCPCS: 76830; 76856